=== PATIENT | male | born 1970 | race Caucasian/White ===

== ENCOUNTER 2016-07-31 16:04 | Emergency (ER) | payer OTHER ==
[2016-07-31] MEDS ORDERED: ACETAMINOPHEN TAB 500 MG TAB PO STA (17:03)
--- NOTE | 2016-07-31 17:06 | ED ---
URI HPI - General Chief Complaint: Upper Respiratory Infection Stated Complaint: Cough/Fever Time Seen by Provider: 07/31/16 17:03 Source: patient, RN notes reviewed Mode of arrival: ambulatory Limitations: no limitations - History of Present Illness Initial Comments: Patient is a 46-year-old male with chief complaint of upper respiratory symptoms including sinus congestion and sore throat for approximately 2 days. Patient reports that he is not taking any [id number] decongestants, or Motrin or Tylenol. Patient denies any cough or shortness of breath. Denies any other associated symptoms. Patient denies any recent fever, chills, shortness of breath, chest pain, back pain, abdominal pain, nausea vomiting, numbness or tingling, dysuria or hematuria, constipation or diarrhea, headaches or visual changes, or any other current symptoms. - Related Data Home Medications Medication Instructions Recorded Confirmed Butalb/Acetaminophen/Caffeine 1 - 2 cap PO Q4HR 04/25/15 09/20/15 [Fioricet 50-300-40 mg Capsule] Citalopram Hydrobromide [CeleXA] 10 mg PO DAILY 04/25/15 09/20/15 traMADol HCl [Ultram] 50 mg PO Q6H PRN 04/25/15 09/20/15 Previous Rx's Medication Instructions Recorded Albuterol Inhaler [Ventolin 1 - 2 puff INHALATION Q6HR PRN #1 05/20/15 Inhaler] inhaler Famotidine [Pepcid] 20 mg PO BID #20 tablet 09/10/15 Ondansetron Odt [Zofran ODT] 4 mg PO Q8HR PRN #15 tab 09/10/15 valACYclovir HCL [Valtrex] 1,000 mg PO Q8HR #30 tab 09/15/15 valACYclovir HCL [Valtrex] 1,000 mg PO TID #9 tablet 09/20/15 Acetaminophen Tab [Tylenol Tab] 650 mg PO Q6H #20 tablet 07/31/16 Azithromycin [Zithromax Z-pack] 250 mg PO DIRECTED #6 tab 07/31/16 guaiFENesin-DM 600/30MG [Mucinex 1 each PO BID #20 tab.er.12h 07/31/16 Dm] Allergies Allergy/AdvReac Type Severity Reaction Status Date / Time Penicillins Allergy Anaphylaxis Verified 09/20/15 17:26 Review of Systems ROS Statement: Those systems with pertinent positive or pertinent negative responses have been documented in the HPI. ROS Other: All systems not noted in ROS Statement are negative. Past Medical History Additional Past Medical History / Comment(s): back pain, migraines History of Any Multi-Drug Resistant Organisms: None Reported Past Surgical History: Orthopedic Surgery Past Psychological History: Depression Smoking Status: Current every day smoker Past Alcohol Use History: Rare Past Drug Use History: None Reported General Exam - General Exam Comments Initial Comments: Well appearing 46 year old male. No acute distress. Limitations: no limitations General appearance: alert, in no apparent distress Head exam: Present: atraumatic, normocephalic, normal inspection Eye exam: Present: normal appearance, PERRL, EOMI. Absent: scleral icterus, conjunctival injection, periorbital swelling ENT exam: Present: normal exam, mucous membranes moist, TM's normal bilaterally , normal external ear exam Neck exam: Present: normal inspection, full ROM. Absent: tenderness, meningismus, lymphadenopathy Respiratory exam: Present: normal lung sounds bilaterally. Absent: respiratory distress, wheezes, rales, rhonchi, stridor Cardiovascular Exam: Present: regular rate, normal rhythm, normal heart sounds. Absent: systolic murmur, diastolic murmur, rubs, gallop, clicks GI/Abdominal exam: Present: soft, normal bowel sounds. Absent: distended, tenderness, guarding, rebound, rigid Extremities exam: Present: normal inspection, full ROM, normal capillary refill. Absent: tenderness, pedal edema, joint swelling, calf tenderness Back exam: Present: normal inspection Neurological exam: Present: alert, oriented X3, CN II-XII intact Psychiatric exam: Present: normal affect, normal mood Skin exam: Present: warm, dry, intact, normal color. Absent: rash Course Vital Signs 07/31/16 07/31/16 16:42 17:18 Temperature 99.7 F H 97.6 F Pulse Rate 92 60 Respiratory 16 18 Rate Blood Pressure 132/84 139/90 O2 Sat by Pulse 98 100 Oximetry Medical Decision Making - Medical Decision Making Patient is a well-appearing 46-year-old male with chief complaint of sinus congestion for approximately 2 days. Patient hasn't had any Motrin Tylenol or other decongestant medications. Patient will be given a prescription for Mucinex, Motrin and instructed to start antibiotic, as I will write patient for azithromycin if symptoms continue persist after 3-4 days. Patient understands. I did advise patient to follow-up with primary care provider. Patient has no erythema or exudates of the oropharynx tonsils. Patient has no coughs is unnecessary to do any other imaging studies at this time. Return parameters were discussed. Disposition Clinical Impression: Upper respiratory infection Disposition: HOME SELF-CARE Condition: Good Instructions: Upper Respiratory Infection (ED) Additional Instructions: Patient advised to take Motrin and decongestant medications as prescribed. Patient advised to only start antibiotic if symptoms continue to persist after 2 -3 more days. Return to the [facility] if any alarming signs or symptoms occur. Follow -up with a primary care physician within the next week. Prescriptions: Acetaminophen Tab [Tylenol Tab] 650 mg PO Q6H #20 tablet Azithromycin [Zithromax Z-pack] 250 mg PO DIRECTED #6 tab guaiFENesin-DM 600/30MG [Mucinex Dm] 1 each PO BID #20 tab.er.12h Referrals: Tyrel Spencer MD [Primary Care Provider] - 1-2 days Time of Disposition: 17:05
[2016-07-31] MEDS ORDERED: guaiFENesin-DM 600/30MG 1 EACH TAB.ER.12H PO STA (17:13)
[2016-07-31 17:19] VITALS: BP 139/90; PULSE 60; RESP 18; TEMP 97.6
[2016-08-01] MEDS ORDERED: guaiFENesin-DM 600/30MG 1 EACH TAB.ER.12H PO SCH (09:00)
== END 2016-07-31 17:30 | disposition home or self-care (01) ==
LOC: EC 16:04
DX: J06.9 Acute upper respiratory infection, unspecified (principal); F32.9 Major depressive disorder, single episode, unspecified; F17.200 Nicotine dependence, unspecified, uncomplicated; Z79.899 Other long term (current) drug therapy; Z88.0 Allergy status to penicillin
CPT/HCPCS: 99283

== ENCOUNTER 2016-10-08 20:52 | Emergency (ER) | payer OTHER ==
[2016-10-08 21:13] VITALS: RESP 18
[2016-10-08] MEDS ORDERED: ONDANSETRON 4 MG/2 ML VIAL IVP STA (21:27)
[2016-10-08] MEDS ORDERED: SODIUM CHLORIDE 0.9% 1,000 ML IV ONE (21:27)
[2016-10-08] MEDS ORDERED: ACETAMINOPHEN TAB 500 MG TAB PO STA (21:33)
--- NOTE | 2016-10-08 21:33 | ED ---
Abdominal Pain HPI - General Chief Complaint: Abdominal Pain Stated Complaint: Abd pain,vomiting Time Seen by Provider: 10/08/16 21:16 Source: patient, RN notes reviewed Mode of arrival: ambulatory Limitations: no limitations - History of Present Illness Initial Comments: Patient is a 46-year-old male presents to the emergency room for evaluation nausea, vomiting and diarrhea. Patient states last night he began with nausea and vomiting. Patient states he's vomited 5+ times throughout the day along with multiple episodes of diarrhea. Patient states he is having lower abdominal cramping. Patient denies any history of abdominal surgeries. Patient denies recent travel outside the country. Patient denies trying new foods. Patient denies sick contacts. Patient denies taking recent antibiotics. Patient denies chest pain, shortness breath, headache, dizziness. Patient denies any pain or burning while urinating. Patient denies known fevers or chills. - Related Data Home Medications Medication Instructions Recorded Confirmed Butalb/Acetaminophen/Caffeine 1 - 2 cap PO Q4HR 04/25/15 10/08/16 [Fioricet 50-300-40 mg Capsule] Diphenoxylate HCl/Atropine 1 tab PO DAILY 10/08/16 10/08/16 [Lomotil] Omeprazole [PriLOSEC] 20 mg PO DAILY 10/08/16 10/08/16 Oxybutynin Chloride [Ditropan] 5 mg PO TID 10/08/16 10/08/16 traMADol HCL [Ultram] 50 mg PO Q6HR PRN 10/08/16 10/08/16 Previous Rx's Medication Instructions Recorded Ondansetron Odt [Zofran Odt] 4 mg PO Q8HR PRN #12 tab 10/08/16 Allergies Allergy/AdvReac Type Severity Reaction Status Date / Time Penicillins Allergy Anaphylaxis Verified 10/08/16 21:23 Review of Systems ROS Statement: Those systems with pertinent positive or pertinent negative responses have been documented in the HPI. ROS Other: All systems not noted in ROS Statement are negative. Past Medical History Additional Past Medical History / Comment(s): back pain, migraines History of Any Multi-Drug Resistant Organisms: None Reported Past Surgical History: Orthopedic Surgery Past Psychological History: Depression Smoking Status: Current every day smoker Past Alcohol Use History: Rare Past Drug Use History: None Reported General Exam - General Exam Comments Initial Comments: Sitting in exam room, no distress. Limitations: no limitations General appearance: alert, in no apparent distress Head exam: Present: atraumatic, normocephalic, normal inspection Eye exam: Present: normal appearance ENT exam: Present: normal exam Neck exam: Present: normal inspection Respiratory exam: Present: normal lung sounds bilaterally. Absent: respiratory distress Cardiovascular Exam: Present: regular rate, normal rhythm, normal heart sounds GI/Abdominal exam: Present: soft, normal bowel sounds. Absent: distended, tenderness, guarding, rebound, rigid Extremities exam: Present: normal inspection Back exam: Present: normal inspection Neurological exam: Present: alert, oriented X3, CN II-XII intact, normal gait Psychiatric exam: Present: normal affect, normal mood Skin exam: Present: warm, dry, intact, normal color. Absent: rash Course Vital Signs 10/08/16 21:09 Temperature 100.4 F H Pulse Rate 85 Respiratory 18 Rate Blood Pressure 130/79 O2 Sat by Pulse 98 Oximetry Medical Decision Making - Medical Decision Making Patient's 46-year-old male presents to the emergency room for evaluation of nausea, vomiting and diarrhea. Labs showed no acute findings. Patient states he feeling better after Zofran and fluids. Will discharge patient home with Zofran advised to return for worsening symptoms. Patient states he understands everything that was discussed with him. Case discussed with Dr. Pérez. - Lab Data Result diagrams: 10/08/16 21:57 10/08/16 21:57 Lab Results 10/08/16 10/08/16 10/08/16 Range/Units 21:42 21:57 21:57 WBC 9.4 (3.8-10.6) k/uL RBC 4.99 (4.30-5.90) m/uL Hgb 15.5 (13.0-17.5) gm/dL Hct 45.5 (39.0-53.0) % MCV 91.1 (80.0-100.0) fL MCH 31.1 (25.0-35.0) pg MCHC 34.1 (31.0-37.0) g/dL RDW 13.6 (11.5-15.5) % Plt Count 288 (150-450) k/uL Neutrophils % 76 % Lymphocytes % 12 % Monocytes % 8 % Eosinophils % 2 % Basophils % 1 % Neutrophils # 7.1 (1.3-7.7) k/uL Lymphocytes # 1.1 (1.0-4.8) k/uL Monocytes # 0.7 (0-1.0) k/uL Eosinophils # 0.1 (0-0.7) k/uL Basophils # 0.1 (0-0.2) k/uL Sodium 137 (137-145) mmol/L Potassium 4.0 (3.5-5.1) mmol/L Chloride 104 (98-107) mmol/L Carbon Dioxide 22 (22-30) mmol/L Anion Gap 11 mmol/L BUN 17 (9-20) mg/dL Creatinine 0.79 (0.66-1.25) mg/dL Est GFR (MDRD) Af Amer >60 (>60 ml/min/1.73 sqM) Est GFR (MDRD) Non-Af >60 (>60 ml/min/1.73 sqM) Glucose 108 H (74-99) mg/dL Plasma Lactic Acid Alexys (0.7-2.0) mmol/L Calcium 9.4 (8.4-10.2) mg/dL Total Bilirubin 1.1 (0.2-1.3) mg/dL AST 17 (17-59) U/L ALT 26 (21-72) U/L Alkaline Phosphatase 87 (38-126) U/L Total Protein 7.4 (6.3-8.2) g/dL Albumin 4.2 (3.5-5.0) g/dL Amylase 92 (30-110) U/L Lipase 44 (23-300) U/L Influenza Type A RNA Not Detected (Not Detectd) Influenza Type B (PCR) Not Detected (Not Detectd) 10/08/16 Range/Units 21:57 WBC (3.8-10.6) k/uL RBC (4.30-5.90) m/uL Hgb (13.0-17.5) gm/dL Hct (39.0-53.0) % MCV (80.0-100.0) fL MCH (25.0-35.0) pg MCHC (31.0-37.0) g/dL RDW (11.5-15.5) % Plt Count (150-450) k/uL Neutrophils % % Lymphocytes % % Monocytes % % Eosinophils % % Basophils % % Neutrophils # (1.3-7.7) k/uL Lymphocytes # (1.0-4.8) k/uL Monocytes # (0-1.0) k/uL Eosinophils # (0-0.7) k/uL Basophils # (0-0.2) k/uL Sodium (137-145) mmol/L Potassium (3.5-5.1) mmol/L Chloride (98-107) mmol/L Carbon Dioxide (22-30) mmol/L Anion Gap mmol/L BUN (9-20) mg/dL Creatinine (0.66-1.25) mg/dL Est GFR (MDRD) Af Amer (>60 ml/min/1.73 sqM) Est GFR (MDRD) Non-Af (>60 ml/min/1.73 sqM) Glucose (74-99) mg/dL Plasma Lactic Acid Alexys 1.4 (0.7-2.0) mmol/L Calcium (8.4-10.2) mg/dL Total Bilirubin (0.2-1.3) mg/dL AST (17-59) U/L ALT (21-72) U/L Alkaline Phosphatase (38-126) U/L Total Protein (6.3-8.2) g/dL Albumin (3.5-5.0) g/dL Amylase (30-110) U/L Lipase (23-300) U/L Influenza Type A RNA (Not Detectd) Influenza Type B (PCR) (Not Detectd) - Radiology Data Radiology results: report reviewed, image reviewed Disposition Clinical Impression: Nausea vomiting and diarrhea Disposition: HOME SELF-CARE Condition: Good Instructions: Gastroenteritis (ED) Additional Instructions: Take Zofran as needed for nausea. Drink plenty of water. Tylenol or Motrin as needed for fever/discomfort. Please follow up with primary care provider in 1-2 days. If any new symptom arises or symptoms worsen, return to ER as soon as possible. Prescriptions: Ondansetron Odt [Zofran Odt] 4 mg PO Q8HR PRN #12 tab PRN Reason: Nausea Referrals: Tyrel Spencer MD [Primary Care Provider] - 1-2 days Time of Disposition: 22:52
--- NOTE | 2016-10-08 22:11 | XR ---
EXAMINATION TYPE: XR KUB DATE OF EXAM: 10/08/2016 9:50 PM CLINICAL HISTORY: Lower abdominal pain with nausea vomiting and diarrhea for 2 days. TECHNIQUE: 2 upright KUB images of the abdomen are obtained. COMPARISON: CT abdomen September 10, 2015. FINDINGS: Air-fluid level is seen in slightly prominent stomach. Scattered gas is seen in non-disten ded small bowel loops. Some small bowel loops are slightly prominent. Gas is seen in non-distended co john. Some scattered air-fluid levels are present, nonspecific finding. There is no visceromegaly, pn eumoperitoneum, or abnormal calcification appreciated. The lung bases are clear and the osseous str uctures are intact. IMPRESSION: Overall nonspecific but favor nonobstructive bowel gas pattern.
[2016-10-08 22:24] LABS: Basophils # (A) 0.1 k/uL (0-0.2); Basophils % (A) 1 %; CHCM 35.3; Eosinophils # (A) 0.1 k/uL (0-0.7); Eosinophils % (A) 2 %; HCT 45.5 % (39.0-53.0); HDW 2.93; HGB 15.5 gm/dL (13.0-17.5); Luc # (Auto) 0.24; Luc % (Auto) 3; Lymphocytes # (A) 1.1 k/uL (1.0-4.8); Lymphocytes % (A) 12 %; MCH 31.1 pg (25.0-35.0); MCHC 34.1 g/dL (31.0-37.0); MCV 91.1 fL (80.0-100.0); Mean Platelet Volume 7.3; Monocytes # (A) 0.7 k/uL (0-1.0); Monocytes % (A) 8 %; Neutrophils # (A) 7.1 k/uL (1.3-7.7); Neutrophils % (A) 76 %; RBC 4.99 m/uL (4.30-5.90); RDW 13.6 % (11.5-15.5); WBC 9.4 k/uL (3.8-10.6); WBC (Perox) 9.15
[2016-10-08 22:25] LABS: ALT 26 U/L (21-72); AST 17 U/L (17-59); Alkaline Phosphatase 87 U/L (38-126); Amylase 92 U/L (30-110); Anion Gap 11 mmol/L; Blood Urea Nitrogen 17 mg/dL (9-20); Calcium 9.4 mg/dL (8.4-10.2); Carbon Dioxide 22 mmol/L (22-30); Chloride 104 mmol/L (98-107); Glucose 108 mg/dL (74-99); Non-African American GFR(MDRD) >60 (>60 ml/min/1.73 sqM); Sodium 137 mmol/L (137-145); Total Bilirubin 1.1 mg/dL (0.2-1.3); Total Protein 7.4 g/dL (6.3-8.2)
[2016-10-08 23:12] VITALS: BP 134/76; PULSE 78; TEMP 98.3
== END 2016-10-08 23:12 | disposition home or self-care (01) ==
LOC: EC 20:52
DX: R11.2 Nausea with vomiting, unspecified (principal); R19.7 Diarrhea, unspecified; R10.30 Lower abdominal pain, unspecified; F32.9 Major depressive disorder, single episode, unspecified; F17.200 Nicotine dependence, unspecified, uncomplicated; Z79.899 Other long term (current) drug therapy; Z88.0 Allergy status to penicillin
CPT/HCPCS: 36415; 80053; 82150; 83605; 83690; 85025; 87040; 87502; 74000; 99284; 96374; 96361; J2405

== ENCOUNTER 2017-08-16 11:33 | Emergency (ER) | payer OTHER ==
--- NOTE | 2017-08-16 12:47 | ED ---
General Adult HPI - General Chief complaint: Extremity Injury, Lower Stated complaint: hip pain Time Seen by Provider: 08/16/17 12:29 Source: patient, RN notes reviewed Mode of arrival: ambulatory Limitations: no limitations - History of Present Illness Initial comments: Patient's a 47-year-old male who presents emergency room today with a chief complaint of bilateral hip pain and a "strong odor" to his urine over the last several months. He states she's noticed this for the past few months but decided today to come to the emergency room to have it checked. States she's not on the family doctor. She knows of the hip pain is worse with movements. Gives example from a lying to sitting position has pain bilaterally in the posterior aspect of his hips. Denies any injury or trauma. Patient denies any dysuria but says she's noticed strong urine over the last several months. He denies any other complaints or symptoms. Patient denies any recent fever, chills , shortness of breath, chest pain, back pain, abdominal pain, nausea or vomiting , numbness or tingling, diarrhea, headaches or visual changes, or any other complaints. - Related Data Home Medications Medication Instructions Recorded Confirmed Butalb/Acetaminophen/Caffeine 1 - 2 cap PO Q4HR 04/25/15 10/08/16 [Fioricet 50-300-40 mg Capsule] Diphenoxylate HCl/Atropine 1 tab PO DAILY 10/08/16 10/08/16 [Lomotil] Omeprazole [PriLOSEC] 20 mg PO DAILY 10/08/16 10/08/16 Oxybutynin Chloride [Ditropan] 5 mg PO TID 10/08/16 10/08/16 traMADol HCL [Ultram] 50 mg PO Q6HR PRN 10/08/16 10/08/16 Previous Rx's Medication Instructions Recorded Ondansetron Odt [Zofran Odt] 4 mg PO Q8HR PRN #12 tab 10/08/16 Ibuprofen [Motrin] 600 mg PO Q6HR PRN #40 day 08/16/17 Allergies Allergy/AdvReac Type Severity Reaction Status Date / Time Penicillins Allergy Anaphylaxis Verified 08/16/17 11:40 Review of Systems ROS Statement: Those systems with pertinent positive or pertinent negative responses have been documented in the HPI. ROS Other: All systems not noted in ROS Statement are negative. Past Medical History Additional Past Medical History / Comment(s): back pain, migraines History of Any Multi-Drug Resistant Organisms: None Reported Past Surgical History: Orthopedic Surgery Past Psychological History: Depression Smoking Status: Former smoker Past Alcohol Use History: Rare Past Drug Use History: None Reported General Exam - General Exam Comments Initial Comments: General: The patient is awake and alert, in no distress, and does not appear acutely ill. Eye: Pupils are equal, round and reactive to light, extra-ocular movements are intact. No nystagmus. There is normal conjunctiva bilaterally. No signs of icterus. Ears, nose, mouth and throat: There are moist mucous membranes and no oral lesions. Neck: The neck is supple, there is no tenderness or JVD. Cardiovascular: There is a regular rate and rhythm. No murmur, rub or gallop is appreciated. Respiratory: Lungs are clear to auscultation, respirations are non-labored, breath sounds are equal. No wheezes, stridor, rales, or rhonchi. Gastrointestinal: Soft, non-distended, non-tender abdomen without masses or organomegaly noted. There is no rebound or guarding present. No CVA tenderness. Musculoskeletal: Normal ROM. Patient tender palpation over the bilateral SI joints. Strength 5/5. Sensation intact. Pulses equal bilaterally 2+. Neurological: A&O x 3. CN II-XII intact, There are no obvious motor or sensory deficits. Coordination appears grossly intact. Speech is normal. Skin: Skin is warm and dry and no rashes or lesions are noted. Psychiatric: Cooperative, appropriate mood & affect, normal judgment. Limitations: no limitations Course Vital Signs 08/16/17 11:37 Temperature 98.1 F Pulse Rate 68 Respiratory 18 Rate Blood Pressure 135/76 O2 Sat by Pulse 99 Oximetry Medical Decision Making - Medical Decision Making Patient reexamined at this time shows no signs of distress. He does admit that he's had these symptoms over the last several months. His urinalysis shows no sign of infection but culture is pending. He denies any dysuria but admits to a stronger order. Patient's x-rays have been reviewed and does show some degenerative changes of L4-L5, L5-S1. Patient's pain is reproduced with certain movements and on palpation. There is no injury or trauma to he denies any lumbar radiculopathy, saddle anesthesia, bowel or bladder incontinence retention. Patient is advised to use anti-inflammatories for symptoms will be given a orthopedic doctor to follow up with and also advised follow-up his family doctor. He is advised return if any symptoms increase or worsen or for any other concerns. Patient states understanding and is in agreement. - Lab Data Lab Results 08/16/17 Range/Units 13:00 Urine Color Yellow Urine Appearance Clear (Clear) Urine pH 5.5 (5.0-8.0) Ur Specific [place] 1.022 (1.001-1.035) Urine Protein Trace H (Negative) Urine Glucose (UA) Negative (Negative) Urine Ketones Negative (Negative) Urine Blood Negative (Negative) Urine Nitrite Negative (Negative) Urine Bilirubin Negative (Negative) Urine Urobilinogen <2.0 (<2.0) mg/dL Ur Leukocyte Esterase Trace H (Negative) Urine RBC 2 (0-5) /hpf Urine WBC 5 (0-5) /hpf Ur Squamous Epith Cells <1 (0-4) /hpf Calcium Oxalate Crystal Rare H (None) /hpf Urine Mucus Few H (None) /hpf Disposition Clinical Impression: Low back pain Disposition: HOME SELF-CARE Condition: Good Instructions: Back Pain (ED) Additional Instructions: Please use medication as prescribed. Please follow-up the family doctor and orthopedics over the next 2-5 days. Please return here to the emergency room if any symptoms increase or worsen or for any other concerns. Prescriptions: Ibuprofen [Motrin] 600 mg PO Q6HR PRN #40 day PRN Reason: Pain Referrals: Tyrel Spencer MD [Primary Care Provider] - 1-2 days Jn Restrepo MD [STAFF PHYSICIAN] - 1-2 days Time of Disposition: 13:26
--- NOTE | 2017-08-16 13:03 | XR ---
EXAM TYPE: LUMBAR SPINE X RAY SERIES COMPARISON: NONE HISTORY: Pain TECHNIQUE: 4 views are submitted. FINDINGS: Alignment is anatomic. The pedicles are intact. The transverse processes are intact. There is no s pondylolysis or spondylolisthesis. Hypertrophic changes are noted anteriorly. Degenerative disc dise ase L4-5 and L5-S1. IMPRESSION: 1. Hypertrophic and degenerative change L4-5 and L5-S1 correlate with MRI as clinically warranted.
--- NOTE | 2017-08-16 13:04 | XR ---
EXAMINATION TYPE: XR pelvis AP view DATE OF EXAM: 08/16/2017 COMPARISON: NONE HISTORY: Pain The osseous structures are intact and the joint spaces are preserved. No acute fracture is seen. Vi sualized bowel gas pattern is nonspecific. Calcifications in the pelvis could be related the prostat e. Left hemipelvic calcification likely is vascular. IMPRESSION: 1. No acute fracture.
[2017-08-16 13:15] LABS: Appearance,Urine Clear (Clear); Bilirubin,Urine Negative (Negative); Blood,Urine Negative (Negative); Calcium Oxalate Crystals,Urine Rare /hpf; Color,Urine Yellow; Glucose,Urine (UA) Negative (Negative); Ketones,Urine Negative (Negative); Leukocyte Esterase,Urine Trace (Negative); Mucus,Urine Few /hpf; PH, Urine 5.5 (5.0-8.0); Protein,Urine Trace (Negative); RBC,Urine 2 /hpf (0-5); Specific Gravity,Urine 1.022 (1.001-1.035); Squamous Epithelial Cell,Urine <1 /hpf (0-4); Urobilinogen,Urine <2.0 mg/dL (<2.0); WBC,Urine 5 /hpf (0-5)
[2017-08-16 13:40] VITALS: BP 142/80; PULSE 72; RESP 16; TEMP 97.8
== END 2017-08-16 13:35 | disposition home or self-care (01) ==
LOC: EC 11:33
DX: M54.5 Low back pain (principal); M47.817 Spondylosis without myelopathy or radiculopathy, lumbosacral region; M25.551 Pain in right hip; M25.552 Pain in left hip; R82.99 Other abnormal findings in urine; Z87.891 Personal history of nicotine dependence; Z88.0 Allergy status to penicillin; Z79.899 Other long term (current) drug therapy
CPT/HCPCS: 72110; 72170; 81001; 87086; 99283

== ENCOUNTER → 2017-09-05 | Outpatient (CLI) | payer OTHER ==
--- NOTE | 2017-09-05 13:17 | MR ---
EXAMINATION TYPE: MR lumbar spine wo con DATE OF EXAM: 09/05/2017 1:08 PM COMPARISON: NONE HISTORY: Intervertebral disc degeneration, lumbar Multiplanar, MultiSpin echo imaging of the lumbar spine was performed. L1-L2: Normal disc appearance without desiccation. No herniation, protrusion or disc bulging. No ca nal stenosis is present. Foramina are patent bilaterally. L2-L3: Normal disc appearance without desiccation. No herniation, protrusion or disc bulging. No ca nal stenosis is present. Foramina are patent bilaterally. L3-L4: There is mild disc desiccation. Mild posterior disc bulge with minimal effacement ventral thec al sac. No evidence for disc herniation protrusion. No central stenosis or foraminal encroachment. L4-L5: There is mild disc desiccation. Mild posterior disc bulge with minimal effacement ventral thec al sac. No evidence for disc herniation protrusion. No central stenosis or foraminal encroachment. L5-S1: Normal disc appearance without desiccation. No herniation, protrusion or disc bulging. No ca nal stenosis is present. Foramina are patent bilaterally. Lumbar segments are intact. No paraspinal masses are identified. Conus medullaris has a normal appe arance. IMPRESSION: 1. Degenerative disc disease and disc bulging as noted above.
== END ==
LOC: RADMRIMAIN 12:29
PROVIDERS: ATTEND Physician Assistant
DX: M51.36 Other intervertebral disc degeneration, lumbar region (principal)
CPT/HCPCS: 72148

== ENCOUNTER → 2017-12-26 | Outpatient (CLI) | payer OTHER ==
--- NOTE | 2017-12-27 03:43 | MR ---
EXAMINATION TYPE: MR brain wo con DATE OF EXAM: 12/26/2017 COMPARISON: 12/25/2011 HISTORY: Headaches Standard multiplanar, multisequence MRI departmental protocol Multiplanar, multisequence images of the brain were acquired. Diffusion weighted imaging was performe d. FINDINGS: Ventricles of normal size. There is no mass effect nor midline shift. There is no sign of i ntracranial hemorrhage. There is 4 mm focus of increased signal at the subcortical right posterior fr ontal lobe. Brainstem appears normal. Corpus callosum is normal. Sella turcica appears normal. Orbits are symmetric. IMPRESSION: Single small focus of increased signal in the right posterior frontal lobe white matter is new compar ed to old exam. This could be a focus of microvascular ischemia. Otherwise negative exam.
== END | disposition home or self-care (01) ==
LOC: RADMRIMAIN 15:20
PROVIDERS: ATTEND Psychiatry & Neurology Pain Medicine
DX: R93.8 Abnormal findings on diagnostic imaging of other specified body structures (principal)
CPT/HCPCS: 70551

== ENCOUNTER 2018-07-09 00:02 | Emergency (ER) | payer OTHER ==
[2018-07-09 00:14] VITALS: BP 150/103; PULSE 94; RESP 18; TEMP 99
--- NOTE | 2018-07-09 00:31 | ED ---
General Adult HPI - General Chief complaint: Skin/Abscess/Foreign Body Stated complaint: Abscess on finger Time Seen by Provider: 07/09/18 00:31 Source: patient Mode of arrival: ambulatory Limitations: no limitations - Related Data Home Medications Medication Instructions Recorded Confirmed Butalb/Acetaminophen/Caffeine 1 - 2 cap PO Q4HR 04/25/15 10/08/16 [Fioricet 50-300-40 mg Capsule] Diphenoxylate HCl/Atropine 1 tab PO DAILY 10/08/16 10/08/16 [Lomotil] Omeprazole [PriLOSEC] 20 mg PO DAILY 10/08/16 10/08/16 Oxybutynin Chloride [Ditropan] 5 mg PO TID 10/08/16 10/08/16 traMADol HCL [Ultram] 50 mg PO Q6HR PRN 10/08/16 10/08/16 Previous Rx's Medication Instructions Recorded Ondansetron Odt [Zofran Odt] 4 mg PO Q8HR PRN #12 tab 10/08/16 Ibuprofen [Motrin] 600 mg PO Q6HR PRN #40 day 08/16/17 Allergies Allergy/AdvReac Type Severity Reaction Status Date / Time Penicillins Allergy Anaphylaxis Verified 07/09/18 00:14 Review of Systems ROS Statement: Those systems with pertinent positive or pertinent negative responses have been documented in the HPI. ROS Other: All systems not noted in ROS Statement are negative. Past Medical History Additional Past Medical History / Comment(s): back pain, migraines, History of Any Multi-Drug Resistant Organisms: None Reported Past Surgical History: Orthopedic Surgery Past Psychological History: Depression Smoking Status: Former smoker Past Alcohol Use History: Rare Past Drug Use History: None Reported General Exam Limitations: no limitations Course Vital Signs 07/09/18 00:09 Temperature 99.0 F Pulse Rate 94 Respiratory 18 Rate Blood Pressure 150/103 O2 Sat by Pulse 97 Oximetry Medical Decision Making - Medical Decision Making Dictation was produced using [employer] dictation software. please excuse any grammatical, word or spelling errors. Chief Complaint: 48-year-old male presents with nontender bump on his right middle finger History of Present Illness: he is a 40-year-old male. He has had a bump on his right middle finger for several weeks now. He decided come today because the bump became dark. Reports that her. Patient has no other such lesions or his body. Patient has no other complaints at this time. The ROS documented in this emergency department record has been reviewed and confirmed by me. Those systems with pertinent positive or negative responses have been documented in the HPI. All other systems are other negative and/or noncontributory. PHYSICAL EXAM: General Impression: Alert and oriented x3, not in acute distress HEENT: Normocephalic atraumatic, extra-ocular movements intact, pupils equal and reactive to light bilaterally, mucous membranes moist. Cardiovascular: Heart regular rate and rhythm, S1&S2 audible, no murmurs, rubs or gallops Chest: Lungs clear to auscultation bilaterally, no rhonchi, no wheeze, no rales Abdomen: Bowel sounds present, abdomen soft, non-tender, non-distended, no organomegaly Musculoskeletal: Pulses present and equal in all extremities, no peripheral edema Motor: Power 5/5 bilaterally, no focal deficits noted Neurological: CN II-XII grossly intact, no focal motor or sensory deficits noted Skin: Intact with no visualized rashes, small 0.5 x 0.5 cm mass over the right medial middle finger. Mobile, no rub or texture Psych: Normal affect and mood ED course: 48-year-old male presents with right failure. Signs upon arrival are within acceptable limits. X-ray shows no acute processes. Patient given outpatient referral to hand surgery. Disposition Clinical Impression: Mass of finger Disposition: HOME SELF-CARE Condition: Good Is patient prescribed a controlled substance at d/c from ED?: No Referrals: None,Stated [Primary Care Provider] - 1-2 days Collins Jack DO [Doctor of Osteopathic Medicine] - 1-2 days Time of Disposition: 01:10
--- NOTE | 2018-07-09 01:00 | XR ---
EXAMINATION TYPE: XR finger RT DATE OF EXAM: 07/09/2018 COMPARISON: NONE HISTORY: Bump on the middle finger TECHNIQUE: 3 views FINDINGS: There is minor spurring at the DIP joint. There is slight narrowing of the DIP joint space. I see no sign of radiopaque foreign body. IMPRESSION: Minimal osteoarthritis. No evidence of a soft tissue mass.
== END 2018-07-09 01:14 | disposition home or self-care (01) ==
LOC: EC 00:02
DX: R22.31 Localized swelling, mass and lump, right upper limb (principal); F32.9 Major depressive disorder, single episode, unspecified; Z87.891 Personal history of nicotine dependence; Z79.899 Other long term (current) drug therapy; Z88.0 Allergy status to penicillin
CPT/HCPCS: 99283

== ENCOUNTER 2019-04-13 17:45 | Emergency (ER) | payer OTHER ==
--- NOTE | 2019-04-13 18:17 | ED ---
General Adult HPI - General Chief complaint: Urogenital Stated complaint: Urinating Time Seen by Provider: 04/13/19 18:01 Source: patient, RN notes reviewed Mode of arrival: ambulatory Limitations: no limitations - History of Present Illness Initial comments: 49-year-old male presents to the emergency department for a chief complaint of urinary frequency. Patient states that he has had urinary frequency since he was a child. States that he has been told that since he has a child he has overactive bladder. States that he has had right side pain for over a year. States this has not changed in the past year. Patient states that for the past several months he has had a foul-smelling odor in his urine. When asked today what made him come to the emergency department he states that his fiance was going to leave him if he did not show incentive for caring for himself so he decided to come in and be evaluated. Patient denies any pain with urination. Denies any fevers or chills.Patient has no other complaints at this time including shortness of breath, chest pain, abdominal pain, nausea or vomiting, headache, or visual changes. - Related Data Home Medications Medication Instructions Recorded Confirmed Fen U Syri[place] 1 tab PO BID 04/13/19 04/13/19 Ginseng 100 mg PO BID 04/13/19 04/13/19 Green Tea [place] Extract [Green Tea 150 mg PO BID 04/13/19 04/13/19 Extract] Horny Goat [place] 1 tab PO BID 04/13/19 04/13/19 Vitamin E 100 unit PO BID 04/13/19 04/13/19 Previous Rx's Medication Instructions Recorded Oxybutynin Chloride [Ditropan] 5 mg PO BID #14 tab 04/13/19 Allergies Allergy/AdvReac Type Severity Reaction Status Date / Time Penicillins Allergy Anaphylaxis Verified 04/13/19 18:19 Review of Systems ROS Statement: Those systems with pertinent positive or pertinent negative responses have been documented in the HPI. ROS Other: All systems not noted in ROS Statement are negative. Past Medical History Additional Past Medical History / Comment(s): back pain, migraines, History of Any Multi-Drug Resistant Organisms: None Reported Past Surgical History: No Surgical Hx Reported Past Psychological History: Depression Smoking Status: Current some day smoker Past Alcohol Use History: Rare Past Drug Use History: None Reported General Exam Limitations: no limitations General appearance: alert, in no apparent distress Head exam: Present: atraumatic, normocephalic, normal inspection Eye exam: Present: normal appearance, PERRL, EOMI. Absent: scleral icterus, conjunctival injection, periorbital swelling ENT exam: Present: normal exam, mucous membranes moist Neck exam: Present: normal inspection, full ROM. Absent: tenderness, meningismus, lymphadenopathy Respiratory exam: Present: normal lung sounds bilaterally. Absent: respiratory distress, wheezes, rales, rhonchi, stridor Cardiovascular Exam: Present: regular rate, normal rhythm, normal heart sounds. Absent: systolic murmur, diastolic murmur, rubs, gallop, clicks GI/Abdominal exam: Present: soft, normal bowel sounds. Absent: distended, tenderness (No tenderness noted of the abdomen whatsoever), guarding, rebound, rigid Back exam: Absent: CVA tenderness (R), CVA tenderness (L) Course Vital Signs 04/13/19 04/13/19 17:56 18:27 Temperature 98.4 F 98.2 F Pulse Rate 110 H 90 Respiratory 18 16 Rate Blood Pressure 163/103 129/97 O2 Sat by Pulse 99 95 Oximetry Medical Decision Making - Medical Decision Making She presents for chronic urinary frequency that has been ongoing since he was a child. History of overactive bladder. Patient is also at right side pain for over a year that has not changed. Patient presented to the emergency department because his fianc said he she would break up with him if he did not show he was going to care for himself so he did come. Patient has not followed up with urology for this. Denies any worsening of urinary frequency lately. Urinalysis was performed to rule out urinary tract infection which showed trace blood and 1+ protein. Occasional mucous. Gonorrhea and chlamydia were added. Patient is requesting medication for his overactive bladder. States he has been on medication before and it has helped. Patient will be given a week's worth and a urology follow-up. Recommended he return if he has any worsening symptoms or fevers. - Lab Data Lab Results 04/13/19 Range/Units 18:10 Urine Color Yellow Urine Appearance Clear (Clear) Urine pH 6.5 (5.0-8.0) Ur Specific [place] 1.017 (1.001-1.035) Urine Protein 1+ H (Negative) Urine Glucose (UA) Negative (Negative) Urine Ketones Negative (Negative) Urine Blood Trace H (Negative) Urine Nitrite Negative (Negative) Urine Bilirubin Negative (Negative) Urine Urobilinogen <2.0 (<2.0) mg/dL Ur Leukocyte Esterase Negative (Negative) Urine RBC 1 (0-5) /hpf Urine WBC 1 (0-5) /hpf Ur Squamous Epith Cells <1 (0-4) /hpf Urine Mucus Occasional H (None) /hpf Disposition Clinical Impression: Urinary frequency Disposition: HOME SELF-CARE Condition: Good Instructions (If sedation given, give patient instructions): Urinary Urgency and Frequency (DC) Additional Instructions: Please take medications as directed. Please follow up with primary care in 1-2 days as well as urology. Return to the ER if you have any worsening symptoms or fevers. Prescriptions: Oxybutynin Chloride [Ditropan] 5 mg PO BID #14 tab Is patient prescribed a controlled substance at d/c from ED?: No Referrals: Brent Wheatley MD [Primary Care Provider] - 1-2 days Allan Ruiz MD [STAFF PHYSICIAN] - 1-2 days Time of Disposition: 19:30
[2019-04-13 18:28] VITALS: BP 129/97; RESP 16
[2019-04-13 18:45] LABS: Appearance,Urine Clear (Clear); Bilirubin,Urine Negative (Negative); Blood,Urine Trace (Negative); Color,Urine Yellow; Glucose,Urine (UA) Negative (Negative); Ketones,Urine Negative (Negative); Leukocyte Esterase,Urine Negative (Negative); Mucus,Urine Occasional /hpf; Nitrite,Urine Negative (Negative); PH, Urine 6.5 (5.0-8.0); Protein,Urine 1+ (Negative); RBC,Urine 1 /hpf (0-5); Specific Gravity,Urine 1.017 (1.001-1.035); Squamous Epithelial Cell,Urine <1 /hpf (0-4); Urobilinogen,Urine <2.0 mg/dL (<2.0); WBC,Urine 1 /hpf (0-5)
[2019-04-13 19:51] VITALS: PULSE 105; TEMP 98.8
[2019-04-15 15:59] LABS: N. gonorrhoeae,PCR Negative (Neg,Equiv); Neisseria Source Urine
[2019-04-15 16:05] LABS: C. trachomatis,PCR Negative (Neg,Equiv); Chlamydia trachomatis Source Urine
== END 2019-04-13 19:50 | disposition home or self-care (01) ==
LOC: EC 17:45
DX: R35.0 Frequency of micturition (principal); N32.81 Overactive bladder; R82.998 Other abnormal findings in urine; F17.200 Nicotine dependence, unspecified, uncomplicated; Z88.0 Allergy status to penicillin
CPT/HCPCS: 81001; 87491; 87591; 99283

== ENCOUNTER 2019-04-20 18:31 | Emergency (ER) | payer OTHER ==
[2019-04-20 19:00] VITALS: BP 143/96; PULSE 97; RESP 18; TEMP 98.6
[2019-04-20] MEDS ORDERED: IBUPROFEN 600 MG STARTER PACK 4 TAB BTL PO STA (19:21)
[2019-04-20] MEDS ORDERED: traMADol 50 MG STARTER PACK 3 TAB BTL PO STA (19:21)
--- NOTE | 2019-04-20 19:23 | ED ---
Recheck HPI - General Chief Complaint: Recheck/Abnormal Lab/Rx Stated Complaint: wants script for bladder control Time Seen by Provider: 04/20/19 19:10 Source: patient Mode of arrival: ambulatory Limitations: no limitations - History of Present Illness Initial Comments: 49-year-old male patient presents to the emergency department today requesting refill on his oxybutynin prescription and also something for pain. Patient states he has chronic low back pain since he was a child. States that over the last few weeks it has been getting worse. He denies any numbness or tingling to his lower extremities. Denies any radiation of the pain down his legs. Denies saddle anesthesia or loss of bowel or bladder control. Denies any new injury to the back. Patient states he also has overactive bladder has been taking oxybutynin however doesn't have an appointment with his physician until the to get a refill. Denies fever or chills. Denies any hematuria or dysuria. Patient denies any recent rash, shortness breath, chest pain, abdominal pain, nausea, vomiting, diarrhea, constipation, dizziness, weakness, headache, visual changes, or any other complaints. - Related Data Home Medications Medication Instructions Recorded Confirmed Fen U [place] 1 tab PO BID 04/13/19 04/13/19 Ginseng 100 mg PO BID 04/13/19 04/13/19 Green Tea [place] Extract [Green Tea 150 mg PO BID 04/13/19 04/13/19 Extract] Horny Goat [place] 1 tab PO BID 04/13/19 04/13/19 Vitamin E 100 unit PO BID 04/13/19 04/13/19 Previous Rx's Medication Instructions Recorded Oxybutynin Chloride [Ditropan] 5 mg PO BID #14 tab 04/13/19 Ibuprofen [Motrin] 600 mg PO Q8HR PRN #30 tab 04/20/19 Oxybutynin Chloride [Oxybutynin 10 mg PO DAILY #7 tab.er.24 04/20/19 Chloride ER] Allergies Allergy/AdvReac Type Severity Reaction Status Date / Time Penicillins Allergy Anaphylaxis Verified 04/13/19 18:19 Review of Systems ROS Statement: Those systems with pertinent positive or pertinent negative responses have been documented in the HPI. ROS Other: All systems not noted in ROS Statement are negative. Past Medical History Additional Past Medical History / Comment(s): back pain, migraines, History of Any Multi-Drug Resistant Organisms: None Reported Past Surgical History: No Surgical Hx Reported Past Psychological History: Depression Smoking Status: Current some day smoker Past Alcohol Use History: Rare Past Drug Use History: None Reported General Exam Limitations: no limitations General appearance: alert, in no apparent distress, other (This is a well- developed, well-nourished adult male patient in no acute distress. Vital signs upon presentation are temperature 98.6F, pulse 97, respirations 18, blood pressure 143/96, pulse ox 94% on room air) Eye exam: Present: normal appearance, PERRL, EOMI. Absent: scleral icterus, conjunctival injection, periorbital swelling Respiratory exam: Present: normal lung sounds bilaterally. Absent: respiratory distress, wheezes, rales, rhonchi, stridor Cardiovascular Exam: Present: regular rate, normal rhythm, normal heart sounds. Absent: systolic murmur, diastolic murmur, rubs, gallop, clicks GI/Abdominal exam: Present: soft, normal bowel sounds. Absent: distended, tenderness, guarding, rebound, rigid Extremities exam: Present: normal inspection, full ROM, normal capillary refill. Absent: tenderness, pedal edema, joint swelling, calf tenderness Back exam: Present: normal inspection. Absent: vertebral tenderness Neurological exam: Present: alert, oriented X3, CN II-XII intact, other (Strength lower extremities is 5/5) Psychiatric exam: Present: normal affect, normal mood Skin exam: Present: warm, dry, intact, normal color. Absent: rash Course Vital Signs 04/20/19 18:57 Temperature 98.6 F Pulse Rate 97 Respiratory 18 Rate Blood Pressure 143/96 O2 Sat by Pulse 94 L Oximetry Medical Decision Making - Medical Decision Making 49-year-old male patient presents to the emergency department today requesting refills for his oxybutynin and tramadol. Patient has chronic low back pain since being a child. Physical examination is unremarkable. He has no concerning symptoms or cauda equina. No new injuries. We will refill his oxyb utynin, he'll be given a starter pack for tramadol. He is informed that he will not receive narcotic prescriptions for chronic pain in the emergency department. He is instructed to follow-up with his primary care physician as he has planned. Return parameters were discussed in detail. He verbalizes understanding and agrees with this plan Disposition Clinical Impression: Medication refill, Chronic low back pain Disposition: HOME SELF-CARE Condition: Good Instructions (If sedation given, give patient instructions): Chronic Back Pain (DC), Medicine Refill (ED) Additional Instructions: Take medications as directed. Use tramadol sparingly. Follow-up with your physician for recheck as soon as possible. Return to the emergency department immediately for any new, worsening, or concerning symptoms. Prescriptions: Ibuprofen [Motrin] 600 mg PO Q8HR PRN #30 tab PRN Reason: Pain Oxybutynin Chloride [Oxybutynin Chloride ER] 10 mg PO DAILY #7 tab.er.24 Is patient prescribed a controlled substance at d/c from ED?: No Referrals: Brent Wheatley MD [Primary Care Provider] - 1-2 days Time of Disposition: 19:23
== END 2019-04-20 19:38 | disposition home or self-care (01) ==
LOC: EC 18:31
DX: Z76.0 Encounter for issue of repeat prescription (principal); G89.29 Other chronic pain; M54.5 Low back pain; F17.200 Nicotine dependence, unspecified, uncomplicated; Z88.0 Allergy status to penicillin
CPT/HCPCS: 99281

== ENCOUNTER 2019-06-14 12:19 | Emergency (ER) | payer OTHER ==
[2019-06-14 12:24] VITALS: RESP 20; TEMP 98.2
[2019-06-14] MEDS ORDERED: ASPIRIN 81 MG PO STA (12:51)
--- NOTE | 2019-06-14 13:44 | ED ---
Chest Pain HPI - General Chief Complaint: Chest Pain Stated Complaint: chest pain Time Seen by Provider: 06/14/19 12:44 Source: patient Mode of arrival: ambulatory Limitations: no limitations - History of Present Illness Initial Comments: Patient is a 49-year-old male presenting to emergency Department with complaints of chest pain that happened last night as well as back pain. Patient states he was playing video games last night when he had a onset of chest pain. He describes the pain as sharp and only lasting a few seconds. Patient states he currently does not have chest pain today however is having back pain. Patient states he has a history of back pain and this feels similar. Patient denies any trauma or new injuries. Patient denies soreness of breath, abdominal pain, nausea, vomiting, fever, chills. Patient has history of hypertension however takes no medications. Patient has no history of heart disease. Patient has no other complaints at this time. Upon arrival to the ER, his vital signs are stable. - Related Data Home Medications Medication Instructions Recorded Confirmed Fen U [place] 1 tab PO BID 04/13/19 04/13/19 Ginseng 100 mg PO BID 04/13/19 04/13/19 Green Tea [place] Extract [Green Tea 150 mg PO BID 04/13/19 04/13/19 Extract] Horny Goat [place] 1 tab PO BID 04/13/19 04/13/19 Vitamin E 100 unit PO BID 04/13/19 04/13/19 Previous Rx's Medication Instructions Recorded Oxybutynin Chloride [Ditropan] 5 mg PO BID #14 tab 04/13/19 Ibuprofen [Motrin] 600 mg PO Q8HR PRN #30 tab 04/20/19 Oxybutynin Chloride [Oxybutynin 10 mg PO DAILY #7 tab.er.24 06/14/19 Chloride ER] Allergies Allergy/AdvReac Type Severity Reaction Status Date / Time Penicillins Allergy Anaphylaxis Verified 06/14/19 12:24 Review of Systems ROS Statement: Those systems with pertinent positive or pertinent negative responses have been documented in the HPI. ROS Other: All systems not noted in ROS Statement are negative. EKG Findings - EKG Comments: EKG Findings:: Ventricular rate 105, GA interval 184, QTC 449. Sinus tachycardia, no acute ST segment changes. Past Medical History Past Medical History: Hypertension Additional Past Medical History / Comment(s): back pain, migraines, History of Any Multi-Drug Resistant Organisms: None Reported Past Surgical History: No Surgical Hx Reported Past Psychological History: Depression Smoking Status: Current some day smoker Past Alcohol Use History: Rare Past Drug Use History: None Reported General Exam - General Exam Comments Initial Comments: GENERAL: Well-appearing, well-nourished and in no acute distress. HEAD: Atraumatic, normocephalic. EYES: Pupils equal round and reactive to light, extraocular movements intact, sclera anicteric, conjunctiva are normal. ENT: TMs normal, nares patent, oropharynx clear without exudates. Moist mucous membranes. NECK: Normal range of motion, supple without lymphadenopathy or JVD. LUNGS: Breath sounds clear to auscultation bilaterally and equal. No wheezes rales or rhonchi. HEART: Regular rate and rhythm without murmurs, rubs or gallops. ABDOMEN: Soft, nontender, normoactive bowel sounds. No guarding, no rebound. No masses appreciated. : Deferred EXTREMITIES: Normal range of motion, no pitting or edema. No clubbing or cyanosis. Mild pain with palpation of the thoracic paraspinals. NEUROLOGICAL: Normal speech, normal gait. PSYCH: Normal mood, normal affect. SKIN: Warm, Dry, normal turgor, no rashes or lesions noted. Limitations: no limitations Course Vital Signs 06/14/19 06/14/19 06/14/19 12:22 12:42 12:46 Temperature 98.2 F Pulse Rate 111 H 92 Respiratory 20 20 Rate Blood Pressure 141/80 138/92 O2 Sat by Pulse 94 L 94 L 96 Oximetry 06/14/19 06/14/19 06/14/19 13:00 13:24 13:30 Temperature Pulse Rate 103 H 92 Respiratory 20 Rate Blood Pressure 138/92 109/60 O2 Sat by Pulse 95 96 Oximetry 06/14/19 06/14/19 06/14/19 14:00 14:30 15:00 Temperature Pulse Rate 98 96 93 Respiratory 20 20 Rate Blood Pressure 125/76 O2 Sat by Pulse 94 L 96 98 Oximetry 06/14/19 06/14/19 15:30 16:18 Temperature Pulse Rate 95 68 Respiratory 20 Rate Blood Pressure 132/89 107/72 O2 Sat by Pulse 100 98 Oximetry - Reevaluation(s) Reevaluation #1: 12/29/19 14:33 Upon recheck, vital signs remained stable. Patient is asymptomatic. We are awaiting lab results. Lab was called on 2 separate occasions and they stated they will be processing blood work. Chest Pain MDM - MDM Patient is a 49-year-old male presenting with intermittent chest pain that happened yesterday as well as back pain. The patient states his back pain is chronic and feels same as he always had. Patient arrives without chest pain. His vital signs are stable. Exam is unremarkable. EKG, lab work, and chest XR show no acute abnormalities. Troponin is normal. UA is normal. Patient was given an aspirin. Patient continues to be asymptomatic in the ER. He continues to ask to be discharged home. I recommended him to be admitted for observation and serial troponin however patient refused. Patient is requesting a refill of his bladder medication. Patient will be discharged home. Refill of medication. Return parameters were discussed with the patient he verbalizes understanding. Patient will follow up with PCP. Case discussed with Dr. Lewis. Disposition Clinical Impression: Atypical chest pain Disposition: HOME SELF-CARE Condition: Stable Instructions (If sedation given, give patient instructions): Chest Pain (ED) Additional Instructions: Please return to the Emergency Department if symptoms worsen or any other concerns. Follow-up with PCP. Prescriptions: Oxybutynin Chloride [Oxybutynin Chloride ER] 10 mg PO DAILY #7 tab.er.24 Is patient prescribed a controlled substance at d/c from ED?: No Referrals: Brent Wheatley MD [Primary Care Provider] - 1-2 days
--- NOTE | 2019-06-14 13:51 | XR ---
EXAMINATION TYPE: XR chest 2V DATE OF EXAM: 06/14/2019 COMPARISON: 09/08/2018 TECHNIQUE: PA and lateral views submitted. HISTORY: Chest pain FINDINGS: Subsegmental changes are seen involving the lung bases. No pleural effusion or pneumothorax. Heart si ze normal. Limited inspiration. Degenerative change of the spine. IMPRESSION: 1. Stable basilar atelectasis or infiltrate unchanged from the prior exam.
[2019-06-14 14:02] LABS: INR 0.9 (<1.2); Partial Thromboplastin Time 25.2 sec (22.0-30.0); Prothrombin Time 9.8 sec (9.0-12.0)
[2019-06-14 15:51] LABS: Basophils # (A) 0.1 k/uL (0-0.2); Basophils % (A) 1 %; Eosinophils # (A) 0.2 k/uL (0-0.7); Eosinophils % (A) 3 %; HCT 45.1 % (39.0-53.0); HGB 14.8 gm/dL (13.0-17.5); Lymphocytes # (A) 1.1 k/uL (1.0-4.8); Lymphocytes % (A) 15 %; MCH 30.4 pg (25.0-35.0); MCHC 32.7 g/dL (31.0-37.0); MCV 92.8 fL (80.0-100.0); Mean Platelet Volume 8.1; Monocytes # (A) 0.5 k/uL (0-1.0); Monocytes % (A) 8 %; Neutrophils % (A) 71 %; Platelet Count 262 k/uL (150-450); RBC 4.86 m/uL (4.30-5.90); RDW 13.9 % (11.5-15.5); WBC 7.1 k/uL (3.8-10.6)
[2019-06-14 15:54] LABS: ALT 24 U/L (4-49); AST 23 U/L (17-59); African American GFR (CKD) >90 (>60 ml/min/1.73 sqM); Albumin 4.1 g/dL (3.5-5.0); Alkaline Phosphatase 83 U/L (38-126); Anion Gap 8 mmol/L; Blood Urea Nitrogen 18 mg/dL (9-20); Calcium 9.3 mg/dL (8.4-10.2); Carbon Dioxide 25 mmol/L (22-30); Chloride 106 mmol/L (98-107); Glucose 109 mg/dL (74-99); Non-African American GFR(CKD) >90 (>60 ml/min/1.73 sqM); Potassium 4.3 mmol/L (3.5-5.1); Sodium 139 mmol/L (137-145); Total Bilirubin 1.2 mg/dL (0.2-1.3); Total Protein 7.4 g/dL (6.3-8.2)
[2019-06-14 16:01] LABS: Appearance,Urine Clear (Clear); Bilirubin,Urine Negative (Negative); Blood,Urine Negative (Negative); Color,Urine Yellow; Glucose,Urine (UA) Negative (Negative); Ketones,Urine Negative (Negative); Leukocyte Esterase,Urine Small (Negative); Mucus,Urine Rare /hpf; Nitrite,Urine Negative (Negative); Protein,Urine Negative (Negative); RBC,Urine 1 /hpf (0-5); Specific Gravity,Urine 1.015 (1.001-1.035); Urobilinogen,Urine <2.0 mg/dL (<2.0); WBC,Urine 4 /hpf (0-5)
[2019-06-14 16:19] VITALS: BP 107/72; PULSE 68
== END 2019-06-14 16:20 | disposition home or self-care (01) ==
LOC: EC 12:19
DX: R07.89 Other chest pain (principal); Z76.0 Encounter for issue of repeat prescription; M54.6 Pain in thoracic spine; F17.200 Nicotine dependence, unspecified, uncomplicated; Z88.0 Allergy status to penicillin; Z86.79 Personal history of other diseases of the circulatory system; Z53.20 Procedure and treatment not carried out because of patient's decision for unspecified reasons
CPT/HCPCS: 36415; 71046; 80053; 81001; 83735; 84484; 85025; 85610; 85730; 93005; 99285

== ENCOUNTER 2022-02-05 08:39 | Emergency (ER) | payer OTHER ==
[2022-02-05 08:52] VITALS: BP 115/79; PULSE 76; RESP 20; TEMP 98.6
[2022-02-05] MEDS ORDERED: PROPARACAINE 0.5% OPHTH DROPS 15 ML BTL LEFT EYE STA (09:18)
[2022-02-05] MEDS ORDERED: FLUORESCEIN STRIPS 1 MG STRIP LEFT EYE ONE (09:20)
--- NOTE | 2022-02-05 09:23 | ED ---
Eye Problem HPI - General Source: patient Mode of arrival: ambulatory Limitations: no limitations - History of Present Illness chief complaint: eye redness -: days(s) (3) Onset Description: gradual Location: left eye Eye Symptoms: redness, discharge Severity scale (1-10): 2 Consistency: constant Associated Symptoms: none <Israel Hernandez - Last Filed: 02/05/22 14:47> <Yesi Sneed - Last Filed: 02/06/22 22:29> - General Chief complaint: Eye Problems Stated complaint: pink eye Time Seen by Provider: 02/05/22 09:02 - History of Present Illness Initial comments: 51-year-old male presents with complaints of left eye redness for the past 3 days. Denies any pain. States that he did wake up with mucoid discharge to the left eye. Denies any fevers. No concern for foreign body. States he believes it is pinkeye (Israel Hernandez) - Related Data Home Medications Medication Instructions Recorded Confirmed Fen U Thai 1 tab PO BID 04/13/19 04/13/19 Ginseng 100 mg PO BID 04/13/19 04/13/19 Green Tea [place] Extract [Green Tea 150 mg PO BID 04/13/19 04/13/19 Extract] Horny Goat [place] 1 tab PO BID 04/13/19 04/13/19 Vitamin E 100 unit PO BID 04/13/19 04/13/19 Previous Rx's Medication Instructions Recorded Oxybutynin Chloride [Ditropan] 5 mg PO BID #14 tab 04/13/19 Ibuprofen [Motrin] 600 mg PO Q8HR PRN #30 tab 04/20/19 Oxybutynin Chloride [Oxybutynin 10 mg PO DAILY #7 tab.er.24 06/14/19 Chloride ER] Polymyxin B-Trimeth Sulf Ophth 1 drops LEFT EYE Q4H 7 Days #10 ml 02/05/22 [Polytrim Opthalmic] Allergies Allergy/AdvReac Type Severity Reaction Status Date / Time Penicillins Allergy Anaphylaxis Verified 02/05/22 08:52 Review of Systems ROS Other: All systems not noted in ROS Statement are negative. <Israel Hernandez - Last Filed: 02/05/22 14:47> ROS Other: All systems not noted in ROS Statement are negative. <Yesi Sneed - Last Filed: 02/06/22 22:29> ROS Statement: Those systems with pertinent positive or pertinent negative responses have been documented in the HPI. Past Medical History Past Medical History: Hypertension Additional Past Medical History / Comment(s): back pain, migraines, History of Any Multi-Drug Resistant Organisms: None Reported Past Surgical History: No Surgical Hx Reported Past Psychological History: Depression Smoking Status: Never smoker Past Alcohol Use History: Rare Past Drug Use History: None Reported <Israel Hernandez - Last Filed: 02/05/22 14:47> General Exam Limitations: no limitations General appearance: alert, in no apparent distress Head exam: Present: atraumatic Eye exam: Present: PERRL, EOMI, conjunctival injection, periorbital swelling. Absent: scleral icterus, nystagmus, periorbital tenderness Pupils: Present: miosis Expanded Eyelids: Normal Inspection: Right, Erythema: Left, Swelling: Left Pupils: Regular, Round: Bilateral, Reactive: Bilateral Sclera/Conjunctival: Normal Inspection: Right, Injection: Left, Exudate: Left Anterior chamber: Normal Inspection: Bilateral Neck exam: Present: full ROM. Absent: tenderness, meningismus Respiratory exam: Absent: respiratory distress, accessory muscle use Cardiovascular Exam: Present: regular rate Neurological exam: Present: alert, oriented X3 Psychiatric exam: Present: normal affect, normal mood Skin exam: Present: warm, dry, normal color. Absent: cyanosis, diaphoretic <Israel Hernandez - Last Filed: 02/05/22 14:47> Course Vital Signs 02/05/22 08:48 Temperature 98.6 F Pulse Rate 76 Respiratory 20 Rate Blood Pressure 115/79 O2 Sat by Pulse 92 L Oximetry Medical Decision Making <Israel Hernandez - Last Filed: 02/05/22 14:47> - Medical Decision Making Patient presents to the emergency room with complaints of 2 days of left eye redness with mucoid drainage. Denies any pain. Tetanus is up-to-date. Under fluorescein with slit lamp exam there is no evidence of corneal abrasion, negative Phylicia sign. Patient does not have a headache and he does not have pain with eye movement. Pupils are equal and reactive to light and accommodating. Patient will be treated for conjunctivitis with ophthalmic drops directed to follow up with his primary care doctor and return to the emergency room with a new concerning symptoms. He is agreeable to this plan of care. Case discussed with Dr. Sneed. (Israel Hernandez) Disposition Is patient prescribed a controlled substance at d/c from ED?: No Time of Disposition: 09:53 <Israel Hernandez - Last Filed: 02/05/22 14:47> <Yesi Sneed - Last Filed: 02/06/22 22:29> Clinical Impression: Conjunctivitis Disposition: HOME SELF-CARE Condition: Good Instructions (If sedation given, give patient instructions): Conjunctivitis (ED) Additional Instructions: Use antibiotic eyedrops as directed. Do not touch the eye with the eyedropper to avoid contamination. Wash your hands after touching your eyes and using eye drops. Follow-up with your primary care doctor this week. Return to the emergency room with any new or concerning symptoms including pain or visual changes. Prescriptions: Polymyxin B-Trimeth Sulf Ophth [Polytrim Opthalmic] 1 drops LEFT EYE Q4H 7 Days #10 ml [facility] [Primary Care Provider] - 1-2 days
== END 2022-02-05 10:06 | disposition home or self-care (01) ==
LOC: EC 08:39
DX: H10.9 Unspecified conjunctivitis (principal); I10 Essential (primary) hypertension; F32.A Depression, unspecified; Z88.0 Allergy status to penicillin
CPT/HCPCS: 99282; 99283

== ENCOUNTER 2022-02-19 13:18 | Emergency (ER) | payer OTHER ==
[2022-02-19 18:18] LABS: Basophils # (A) 0.1 k/uL (0-0.2); Basophils % (A) 1 %; Eosinophils # (A) 0.3 k/uL (0-0.7); Eosinophils % (A) 3 %; HCT 47.7 % (39.0-53.0); HGB 15.4 gm/dL (13.0-17.5); Lymphocytes # (A) 1.6 k/uL (1.0-4.8); Lymphocytes % (A) 16 %; MCH 30.1 pg (25.0-35.0); MCHC 32.3 g/dL (31.0-37.0); MCV 93.2 fL (80.0-100.0); Mean Platelet Volume 7.9; Monocytes # (A) 0.6 k/uL (0-1.0); Monocytes % (A) 6 %; Neutrophils % (A) 72 %; Platelet Count 294 k/uL (150-450); RBC 5.12 m/uL (4.30-5.90); RDW 14.6 % (11.5-15.5); WBC 9.8 k/uL (3.8-10.6)
--- NOTE | 2022-02-19 18:24 | XR ---
EXAMINATION TYPE: XR chest 2V DATE OF EXAM: 02/19/2022 COMPARISON: 06/14/2019 HISTORY: Weakness TECHNIQUE: 2 views FINDINGS: Heart and mediastinum are normal. Lungs are clear. Diaphragm is normal. Bony thorax is inta ct. IMPRESSION: Normal chest. No change.
[2022-02-19 18:34] LABS: ALT 31 U/L (4-49); AST 23 U/L (17-59); African American GFR (CKD) >90 (>60 ml/min/1.73 sqM); Albumin 4.5 g/dL (3.5-5.0); Alkaline Phosphatase 109 U/L (38-126); Anion Gap 10 mmol/L; Blood Urea Nitrogen 23 mg/dL (9-20); Calcium 9.1 mg/dL (8.4-10.2); Carbon Dioxide 28 mmol/L (22-30); Chloride 103 mmol/L (98-107); Glucose 94 mg/dL (74-99); Magnesium 2.1 mg/dL (1.6-2.3); Non-African American GFR(CKD) >90 (>60 ml/min/1.73 sqM); Phosphorus 3.4 mg/dL (2.5-4.5); Potassium 4.2 mmol/L (3.5-5.1); Sodium 141 mmol/L (137-145); Total Bilirubin 0.7 mg/dL (0.2-1.3); Total Protein 7.8 g/dL (6.3-8.2)
[2022-02-19 18:45] LABS: INR 0.9 (<1.2); Prothrombin Time 10.1 sec (9.0-12.0)
[2022-02-19] MEDS ORDERED: TOBRAMYCIN 0.3% OPHTH DROPS 5 ML BTL LEFT EYE STA (19:14)
--- NOTE | 2022-02-19 19:17 | ED ---
General Adult HPI - General Chief complaint: Upper Respiratory Infection Stated complaint: lethargic Time Seen by Provider: 02/19/22 16:55 Source: patient Mode of arrival: ambulatory Limitations: no limitations - History of Present Illness Initial comments: This 51-year-old male presents with a complaint of weakness. He states that this is been present for approximately 2 weeks. He also complains of a slight cough as well as slight headache. He has had a left eye conjunctivitis. He denies any actual fevers or chills. He has not taken a home over test as of yet. He denies any shortness of breath or chest pain. He denies any leg pain or swelling. He denies any urinary symptomatology. There is no abdominal pain or rashes. He denies any previous similar incidents. He denies any chronic medical conditions. He does relate that he was seen in the emergency department this past week for conjunctivitis. He is prescribed an IV antibiotic and took it for 4 days but then ran out. His eyes seemed to be getting better while he was taking the medicine but then developed increased redness and slight drainage afterwards. No other complaints or modifying factors. - Related Data Home Medications Medication Instructions Recorded Confirmed Albuterol Inhaler [Ventolin Hfa 1 puff INHALATION RT-Q4H PRN 02/19/22 02/19/22 Inhaler] Doxepin [SINEquan] 10 mg PO HS 02/19/22 02/19/22 FLUoxetine HCL [PROzac] 20 mg PO DAILY 02/19/22 02/19/22 Fluticasone Propionate 44 Mcg 2 puff INHALATION RT-BID 02/19/22 02/19/22 [Flovent 44 Mcg Inhaler] Oxybutynin Chloride [Oxybutynin 15 mg PO DAILY 02/19/22 02/19/22 Chloride ER] lisinopriL 40 mg PO DAILY 02/19/22 02/19/22 traMADol HCL 50 mg PO BID PRN 02/19/22 02/19/22 Allergies Allergy/AdvReac Type Severity Reaction Status Date / Time Penicillins Allergy Anaphylaxis Verified 02/19/22 19:18 Review of Systems ROS Statement: Those systems with pertinent positive or pertinent negative responses have been documented in the HPI. ROS Other: All systems not noted in ROS Statement are negative. Past Medical History Past Medical History: Hypertension Additional Past Medical History / Comment(s): back pain, migraines, History of Any Multi-Drug Resistant Organisms: None Reported Past Surgical History: No Surgical Hx Reported Past Psychological History: Depression Smoking Status: Never smoker Past Alcohol Use History: Rare Past Drug Use History: None Reported General Exam - General Exam Comments Initial Comments: GENERAL: The patient is well nourished and well hydrated. VITAL SIGNS: Heart rate, blood pressure, respiratory rate reviewed as recorded in nurse's notes. EYES: Pupils are round and reactive. Extraocular movements are intact. There is mild left eye conjunctival erythema. ENT: No external evidence of injury, swelling, or ecchymosis. Airway is patent. Throat is clear. NECK: Nontender. No swelling or evidence of injury. No subcutaneous emphysema. Trachea is midline. No thyroid mass. HEART: Regular rate and rhythm. Good peripheral pulses. LUNGS/CHEST: Breath sounds clear and equal bilaterally. No rales, rhonchi, or wheezes. No ecchymosis, subcutaneous emphysema, or tenderness. ABDOMEN: Abdomen soft without tenderness. No palpable masses or organomegaly. No peritoneal signs. No abdominal wall swelling or ecchymosis. EXTREMITIES: No extremity tenderness. Normal muscle tone and function. No thoracolumbar tenderness. NEUROLOGIC: Sensation is grossly intact. Cranial nerve exam reveals face is symmetrical, tongue is midline, speech is clear. SKIN: No abrasions or ecchymosis is noted. No induration or masses noted. PSYCHIATRIC: Alert and oriented. Appropriate behavior and judgment. Limitations: no limitations Course Vital Signs 02/19/22 02/19/22 02/19/22 13:56 17:52 19:29 Temperature 98.8 F 97.8 F Pulse Rate 99 92 Respiratory 20 18 22 Rate Blood Pressure 136/93 149/99 O2 Sat by Pulse 95 98 Oximetry Medical Decision Making - Medical Decision Making The patient was seen and examined. All diagnostics were reviewed. An EKG was done which shows a normal sinus rhythm at a rate of 93. There is no acute ST-T wave changes identified. The [place] intervals 198, QRS duration is 90, and the QTc interval is 388. The patient also had a chest x-ray which did not show any acu te processes. His COVID-19 test is negative. The laboratories unremarkable. The exact cause of his symptomatology is not definitively determined. It is felt as though he may have had cold. Which started 2 weeks ago. The test may be negative at this time as he is towards the end of his illness. Other possibilities are plausible as well. 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 Return parameters are discussed. Close follow-up recommended. He is dispensed some Tobrex ophthalmic drops. - Lab Data Result diagrams: 02/19/22 18:07 02/19/22 18:07 Lab Results 02/19/22 02/19/22 02/19/22 Range/Units 14:01 18:07 18:07 WBC 9.8 (3.8-10.6) k/uL RBC 5.12 (4.30-5.90) m/uL Hgb 15.4 (13.0-17.5) gm/dL Hct 47.7 (39.0-53.0) % MCV 93.2 (80.0-100.0) fL MCH 30.1 (25.0-35.0) pg MCHC 32.3 (31.0-37.0) g/dL RDW 14.6 (11.5-15.5) % Plt Count 294 (150-450) k/uL MPV 7.9 Neutrophils % 72 % Lymphocytes % 16 % Monocytes % 6 % Eosinophils % 3 % Basophils % 1 % Neutrophils # 7.0 (1.3-7.7) k/uL Lymphocytes # 1.6 (1.0-4.8) k/uL Monocytes # 0.6 (0-1.0) k/uL Eosinophils # 0.3 (0-0.7) k/uL Basophils # 0.1 (0-0.2) k/uL PT 10.1 (9.0-12.0) sec INR 0.9 (<1.2) APTT 22.0 (22.0-30.0) sec Sodium (137-145) mmol/L Potassium (3.5-5.1) mmol/L Chloride (98-107) mmol/L Carbon Dioxide (22-30) mmol/L Anion Gap mmol/L BUN (9-20) mg/dL Creatinine (0.66-1.25) mg/dL Est GFR (CKD-EPI)AfAm (>60 ml/min/1.73 sqM) Est GFR (CKD-EPI)NonAf (>60 ml/min/1.73 sqM) Glucose (74-99) mg/dL Calcium (8.4-10.2) mg/dL Phosphorus (2.5-4.5) mg/dL Magnesium (1.6-2.3) mg/dL Total Bilirubin (0.2-1.3) mg/dL AST (17-59) U/L ALT (4-49) U/L Alkaline Phosphatase (38-126) U/L Troponin I (0.000-0.034) ng/mL NT-Pro-B Natriuret Pep pg/mL Total Protein (6.3-8.2) g/dL Albumin (3.5-5.0) g/dL TSH (0.465-4.680) mIU/L Coronavirus (PCR) Not Detected (Not Detectd) Influenza Type A RNA (Not Detectd) Influenza Type B (PCR) (Not Detectd) 02/19/22 02/19/22 02/19/22 Range/Units 18:07 18:07 18:07 WBC (3.8-10.6) k/uL RBC (4.30-5.90) m/uL Hgb (13.0-17.5) gm/dL Hct (39.0-53.0) % MCV (80.0-100.0) fL MCH (25.0-35.0) pg MCHC (31.0-37.0) g/dL RDW (11.5-15.5) % Plt Count (150-450) k/uL MPV Neutrophils % % Lymphocytes % % Monocytes % % Eosinophils % % Basophils % % Neutrophils # (1.3-7.7) k/uL Lymphocytes # (1.0-4.8) k/uL Monocytes # (0-1.0) k/uL Eosinophils # (0-0.7) k/uL Basophils # (0-0.2) k/uL PT (9.0-12.0) sec INR (<1.2) APTT (22.0-30.0) sec Sodium 141 (137-145) mmol/L Potassium 4.2 (3.5-5.1) mmol/L Chloride 103 (98-107) mmol/L Carbon Dioxide 28 (22-30) mmol/L Anion Gap 10 mmol/L BUN 23 H (9-20) mg/dL Creatinine 0.96 (0.66-1.25) mg/dL Est GFR (CKD-EPI)AfAm >90 (>60 ml/min/1.73 sqM) Est GFR (CKD-EPI)NonAf >90 (>60 ml/min/1.73 sqM) Glucose 94 (74-99) mg/dL Calcium 9.1 (8.4-10.2) mg/dL Phosphorus 3.4 (2.5-4.5) mg/dL Magnesium 2.1 (1.6-2.3) mg/dL Total Bilirubin 0.7 (0.2-1.3) mg/dL AST 23 (17-59) U/L ALT 31 (4-49) U/L Alkaline Phosphatase 109 (38-126) U/L Troponin I <0.012 (0.000-0.034) ng/mL NT-Pro-B Natriuret Pep 40 pg/mL Total Protein 7.8 (6.3-8.2) g/dL Albumin 4.5 (3.5-5.0) g/dL TSH 2.710 (0.465-4.680) mIU/L Coronavirus (PCR) (Not Detectd) Influenza Type A RNA (Not Detectd) Influenza Type B (PCR) (Not Detectd) 02/19/22 Range/Units 18:07 WBC (3.8-10.6) k/uL RBC (4.30-5.90) m/uL Hgb (13.0-17.5) gm/dL Hct (39.0-53.0) % MCV (80.0-100.0) fL MCH (25.0-35.0) pg MCHC (31.0-37.0) g/dL RDW (11.5-15.5) % Plt Count (150-450) k/uL MPV Neutrophils % % Lymphocytes % % Monocytes % % Eosinophils % % Basophils % % Neutrophils # (1.3-7.7) k/uL Lymphocytes # (1.0-4.8) k/uL Monocytes # (0-1.0) k/uL Eosinophils # (0-0.7) k/uL Basophils # (0-0.2) k/uL PT (9.0-12.0) sec INR (<1.2) APTT (22.0-30.0) sec Sodium (137-145) mmol/L Potassium (3.5-5.1) mmol/L Chloride (98-107) mmol/L Carbon Dioxide (22-30) mmol/L Anion Gap mmol/L BUN (9-20) mg/dL Creatinine (0.66-1.25) mg/dL Est GFR (CKD-EPI)AfAm (>60 ml/min/1.73 sqM) Est GFR (CKD-EPI)NonAf (>60 ml/min/1.73 sqM) Glucose (74-99) mg/dL Calcium (8.4-10.2) mg/dL Phosphorus (2.5-4.5) mg/dL Magnesium (1.6-2.3) mg/dL Total Bilirubin (0.2-1.3) mg/dL AST (17-59) U/L ALT (4-49) U/L Alkaline Phosphatase (38-126) U/L Troponin I (0.000-0.034) ng/mL NT-Pro-B Natriuret Pep pg/mL Total Protein (6.3-8.2) g/dL Albumin (3.5-5.0) g/dL TSH (0.465-4.680) mIU/L Coronavirus (PCR) (Not Detectd) Influenza Type A RNA Not Detected (Not Detectd) Influenza Type B (PCR) Not Detected (Not Detectd) Disposition Clinical Impression: Weakness, Cough, Headache, Conjunctivitis Disposition: HOME SELF-CARE Instructions (If sedation given, give patient instructions): Weakness (ED), Conjunctivitis (ED) Additional Instructions: Please take the tobrex eye drops. Take one drop to the affected eye every four hours. Is patient prescribed a controlled substance at d/c from ED?: No Referrals: [facility] [Primary Care Provider] - 1-2 days Time of Disposition: 19:16
[2022-02-19 19:30] VITALS: BP 149/99; PULSE 92; RESP 22; TEMP 97.8
== END 2022-02-19 19:33 | disposition home or self-care (01) ==
LOC: EC 13:18
DX: H10.9 Unspecified conjunctivitis (principal); R53.1 Weakness; R51.9 Headache, unspecified; R05.9 Cough, unspecified; R53.83 Other fatigue; I10 Essential (primary) hypertension; Z88.0 Allergy status to penicillin; Z20.822 Contact with and (suspected) exposure to COVID-19; Z79.899 Other long term (current) drug therapy
CPT/HCPCS: 36415; 71046; 80053; 83735; 83880; 84100; 84443; 84484; 85025; 85610; 85730; 87502; 87635; 93005; 99285

== ENCOUNTER 2022-03-05 13:06 | Emergency (ER) | payer OTHER ==
[2022-03-05 13:10] VITALS: BP 123/86; PULSE 100; RESP 20; TEMP 98.1
[2022-03-05] MEDS ORDERED: KETOTIFEN 0.025% OPHTH DROPS 5 ML BTL LEFT EYE STA (13:35)
[2022-03-05] MEDS ORDERED: TOBRAMYCIN 0.3% OPHTH DROPS 5 ML BTL LEFT EYE STA (13:35)
--- NOTE | 2022-03-05 13:39 | ED ---
Eye Problem HPI - General Chief complaint: Eye Problems Stated complaint: eye infection Time Seen by Provider: 03/05/22 13:13 Source: patient, RN notes reviewed Mode of arrival: ambulatory Limitations: no limitations - History of Present Illness Initial comments: 51-year-old male presents emergency Department with chief complaint of left eye drainage. Patient states his has been present it has been present for several weeks, he was on eyedrops with little or no improvement. Patient denies any trauma. Patient states it's mildly she has had mild redness denies wearing contacts does wear glasses patient offers no other complaints. - Related Data Home Medications Medication Instructions Recorded Confirmed Albuterol Inhaler [Ventolin Hfa 1 puff INHALATION RT-Q4H PRN 02/19/22 02/19/22 Inhaler] Doxepin [SINEquan] 10 mg PO HS 02/19/22 02/19/22 FLUoxetine HCL [PROzac] 20 mg PO DAILY 02/19/22 02/19/22 Fluticasone Propionate 44 Mcg 2 puff INHALATION RT-BID 02/19/22 02/19/22 [Flovent 44 Mcg Inhaler] Oxybutynin Chloride [Oxybutynin 15 mg PO DAILY 02/19/22 02/19/22 Chloride ER] lisinopriL 40 mg PO DAILY 02/19/22 02/19/22 traMADol HCL 50 mg PO BID PRN 02/19/22 02/19/22 Allergies Allergy/AdvReac Type Severity Reaction Status Date / Time Penicillins Allergy Anaphylaxis Verified 03/05/22 13:10 Review of Systems ROS Statement: Those systems with pertinent positive or pertinent negative responses have been documented in the HPI. ROS Other: All systems not noted in ROS Statement are negative. Past Medical History Past Medical History: Hypertension Additional Past Medical History / Comment(s): back pain, migraines, History of Any Multi-Drug Resistant Organisms: None Reported Past Surgical History: No Surgical Hx Reported Past Psychological History: Depression Smoking Status: Never smoker Past Alcohol Use History: Rare Past Drug Use History: None Reported General Exam Limitations: no limitations General appearance: alert, in no apparent distress Head exam: Present: atraumatic, normocephalic, normal inspection Eye exam: Present: PERRL, EOMI, conjunctival injection (Mild left). Absent: normal appearance (Left purulent drainage), scleral icterus, periorbital swelling ENT exam: Present: normal exam, mucous membranes moist Neck exam: Present: normal inspection, full ROM. Absent: tenderness, meningismus, lymphadenopathy Respiratory exam: Present: normal lung sounds bilaterally. Absent: respiratory distress, wheezes, rales, rhonchi, stridor Cardiovascular Exam: Present: regular rate, normal rhythm, normal heart sounds. Absent: systolic murmur, diastolic murmur, rubs, gallop, clicks Course Vital Signs 03/05/22 13:07 Temperature 98.1 F Pulse Rate 100 Respiratory 20 Rate Blood Pressure 123/86 O2 Sat by Pulse 94 L Oximetry Medical Decision Making - Medical Decision Making Patient provided follow-up with ophthalmology, patient was placed on eyedrops will follow-up with ophthalmology Disposition Clinical Impression: Conjunctivitis, left eye Disposition: HOME SELF-CARE Condition: Stable Instructions (If sedation given, give patient instructions): Conjunctivitis (ED) Additional Instructions: Use Tobrex eyedrops 1 drop every 4 hours for 7 days, use Zaditor drops twice daily for 7 days Please return to the Emergency Department if symptoms worsen or any other concerns. Is patient prescribed a controlled substance at d/c from ED?: No Referrals: [facility] [Primary Care Provider] - 1-2 days Jessa Saab MD [STAFF PHYSICIAN] - 1-2 days Time of Disposition: 13:38
== END 2022-03-05 14:08 | disposition home or self-care (01) ==
LOC: EC 13:06
DX: H10.9 Unspecified conjunctivitis (principal); I10 Essential (primary) hypertension; F32.A Depression, unspecified; Z79.01 Long term (current) use of anticoagulants; Z88.0 Allergy status to penicillin
CPT/HCPCS: 99283

== ENCOUNTER 2023-02-08 20:01 | Emergency (ER) | payer OTHER ==
[2023-02-08 20:09] VITALS: TEMP 98.7
[2023-02-08 20:56] LABS: Basophils # (A) 0.1 k/uL (0-0.2); Basophils % (A) 1 %; Eosinophils # (A) 0.4 k/uL (0-0.7); Eosinophils % (A) 5 %; HCT 39.9 % (39.0-53.0); HGB 13.3 gm/dL (13.0-17.5); Lymphocytes # (A) 1.6 k/uL (1.0-4.8); Lymphocytes % (A) 19 %; MCH 31.3 pg (25.0-35.0); MCHC 33.3 g/dL (31.0-37.0); Monocytes # (A) 0.6 k/uL (0-1.0); Monocytes % (A) 7 %; Neutrophils # (A) 5.7 k/uL (1.3-7.7); Neutrophils % (A) 67 %; Platelet Count 270 k/uL (150-450); RBC 4.24 m/uL (4.30-5.90); RDW 14.1 % (11.5-15.5); WBC 8.6 k/uL (3.8-10.6)
[2023-02-08 21:08] LABS: ALT 28 U/L (4-49); AST 24 U/L (17-59); African American GFR (CKD) >90 (>60 ml/min/1.73 sqM); Albumin 3.8 g/dL (3.5-5.0); Alkaline Phosphatase 100 U/L (38-126); Anion Gap 6 mmol/L; Blood Urea Nitrogen 19 mg/dL (9-20); Calcium 9.1 mg/dL (8.4-10.2); Carbon Dioxide 30 mmol/L (22-30); Chloride 103 mmol/L (98-107); Glucose 91 mg/dL (74-99); Magnesium 2.1 mg/dL (1.6-2.3); Non-African American GFR(CKD) >90 (>60 ml/min/1.73 sqM); Potassium 3.9 mmol/L (3.5-5.1); Sodium 139 mmol/L (137-145); Total Bilirubin 0.7 mg/dL (0.2-1.3); Total Protein 7.1 g/dL (6.3-8.2)
[2023-02-08 21:14] LABS: INR 0.9 (<1.2); Partial Thromboplastin Time 24.9 sec (22.0-30.0); Prothrombin Time 9.8 sec (9.0-12.0)
--- NOTE | 2023-02-08 21:15 | XR ---
EXAMINATION TYPE: XR chest 2V DATE OF EXAM: 02/08/2023 8:53 PM COMPARISON: Chest radiographs from 02/19/2022 TECHNIQUE: XR chest 2V Frontal and lateral views of the chest. CLINICAL INDICATION:Male, 52 years old with history of difficulty breathing; FINDINGS: Lungs/Pleura: Low lung volumes are present. There is no evidence of pleural effusion, focal consolida tion, or pneumothorax. Pulmonary vascularity: Unremarkable. Heart/mediastinum: Cardiomediastinal silhouette is enlarged and stable. Musculoskeletal: No acute osseous pathology. IMPRESSION: Low lung volumes with a generalized hazy appearance which could represent atelectasis versus pulmonar y edema correlate with serum BNP.
[2023-02-08 21:16] LABS: NT-Pro-B-Type Natriuretic Pept 27 pg/mL
[2023-02-08] MEDS ORDERED: methylPREDNISolone SOD SUCCI 125 MG/2 ML VIAL IV STA (21:56)
[2023-02-08] MEDS ORDERED: IPRATROPIUM-ALBUTEROL 3 ML NEB INHALATION STA (21:57)
--- NOTE | 2023-02-08 22:15 | US ---
EXAMINATION TYPE: US venous doppler duplex LE BI DATE OF EXAM: 02/08/2023 10:04 PM COMPARISON: NONE CLINICAL INDICATION: Male, 52 years old with history of swelling; bilateral leg edema, worse on the r ight SIDE PERFORMED: bilateral TECHNIQUE: The lower extremity deep venous system is examined utilizing real time linear array sonog carlita with graded compression, doppler sonography and color-flow sonography. VESSELS IMAGED: Common Femoral Vein Deep Femoral Vein Greater Saphenous Vein * Femoral Vein Popliteal Vein Small Saphenous Vein * Proximal Calf Veins (* superficial vessels) Right Leg: no evidence of DVT. Technical limitations due to patient's body habitus, morbidly obese. Unable to visualize lower femoral vein for compression Left Leg: no evidence of DVT. Technical limitations due to patient's body habitus, morbidly obese. U nable to visualize lower femoral vein for compression IMPRESSION: 1. Limited exam demonstrates no diagnostic evidence of DVT.
[2023-02-08] MEDS ORDERED: FUROSEMIDE 10 MG/ML 4 ML VIAL IV STA (23:01)
--- NOTE | 2023-02-08 23:09 | ED ---
SOB HPI - General Chief Complaint: Shortness of Breath Stated Complaint: Leg & Feet Swelling Time Seen by Provider: 02/08/23 20:15 Source: patient Mode of arrival: ambulatory Limitations: no limitations - History of Present Illness Initial Comments: 52-year-old male with past history of morbid obesity, asthma who presents emergency room reporting shortness of breath. States that he has had progressive worsening shortness of breath and swelling to his lower extremities. Denies history of DVT or PE. No history of congestive heart failure. He does not use an inhaler. No recent antibiotics or steroid use. He denies fevers chills or cough. No other alleviating, precipitating or modifying factors - Related Data Home Medications Medication Instructions Recorded Confirmed Albuterol Inhaler [Ventolin Hfa 1 puff INHALATION RT-Q4H PRN 02/19/22 02/19/22 Inhaler] Doxepin [SINEquan] 10 mg PO HS 02/19/22 02/19/22 FLUoxetine HCL [PROzac] 20 mg PO DAILY 02/19/22 02/19/22 Fluticasone Propionate 44 Mcg 2 puff INHALATION RT-BID 02/19/22 02/19/22 [Flovent 44 Mcg Inhaler] Oxybutynin Chloride [Oxybutynin 15 mg PO DAILY 02/19/22 02/19/22 Chloride ER] lisinopriL 40 mg PO DAILY 02/19/22 02/19/22 traMADol HCL 50 mg PO BID PRN 02/19/22 02/19/22 Previous Rx's Medication Instructions Recorded predniSONE [Deltasone] 20 mg PO BID #10 tab 02/08/23 Allergies Allergy/AdvReac Type Severity Reaction Status Date / Time Penicillins Allergy Anaphylaxis Verified 02/08/23 20:09 Review of Systems ROS Statement: Those systems with pertinent positive or pertinent negative responses have been documented in the HPI. ROS Other: All systems not noted in ROS Statement are negative. Past Medical History Past Medical History: Asthma, Hypertension Additional Past Medical History / Comment(s): back pain, migraines, History of Any Multi-Drug Resistant Organisms: None Reported Past Surgical History: No Surgical Hx Reported Past Psychological History: Depression Smoking Status: Never smoker Past Alcohol Use History: Rare Past Drug Use History: None Reported General Exam Limitations: no limitations General appearance: alert, in no apparent distress Head exam: Present: atraumatic, normocephalic, normal inspection Eye exam: Present: normal appearance, PERRL, EOMI. Absent: scleral icterus, conjunctival injection, periorbital swelling ENT exam: Present: normal exam, mucous membranes moist Neck exam: Present: normal inspection. Absent: tenderness, meningismus, lymphadenopathy Respiratory exam: Present: normal lung sounds bilaterally. Absent: respiratory distress, wheezes, rales, rhonchi, stridor Cardiovascular Exam: Present: regular rate, normal rhythm, normal heart sounds. Absent: systolic murmur, diastolic murmur, rubs, gallop, clicks GI/Abdominal exam: Present: soft, normal bowel sounds. Absent: distended, tenderness, guarding, rebound, rigid Extremities exam: Present: full ROM, normal capillary refill, pedal edema (Bilateral, 2+). Absent: tenderness, joint swelling, calf tenderness Back exam: Present: normal inspection Neurological exam: Present: alert, oriented X3, CN II-XII intact Psychiatric exam: Present: normal affect, normal mood Skin exam: Present: warm, dry, intact, normal color. Absent: rash Course Vital Signs 02/08/23 02/08/23 02/08/23 20:04 21:00 22:20 Temperature 98.7 F Pulse Rate 99 85 Respiratory 22 24 Rate Blood Pressure 175/91 O2 Sat by Pulse 95 Oximetry 02/08/23 02/08/23 22:40 23:40 Temperature 98.7 F Pulse Rate 84 99 Respiratory 24 Rate Blood Pressure 148/85 O2 Sat by Pulse 98 Oximetry Medical Decision Making - Medical Decision Making Was pt. sent in by a medical professional or institution (, PA, RUG RECEIVING CLERK, urgent care, hospital, or usp...) When possible be specific @ -No Did you speak to anyone other than the patient for history (EMS, parent, family, police, friend...)? What history was obtained from this source @ -I spoke with the patient's girlfriend about his symptoms Did you review nursing and triage notes (agree or disagree)? Why? @ -I reviewed and agree with nursing and triage notes Were old charts reviewed (outside hosp., previous admission, EMS record, old EKG, old radiological studies, urgent care reports/EKG's, usp records)? Report findings @ -No old charts were reviewed Differential Diagnosis (chest pain, altered mental status, abdominal pain women, abdominal pain men, vaginal bleeding, weakness, fever, dyspnea, syncope, headache, dizziness, GI bleed, back pain, seizure, CVA, palpatations, mental health, musculoskeletal)? @ -Differential Dyspnea: Coronary syndrome, arrhythmia, tamponade, asthma, COPD, pulmonary embolism, pneumonia, pneumothorax, pulmonary effusion, anaphylaxis, diabetic ketoacidosis, flailed chest, pulmonary contusion, diaphragmatic rupture, anemia, neuromuscular, this is not meant to be an all-inclusive list. EKG interpreted by me (3pts min.). @ -yes, and demonstrates sinus rhythm with rate of 82. [place] interval 197. QRS 89. QTC 381. No acute ST segment elevations or depressions X-rays interpreted by me (1pt min.). @ -Yes and demonstrates no acute intrathoracic process. Possible vascular congestion however BNP is low CT interpreted by me (1pt min.). @ -None done U/S interpreted by me (1pt. min.). @ -None done What testing was considered but not performed or refused? (CT, X-rays, U/S, labs)? Why? @ -None What meds were considered but not given or refused? Why? @ -None Did you discuss the management of the patient with other professionals (professionals i.e. , PA, RUG RECEIVING CLERK, lab, RT, psych nurse, social problems specialist, trauma coordinator, teacher, investment officer, bottle caser)? Give summary @ -No Was smoking cessation discussed for >3mins.? @ -No Was critical care preformed (if so, how long)? @ -No Were there social determinants of health that impacted care today? How? (Homelessness, low income, unemployed, alcoholism, drug addiction, transportation, low edu. Level, literacy, decrease access to med. care, retirement, rehab)? @ -No Was there de-escalation of care discussed even if they declined (Discuss DNR or withdrawal of care, Hospice)? DNR status @ -No What co-morbidities impacted this encounter? (DM, HTN, Smoking, COPD, CAD, Cancer, CVA, ARF, Chemo, Hep., AIDS, mental health diagnosis, sleep apnea, morbid obesity)? @ -Asthma, morbid obesity Was patient admitted / discharged? Hospital course, mention meds given and route, prescriptions, significant lab abnormalities, going to OR and other pertinent info. @ -Upon arrival patient was placed into room 26. A thorough history and physical exam was performed. Laboratory studies are conducted. Chest x-ray is performed. Patient was given a breathing treatments and steroids. I did recommend admission due to his tachypnea however patient refused. He'll be discharged home on steroids. He is instructed to use his inhaler every 4 hours. Needs to see his doctor. Return for any new or worsening symptoms. Patient was agreeable and discharged in stable condition Undiagnosed new problem with uncertain prognosis? @ -Yes Drug Therapy requiring intensive monitoring for toxicity (Heparin, Nitro, Insulin, Cardizem)? @ -No Were any procedures done? @ -No Diagnosis/symptom? @ -Acute respiratory insufficiency, acute asthma exacerbation, peripheral edema Acute, or Chronic, or Acute on Chronic? @ -Acute Uncomplicated (without systemic symptoms) or Complicated (systemic symptoms)? @ -Complicated Side effects of treatment? @ -No Exacerbation, Progression, or Severe Exacerbation? @ -Yes Poses a threat to life or bodily function? How? (Chest pain, [place], [place], pneumonia, PE, COPD, DKA, ARF, appy, cholecystitis, CVA, Diverticulitis, Homicidal, Suicidal, threat to staff... and all critical care pts) @ -No - Lab Data Result diagrams: 02/08/23 20:38 02/08/23 20:38 Lab Results 02/08/23 02/08/23 02/08/23 Range/Units 20:38 20:38 20:38 WBC 8.6 (3.8-10.6) k/uL RBC 4.24 L (4.30-5.90) m/uL Hgb 13.3 (13.0-17.5) gm/dL Hct 39.9 (39.0-53.0) % MCV 94.0 (80.0-100.0) fL MCH 31.3 (25.0-35.0) pg MCHC 33.3 (31.0-37.0) g/dL RDW 14.1 (11.5-15.5) % Plt Count 270 (150-450) k/uL MPV 8.0 Neutrophils % 67 % Lymphocytes % 19 % Monocytes % 7 % Eosinophils % 5 % Basophils % 1 % Neutrophils # 5.7 (1.3-7.7) k/uL Lymphocytes # 1.6 (1.0-4.8) k/uL Monocytes # 0.6 (0-1.0) k/uL Eosinophils # 0.4 (0-0.7) k/uL Basophils # 0.1 (0-0.2) k/uL PT 9.8 (9.0-12.0) sec INR 0.9 (<1.2) APTT 24.9 (22.0-30.0) sec D-Dimer 0.48 (<0.60) mg/L FEU Sodium 139 (137-145) mmol/L Potassium 3.9 (3.5-5.1) mmol/L Chloride 103 (98-107) mmol/L Carbon Dioxide 30 (22-30) mmol/L Anion Gap 6 mmol/L BUN 19 (9-20) mg/dL Creatinine 0.75 (0.66-1.25) mg/dL Est GFR (CKD-EPI)AfAm >90 (>60 ml/min/1.73 sqM) Est GFR (CKD-EPI)NonAf >90 (>60 ml/min/1.73 sqM) Glucose 91 (74-99) mg/dL Plasma Lactic Acid Alexys (0.7-2.0) mmol/L Calcium 9.1 (8.4-10.2) mg/dL Magnesium 2.1 (1.6-2.3) mg/dL Total Bilirubin 0.7 (0.2-1.3) mg/dL AST 24 (17-59) U/L ALT 28 (4-49) U/L Alkaline Phosphatase 100 (38-126) U/L Troponin I (0.000-0.034) ng/mL NT-Pro-B Natriuret Pep 27 pg/mL Total Protein 7.1 (6.3-8.2) g/dL Albumin 3.8 (3.5-5.0) g/dL 02/08/23 02/08/23 Range/Units 20:38 20:38 WBC (3.8-10.6) k/uL RBC (4.30-5.90) m/uL Hgb (13.0-17.5) gm/dL Hct (39.0-53.0) % MCV (80.0-100.0) fL MCH (25.0-35.0) pg MCHC (31.0-37.0) g/dL RDW (11.5-15.5) % Plt Count (150-450) k/uL MPV Neutrophils % % Lymphocytes % % Monocytes % % Eosinophils % % Basophils % % Neutrophils # (1.3-7.7) k/uL Lymphocytes # (1.0-4.8) k/uL Monocytes # (0-1.0) k/uL Eosinophils # (0-0.7) k/uL Basophils # (0-0.2) k/uL PT (9.0-12.0) sec INR (<1.2) APTT (22.0-30.0) sec D-Dimer (<0.60) mg/L FEU Sodium (137-145) mmol/L Potassium (3.5-5.1) mmol/L Chloride (98-107) mmol/L Carbon Dioxide (22-30) mmol/L Anion Gap mmol/L BUN (9-20) mg/dL Creatinine (0.66-1.25) mg/dL Est GFR (CKD-EPI)AfAm (>60 ml/min/1.73 sqM) Est GFR (CKD-EPI)NonAf (>60 ml/min/1.73 sqM) Glucose (74-99) mg/dL Plasma Lactic Acid Alexys 1.4 (0.7-2.0) mmol/L Calcium (8.4-10.2) mg/dL Magnesium (1.6-2.3) mg/dL Total Bilirubin (0.2-1.3) mg/dL AST (17-59) U/L ALT (4-49) U/L Alkaline Phosphatase (38-126) U/L Troponin I <0.012 (0.000-0.034) ng/mL NT-Pro-B Natriuret Pep pg/mL Total Protein (6.3-8.2) g/dL Albumin (3.5-5.0) g/dL Disposition Clinical Impression: Acute respiratory insufficiency, Asthma exacerbation, Peripheral edema Disposition: HOME SELF-CARE Condition: Stable Instructions (If sedation given, give patient instructions): Asthma (ED) Additional Instructions: Use the inhaler every 4 hours. Take the steroids as directed. Keep your feet elevated. Follow up with your doctor and return should your breathing not improve. Prescriptions: predniSONE [Deltasone] 20 mg PO BID #10 tab Is patient prescribed a controlled substance at d/c from ED?: No [facility] [Primary Care Provider] - 1-2 days Time of Disposition: 23:09
[2023-02-08 23:29] VITALS: RESP 24
[2023-02-08 23:42] VITALS: BP 148/85; PULSE 99
== END 2023-02-08 23:40 | disposition home or self-care (01) ==
LOC: EC 20:01
DX: J45.901 Unspecified asthma with (acute) exacerbation (principal); R60.9 Edema, unspecified; I10 Essential (primary) hypertension; F32.A Depression, unspecified; E66.01 Morbid (severe) obesity due to excess calories; Z79.51 Long term (current) use of inhaled steroids; Z79.899 Other long term (current) drug therapy; Z88.0 Allergy status to penicillin; Z68.43 Body mass index [BMI] 50.0-59.9, adult
CPT/HCPCS: 36415; 94640; 93005; 85379; 83880; 80053; 83605; 83735; 84484; 85025; 85610; 85730; 71046; 93970; 99285; 96374; 96375; J1940; J2930

== ENCOUNTER 2024-07-07 10:43 | Emergency (ER) | payer OTHER ==
[2024-07-07 11:00] VITALS: TEMP 98.3
--- NOTE | 2024-07-07 11:18 | ED ---
Weakness HPI - General Chief complaint: Weakness Stated complaint: Irreg. blood pressure Time Seen by Provider: 07/07/24 10:59 Source: patient, family, EMS, RN notes reviewed Mode of arrival: EMS Limitations: no limitations - History of Present Illness Initial comments: This is a 54-year-old male with history of hypertension and asthma sent by [facility] via EMS for elevated blood pressure. Patient also mentions he has been weak/lethargic for the past several months, especially with exertion, falling often. Also mentions shortness of breath and nonradiating left chest pain for the past 2 months as well. States chest pain is focal, intermittent and squ eezing (2/10) that worsens while sleeping. Endorses paternal history of heart disease and has quit smoking years ago. Endorses dizziness when taking hot showers. Denies fever, chills, cough, hemoptysis, abdominal pain, N/V/D. MD Complaint: generalized weakness Onset/Timin -: month(s) Location: generalized Quality: crushing Consistency: intermittent Improves with: morning Worsens with: evening Associated Symptoms: chest pain, shortness of breath - Related Data Home Medications Medication Instructions Recorded Confirmed Doxepin [SINEquan] 10 mg PO HS 02/19/22 07/07/24 FLUoxetine HCL [PROzac] 20 mg PO DAILY 02/19/22 07/07/24 Oxybutynin Chloride [Oxybutynin 15 mg PO DAILY 02/19/22 07/07/24 Chloride ER] Albuterol Sulfate [Albuterol 1 puff PO RT-Q4H PRN 07/07/24 07/07/24 Sulfate Hfa] Atorvastatin [Lipitor] 20 mg PO HS 07/07/24 07/07/24 Ibuprofen [Motrin] 400 mg PO Q8HR PRN 07/07/24 07/07/24 Loratadine [Claritin] 10 mg PO DAILY 07/07/24 07/07/24 lisinopriL [Zestril] 20 mg PO DAILY 07/07/24 07/07/24 Allergies Allergy/AdvReac Type Severity Reaction Status Date / Time Penicillins Allergy Anaphylaxis Verified 07/07/24 14:49 Review of Systems ROS Statement: Those systems with pertinent positive or pertinent negative responses have been documented in the HPI. ROS Other: All systems not noted in ROS Statement are negative. Past Medical History Past Medical History: Asthma, Hypertension Additional Past Medical History / Comment(s): back pain, migraines, History of Any Multi-Drug Resistant Organisms: None Reported Past Surgical History: No Surgical Hx Reported Past Psychological History: Depression Smoking Status: Never smoker Past Alcohol Use History: Rare Past Drug Use History: None Reported General Exam General appearance: alert, in no apparent distress, obese Head exam: Present: atraumatic, normocephalic, normal inspection Eye exam: Present: normal appearance, PERRL, EOMI. Absent: scleral icterus, conjunctival injection, periorbital swelling ENT exam: Present: normal exam, mucous membranes moist Neck exam: Present: normal inspection. Absent: tenderness, meningismus, lymphadenopathy Respiratory exam: Present: rales, decreased breath sounds. Absent: respiratory distress, wheezes, rhonchi, stridor, accessory muscle use Cardiovascular Exam: Present: regular rate, normal rhythm, normal heart sounds. Absent: systolic murmur, diastolic murmur, rubs, gallop, clicks GI/Abdominal exam: Present: soft, distended, normal bowel sounds. Absent: tenderness, guarding, rebound, rigid Extremities exam: Present: normal inspection, full ROM, normal capillary refill, other (Negative BLE edema, erythema/stasis dermatitis. Bilateral posterior tibialis pulse +2). Absent: tenderness, pedal edema, joint swelling, calf tenderness Back exam: Present: normal inspection Neurological exam: Present: alert, oriented X3, CN II-XII intact Psychiatric exam: Present: normal affect, normal mood Skin exam: Present: warm, dry, intact, normal color. Absent: rash Course Vital Signs 07/07/24 07/07/24 07/07/24 10:57 13:15 13:59 Temperature 98.3 F Pulse Rate 81 70 73 Respiratory 22 16 18 Rate Blood Pressure 147/95 149/96 151/80 O2 Sat by Pulse 95 94 L 92 L Oximetry 07/07/24 07/07/24 07/07/24 14:08 14:13 15:34 Temperature Pulse Rate 76 76 67 Respiratory 18 18 20 Rate Blood Pressure 162/95 O2 Sat by Pulse 99 Oximetry 07/07/24 07/07/24 17:00 17:01 Temperature Pulse Rate 78 Respiratory 18 Rate Blood Pressure 162/104 O2 Sat by Pulse 90 L 95 Oximetry Medical Decision Making - Medical Decision Making Was pt. sent in by a medical professional or institution ([facility], [facility], urgent care, hospital, or fci...) When possible be specific @ -[No] Did you speak to anyone other than the patient for history (EMS, parent, family, police, friend...)? What history was obtained from this source @ -[No] Did you review nursing and triage notes (agree or disagree)? Why? @ -[I reviewed and agree with nursing and triage notes] Were old charts reviewed (outside hosp., previous admission, EMS record, old EKG, old radiological studies, urgent care reports/EKG's, fci records)? Report findings @ -[No old charts were reviewed] Differential Diagnosis (chest pain, altered mental status, abdominal pain women, abdominal pain men, vaginal bleeding, weakness, fever, dyspnea, syncope, headache, dizziness, GI bleed, back pain, seizure, CVA, palpatations, mental health, musculoskeletal)? @ -Differential Chest Pain: Stable Angina, Unstable Angina, STEMI, NSTEMI Aortic Dissection, Pneumothorax, Musculoskeletal, Esophageal Spasm GERD, Cholecystitis, Pancreatitis, Zoster, this is not meant to be an all-inclusive list. Differential Dyspnea: Coronary syndrome, arrhythmia, tamponade, asthma, COPD, pulmonary embolism, pneumonia, pneumothorax, pulmonary effusion, anaphylaxis, diabetic ketoacidosis, flailed chest, pulmonary contusion, diaphragmatic rupture, anemia, neuromuscular, this is not meant to be an all-inclusive list. EKG interpreted by me (3pts min.). @ -Sinus arrhythmia with first-degree AV block. No ST deviation or T wave inversion. Ventricular rate 68 bpm, NORMAN 233 ms, QRS duration 93 ms, QTc 399 ms. X-rays interpreted by me (1pt min.). @ -[None done] CT interpreted by me (1pt min.). @ -[None done] U/S interpreted by me (1pt. min.). @ -[None done] What testing was considered but not performed or refused? (CT, X-rays, U/S, la bs)? Why? @ -[None] What meds were considered but not given or refused? Why? @ -[None] Did you discuss the management of the patient with other professionals (professionals i.e. , [facility], [facility], lab, RT, psych nurse, child protective services social worker, belt tender, teacher, administrative officer, window caser)? Give summary @ -[No] Was smoking cessation discussed for >3mins.? @ -[No] Was critical care preformed (if so, how long)? @ -[No] Were there social determinants of health that impacted care today? How? (Homelessness, low income, unemployed, alcoholism, drug addiction, transportation, low edu. Level, literacy, decrease access to med. care, shelter, rehab)? @ -[No] Was there de-escalation of care discussed even if they declined (Discuss DNR or withdrawal of care, Hospice)? DNR status @ -[No] What co-morbidities impacted this encounter? (DM, HTN, Smoking, COPD, CAD, Cancer, CVA, ARF, Chemo, Hep., AIDS, mental health diagnosis, sleep apnea, morbid obesity)? @ -Hypertension, asthma Was patient admitted / discharged? Hospital course, mention meds given and route, prescriptions, significant lab abnormalities, going to OR and other pertinent info. @ -[hospital course] Undiagnosed new problem with uncertain prognosis? @ -[No] Drug Therapy requiring intensive monitoring for toxicity (Heparin, Nitro, Insulin, Cardizem)? @ -[No] Were any procedures done? @ -[No] Diagnosis/symptom? @ -[default] Acute, or Chronic, or Acute on Chronic? @ -Acute Uncomplicated (without systemic symptoms) or Complicated (systemic symptoms)? @ -Complicated Side effects of treatment? @ -[No] Exacerbation, Progression, or Severe Exacerbation? @ -[No] Poses a threat to life or bodily function? How? (Chest pain, USA, ME, pneumonia, PE, COPD, DKA, ARF, appy, cholecystitis, CVA, Diverticulitis, Homicidal, Suicidal, threat to staff... and all critical care pts) @ -[No] - Lab Data Result diagrams: 07/07/24 11:35 07/07/24 11:35 Lab Results 07/07/24 07/07/24 07/07/24 Range/Units 11:35 11:35 11:35 WBC 8.8 (3.8-10.6) k/uL RBC 4.52 (4.30-5.90) m/uL Hgb 14.1 (13.0-17.5) gm/dL Hct 42.3 (39.0-53.0) % MCV 93.6 (80.0-100.0) fL MCH 31.2 (25.0-35.0) pg MCHC 33.3 (31.0-37.0) g/dL RDW 15.2 (11.5-15.5) % Plt Count 298 (150-450) k/uL MPV 8.2 Neutrophils % 69 % Lymphocytes % 19 % Monocytes % 5 % Eosinophils % 4 % Basophils % 1 % Neutrophils # 6.1 (1.3-7.7) k/uL Lymphocytes # 1.7 (1.0-4.8) k/uL Monocytes # 0.4 (0-1.0) k/uL Eosinophils # 0.4 (0-0.7) k/uL Basophils # 0.1 (0-0.2) k/uL Hypochromasia Slight PT 10.4 (10.0-12.5) sec INR 0.9 (<1.2) APTT 25.7 (22.0-30.0) sec D-Dimer 0.41 (<0.60) mg/L FEU Sodium 138 (137-145) mmol/L Potassium 4.5 (3.5-5.1) mmol/L Chloride 101 (98-107) mmol/L Carbon Dioxide 32 H (22-30) mmol/L Anion Gap 5 mmol/L BUN 16 (9-20) mg/dL Creatinine 0.87 (0.66-1.25) mg/dL Est GFR (CKD-EPI)AfAm >90 (>60 ml/min/1.73 sqM) Est GFR (CKD-EPI)NonAf >90 (>60 ml/min/1.73 sqM) Glucose 109 H (74-99) mg/dL Plasma Lactic Acid Alexys (0.7-2.0) mmol/L Calcium 9.1 (8.4-10.2) mg/dL Phosphorus 2.8 (2.5-4.5) mg/dL Magnesium 2.2 (1.6-2.3) mg/dL Total Bilirubin 1.0 (0.2-1.3) mg/dL AST 35 (17-59) U/L ALT 45 (4-49) U/L Alkaline Phosphatase 109 (38-126) U/L Troponin I (0.000-0.034) ng/mL NT-Pro-B Natriuret Pep 27 pg/mL Total Protein 7.4 (6.3-8.2) g/dL Albumin 4.1 (3.5-5.0) g/dL Urine Color Urine Appearance (Clear) Urine pH (5.0-8.0) Ur Specific [place] (1.001-1.035) Urine Protein (Negative) Urine Glucose (UA) (Negative) Urine Ketones (Negative) Urine Blood (Negative) Urine Nitrite (Negative) Urine Bilirubin (Negative) Urine Urobilinogen (<2.0) mg/dL Ur Leukocyte Esterase (Negative) 07/07/24 07/07/24 07/07/24 Range/Units 11:35 11:35 14:36 WBC (3.8-10.6) k/uL RBC (4.30-5.90) m/uL Hgb (13.0-17.5) gm/dL Hct (39.0-53.0) % MCV (80.0-100.0) fL MCH (25.0-35.0) pg MCHC (31.0-37.0) g/dL RDW (11.5-15.5) % Plt Count (150-450) k/uL MPV Neutrophils % % Lymphocytes % % Monocytes % % Eosinophils % % Basophils % % Neutrophils # (1.3-7.7) k/uL Lymphocytes # (1.0-4.8) k/uL Monocytes # (0-1.0) k/uL Eosinophils # (0-0.7) k/uL Basophils # (0-0.2) k/uL Hypochromasia PT (10.0-12.5) sec INR (<1.2) APTT (22.0-30.0) sec D-Dimer (<0.60) mg/L FEU Sodium (137-145) mmol/L Potassium (3.5-5.1) mmol/L Chloride (98-107) mmol/L Carbon Dioxide (22-30) mmol/L Anion Gap mmol/L BUN (9-20) mg/dL Creatinine (0.66-1.25) mg/dL Est GFR (CKD-EPI)AfAm (>60 ml/min/1.73 sqM) Est GFR (CKD-EPI)NonAf (>60 ml/min/1.73 sqM) Glucose (74-99) mg/dL Plasma Lactic Acid Alexys 1.7 (0.7-2.0) mmol/L Calcium (8.4-10.2) mg/dL Phosphorus (2.5-4.5) mg/dL Magnesium (1.6-2.3) mg/dL Total Bilirubin (0.2-1.3) mg/dL AST (17-59) U/L ALT (4-49) U/L Alkaline Phosphatase (38-126) U/L Troponin I 0.024 <0.012 (0.000-0.034) ng/mL NT-Pro-B Natriuret Pep pg/mL Total Protein (6.3-8.2) g/dL Albumin (3.5-5.0) g/dL Urine Color Urine Appearance (Clear) Urine pH (5.0-8.0) Ur Specific [place] (1.001-1.035) Urine Protein (Negative) Urine Glucose (UA) (Negative) Urine Ketones (Negative) Urine Blood (Negative) Urine Nitrite (Negative) Urine Bilirubin (Negative) Urine Urobilinogen (<2.0) mg/dL Ur Leukocyte Esterase (Negative) 07/07/24 Range/Units 17:02 WBC (3.8-10.6) k/uL RBC (4.30-5.90) m/uL Hgb (13.0-17.5) gm/dL Hct (39.0-53.0) % MCV (80.0-100.0) fL MCH (25.0-35.0) pg MCHC (31.0-37.0) g/dL RDW (11.5-15.5) % Plt Count (150-450) k/uL MPV Neutrophils % % Lymphocytes % % Monocytes % % Eosinophils % % Basophils % % Neutrophils # (1.3-7.7) k/uL Lymphocytes # (1.0-4.8) k/uL Monocytes # (0-1.0) k/uL Eosinophils # (0-0.7) k/uL Basophils # (0-0.2) k/uL Hypochromasia PT (10.0-12.5) sec INR (<1.2) APTT (22.0-30.0) sec D-Dimer (<0.60) mg/L FEU Sodium (137-145) mmol/L Potassium (3.5-5.1) mmol/L Chloride (98-107) mmol/L Carbon Dioxide (22-30) mmol/L Anion Gap mmol/L BUN (9-20) mg/dL Creatinine (0.66-1.25) mg/dL Est GFR (CKD-EPI)AfAm (>60 ml/min/1.73 sqM) Est GFR (CKD-EPI)NonAf (>60 ml/min/1.73 sqM) Glucose (74-99) mg/dL Plasma Lactic Acid Alexys (0.7-2.0) mmol/L Calcium (8.4-10.2) mg/dL Phosphorus (2.5-4.5) mg/dL Magnesium (1.6-2.3) mg/dL Total Bilirubin (0.2-1.3) mg/dL AST (17-59) U/L ALT (4-49) U/L Alkaline Phosphatase (38-126) U/L Troponin I (0.000-0.034) ng/mL NT-Pro-B Natriuret Pep pg/mL Total Protein (6.3-8.2) g/dL Albumin (3.5-5.0) g/dL Urine Color Yellow Urine Appearance Clear (Clear) Urine pH 5.5 (5.0-8.0) Ur Specific [place] 1.021 (1.001-1.035) Urine Protein Trace H (Negative) Urine Glucose (UA) Negative (Negative) Urine Ketones Negative (Negative) Urine Blood Negative (Negative) Urine Nitrite Negative (Negative) Urine Bilirubin Negative (Negative) Urine Urobilinogen <2.0 (<2.0) mg/dL Ur Leukocyte Esterase Negative (Negative) Disposition Clinical Impression: Weakness Disposition: ADMITTED IP TO THIS [facility] Condition: Good Instructions (If sedation given, give patient instructions): Fall Prevention for Older Adults (ED) Additional Instructions: Follow-up with PCP in next 24 hours for ongoing weakness. Is patient prescribed a controlled substance at d/c from ED?: No Referrals: [facility] [Primary Care Provider] - 1-2 days Time of Disposition: 15:15 Decision Date: 07/07/24 Decision Time: 15:15
[2024-07-07] MEDS: ASPIRIN 81 MG PO STA (11:33)
[2024-07-07 11:53] LABS: Basophils # (A) 0.1 k/uL (0-0.2); Basophils % (A) 1 %; Eosinophils # (A) 0.4 k/uL (0-0.7); Eosinophils % (A) 4 %; HCT 42.3 % (39.0-53.0); HGB 14.1 gm/dL (13.0-17.5); Hypochromasia Slight; Lymphocytes # (A) 1.7 k/uL (1.0-4.8); Lymphocytes % (A) 19 %; MCH 31.2 pg (25.0-35.0); MCHC 33.3 g/dL (31.0-37.0); MCV 93.6 fL (80.0-100.0); Mean Platelet Volume 8.2; Monocytes # (A) 0.4 k/uL (0-1.0); Monocytes % (A) 5 %; Neutrophils # (A) 6.1 k/uL (1.3-7.7); Neutrophils % (A) 69 %; Platelet Count 298 k/uL (150-450); RBC 4.52 m/uL (4.30-5.90); RDW 15.2 % (11.5-15.5); WBC 8.8 k/uL (3.8-10.6)
[2024-07-07 12:11] LABS: INR 0.9 (<1.2); Partial Thromboplastin Time 25.7 sec (22.0-30.0); Prothrombin Time 10.4 sec (10.0-12.5)
--- NOTE | 2024-07-07 12:25 | XR ---
EXAMINATION TYPE: XR chest 2V DATE OF EXAM: 07/07/2024 COMPARISON: 02/08/2023. CLINICAL INDICATION: Male, 54 years old with history of Weakness; , TECHNIQUE: XR chest 2V views of the chest. FINDINGS: Limited inspiration with diffuse interstitial pattern and elevated right hemidiaphragm. Respiratory m otion limits the exam. There is degenerative changes of the spine. No obvious pneumothorax or definit khanh consolidation. IMPRESSION: 1. Markedly limited exam. Interstitial pattern could be related to reduced inspiration rather than ve nous congestion or interstitial pneumonitis correlate clinically. [facility], , 07/07/2024 12:23 PM
[2024-07-07 12:37] LABS: ALT 45 U/L (4-49); African American GFR (CKD) >90 (>60 ml/min/1.73 sqM); Albumin 4.1 g/dL (3.5-5.0); Anion Gap 5 mmol/L; Blood Urea Nitrogen 16 mg/dL (9-20); Calcium 9.1 mg/dL (8.4-10.2); Carbon Dioxide 32 mmol/L (22-30); Chloride 101 mmol/L (98-107); Glucose 109 mg/dL (74-99); Non-African American GFR(CKD) >90 (>60 ml/min/1.73 sqM); Sodium 138 mmol/L (137-145); Total Protein 7.4 g/dL (6.3-8.2)
[2024-07-07 12:44] LABS: NT-Pro-B-Type Natriuretic Pept 27 pg/mL
[2024-07-07 12:53] LABS: Magnesium 2.2 mg/dL (1.6-2.3); Phosphorus 2.8 mg/dL (2.5-4.5); Potassium 4.5 mmol/L (3.5-5.1)
[2024-07-07 12:54] LABS: AST 35 U/L (17-59); Alkaline Phosphatase 109 U/L (38-126)
--- NOTE | 2024-07-07 13:37 | XR ---
EXAMINATION TYPE: XR chest 2V DATE OF EXAM: 07/07/2024 COMPARISON: 07/07/2024 CLINICAL INDICATION: Male, 54 years old with history of Repeat CXR; , TECHNIQUE: XR chest 2V views of the chest. FINDINGS: Prominence of the upper mediastinum cardiac silhouette. Interstitium is improved. Subsegmental change s left lung base. No obvious consolidation. Degenerative change of the spine. IMPRESSION: 1. Improved inspiration with a reduction in the prominence of the interstitium. No acute consolidatio n. [facility], , 07/07/2024 1:35 PM
[2024-07-07] MEDS: methylPREDNISolone SOD SUCCI 125 MG/2 ML VIAL IV STA (13:55)
[2024-07-07] MEDS: IPRATROPIUM-ALBUTEROL 3 ML NEB INHALATION STA (14:07)
--- NOTE | 2024-07-07 16:50 | CT ---
EXAMINATION TYPE: CT brain cspine wo con DATE OF EXAM: 07/07/2024 4:39 PM COMPARISON: 12/18/2012 CLINICAL INDICATION: Male, 54 years old with history of Fall, weakness, ams, fall, pain TECHNIQUE: CT of the brain is performed utilizing 3 mm thick sections through the posterior fossa and 3 mm thick sections through the remaining calvarium. Study is performed within 24 hours of arrival to the hospital. Contrast used: mL of , (none if empty) CT DLP: 2029.7 mGycm, Automated exposure control for dose reduction was used. FINDINGS: No abnormal hyperdensity is present to suggest an acute intracranial hemorrhage. No mass lesion is evident. No acute infarcts are evident. Ventricles and sulci are appropriate for the patient age. Paranasal sinuses and mastoid air cells within the [id number] are clear. IMPRESSIONS: 1. No acute intracranial process. Follow-up MRI can be performed as clinically indicated. CT cervical spine. COMPARISON: None TECHNIQUE: CT of the cervical spine is performed in the axial plane at 2 mm thick sections. Reconstr ucted images in the coronal, and sagittal plane are reviewed on the computer. FINDINGS: No acute fractures are evident. Vertebral body alignment is normal. Mild diffuse disc space narrowing is present. Vertebral body heights are preserved. No spinal canal stenosis is evident. No neural foraminal stenosis is evident. IMPRESSION: 1. No acute osseous abnormality cervical spine. [facility], Workstation: [facility], 07/07/2024 4:48 PM
[2024-07-07 17:02] VITALS: RESP 18
[2024-07-07 17:18] LABS: Appearance,Urine Clear (Clear); Bilirubin,Urine Negative (Negative); Blood,Urine Negative (Negative); Color,Urine Yellow; Glucose,Urine (UA) Negative (Negative); Ketones,Urine Negative (Negative); Leukocyte Esterase,Urine Negative (Negative); Nitrite,Urine Negative (Negative); PH, Urine 5.5 (5.0-8.0); Protein,Urine Trace (Negative); Specific Gravity,Urine 1.021 (1.001-1.035); Urobilinogen,Urine <2.0 mg/dL (<2.0)
[2024-07-07 18:46] VITALS: BP 158/98; PULSE 103
== END 2024-07-07 18:45 | disposition other institution (70) ==
LOC: EC 10:43
DX: R53.1 Weakness (principal); I10 Essential (primary) hypertension; J45.909 Unspecified asthma, uncomplicated; Z88.0 Allergy status to penicillin; W19.XXXA Unspecified fall, initial encounter
CPT/HCPCS: 36415; 94640; 93005; 85379; 83880; 80053; 83605; 83735; 84100; 84484; 85025; 85610; 85730; 81003; 71046; 72125; 70450; 99285; 96374; J2919

== ENCOUNTER 2024-10-12 01:48 | Observation (INO) | payer OTHER ==
[2024-10-12 02:14] LABS: Eosinophils # (A) 0.37 10*3/uL (0.04-0.35); Eosinophils % (A) 3.7 %; HCT 39.9 % (39.6-50.0); HGB 13.1 g/dL (13.0-17.0); Lymphocytes # (A) 0.49 10*3/uL (0.90-5.00); MCHC 32.8 g/dL (32.0-37.0); MCV 94.5 fL (80.0-97.0); Mean Platelet Volume 9.8 fL (9.5-12.2); Monocytes # (A) 0.79 10*3/uL (0.20-1.00); Neutrophils # (A) 7.99 10*3/uL (1.80-7.70); Platelet Count 308 10*3/uL (140-440); RBC 4.22 10*6/uL (4.40-5.60); RDW 15.5 % (11.5-14.5); WBC 9.87 10*3/uL (4.50-10.00)
[2024-10-12] MEDS: MORPHINE SULFATE 4 MG/ML SYRINGE IV STA (02:21)
[2024-10-12 02:32] LABS: ALT 48 U/L (4-49); African American GFR (CKD) >90 (>60 ml/min/1.73 sqM); Anion Gap 9 mmol/L; Blood Urea Nitrogen 15 mg/dL (9-20); Calcium 8.7 mg/dL (8.4-10.2); Carbon Dioxide 28 mmol/L (22-30); Chloride 100 mmol/L (98-107); Glucose 122 mg/dL (74-99); Non-African American GFR(CKD) >90 (>60 ml/min/1.73 sqM); Sodium 137 mmol/L (137-145); Total Bilirubin 1.4 mg/dL (0.2-1.3)
--- NOTE | 2024-10-12 02:38 | ED ---
Chest Pain HPI - General Chief Complaint: Chest Pain Stated Complaint: Chest Pain Time Seen by Provider: 10/12/24 01:55 Source: patient Mode of arrival: EMS - History of Present Illness Initial Comments: This patient is a 54-year-old man who arrives to have evaluation of chest pain. The patient indicates the anterior left chest, above the sternal border. The patient states he has been having the symptoms intermittently going back approximately 1 week. He describes as an aching, he has not discovered worsening or relieving factors. He has had some shortness of breath associated. Denies diaphoresis, nausea, vomiting, lightheadedness or syncope. Patient states that he had pacemaker placed at [facility], approximately 2 weeks ago for an irregular heartbeat. MD Complaint: chest pain Onset/Timin -: week(s) Onset: during rest Pain Location: left chest Pain Radiation: none Severity: moderate Quality: aching Consistency: intermittent Improves With: nothing Worsens With: nothing Anginal Symptoms: dyspnea Treatments Prior to Arrival: none - Related Data Home Medications Medication Instructions Recorded Confirmed Doxepin [SINEquan] 10 mg PO HS 02/19/22 07/07/24 FLUoxetine HCL [PROzac] 20 mg PO DAILY 02/19/22 07/07/24 Oxybutynin Chloride [Oxybutynin 15 mg PO DAILY 02/19/22 07/07/24 Chloride ER] Albuterol Sulfate [Albuterol 1 puff PO RT-Q4H PRN 07/07/24 07/07/24 Sulfate Hfa] Atorvastatin [Lipitor] 20 mg PO HS 07/07/24 07/07/24 Ibuprofen [Motrin] 400 mg PO Q8HR PRN 07/07/24 07/07/24 Loratadine [Claritin] 10 mg PO DAILY 07/07/24 07/07/24 lisinopriL [Zestril] 20 mg PO DAILY 07/07/24 07/07/24 Allergies Allergy/AdvReac Type Severity Reaction Status Date / Time Penicillins Allergy Anaphylaxis Verified 10/12/24 01:57 Review of Systems ROS Statement: Those systems with pertinent positive or pertinent negative responses have been documented in the HPI. ROS Other: All systems not noted in ROS Statement are negative. Constitutional: Denies: fever, chills Respiratory: Reports: dyspnea. Denies: cough, wheezes Cardiovascular: Reports: chest pain. Denies: palpitations, edema, syncope Gastrointestinal: Denies: abdominal pain, nausea, vomiting, melena, hematochezia Genitourinary: Denies: dysuria, hematuria Musculoskeletal: Denies: back pain Skin: Denies: rash Neurological: Denies: headache, weakness EKG Findings - EKG Results: EKG: interpreted by ERMD, sinus rhythm (Rate 80 bpm), normal axis - Blocks, Luna, Hypertrophy, ST Abn: QRS axis and voltage: low voltage (<0.5 MV total QRS and <1.0 MV in each precordial lead) Repolarization changes or abnormalities: nonspecific abnormality, ST segment, and/or T wave Past Medical History Past Medical History: Asthma, Hypertension Additional Past Medical History / Comment(s): back pain, migraines, History of Any Multi-Drug Resistant Organisms: None Reported Past Surgical History: Pacemaker Past Psychological History: Depression Smoking Status: Never smoker Past Alcohol Use History: Rare Past Drug Use History: None Reported General Exam General appearance: alert, in no apparent distress Head exam: Present: atraumatic, normocephalic Eye exam: Present: normal appearance. Absent: scleral icterus, conjunctival injection Neck exam: Present: normal inspection Respiratory exam: Present: normal lung sounds bilaterally. Absent: respiratory distress, wheezes, rales, rhonchi, stridor, accessory muscle use Cardiovascular Exam: Present: regular rate, normal rhythm, normal heart sounds. Absent: systolic murmur, diastolic murmur, rubs, gallop GI/Abdominal exam: Present: soft. Absent: distended, tenderness, guarding, rebound, mass Extremities exam: Present: normal inspection, normal capillary refill. Absent: pedal edema, calf tenderness Back exam: Present: normal inspection. Absent: CVA tenderness (R), CVA tenderness (L) Neurological exam: Present: alert Skin exam: Present: warm, dry, intact, normal color. Absent: rash Course Vital Signs 10/12/24 10/12/24 10/12/24 01:53 02:10 05:26 Temperature 99.2 F 99.3 F Pulse Rate 81 83 96 Respiratory 24 24 24 Rate Blood Pressure 134/74 123/76 151/94 O2 Sat by Pulse 92 L 97 99 Oximetry Chest Pain [facility] - MDM The patient had x-ray of the chest that I interpreted as negative for acute infiltrate, pneumothorax, congestive heart failure The patient had CT angiogram of the chest to rule out pulmonary embolism that I interpreted as negative for PE, pneumothorax, acute infiltrate. Disposition
[2024-10-12 02:40] LABS: AST 43 U/L (17-59); Albumin 4.2 g/dL (3.5-5.0); Alkaline Phosphatase 93 U/L (38-126); Magnesium 2.1 mg/dL (1.6-2.3); Potassium 4.5 mmol/L (3.5-5.1); Total Protein 7.3 g/dL (6.3-8.2)
[2024-10-12 02:41] LABS: NT-Pro-B-Type Natriuretic Pept 96 pg/mL
[2024-10-12 02:46] LABS: INR 0.9 (<1.2); Prothrombin Time 10.5 sec (10.0-12.5)
--- NOTE | 2024-10-12 03:26 | XR ---
EXAM: XR Chest, 1 View CLINICAL HISTORY: XR Reason: chest pain TECHNIQUE: Frontal view of the chest. COMPARISON: July 07, 2024 FINDINGS: Lungs: Low lung volumes and 4 cm elevation of the right diaphragm. Mild central bronchovascular crowding without overt edema or focal consolidation. Pleural space: Unremarkable. No pneumothorax. Heart: Unremarkable. No cardiomegaly. Mediastinum: Unremarkable. Normal mediastinal contour. Bones/joints: Mild osteophytosis in the mid thoracic spine. No acute fracture. Tubes, lines and devices: There is a new left-sided pacing device in place with leads running to the right side of the heart. Upper abdomen: Unremarkable as visualized. No pneumoperitoneum under the diaphragm. IMPRESSION: 1. There is a new left-sided pacing device in place with leads running to the right side of the heart. 2. Low lung volumes and 4 cm elevation of the right diaphragm. Mild central bronchovascular crowding without overt edema or focal consolidation.
--- NOTE | 2024-10-12 03:58 | CT ---
EXAM: CT Angiography Chest With Intravenous Contrast CLINICAL HISTORY: CT Reason: Possible PE TECHNIQUE: Axial computed tomographic angiography images of the chest with intravenous contrast. CTDI is 63.6 mGy and DLP is 1261.6 mGy-cm. This CT exam was performed using one or more of the following dose reduction techniques: automated exposure control, adjustment of the mA and/or kV according to patient size, and/or use of iterative reconstruction technique. MIP reconstructed images were created and reviewed. COMPARISON: Chest x-ray from October 04, 2024 FINDINGS: Pulmonary arteries: The pulmonary arterial tree is well opacified with contrast. No pulmonary emboli are identified. Aorta: The thoracic aorta is nondilated. There is no aneurysm or dissection. Lungs: Lungs are well-inflated and clear. No infiltrate or consolidation is seen. Pleural space: Unremarkable. No significant effusion. No pneumothorax. Heart: Unremarkable. No cardiomegaly. No significant pericardial effusion. No evidence of RV dysfunction. Bones/joints: Mild degenerative changes in the spine. No acute fracture or subluxation is seen. Soft tissues: Unremarkable. Lymph nodes: Unremarkable. No enlarged lymph nodes. Liver: Fatty infiltration of the liver. Tubes, lines and devices: There is a pacing device in place running to the right side of the heart. The heart is borderline enlarged. No pericardial effusion. IMPRESSION: 1. The pulmonary arterial tree is well opacified with contrast. No pulmonary emboli are identified. 2. Lungs are well-inflated and clear. No infiltrate or consolidation is seen.
[2024-10-12] MEDS ORDERED: NITROGLYCERIN SL TABS 0.4 MG TAB SUBLINGUAL PRN (04:23)
[2024-10-12] MEDS ORDERED: ALBUTEROL NEBULIZED 2.5 MG/3 ML INHALATION PRN (04:28)
[2024-10-12] MEDS: IBUPROFEN 400 MG TAB PO PRN (05:48)
--- NOTE | 2024-10-12 06:12 | P.HPIM ---
History of Present Illness H&P Date: 10/12/24 54-year-old male with hypertension, asthma Patient coming in for evaluation of sudden onset left-sided chest pain, patient seems to be restless and irritable and easily agitated provides short answers reports that chest pain started today all of a sudden while he was getting ready to sleep laying in bed watching TV for which she decided to come into the hospital for evaluation he did not comment when asked about associated symptoms but denies any nausea or vomiting. Denies any history of heart attacks however 2 weeks ago he had a pacemaker inserted for some irregular heartbeats. Patient is not on any blood thinners Patient denies any history of blood clots denies any recent travel or hospital stay denies any coughing or shortness of breath denies any fevers or chills denies any known sick contact denies any trauma to the chest. Patient reports the chest pain did not improve until he got medications in the ED per RN he was given aspirin nitro and morphine. However patient is so ir ritable he keeps having the call light every minute. review of systems Pertinent positives as noted in HPI. All other systems were reviewed and are negative on exam Constitutional: Irritable restless and sleepy, morbidly obese Eyes: Anicteric sclerae, moist conjunctiva, Pupils equal round reactive to light ENMT: NC/AT Oropharynx clear, no erythema, or exudates Neck: Supple, no masses, or JVD No carotid bruits No thyromegaly Lungs: Good breath sounds bilaterally with some scattered rhonchi Clear to percussion Normal respiratory effort, no accessory muscle use Cardiovascular: Heart regular in rate and rhythm, No murmurs, gallops, or rubs No peripheral edema Abdominal: Soft Nontender, no guarding, rebound or rigidity Abdomen moving with respiration Normoactive bowel sounds Extremities: No digital cyanosis No clubbing Pedal pulses intact and symmetrical Radial pulses intact and symmetrical No calf tenderness Psychiatric: Alert and oriented to person, place and time Appropriate affect fair judgement Neuro Muscles Strength 5/5 in all 4 extremities Sensation to light touch grossly present throughout Cranial nerves II-XII grossly intact Past Medical History Past Medical History: Asthma, Hypertension Additional Past Medical History / Comment(s): back pain, migraines, History of Any Multi-Drug Resistant Organisms: None Reported Past Surgical History: Pacemaker Past Psychological History: Depression Smoking Status: Never smoker Past Alcohol Use History: Rare Past Drug Use History: None Reported Medications and Allergies Home Medications Medication Instructions Recorded Confirmed Type Doxepin [SINEquan] 10 mg PO HS 02/19/22 07/07/24 History FLUoxetine HCL [PROzac] 20 mg PO DAILY 02/19/22 07/07/24 History Oxybutynin Chloride [Oxybutynin 15 mg PO DAILY 02/19/22 07/07/24 History Chloride ER] Albuterol Sulfate [Albuterol 1 puff PO RT-Q4H PRN 07/07/24 07/07/24 History Sulfate Hfa] Atorvastatin [Lipitor] 20 mg PO HS 07/07/24 07/07/24 History Ibuprofen [Motrin] 400 mg PO Q8HR PRN 07/07/24 07/07/24 History Loratadine [Claritin] 10 mg PO DAILY 07/07/24 07/07/24 History lisinopriL [Zestril] 20 mg PO DAILY 07/07/24 07/07/24 History Allergies Allergy/AdvReac Type Severity Reaction Status Date / Time Penicillins Allergy Anaphylaxis Verified 10/12/24 01:57 Physical Exam Vitals: Vital Signs Temp Pulse Resp BP Pulse Ox 10/12/24 05:26 99.3 F 96 24 151/94 99 10/12/24 02:10 83 24 123/76 97 10/12/24 01:53 99.2 F 81 24 134/74 92 L Intake and Output 10/11/24 10/11/24 10/12/24 14:59 22:59 06:59 Other: Weight 145.15 kg Results CBC & Chem 7: 10/12/24 02:00 10/12/24 02:00 Labs: Abnormal Lab Results - Last 24 Hours (Table) 10/12/24 10/12/24 10/12/24 Range/Units 02:00 02:00 02:00 RBC 4.22 L (4.40-5.60) 10*6/uL Immature Gran # 0.13 H (0.00-0.04) 10*3/uL Neutrophils # 7.99 H (1.80-7.70) 10*3/uL Lymphocytes # 0.49 L (0.90-5.00) 10*3/uL Eosinophils # 0.37 H (0.04-0.35) 10*3/uL D-Dimer 0.76 H (<0.60) mg/L FEU Glucose 122 H (74-99) mg/dL Total Bilirubin 1.4 H (0.2-1.3) mg/dL Assessment and Plan Assessment: 54-year-old male with hypertension, asthma coming in for sudden onset left-sided chest pain discussed case with ED doctor and accepted the admission for atypi grant chest pain rule out ACS Atypical chest pain rule out acute coronary syndrome Initial troponin negative, continue to trend proBNP 96 unremarkable Continue with aspirin 81 mg daily Continue with nitro as needed sublingual as needed for chest pain Monitor vital signs Cardiology consult EKG no acute ST changes D-dimer was elevated CT angio of the chest no acute PE Hypertension, controlled Continue with home meds lisinopril 20 mg daily Morbid obesity Patient counseled for weight loss and lifestyle modification Abnormal immature granulocytes and peripheral smear Blood work otherwise unremarkable white count 9.8 hemoglobin 13.1 within normal limits No evidence of acute infection Possibly inflammatory changes secondary to recent surgery Consult hematology for their input Unremarkable renal function sodium 137 potassium 4.5 BUN 15 creatinine 0.8 bicarb 28 Full code DVT prophylaxis Lovenox 40 mg subcu daily
[2024-10-12] MEDS: FLUoxetine HCL 20 MG CAP PO SCH (09:30)
[2024-10-12] MEDS: PANTOPRAZOLE 40 MG TABLET PO SCH (09:30)
[2024-10-12] MEDS: lisinopriL 20 MG TAB PO SCH (09:30)
[2024-10-12] MEDS: OXYBUTYNIN 15 MG TAB.ER.24 PO SCH (09:31)
[2024-10-12] MEDS: ASPIRIN 81 MG PO SCH (09:31)
[2024-10-12] MEDS: ENOXAPARIN 40 MG/0.4 ML SYRINGE SQ SCH (09:31)
--- NOTE | 2024-10-12 10:58 | P.CRDCN ---
History of Present Illness Consult date: 10/12/24 Consult reason: chest pain History of present illness: This is a 54-year-old male patient with past medical history of hypertension, asthma, recent pacemaker implantation for sick sinus syndrome with pauses up to 8 seconds. Patient is very groggy during exam and is a very poor historian. He apparently took a sleeping pill before he came into the hospital. He is complaining of previous pain under the left breast. He also states that he had congestion in his chest and he could not get a deep breath. He complains of feeling weak. He complains of cough and sputum production and he also complains of his legs feeling achy. Blood pressure 155/89, heart rate 70-96, pulse ox 97% on 2 L nasal cannula. Patient is seen today in the emergency center waiting for a bed on the observation unit. Patient had a recent hospitalization at [facility]. -EKG: Sinus rhythm with first-degree AV block. -Chest x-ray: -CTA chest no PE -Laboratory studies: WBC 9.8, hemoglobin 13.1, D-dimer 0.76. Electrolytes and renal function normal. Troponin negative x 2. proBNP 96. -Home cardiac medications: Amlodipine 5 mg daily lisinoprilhydrochlorothiazide 20-12.5 mg 1 tablet daily, metoprolol succinate 12.5 mg daily. Review Of Systems: At the time of my exam: CONSTITUTIONAL: Denies fever or chills. HEENT: Denies blurred vision, vision changes, or eye pain. Denies hemoptysis CARDIOVASCULAR: Denies chest pain. Denies orthopnea. Denies PND. Denies palpitations RESPIRATORY: Denies shortness of breath. GASTROINTESTINAL: Denies abdominal pain. Denies nausea or vomiting. HEMATOLOGIC: Denies bleeding disorders. GENITOURINARY: Denies any blood in urine. SKIN: Denies puritis. Denies rash. Physical examination: Gen: This is a 54-year-old male in no acute distress VS: reviewed HEENT: Head is atraumatic, normocephalic. Pupils equal, round. Sclerae is anicteric. NECK: Supple. No JVD. LUNGS: Clear to auscultation. No wheezes or rhonchi. No intercostal retractions. HEART: Regular rate and rhythm. No murmur. No chest wall tenderness. ABDOMEN: Soft No tenderness. EXTREMITIES: No pedal edema. No calf tenderness. NEUROLOGICAL: Patient is groggy. Assessment: Generalized weakness, legs achy Atypical chest pain, acute coronary syndrome ruled out Sick sinus syndrome status post pacemaker implantation Hypertension Obesity with BMI of 51 Plan: Resume patient's home cardiac medications Obtain records from [facility] Interrogate pacemaker No further cardiac workup at this time At the time of discharge, patient will follow-up with Dr. Campbell in 1 to 2 weeks. Thank you kindly for this consultation. Nurse practitioner note has been reviewed, I agree with documented findings and plan of care. Patient was seen and examined. Past Medical History Past Medical History: Asthma, Hypertension Additional Past Medical History / Comment(s): back pain, migraines, History of Any Multi-Drug Resistant Organisms: None Reported Past Surgical History: Pacemaker Past Psychological History: Depression Smoking Status: Never smoker Past Alcohol Use History: Rare Past Drug Use History: None Reported Medications and Allergies Home Medications Medication Instructions Recorded Confirmed Type Oxybutynin Chloride [oxyBUTYnin 15 mg PO DAILY 02/19/22 10/12/24 History chloride ER] Albuterol Sulfate [Albuterol 1 puff PO RT-Q4H PRN 07/07/24 10/12/24 History Sulfate Hfa] Ibuprofen [Motrin] 400 mg PO TID PRN 07/07/24 10/12/24 History Acetaminophen Tab [Tylenol] 650 mg PO Q6H PRN 10/12/24 10/12/24 History Aspirin 81 mg PO DAILY 30 Days #30 tab 10/12/24 Rx Atorvastatin [Lipitor] 20 mg PO HS 30 Days #30 tab 10/12/24 Rx Doxepin [SINEquan] 10 mg PO HS 10/12/24 10/12/24 History FLUoxetine HCL [PROzac] 20 mg PO DAILY 10/12/24 10/12/24 History Famotidine [Pepcid] 20 mg PO BID 10/12/24 10/12/24 History Lisinopril-Hctz 20-12.5 mg 1 tab PO DAILY 10/12/24 10/12/24 History [Zestoretic 20-12.5] Metoprolol Succinate (ER) [Toprol 12.5 mg PO DAILY 10/12/24 10/12/24 History XL] amLODIPine [Norvasc] 5 mg PO DAILY 10/12/24 10/12/24 History Allergies Allergy/AdvReac Type Severity Reaction Status Date / Time Penicillins Allergy Anaphylaxis Verified 10/12/24 09:41 Physical Exam Vitals: Vital Signs Temp Pulse Resp BP Pulse Ox 10/12/24 06:00 70 22 155/89 97 10/12/24 05:26 99.3 F 96 24 151/94 99 10/12/24 02:10 83 24 123/76 97 10/12/24 01:53 99.2 F 81 24 134/74 92 L Intake and Output 10/11/24 10/12/24 10/12/24 22:59 06:59 14:59 Other: Weight 145.15 kg Results 10/12/24 02:00 10/12/24 02:00 Cardiac Enzymes 10/12/24 10/12/24 10/12/24 Range/Units 02:00 02:00 06:21 AST 43 (17-59) U/L Troponin I <0.012 <0.012 (0.000-0.034) ng/mL Coagulation 10/12/24 Range/Units 02:00 PT 10.5 (10.0-12.5) sec APTT 26.0 (22.0-30.0) sec CBC 10/12/24 Range/Units 02:00 WBC 9.87 (4.50-10.00) 10*3/uL RBC 4.22 L (4.40-5.60) 10*6/uL Hgb 13.1 (13.0-17.0) g/dL Hct 39.9 (39.6-50.0) % Plt Count 308 (140-440) 10*3/uL Comprehensive Metabolic Panel 10/12/24 Range/Units 02:00 Sodium 137 (137-145) mmol/L Potassium 4.5 (3.5-5.1) mmol/L Chloride 100 (98-107) mmol/L Carbon Dioxide 28 (22-30) mmol/L BUN 15 (9-20) mg/dL Creatinine 0.80 (0.66-1.25) mg/dL Glucose 122 H (74-99) mg/dL Calcium 8.7 (8.4-10.2) mg/dL AST 43 (17-59) U/L ALT 48 (4-49) U/L Alkaline Phosphatase 93 (38-126) U/L Total Protein 7.3 (6.3-8.2) g/dL Albumin 4.2 (3.5-5.0) g/dL Current Medications Generic Name Dose Route Start Last Admin Trade Name Freq PRN Reason Stop Dose Admin Albuterol Sulfate 2.5 mg 10/12/24 04:28 Albuterol Nebulized 2.5 Mg/3 Ml INHALATION RT-Q4H PRN Shortness Of Breath Aspirin 81 mg 10/12/24 09:00 Aspirin 81 Mg PO DAILY [facility] Atorvastatin Calcium 20 mg 10/12/24 21:00 Atorvastatin 20 Mg Tab PO HS [facility] Doxepin HCl 10 mg 10/12/24 21:00 Doxepin 10 Mg Cap PO HS [facility] Enoxaparin Sodium 40 mg 10/12/24 09:00 Enoxaparin 40 Mg/0.4 Ml Syringe SQ DAILY [facility] Fluoxetine HCl 20 mg 10/12/24 09:00 Fluoxetine Hcl 20 Mg Cap PO DAILY [facility] Ibuprofen 400 mg 10/12/24 04:28 10/12/24 05:48 Ibuprofen 400 Mg Tab PO 400 mg Q8HR PRN Administration Pain Lisinopril 20 mg 10/12/24 09:00 Lisinopril 20 Mg Tab PO DAILY [facility] Nitroglycerin 0.4 mg 10/12/24 04:23 Nitroglycerin Sl Tabs 0.4 Mg Tab SUBLINGUAL Q5M PRN Chest Pain Oxybutynin Chloride 15 mg 10/12/24 09:00 Oxybutynin 15 Mg Tab.Er.24 PO DAILY [facility] Pantoprazole Sodium 40 mg 10/12/24 07:30 Pantoprazole 40 Mg Tablet PO AC-BRKFST [facility] Intake and Output 10/11/24 10/12/24 10/12/24 22:59 06:59 14:59 Other: Weight 145.15 kg 10/12/24 02:00 10/12/24 02:00
[2024-10-12 15:05] VITALS: BP 147/78; PULSE 82; RESP 18; TEMP 97.7
--- NOTE | 2024-10-12 15:05 | P.PN ---
Subjective Progress Note Date: 10/12/24 Hospital course: Patient is a pleasant 54-year-old male with a past medical history of permanent pacemaker placement, hypertension, chronic back pain, asthma, and depression. He presented to the hospital with a chief complaint of chest pain. Upon arrival to our facility, patient underwent evaluation in the emergency department. Vital signs upon arrival show blood pressure 134/74, heart rate 81, respiratory rate 24, temp 99.2 F, and SpO2 of 92% on room air. EKG completed showing normal sinus rhythm at 80 bpm with a first-degree AV block with NH interval of 210 ms and T wave inversion in lateral leads I, aVL, V5 and V6. Labs completed and reviewed. CBC showing elevated immature granulocytes of 0.13, neutrophils of 7.99, lymphocytes of 0.49, and eosinophils of 0.37. Coagulation profile showing elevated D-dimer of 0.76. BMP was unremarkable. Blood glucose was 122. Magnesium 2.1. Liver profile showing hyperbilirubinemia with total bili of 1.4 otherwise normal findings. Troponin was negative at less than 0.012. CTA chest negative for pulmonary emboli showing lungs reported to be well inflated and clear with no infiltrate or consolidation reported. Patient admitted under services with consultation to cardiology. Physical exam: Vital signs reviewed and stable. General: Nontoxic, no distress and appears stated age. Derm: Skin warm and dry, normal coloration for ethnicity. Head: Atraumatic, normocephalic and symmetric. Eyes: EOM's intact, no lid lag, and anicteric sclera Mouth: no lip lesions, mucus membranes moist Cardiovascular: regular rate and rhythm with normal S1S2, no murmur, positive posterior tibial pulses bilaterally, and cap refill < 2 seconds. Lungs: Respirations even, regular, and unlabored on room air. Lungs CTA bilaterally, no rhonchi, no rales, no wheezing, and no accessory muscle usage. Abdominal: soft, nontender to palpation, no guarding, no appreciable organomegaly Ext: ROM intact. No gross muscle atrophy, no edema, no contractures Neuro: Speech clear, face symmetrical and CN II-XII grossly intact with no noted focal neuro deficits Psych: Alert and oriented to person, place, time, and situation. Appropriate and pleasant affect. Assessment and Plan of Care: Chest pain, rule out acute coronary event Hypertension -Cardiology consulted, appreciate recommendations -Telemetry monitoring -Trend troponins -Cardiac diet, NPO at midnight -Aspirin 81 mg daily, atorvastatin 20 mg daily, and lisinopril 20 mg daily - Order placed for interrogation of [employer] pacemaker Abnormal immature granulocytes and peripheral smear -Blood work otherwise unremarkable white count 9.8 hemoglobin 13.1 within normal limits -No evidence of acute infection -Possibly inflammatory changes secondary to recent surgery -Consult hematology for their recommendations GERD -Continue Protonix 40 mg daily. Depression -Continue Prozac 20 mg daily. Asthma, not in acute exacerbation -Continue Ventolin nebulizers every 4 hours as needed for wheezing/shortness of breath. CODE STATUS full code DVT prophylaxis: Lovenox Discussed with: Patient, RN, and cardiology INDEPENDENT CONSULTANT Anticipated discharge date: Pending clinical course, likely 24 to [address]: Home Patient was seen independently by Nurse Pracitioner. This document was prepared using [employer] dictation software. Please allow for errors in geriatric psychiatrist, while rare they do occur. Raul Salinas NP rendered care for this patient independently, reviewed the fi ndings and plan as documented in the note above and agree with plan. I did not physically speak with or examine the patient on this date. Objective - Vital Signs Vital signs: Vital Signs Temp 99.3 F 10/12/24 05:26 Pulse 70 10/12/24 06:00 Resp 22 10/12/24 06:00 BP 155/89 10/12/24 06:00 Pulse Ox 97 10/12/24 06:00 FiO2 Intake & Output 10/11/24 10/12/24 10/12/24 18:59 06:59 18:59 Weight 145.15 kg - Labs CBC & Chem 7: 10/12/24 02:00 10/12/24 02:00 Labs: Abnormal Lab Results - Last 24 Hours (Table) 10/12/24 10/12/24 10/12/24 Range/Units 02:00 02:00 02:00 RBC 4.22 L (4.40-5.60) 10*6/uL Immature Gran # 0.13 H (0.00-0.04) 10*3/uL Neutrophils # 7.99 H (1.80-7.70) 10*3/uL Lymphocytes # 0.49 L (0.90-5.00) 10*3/uL Eosinophils # 0.37 H (0.04-0.35) 10*3/uL D-Dimer 0.76 H (<0.60) mg/L FEU Glucose 122 H (74-99) mg/dL Total Bilirubin 1.4 H (0.2-1.3) mg/dL
--- NOTE | 2024-10-12 15:05 | P.DS ---
Providers Date of admission: 10/12/24 04:23 Expected date of discharge: 10/12/24 Attending physician: Marialuisa Otoole MD Consults: 10/12/24 04:23 Consult Physician Routine Consulting Provider: Lawrence Campbell Consult Reason/Comments: chest pain Do you want consulting provider notified?: Yes 10/12/24 05:48 Consult Physician Routine Consulting Provider: Rajat Potts Consult Reason/Comments: immature granulocytes on peripheral smear , no infection at this time Do you want consulting provider notified?: Yes Primary care physician: [facility] Hospital Course: Discharge Diagnosis: Chest pain, acute coronary event ruled out. Troponins were trended all negative at less than 0.012 x 3 draws. Pacemaker interrogation report was obtained and reviewed. Discussed in detail with cardiology stating patient cleared from cardiac perspective for discharge recommend outpatient follow-up in office in 1 to 2 weeks. Hypertension. Monitor vital signs and continue daily medication regimen with lisinopril/hydrochlorothiazide 20-12.5 mg daily, metoprolol succinate 12.5 mg daily, and amlodipine 5 mg daily. Abnormal immature granulocytes and peripheral smear. Patient was evaluated by hematology and discussed in detail with hematology ROSIN BARREL FILLER stating abnormal findings likely secondary to inflammatory changes and recommending outpatient follow-up in their office in 1 to 2 weeks for repeat CBC testing. GERD. Continue Protonix 40 mg daily. Depression. Continue Prozac 20 mg daily. Asthma, not in acute exacerbation. Continue Ventolin inhaler every 4 hours as needed for wheezing/shortness of breath. Hospital Course: Patient is a pleasant 54-year-old male with a past medical history of permanent pacemaker placement, hypertension, chronic back pain, asthma, and depression. He presented to the hospital with a chief complaint of chest pain. Upon arrival to our facility, patient underwent evaluation in the emergency department. Vital signs upon arrival show blood pressure 134/74, heart rate 81, respiratory rate 24, temp 99.2 F, and SpO2 of 92% on room air. EKG completed showing normal sinus rhythm at 80 bpm with a first-degree AV block with MA interval of 210 ms and T wave inversion in lateral leads I, aVL, V5 and V6. Labs completed and reviewed. CBC showing elevated immature granulocytes of 0.13, neutrophils of 7.99, lymphocytes of 0.49, and eosinophils of 0.37. Coagulation profile showing elevated D-dimer of 0.76. BMP was unremarkable. Blood glucose was 122. Magnesium 2.1. Liver profile showing hyperbilirubinemia with total bili of 1.4 otherwise normal findings. Troponin was negative at less than 0.012. CTA chest negative for pulmonary emboli showing lungs reported to be well inflated and clear with no infiltrate or consolidation reported. Patient admitted under services with consultation to cardiology. Physical exam: Vital signs reviewed and stable. General: Nontoxic, no distress and appears stated age. Derm: Skin warm and dry, normal coloration for ethnicity. Head: Atraumatic, normocephalic and symmetric. Eyes: EOM's intact, no lid lag, and anicteric sclera Mouth: no lip lesions, mucus membranes moist Cardiovascular: regular rate and rhythm with normal S1S2, no murmur, positive posterior tibial pulses bilaterally, and cap refill < 2 seconds. Lungs: Respirations even, regular, and unlabored on room air. Lungs CTA bilaterally, no rhonchi, no rales, no wheezing, and no accessory muscle usage. Abdominal: soft, nontender to palpation, no guarding, no appreciable org anomegaly Ext: ROM intact. No gross muscle atrophy, no edema, no contractures Neuro: Speech clear, face symmetrical and CN II-XII grossly intact with no noted focal neuro deficits Psych: Alert and oriented to person, place, time, and situation. Appropriate and pleasant affect. A total of 33 minutes of time were spent preparing this complex discharge summary. Pt was discharged on 10/12/24 at 2:59 PM. Patient was seen independently by Nurse Practitioner. This document was prepared using [employer] dictation software. Please allow for errors in e commerce marketing analyst while rare they do occur. Raul Salinas NP rendered care for this patient independently, reviewed the findings and plan as documented in the note above. I did not physically speak with or examine the patient on this date. Patient Condition at Discharge: Stable Plan - Discharge Summary New Discharge Prescriptions: New Aspirin 81 mg PO DAILY 30 Days #30 tab Atorvastatin [Lipitor] 20 mg PO HS 30 Days #30 tab Continue Oxybutynin Chloride [oxyBUTYnin chloride ER] 15 mg PO DAILY Albuterol Sulfate [Albuterol Sulfate Hfa] 1 puff PO RT-Q4H PRN PRN Reason: Shortness Of Breath Ibuprofen [Motrin] 400 mg PO TID PRN PRN Reason: Pain Acetaminophen Tab [Tylenol] 650 mg PO Q6H PRN PRN Reason: Pain Or Fever > 100.5 amLODIPine [Norvasc] 5 mg PO DAILY Metoprolol Succinate (ER) [Toprol XL] 12.5 mg PO DAILY Doxepin [SINEquan] 10 mg PO HS Lisinopril-Hctz 20-12.5 mg [Zestoretic 20-12.5] 1 tab PO DAILY Famotidine [Pepcid] 20 mg PO BID FLUoxetine HCL [PROzac] 20 mg PO DAILY Discharge Medication List Oxybutynin Chloride [oxyBUTYnin chloride ER] 15 mg PO DAILY 02/19/22 [History] Albuterol Sulfate [Albuterol Sulfate Hfa] 1 puff PO RT-Q4H PRN 07/07/24 [History] Ibuprofen [Motrin] 400 mg PO TID PRN 07/07/24 [History] Acetaminophen Tab [Tylenol] 650 mg PO Q6H PRN 10/12/24 [History] Aspirin 81 mg PO DAILY 30 Days #30 tab 10/12/24 [Rx] Atorvastatin [Lipitor] 20 mg PO HS 30 Days #30 tab 10/12/24 [Rx] Doxepin [SINEquan] 10 mg PO HS 10/12/24 [History] FLUoxetine HCL [PROzac] 20 mg PO DAILY 10/12/24 [History] Famotidine [Pepcid] 20 mg PO BID 10/12/24 [History] Lisinopril-Hctz 20-12.5 mg [Zestoretic 20-12.5] 1 tab PO DAILY 10/12/24 [History] Metoprolol Succinate (ER) [Toprol XL] 12.5 mg PO DAILY 10/12/24 [History] amLODIPine [Norvasc] 5 mg PO DAILY 10/12/24 [History] Follow up Appointment(s)/Referral(s): Rajat Ptots [STAFF PHYSICIAN] - 2 Weeks Jordan Shukla DO [STAFF PHYSICIAN] - 1 Week [facility] [Primary Care Provider] - 1-2 days Patient Instructions/Handouts: Chest Pain (DC) Activity/Diet/Wound Care/Special Instructions: Activity: As tolerated. Take breaks as needed. Diet: Heart healthy and carb consistent diet. Avoid salts, or foods with hidden salts such as canned or boxed foods and frozen dinners. Extra salt makes your heart work harder and traps the fluid in your body for longer. Special Instructions: Take all of your medications as directed and remember to keep all of your doctor's appointments and follow-up as needed. You will need to follow up outpatient with Dr. Potts for repeat CBC in 2 weeks and follow up on your blood work. Thank you for allowing us to participate in your care, it was truly a pleasure having you for our patient!!! . Discharge Disposition: HOME SELF-CARE
--- NOTE | 2024-10-12 18:04 | P.CONS ---
History of Present Illness - Reason for Consult Consult date: 10/12/24 immature granulocytes Requesting physician: Marialuisa Otoole - Chief Complaint Chest pain - History of Present Illness Patient is a 54-year-old male with a history of hypertension and asthma. Patient presented to the ER for sudden onset left-sided chest pain. At todays visit he reports chest pain has resolved. Upon admit D-dimer 0.76. CTA was subsequently obtained which was negative for pulmonary embolism. Lungs are well infiltrated and clear with no infiltrate or consolidation noted. Labs reviewed serial troponins negative. BNP 96. WBC 9.8, hemoglobin 13.1, platelets 308,000. Differential showing mild elevation in immature granulocytes at 0.13. ANC 7.9, absolute lymphocyte count 0.49, eosinophils 0.37. Creatinine 0.80, GFR greater than 90. Bilirubin 1.4, LFTs WNL. Of note patient was admitted to [facility] approximate 2 weeks ago and had a pacemaker placed due to arrhythmia. Review of Systems 10 point ROS is negative except as stated in the HPI Past Medical History Past Medical History: Asthma, Hypertension Additional Past Medical History / Comment(s): back pain, migraines, History of Any Multi-Drug Resistant Organisms: None Reported Past Surgical History: Pacemaker Past Psychological History: Depression Smoking Status: Never smoker Past Alcohol Use History: Rare Past Drug Use History: None Reported Medications and Allergies Home Medications Medication Instructions Recorded Confirmed Type Oxybutynin Chloride [oxyBUTYnin 15 mg PO DAILY 02/19/22 10/12/24 History chloride ER] Albuterol Sulfate [Albuterol 1 puff PO RT-Q4H PRN 07/07/24 10/12/24 History Sulfate Hfa] Ibuprofen [Motrin] 400 mg PO TID PRN 07/07/24 10/12/24 History Acetaminophen Tab [Tylenol] 650 mg PO Q6H PRN 10/12/24 10/12/24 History Aspirin 81 mg PO DAILY 30 Days #30 tab 10/12/24 Rx Atorvastatin [Lipitor] 20 mg PO HS 30 Days #30 tab 10/12/24 Rx Doxepin [SINEquan] 10 mg PO HS 10/12/24 10/12/24 History FLUoxetine HCL [PROzac] 20 mg PO DAILY 10/12/24 10/12/24 History Famotidine [Pepcid] 20 mg PO BID 10/12/24 10/12/24 History Lisinopril-Hctz 20-12.5 mg 1 tab PO DAILY 10/12/24 10/12/24 History [Zestoretic 20-12.5] Metoprolol Succinate (ER) [Toprol 12.5 mg PO DAILY 10/12/24 10/12/24 History XL] amLODIPine [Norvasc] 5 mg PO DAILY 10/12/24 10/12/24 History Allergies Allergy/AdvReac Type Severity Reaction Status Date / Time Penicillins Allergy Anaphylaxis Verified 10/12/24 09:41 Physical Exam Vitals: Vital Signs Temp Pulse Pulse Resp BP BP Pulse Ox 10/12/24 15:00 97.7 F 82 18 147/78 10/12/24 09:24 97 10/12/24 09:21 98.3 F 68 22 143/88 88 L 10/12/24 06:00 70 22 155/89 97 10/12/24 05:26 99.3 F 96 24 151/94 99 10/12/24 02:10 83 24 123/76 97 10/12/24 01:53 99.2 F 81 24 134/74 92 L Intake and Output 10/12/24 10/12/24 10/12/24 06:59 14:59 22:59 Other: Weight 145.15 kg - Constitutional General appearance: no acute distress, obese - EENT Eyes: anicteric sclerae, EOMI ENT: hearing grossly normal - Respiratory Respiratory: bilateral: CTA - Cardiovascular Rhythm: regular - Gastrointestinal General gastrointestinal: soft, no tenderness - Integumentary Integumentary: no cyanotic, no jaundiced - Neurologic Neurologic: CNII-XII intact - Psychiatric Psychiatric: A&O x's 3 Results CBC & Chem 7: 10/12/24 02:00 10/12/24 02:00 Labs: Abnormal Lab Results - Last 24 Hours (Table) 10/12/24 10/12/24 10/12/24 Range/Units 02:00 02:00 02:00 RBC 4.22 L (4.40-5.60) 10*6/uL Immature Gran # 0.13 H (0.00-0.04) 10*3/uL Neutrophils # 7.99 H (1.80-7.70) 10*3/uL Lymphocytes # 0.49 L (0.90-5.00) 10*3/uL Eosinophils # 0.37 H (0.04-0.35) 10*3/uL D-Dimer 0.76 H (<0.60) mg/L FEU Glucose 122 H (74-99) mg/dL Total Bilirubin 1.4 H (0.2-1.3) mg/dL Chest x-ray: report reviewed CT scan - chest: report reviewed Assessment and Plan (1) Chest pain Current Visit: Yes Status: Acute Priority: Medium Code(s): R07.9 - CHEST PAIN, UNSPECIFIED SNOMED Code(s): 41593237 (2) Abnormal CBC Current Visit: Yes Status: Acute Priority: Medium Code(s): R79.89 - OTHER SPECIFIED ABNORMAL FINDINGS OF BLOOD CHEMISTRY SNOMED Code(s): 237201890 Plan: Chest pain: Patient presented to the ER for sudden onset left-sided chest pain. At todays visit he reports chest pain has since resolved. Of note patient was admitted to [facility] approximate 2 weeks ago and had a pacemaker placed due to arrhythmia. -Upon admit D-dimer 0.76. CTA was subsequently obtained which was negative for pulmonary embolism. Lungs are well infiltrated and clear with no infiltrate or consolidation noted. -Serial troponins negative. BNP 96. -Defer management to cardiology and admitting team Abnormal CBC: -CBC showing WBC 9.8, hemoglobin 13.1, platelets 308,000. Differential showing mild elevation in immature granulocytes at 0.13. ANC 7.9, absolute lymphocyte count 0.49, eosinophils 0.37. -Mild abnormalities noted in differential appear to be reactive to inflammation with noted recent placement of pacemaker and acute complaints -Recommend repeat CBC outpt in 3 weeks. If persisting, patient can be referred to hematology outpt for further evaluation Plan of care was discussed with patient, he verbalized understanding. All questions and concerns were addressed Case discussed with admitting team. Pt is cleared from hem/onc standpoint once cleared by other consulted specialities and admitting team
[2024-10-12] MEDS ORDERED: ATORVASTATIN 20 MG TAB PO SCH (21:00)
[2024-10-12] MEDS ORDERED: DOXEPIN 10 MG CAP PO SCH (21:00)
[2024-10-13] MEDS ORDERED: ASPIRIN 325 MG TAB PO SCH (09:00)
== END 2024-10-12 14:59 | disposition home or self-care (01) ==
LOC: EC 01:48 → 6NMEDSUR 04:23 → 1SOBS 09:21
PROVIDERS: ADMIT Internal Medicine; ATTEND Internal Medicine
DX: R07.89 Other chest pain (principal); I10 Essential (primary) hypertension; J45.909 Unspecified asthma, uncomplicated; I49.5 Sick sinus syndrome; I44.0 Atrioventricular block, first degree; R79.89 Other specified abnormal findings of blood chemistry; E80.6 Other disorders of bilirubin metabolism; D72.89 Other specified disorders of white blood cells; K21.9 Gastro-esophageal reflux disease without esophagitis; E66.01 Morbid (severe) obesity due to excess calories; Z68.43 Body mass index [BMI] 50.0-59.9, adult; G89.29 Other chronic pain; M54.9 Dorsalgia, unspecified; F32.A Depression, unspecified; Z79.899 Other long term (current) drug therapy; Z88.0 Allergy status to penicillin; Z95.0 Presence of cardiac pacemaker; Z71.3 Dietary counseling and surveillance
CPT/HCPCS: 96372; 96374; 99285; 36415; 94760; 93005; 85379; 83880; 80053; 83735; 84484; 85025; 85610; 85730; 71045; 71275; G0378 ×2; J2270; J1650; Q9967

== ENCOUNTER 2024-11-15 23:52 | Observation (INO) | payer OTHER ==
--- NOTE | 2024-11-16 00:01 | ED ---
Chest Pain HPI - General Chief Complaint: Chest Pain Stated Complaint: shortness of breath Source: patient, EMS, RN notes reviewed, old records reviewed Mode of arrival: EMS Limitations: altered mental status - History of Present Illness Initial Comments: This is a 54-year-old male from home. This male presents to the ER today for evaluation of elevated blood pressure takes his blood pressure at home also complaining of chest pain and shortness of breath patient does have history of prior ER visits for similar complaints as well as admission. Patient states last in the hospital about a month ago. States he was at home today with the chest pain and became concerned for possibility of having a heart attack took his blood pressure noticed blood pressure to be elevated. Patient does not take any blood pressure medication called EMS and presents to the ER. Still with chest pain and shortness of breath MD Complaint: chest pain, other (Dyspnea) -: hour(s) Onset: during rest, during exertion Pain Location: left chest Pain Radiation: back Severity: moderate Severity scale (1-10): 6 Consistency: constant Improves With: nothing Worsens With: nothing Anginal Symptoms: sense of impending doom Other Symptoms: palpitations Treatments Prior to Arrival: none - Related Data Home Medications Medication Instructions Recorded Confirmed Oxybutynin Chloride [oxyBUTYnin 15 mg PO DAILY 02/19/22 11/16/24 chloride ER] Albuterol Sulfate [Albuterol 1 puff PO RT-Q4H PRN 07/07/24 11/16/24 Sulfate Hfa] Ibuprofen [Motrin] 400 mg PO TID PRN 07/07/24 11/16/24 Acetaminophen Tab [Tylenol] 650 mg PO Q6H PRN 10/12/24 11/16/24 Doxepin [SINEquan] 10 mg PO HS 10/12/24 11/16/24 Famotidine [Pepcid] 20 mg PO BID 10/12/24 11/16/24 Ergocalciferol [Vitamin D2 (1250 1,250 mcg PO WEEKLY 11/16/24 11/16/24 Mcg = 43087 Iu)] Previous Rx's Medication Instructions Recorded Aspirin 81 mg PO DAILY 30 Days #30 tab 11/17/24 Atorvastatin [Lipitor] 20 mg PO HS 30 Days #30 tab 11/17/24 Isosorbide Mononitrate ER [Imdur] 30 mg PO DAILY 30 Days #30 tab 11/17/24 Triamterene-Hctz 37.5-25Mg 1 each PO DAILY 30 Days #30 cap 11/17/24 [Dyazide 37.5-25 Capsule] amLODIPine [Norvasc] 10 mg PO DAILY 30 Days #30 tab 11/17/24 carvediloL [Coreg] 3.125 mg PO BID-W/MEALS 30 Days 11/17/24 #60 tab lisinopriL [Zestril] 40 mg PO DAILY 30 Days #60 tab 11/17/24 Allergies Allergy/AdvReac Type Severity Reaction Status Date / Time Penicillins Allergy Anaphylaxis Verified 11/15/24 23:57 Review of Systems ROS Statement: Those systems with pertinent positive or pertinent negative responses have been documented in the HPI. ROS Other: All systems not noted in ROS Statement are negative. EKG Findings - EKG Comments: EKG Findings:: EKG is sinus 75 OK 212 QRS 102 QTc 400 - EKG Results: EKG: interpreted by BRAYDEN Past Medical History Past Medical History: Asthma, Hypertension Additional Past Medical History / Comment(s): back pain, migraines, History of Any Multi-Drug Resistant Organisms: None Reported Past Surgical History: Pacemaker Past Psychological History: Depression Smoking Status: Never smoker Past Alcohol Use History: Rare Past Drug Use History: None Reported - Past Family History Father Family Medical History: AICD/Pacemaker, Congestive Heart Failure (CHF) Mother History Unknown: Yes General Exam General appearance: alert, lethargic Head exam: Present: atraumatic, normocephalic, normal inspection Eye exam: Present: normal appearance, PERRL, EOMI. Absent: scleral icterus, conjunctival injection, periorbital swelling ENT exam: Present: normal exam, mucous membranes moist Neck exam: Present: normal inspection. Absent: tenderness, meningismus, lymphadenopathy Respiratory exam: Present: normal lung sounds bilaterally, wheezes, decreased breath sounds, prolonged expiratory. Absent: respiratory distress, rales, rhonchi, stridor Cardiovascular Exam: Present: regular rate, normal rhythm, normal heart sounds. Absent: systolic murmur, diastolic murmur, rubs, gallop, clicks GI/Abdominal exam: Present: soft, normal bowel sounds. Absent: distended, tenderness, guarding, rebound, rigid Extremities exam: Present: normal inspection, full ROM, normal capillary refill. Absent: tenderness, pedal edema, joint swelling, calf tenderness Back exam: Present: normal inspection Neurological exam: Present: alert, oriented X3, CN II-XII intact Psychiatric exam: Present: normal affect, normal mood Skin exam: Present: warm, dry, intact, normal color. Absent: rash Course Vital Signs 11/15/24 11/16/24 11/16/24 23:53 00:16 01:11 Temperature 98.6 F Pulse Rate 82 80 79 Respiratory 16 18 Rate Blood Pressure 189/100 137/89 O2 Sat by Pulse 96 97 Oximetry 11/16/24 02:12 Temperature Pulse Rate 68 Respiratory 18 Rate Blood Pressure 135/75 O2 Sat by Pulse 97 Oximetry - Reevaluation(s) Reevaluation #1: 11/16/24 00:08 Medical records reviewed Reevaluation #2: Patient still with chest pain here in the ER Reevaluation #3: Patient informed of results questions answered Reevaluation #4: Was pt. sent in by a medical professional or institution (, PA, DIRECTOR OF INSTITUTIONAL GIVING, urgent care, hospital, or assisted...) When possible be specific @ -no Did you speak to anyone other than the patient for history (EMS, parent, family, police, friend...)? What history was obtained from this source @ -no Did you review nursing and triage notes (agree or disagree)? Why? @ -agree Are old charts reviewed (outside hosp., previous admission, EMS record, old EKG, old radiological studies, urgent care reports/EKG's, assisted records)? Report findings @ -yes Differential Diagnosis (chest pain, altered mental status, abdominal pain women, abdominal pain men, vaginal bleeding, weakness, fever, dyspnea, syncope, he adache, dizziness, GI bleed, back pain, seizure, CVA, palpatations, mental health, musculoskeletal)? @ -prior EKG interpreted by me (3pts min.). @ -yes X-rays interpreted by me (1pt min.). @ -yes negative for acute disease CT interpreted by me (1pt min.). @ -no U/S interpreted by me (1pt. min.). @ -no What testing was considered but not performed or refused? (CT, X-rays, U/S, labs)? Why? @ -none What meds were considered but not given or refused? Why? @ -none Did you discuss the management of the patient with other professionals (professionals i.e. , PA, DIRECTOR OF INSTITUTIONAL GIVING, lab, RT, psych nurse, outreach and education social worker, electrical linesworker, teacher, light armored vehicle officer, embedded case manager)? Give summary @ -no Was smoking cessation discussed for >3mins.? @ -no Was critical care preformed (if so, how long)? @ -no Were there social determinants of health that impacted care today? How? (Homelessness, low income, unemployed, alcoholism, drug addiction, transportation, low edu. Level, literacy, decrease access to med. care, prison, rehab)? @ -none Was there de-escalation of care discussed even if they declined (Discuss DNR or withdrawal of care, Hospice)? DNR status @ -no What co-morbidities impacted this encounter? (DM, HTN, Smoking, COPD, CAD, Cancer, CVA, ARF, Chemo, Hep., AIDS, mental health diagnosis, sleep apnea, morbid obesity)? @ -none Was patient admitted / discharged? Hospital course, mention meds given and route, prescriptions, significant lab abnormalities, going to OR and other pertinent info. @ - 54 male presents to the ER for evaluation of chest pain today. Patient has persistent chest pain here in the ER with dyspnea patient does appear to be fatigued and poorly answer questions throughout ER stay but will admit for cardiac observation Admitted Undiagnosed new problem with uncertain prognosis? @ -no Drug Therapy requiring intensive monitoring for toxicity (Heparin, Nitro, Insulin, Cardizem)? @ -no Were any procedures done? @ -no Diagnosis/symptom? @ -Chest pain Acute, or Chronic, or Acute on Chronic? @ -Acute Uncomplicated (without systemic symptoms) or Complicated (systemic symptoms)? @ -Complicated Side effects of treatment? @ -no Exacerbation, Progression, or Severe Exacerbation? @ -exacerbation Poses a threat to life or bodily function? How? (Chest pain, [place], [place], pneumonia, PE, COPD, DKA, ARF, appy, cholecystitis, CVA, Diverticulitis, Homicidal, Suicidal, threat to staff... and all critical care pts) @ -yes with chest pain Reevaluation #5: Differential Chest Pain: Stable Angina, Unstable Angina, STEMI, NSTEMI Aortic Dissection, Pneumothorax, Musculoskeletal, Esophageal Spasm GERD, Cholecystitis, Pancreatitis, Zoster, this is not meant to be an all-inclusive list. Differential Dyspnea: Coronary syndrome, arrhythmia, tamponade, asthma, COPD, pulmonary embolism, pneumonia, pneumothorax, pulmonary effusion, anaphylaxis, diabetic ketoacidosis, flailed chest, pulmonary contusion, diaphragmatic rupture, anemia, neuromuscular, this is not meant to be an all-inclusive list. - Consultations Consultation #1: Spoke with sound who agrees to admit this patient Chest Pain MDM - MDM 54 male presents to the ER for evaluation of chest pain today. Patient has persistent chest pain here in the ER with dyspnea patient does appear to be fatigued and poorly answer questions throughout ER stay but will admit for cardiac observation Disposition Clinical Impression: Chest pain, Dyspnea, Acute exacerbation of COPD with asthma Disposition: ADMITTED IP TO THIS HOSP Condition: Stable Is patient prescribed a controlled substance at d/c from ED?: No Time of Disposition: 01:00
[2024-11-16] MEDS ORDERED: IPRATROPIUM-ALBUTEROL 3 ML NEB INHALATION PRN (00:10)
[2024-11-16] MEDS ORDERED: NALOXONE 0.4 MG/ML 1 ML VIAL IV PRN (00:10)
[2024-11-16] MEDS ORDERED: ONDANSETRON 4 MG/2 ML VIAL IVP PRN (00:10)
[2024-11-16] MEDS: IPRATROPIUM-ALBUTEROL 3 ML NEB INHALATION STA (00:16)
[2024-11-16 00:21] LABS: Basophils # (A) 0.12 10*3/uL (0.00-0.10); Eosinophils # (A) 0.49 10*3/uL (0.04-0.35); Eosinophils % (A) 3.9 %; HCT 41.7 % (39.6-50.0); HGB 13.2 g/dL (13.0-17.0); Lymphocytes # (A) 1.55 10*3/uL (0.90-5.00); Lymphocytes % (A) 12.5 %; MCH 29.7 pg (27.0-32.0); MCHC 31.7 g/dL (32.0-37.0); MCV 93.9 fL (80.0-97.0); Monocytes # (A) 1.09 10*3/uL (0.20-1.00); Monocytes % (A) 8.8 %; Neutrophils # (A) 9.11 10*3/uL (1.80-7.70); Neutrophils % (A) 73.2 %; Platelet Count 301 10*3/uL (140-440); RBC 4.44 10*6/uL (4.40-5.60); RDW 15.4 % (11.5-14.5); WBC 12.44 10*3/uL (4.50-10.00)
[2024-11-16] MEDS: hydrALAZINE HCL 20 MG/ML 1 ML VIAL IVP STA (00:26)
[2024-11-16] MEDS: SODIUM CHLORIDE 0.9% 1,000 ML IV SCH ×2 (00:30→01:36)
[2024-11-16 00:33] LABS: INR 0.9 (<1.2); Prothrombin Time 10.4 sec (10.0-12.5)
[2024-11-16 00:34] LABS: ALT 37 U/L (4-49); AST 22 U/L (17-59); African American GFR (CKD) >90 (>60 ml/min/1.73 sqM); Albumin 3.8 g/dL (3.5-5.0); Alcohol <10 mg/dL; Alkaline Phosphatase 117 U/L (38-126); Anion Gap 5 mmol/L; Blood Urea Nitrogen 31 mg/dL (9-20); Carbon Dioxide 31 mmol/L (22-30); Chloride 102 mmol/L (98-107); Glucose 115 mg/dL (74-99); Magnesium 2.1 mg/dL (1.6-2.3); Non-African American GFR(CKD) 86 (>60 ml/min/1.73 sqM); Potassium 3.5 mmol/L (3.5-5.1); Sodium 138 mmol/L (137-145); Total Bilirubin 0.7 mg/dL (0.2-1.3); Total Protein 6.8 g/dL (6.3-8.2)
[2024-11-16 00:41] LABS: NT-Pro-B-Type Natriuretic Pept 107 pg/mL
[2024-11-16 01:09] LABS: VBG PH 7.38 (7.31-7.41)
[2024-11-16] MEDS: MORPHINE SULFATE 4 MG/ML SYRINGE IVP STA (01:35)
[2024-11-16] MEDS: ASPIRIN 81 MG PO STA (01:36)
--- NOTE | 2024-11-16 01:58 | XR ---
EXAM: XR Chest, 1 View CLINICAL HISTORY: ITS.REASON XR Reason: cp TECHNIQUE: Frontal view of the chest. COMPARISON: No relevant prior studies available. IMPRESSION: Cardiomegaly. Left basilar opacity
[2024-11-16] MEDS: cloNIDine HCL 0.2 MG TAB PO STA (03:53)
[2024-11-16] MEDS: amLODIPine 5 MG TAB PO SCH (09:00)
[2024-11-16] MEDS ORDERED: ASPIRIN 325 MG TAB PO SCH (09:00)
[2024-11-16] MEDS: hydroCHLOROthiazide 25 MG TAB PO SCH (09:00)
[2024-11-16] MEDS: ASPIRIN 81 MG PO SCH (09:00)
[2024-11-16] MEDS: lisinopriL 20 MG TAB PO SCH (09:01)
--- NOTE | 2024-11-16 10:14 | P.CRDCN ---
History of Present Illness History of present illness: HISTORY OF PRESENT ILLNESS: This is a 54-year-old male with a past medical history significant for COPD, asthma, hypertension, pacemaker implantation, depression, and former nicotine dependence. Patient does not follow with a can carrier. We have been asked to see the patient in consultation for chest pain. Patient examined at the bedside. Patient states he came to the hospital with a chief complaint of chest discomfort and shortness of breath. Patient was found to have elevated blood pressure upon admission with a reading of 189/100. Patient states he is supposed to get a sleep apnea machine but has been having issues getting to his appointments and has not made his appointments. He has not followed up with a can carrier either. He reports having a recent pacemaker implantation at [facility]. DIAGNOSTICS: - EKG reveals sinus mechanism with no signs of acute ischemia. - Chest xray cardiomegaly. Left basilar opacity. - Laboratory data: WBC 12.44. Hemoglobin 13.2. Platelet count 301. Sodium 138. Potassium 3.5. BUN 31. Creatinine 0.99. Troponin negative x 3. proBNP 107. Serum alcohol less than 10. - Current home cardiac medication list not updated at the time of examination - No previous echocardiogram, stress test, or cardiac catheterization available in EMR for review REVIEW OF SYSTEMS: At the time of my exam: CONSTITUTIONAL: Denies fever or chills. HEENT: Denies blurred vision, vision changes, or eye pain. Denies hemoptysis CARDIOVASCULAR: Denies chest pain. Denies orthopnea. Denies PND. Denies palpitations RESPIRATORY: Denies shortness of breath. GASTROINTESTINAL: Denies abdominal pain. Denies nausea or vomiting. HEMATOLOGIC: Denies bleeding disorders. GENITOURINARY: Denies any blood in urine. SKIN: Denies pruitis. Denies rash. PHYSICAL EXAM: VITAL SIGNS: Reviewed. GENERAL: Well-developed in no acute distress. HEENT: Head is normocephalic. Pupils are equal, round. Sclerae anicteric. Mucous membranes of the mouth are moist. Neck supple. No JVD or thyromegaly LUNGS: Respirations even and unlabored. Lungs essentially clear to auscultation bilaterally. HEART: Regular rate and rhythm. S1 and S2 heard. ABDOMEN: Soft. Nondistended. Nontender. EXTREMITIES: Normal range of motion. No clubbing or cyanosis. Peripheral pulses intact. No lower extremity edema NEUROLOGIC: Awake and alert. Oriented x 3. ASSESSMENT: Hypertensive emergency Chest pain, likely secondary to uncontrolled hypertension, ACS ruled out History of hypertension History of COPD History of asthma History of pacemaker implantation secondary to sick sinus syndrome History of depression Former nicotine dependence Morbid obesity: BMI 51.6 Obstructive sleep apnea, patient has not yet received his CPAP machine PLAN: An acute coronary event has been ruled out No need to obtain echocardiogram at this time Increase lisinopril to 40 mg daily Continue hydrochlorothiazide 25 mg daily, amlodipine 5 mg daily, aspirin 81 mg daily, and atorvastatin 20 mg at night Patient encouraged to take his blood pressure medications as ordered and keep a log of his blood pressures at home Patient also encouraged to follow-up with his appointments to obtain his sleep apnea machine on an outpatient basis No plans for inpatient stress testing or cardiac catheterization at this time Further recommendations pending patient course Nurse practitioner note has been reviewed by physician. Signing provider agrees with the documented findings, assessment, and plan of care documented by WO[employer] as a scribe. Past Medical History Past Medical History: Asthma, COPD, Hypertension Additional Past Medical History / Comment(s): back pain, migraines History of Any Multi-Drug Resistant Organisms: None Reported Past Surgical History: Pacemaker Type of Cardiac Device: Unknown Device Placement Date:: unknown Past Psychological History: Depression Smoking Status: Former smoker Past Alcohol Use History: Rare Past Drug Use History: None Reported - Past Family History Father Family Medical History: AICD/Pacemaker, Congestive Heart Failure (CHF) Mother History Unknown: Yes Medications and Allergies Home Medications Medication Instructions Recorded Confirmed Type Oxybutynin Chloride [oxyBUTYnin 15 mg PO DAILY 02/19/22 10/12/24 History chloride ER] Albuterol Sulfate [Albuterol 1 puff PO RT-Q4H PRN 07/07/24 10/12/24 History Sulfate Hfa] Ibuprofen [Motrin] 400 mg PO TID PRN 07/07/24 10/12/24 History Acetaminophen Tab [Tylenol] 650 mg PO Q6H PRN 10/12/24 10/12/24 History Aspirin 81 mg PO DAILY 30 Days #30 tab 10/12/24 Rx Atorvastatin [Lipitor] 20 mg PO HS 30 Days #30 tab 10/12/24 Rx Doxepin [SINEquan] 10 mg PO HS 10/12/24 10/12/24 History FLUoxetine HCL [PROzac] 20 mg PO DAILY 10/12/24 10/12/24 History Famotidine [Pepcid] 20 mg PO BID 10/12/24 10/12/24 History Lisinopril-Hctz 20-12.5 mg 1 tab PO DAILY 10/12/24 10/12/24 History [Zestoretic 20-12.5] Metoprolol Succinate (ER) [Toprol 12.5 mg PO DAILY 10/12/24 10/12/24 History XL] amLODIPine [Norvasc] 5 mg PO DAILY 10/12/24 10/12/24 History Allergies Allergy/AdvReac Type Severity Reaction Status Date / Time Penicillins Allergy Anaphylaxis Verified 11/15/24 23:57 Physical Exam Vitals: Vital Signs Temp Pulse Pulse Resp BP BP Pulse Ox 11/16/24 07:00 97.6 F 69 16 147/82 96 11/16/24 05:15 155/75 11/16/24 02:44 97.8 F 66 20 184/93 93 L 11/16/24 02:12 68 18 135/75 97 11/16/24 01:11 79 18 137/89 97 11/16/24 00:16 80 11/15/24 23:53 98.6 F 82 16 189/100 96 Intake and Output 11/15/24 11/16/24 11/16/24 22:59 06:59 14:59 Output Total 100 Balance -100 Output: Urine 100 Other: # Voids 1 Weight 145.15 kg Results 11/16/24 00:02 11/16/24 00:02 Cardiac Enzymes 11/16/24 11/16/24 11/16/24 Range/Units 00:02 00:02 02:54 AST 22 (17-59) U/L Troponin I 0.027 0.024 (0.000-0.034) ng/mL 11/16/24 Range/Units 05:15 AST (17-59) U/L Troponin I 0.029 (0.000-0.034) ng/mL Coagulation 11/16/24 Range/Units 00:02 PT 10.4 (10.0-12.5) sec APTT 24.0 (22.0-30.0) sec CBC 11/16/24 Range/Units 00:02 WBC 12.44 H (4.50-10.00) 10*3/uL RBC 4.44 (4.40-5.60) 10*6/uL Hgb 13.2 (13.0-17.0) g/dL Hct 41.7 (39.6-50.0) % Plt Count 301 (140-440) 10*3/uL Comprehensive Metabolic Panel 11/16/24 Range/Units 00:02 Sodium 138 (137-145) mmol/L Potassium 3.5 (3.5-5.1) mmol/L Chloride 102 (98-107) mmol/L Carbon Dioxide 31 H (22-30) mmol/L BUN 31 H (9-20) mg/dL Creatinine 0.99 (0.66-1.25) mg/dL Glucose 115 H (74-99) mg/dL Calcium 9.0 (8.4-10.2) mg/dL AST 22 (17-59) U/L ALT 37 (4-49) U/L Alkaline Phosphatase 117 (38-126) U/L Total Protein 6.8 (6.3-8.2) g/dL Albumin 3.8 (3.5-5.0) g/dL Current Medications Generic Name Dose Route Start Last Admin Trade Name Freq PRN Reason Stop Dose Admin Albuterol/Ipratropium 3 ml 11/16/24 00:10 Ipratropium-Albuterol 3 Ml Neb INHALATION RT-TID PRN Shortness Of Breath Or Wheezing Aspirin 325 mg 11/16/24 09:00 Aspirin 325 Mg Tab PO DAILY GISSELL Sodium Chloride 1,000 mls @ 75 mls/hr 11/16/24 00:15 11/16/24 01:36 Saline 0.9% IV 75 mls/hr .[id number] GISSELL Administration Morphine Sulfate 4 mg 11/16/24 00:10 Morphine Sulfate 4 Mg/Ml Syringe IV Q4HR PRN Severe Pain (Scale 7 to 10) Naloxone HCl 0.2 mg 11/16/24 00:10 Naloxone 0.4 Mg/Ml 1 Ml Vial IV Q2M PRN Opioid Reversal Ondansetron HCl 4 mg 11/16/24 00:10 Ondansetron 4 Mg/2 Ml Vial IVP Q8HR PRN Nausea And Vomiting Intake and Output 11/15/24 11/16/24 11/16/24 22:59 06:59 14:59 Output Total 100 Balance -100 Output: Urine 100 Other: # Voids 1 Weight 145.15 kg 11/16/24 00:02 11/16/24 00:02
[2024-11-16] MEDS: hydrALAZINE HCL 20 MG/ML 1 ML VIAL IVP PRN (16:34)
--- NOTE | 2024-11-16 18:02 | P.PN ---
Subjective Progress Note Date: 11/16/24 Principal diagnosis: Chest pain Hospital Course: The patient is a 54-year-old male with a past medical history of hypertension asthma depression, sick sinus syndrome status post permanent pacemaker placement. He presented to the ED for evaluation of chest pain. In the ED, vit als included temperature of 98.6, pulse of 82, respiratory rate of 16, blood pressure of 189/100, oxygen saturation 96% on room air. EKG showed sinus rhythm with no signs of acute ischemia. Chest xray showed cardiomegaly and left basilar opacity. Laboratory data: WBC 12.44. Hemoglobin 13.2. Platelet count 301. Sodium 138. Potassium 3.5. BUN 31. Creatinine 0.99. Troponin negative x 3. proBNP 107. Serum alcohol less than 10. He was he was admitted here last month for similar complaints. Cardiology was consulted for evaluation. 11/16/2024: Patient evaluated at bedside. He remains hypertensive with systolic above 170. He falls asleep easily, does have diagnosed sleep apnea but has not been able to obtain CPAP machine. Denies chest pain shortness of breath. Pertinent positives and negatives as discussed above, a complete review of systems was performed and all other systems are negative. Vitals Signs Reviewed. General: [nontoxic], [no distress], [appears at stated age] Falls asleep easily during visit, obese Derm: [warm], [dry] Head: [atraumatic], [normocephalic], [symmetric] Eyes: [EOMI], [no lid lag], [anicteric sclera] Mouth: [no lip lesion], [mucus membranes moist] Cardiovascular: [S1S2 reg], [no murmur] Lungs: Diminished breath sounds due to body habitus, [no rhonchi, no rales] , [no accessory muscle use] Abdominal: [soft], [ nontender to palpation], [no guarding], [no appreciable organomegaly] Ext: [no gross muscle atrophy], [no edema], [no contractures] Neuro: [ CN II-XI grossly intact], [no focal neuro deficits] Psych: [Alert], [oriented], [appropriate affect] Data Reviewed Today: Pertinent Labs: CBC, CMP Imaging: CXR Assessment and Plan: Chest pain Cardiology following Continue aspirin 81 mg daily atorvastatin 20 mg daily No inpatient stress testing or cardiac catheterization catheterization advised Telemetry monitoring Hypertensive emergency Cardiology following, continue amlodipine 5 mg daily, lisinopril increased to 40 mg daily, hydrochlorothiazide 50 mg daily, hydralazine 10 mg IV as needed Obstructive sleep apnea Advised to follow-up outpatient to obtain CPAP machine Sick sinus syndrome status post pacemaker placement Underwent interrogation during last admission DVT ppx: Lovenox Code status: FULL CODE Anticipated discharge place: Home Anticipated discharge time: Pending stabililzation of BP Objective - Vital Signs Vital signs: Vital Signs Temp 98.1 F 11/16/24 15:00 Pulse 49 L 11/16/24 15:00 Resp 16 11/16/24 15:00 BP 175/93 11/16/24 15:00 Pulse Ox 100 11/16/24 15:00 FiO2 Intake & Output 11/15/24 11/16/24 11/16/24 18:59 06:59 18:59 Intake Total 118 Output Total 100 Balance -100 118 Weight 145.15 kg Intake: Oral 118 Output: Urine 100 Other: # Voids 1 2 - Labs CBC & Chem 7: 11/16/24 00:02 11/16/24 00:02 Labs: Abnormal Lab Results - Last 24 Hours (Table) 11/16/24 11/16/24 11/16/24 Range/Units 00:02 00:02 00:40 WBC 12.44 H (4.50-10.00) 10*3/uL MCHC 31.7 L (32.0-37.0) g/dL Immature Gran # 0.08 H (0.00-0.04) 10*3/uL Neutrophils # 9.11 H (1.80-7.70) 10*3/uL Monocytes # 1.09 H (0.20-1.00) 10*3/uL Eosinophils # 0.49 H (0.04-0.35) 10*3/uL Basophils # 0.12 H (0.00-0.10) 10*3/uL VBG pCO2 56 H (37-51) mmHg VBG HCO3 33 H (24-28) mmol/L Carbon Dioxide 31 H (22-30) mmol/L BUN 31 H (9-20) mg/dL Glucose 115 H (74-99) mg/dL
[2024-11-16] MEDS: ATORVASTATIN 20 MG TAB PO SCH (20:12)
[2024-11-16] MEDS: ACETAMINOPHEN TAB 325 MG TAB PO PRN (20:12)
[2024-11-17] MEDS: MORPHINE SULFATE 4 MG/ML SYRINGE IV PRN (00:44)
[2024-11-17 01:37] LABS: Glucose,Whole Blood 136 mg/dL (70-110)
[2024-11-17 03:44] VITALS: TEMP 98.1
[2024-11-17 08:02] LABS: Basophils % (A) 0.9 %; Eosinophils # (A) 0.31 X 10*3/uL (0.04-0.35); Eosinophils % (A) 2.8 %; HCT 40.6 % (39.6-50.0); HGB 12.6 g/dL (13.0-17.0); Lymphocytes # (A) 1.24 X 10*3/uL (0.90-5.00); Lymphocytes % (A) 11.4 %; MCH 29.2 pg (27.0-32.0); Mean Platelet Volume 10.6 FL (9.5-12.2); Monocytes % (A) 10.1 %; NRBC Per 100 WBC 0 X 10*3/uL (0.00-0.01); Neutrophils # (A) 8.06 X 10*3/uL (1.80-7.70); Neutrophils % (A) 74.2 %; Platelet Count 285 X 10*3/uL (140-440); RBC 4.32 X 10*6/uL (4.40-5.60); RDW 15.5 % (11.5-14.5); WBC 10.88 X 10*3/uL (4.50-10.00)
[2024-11-17 08:17] LABS: ALT 31 U/L (10-49); AST 17 U/L (14-35); Albumin 3.8 g/dL (3.8-4.9); Albumin/Globulin Ratio 1.52 Ratio (1.60-3.17); Alkaline Phosphatase 88 U/L (41-126); Blood Urea Nitrogen 18.4 mg/dL (9.0-27.0); Calcium 9.1 mg/dL (8.7-10.3); Carbon Dioxide 30.4 mmol/L (21.6-31.8); Chloride 98 mmol/L (96-109); Globulin 2.5 g/dL (1.6-3.3); Glucose 108 mg/dL (70-110); Magnesium 2.1 mg/dL (1.5-2.4); Phosphorus 2.8 mg/dL (2.4-5.1); Potassium 3.6 mmol/L (3.5-5.5); Sodium 139 mmol/L (135-145); Total Bilirubin 0.8 mg/dL (0.3-1.2); Total Protein 6.3 g/dL (6.2-8.2)
[2024-11-17] MEDS: ENOXAPARIN 40 MG/0.4 ML SYRINGE SQ SCH (08:52)
[2024-11-17] MEDS: amLODIPine 10 MG TAB PO SCH (08:52)
[2024-11-17 08:58] VITALS: RESP 18
[2024-11-17] MEDS: carvediloL 3.125 MG TAB PO SCH (09:39)
[2024-11-17] MEDS: ISOSORBIDE MONONITRATE ER 30 MG TAB.ER.24H PO SCH (09:39)
[2024-11-17] MEDS: TRIAMTERENE-HCTZ 37.5-25MG 1 EACH CAP PO SCH (09:54)
[2024-11-17 10:39] VITALS: BP 144/75; PULSE 81
--- NOTE | 2024-11-17 11:07 | P.DS ---
Providers Date of admission: 11/16/24 00:11 Expected date of discharge: 11/17/24 Attending physician: Marialuisa Otoole MD Consults: 11/16/24 00:10 Consult Physician Routine Consulting Provider: Jace George Consult Reason/Comments: cp Do you want consulting provider notified?: Yes Primary care physician: Stated None Hospital Course: Discharge Diagnosis: Hypertensive urgency Chest pain, likely secondary to above. Acute coronary event ruled out. History of sick sinus syndrome status post permanent pacemaker placement Hypertension Hyperlipidemia COPD not home oxygen dependent Anxiety with depression Morbid obesity with BMI of 51.6 kg/m Suspected sleep apnea, patient encouraged to follow-up outpatient with sleep clinic to obtain CPAP/BiPAP. Hospital Course: Patient is a pleasant 54-year-old male with a past medical history of sick sinus syndrome status post permanent pacemaker placement, hypertension, h yperlipidemia, COPD with former nicotine dependence, anxiety with depression, and morbid obesity. He presented to our facility on 11/16/2024 with a chief complaint of chest pain. Upon arrival to our facility, patient underwent evaluation in the emergency department. Vital signs on arrival show blood pressure 189/100, heart rate 82, respiratory rate 16, temp 98.6 F, and SpO2 of 96% on room air. EKG was completed showing normal sinus rhythm at 75 bpm with a first-degree AV block with CA interval of 212 ms and T wave inversion in lateral lead aVL. Chest x-ray completed showing left basilar opacity/atelectasis. Labs completed and reviewed. CBC showing mild leukocytosis with WBC count of 12.44. Coagulation profile normal findings. VBG showing pH 7.38, pCO2 of 56 and HCO3 of 33. BMP showing hypercarbia with bicarb of 31 and prerenal azotemia with BUN of 31. Blood glucose was 115. Lactic acid was 0.9. Magnesium 2.1. Calcium 9.0. Liver profile unremarkable. Troponin was 0.027. proBNP was 107. Serum alcohol level was less than 10. Patient was admitted under services with consultation to cardiology. Troponins were trended resulting at 0.027, 0.024, and 0.029. Repeat morning EKG completed showing ventricular paced rhythm at 75 bpm. Patient was seen by cardiology, multiple medication changes were made during this admission. Cardiology recommending no further inpatient cardiac workup at this time and no need to repeat echocardiogram, clearing patient from cardiac perspective for outpatient follow-up in their office. Patient currently free from any chest pain or other complaints at this time. He is medically optimized for discharge. Vital signs upon discharge show blood pressure 144/75, heart rate 81, respiratory rate 18, temp 98.1 F, and SpO2 of 93% on room air. Patient to follow-up outpatient with PCP in 1 to 2 days and with marketing strategy manager in 1 week. Metoprolol was discontinued, amlodipine increased to 10 mg daily and patient started on lisinopril 40 mg daily, isosorbide mononitrate 30 mg daily, aspirin 81 mg daily, atorvastatin 20 mg nightly, carvedilol 3.125 mg twice daily, and Dyazide 37.5-25 mg daily. Physical exam: Patient seen and examined at bedside. Vital signs reviewed and stable. General: Nontoxic, no distress and appears stated age. Derm: Skin warm and dry, normal coloration for ethnicity. Head: Atraumatic, normocephalic and symmetric. Eyes: EOM's intact, no lid lag, and anicteric sclera Mouth: no lip lesions, mucus membranes moist Cardiovascular: regular rate and rhythm with normal S1S2, no murmur, positive posterior tibial pulses bilaterally, and cap refill < 2 seconds. Lungs: Respirations even, regular, and unlabored on room air. Lungs diminished, no rhonchi, no rales, no wheezing, and no accessory muscle usage. Abdominal: Obese abdomen, soft, nontender to palpation, no guarding, no appreciable organomegaly Ext: ROM intact. No gross muscle atrophy, no edema, no contractures Neuro: Speech clear, face symmetrical and CN II-XII grossly intact with no noted focal neuro deficits Psych: Alert and oriented to person, place, time, and situation. Appropriate and pleasant affect. A total of 34 minutes of time were spent preparing this complex discharge summary. Pt was discharged on 11/17/2024 at 10:55 AM Patient was seen independently by Nurse Practitioner. This document was prepared using [employer] dictation software. Please allow for errors in catch basin cleaner while rare they do occur. Raul Salinas NP rendered care for this patient independently, reviewed the findings and plan as documented in the note above. I did not physically speak with or examine the patient on this date. Patient Condition at Discharge: Stable Plan - Discharge Summary Discharge Rx Participant: Yes New Discharge Prescriptions: New carvediloL [Coreg] 3.125 mg PO BID-W/MEALS 30 Days #60 tab Triamterene-Hctz 37.5-25Mg [Dyazide 37.5-25 Capsule] 1 each PO DAILY 30 Days #30 cap Atorvastatin [Lipitor] 20 mg PO HS 30 Days #30 tab Aspirin 81 mg PO DAILY 30 Days #30 tab Isosorbide Mononitrate ER [Imdur] 30 mg PO DAILY 30 Days #30 tab amLODIPine [Norvasc] 10 mg PO DAILY 30 Days #30 tab lisinopriL [Zestril] 40 mg PO DAILY 30 Days #60 tab Continue Oxybutynin Chloride [oxyBUTYnin chloride ER] 15 mg PO DAILY Albuterol Sulfate [Albuterol Sulfate Hfa] 1 puff PO RT-Q4H PRN PRN Reason: Shortness Of Breath Ibuprofen [Motrin] 400 mg PO TID PRN PRN Reason: Pain Acetaminophen Tab [Tylenol] 650 mg PO Q6H PRN PRN Reason: Pain Or Fever > 100.5 Doxepin [SINEquan] 10 mg PO HS Ergocalciferol [Vitamin D2 (1250 Mcg = 82297 Iu)] 1,250 mcg PO WEEKLY Famotidine [Pepcid] 20 mg PO BID Discontinued amLODIPine [Norvasc] 5 mg PO DAILY Metoprolol Succinate (ER) [Toprol XL] 12.5 mg PO DAILY Discharge Medication List Oxybutynin Chloride [oxyBUTYnin chloride ER] 15 mg PO DAILY 02/19/22 [History] Albuterol Sulfate [Albuterol Sulfate Hfa] 1 puff PO RT-Q4H PRN 07/07/24 [History] Ibuprofen [Motrin] 400 mg PO TID PRN 07/07/24 [History] Acetaminophen Tab [Tylenol] 650 mg PO Q6H PRN 10/12/24 [History] Doxepin [SINEquan] 10 mg PO HS 10/12/24 [History] Famotidine [Pepcid] 20 mg PO BID 10/12/24 [History] Ergocalciferol [Vitamin D2 (1250 Mcg = 19560 Iu)] 1,250 mcg PO WEEKLY 11/16/24 [History] Aspirin 81 mg PO DAILY 30 Days #30 tab 11/17/24 [Rx] Atorvastatin [Lipitor] 20 mg PO HS 30 Days #30 tab 11/17/24 [Rx] Isosorbide Mononitrate ER [Imdur] 30 mg PO DAILY 30 Days #30 tab 11/17/24 [Rx] Triamterene-Hctz 37.5-25Mg [Dyazide 37.5-25 Capsule] 1 each PO DAILY 30 Days #30 cap 11/17/24 [Rx] amLODIPine [Norvasc] 10 mg PO DAILY 30 Days #30 tab 11/17/24 [Rx] carvediloL [Coreg] 3.125 mg PO BID-W/MEALS 30 Days #60 tab 11/17/24 [Rx] lisinopriL [Zestril] 40 mg PO DAILY 30 Days #60 tab 11/17/24 [Rx] Follow up Appointment(s)/Referral(s): [facility] [NON-STAFF] - 1 Week Pedrito Coronado MD [Medical Doctor] - 1 Week Patient Instructions/Handouts: Chest Pain (DC), Hypertensive Crisis (DC) Activity/Diet/Wound Care/Special Instructions: Activity: As tolerated. Take breaks as needed. Recommend changing positions slowly from lying to sitting, sitting before standing, and standing before walking. Multiple medication changes were made during this admission, it may take your body time to adjust to the changes in your blood pressures. Diet: Heart healthy and carb consistent diet. Avoid salts, or foods with hidden salts such as canned or boxed foods and frozen dinners. Extra salt makes your heart work harder and traps the fluid in your body for longer. Special Instructions: Take all of your medications as directed and remember to keep all of your doctor's appointments and follow-up as needed. Monitor your blood pressure closely at home, twice daily and document these findings and a daily log to bring with you to your next doctor's appointment with both your PCP and marketing strategy manager. Thank you for allowing us to participate in your care, it was truly a pleasure having you for our patient!!! Discharge Disposition: HOME SELF-CARE
--- NOTE | 2024-11-17 11:11 | P.HPIM ---
History of Present Illness H&P Date: 11/17/24 Please see progress note written on 11/16/24 for H&P. Past Medical History Past Medical History: Asthma, COPD, Hypertension Additional Past Medical History / Comment(s): back pain, migraines History of Any Multi-Drug Resistant Organisms: None Reported Past Surgical History: Pacemaker Type of Cardiac Device: Unknown Device Placement Date:: unknown Past Psychological History: Depression Smoking Status: Former smoker Past Alcohol Use History: Rare Past Drug Use History: None Reported - Past Family History Father Family Medical History: AICD/Pacemaker, Congestive Heart Failure (CHF) Mother History Unknown: Yes Medications and Allergies Home Medications Medication Instructions Recorded Confirmed Type Oxybutynin Chloride [oxyBUTYnin 15 mg PO DAILY 02/19/22 11/16/24 History chloride ER] Albuterol Sulfate [Albuterol 1 puff PO RT-Q4H PRN 07/07/24 11/16/24 History Sulfate Hfa] Ibuprofen [Motrin] 400 mg PO TID PRN 07/07/24 11/16/24 History Acetaminophen Tab [Tylenol] 650 mg PO Q6H PRN 10/12/24 11/16/24 History Doxepin [SINEquan] 10 mg PO HS 10/12/24 11/16/24 History Famotidine [Pepcid] 20 mg PO BID 10/12/24 11/16/24 History Ergocalciferol [Vitamin D2 (1250 1,250 mcg PO WEEKLY 11/16/24 11/16/24 History Mcg = 72866 Iu)] Aspirin 81 mg PO DAILY 30 Days #30 tab 11/17/24 Rx Atorvastatin [Lipitor] 20 mg PO HS 30 Days #30 tab 11/17/24 Rx Isosorbide Mononitrate ER [Imdur] 30 mg PO DAILY 30 Days #30 tab 11/17/24 Rx Triamterene-Hctz 37.5-25Mg 1 each PO DAILY 30 Days #30 cap 11/17/24 Rx [Dyazide 37.5-25 Capsule] amLODIPine [Norvasc] 10 mg PO DAILY 30 Days #30 tab 11/17/24 Rx carvediloL [Coreg] 3.125 mg PO BID-W/MEALS 30 Days 11/17/24 Rx #60 tab lisinopriL [Zestril] 40 mg PO DAILY 30 Days #60 tab 11/17/24 Rx Allergies Allergy/AdvReac Type Severity Reaction Status Date / Time Penicillins Allergy Anaphylaxis Verified 11/15/24 23:57 Physical Exam Vitals: Vital Signs Temp Pulse Resp BP BP Pulse Ox 11/17/24 10:36 81 18 144/75 93 L 11/17/24 07:00 98.1 F 84 18 158/83 95 11/17/24 00:34 98.1 F 79 20 173/96 94 L 11/16/24 20:00 16 11/16/24 19:20 97.8 F 87 18 169/76 95 11/16/24 15:00 98.1 F 49 L 16 175/93 100 Intake and Output 11/16/24 11/17/24 11/17/24 22:59 06:59 14:59 Intake Total 221 Balance 221 Intake: Oral 221 Other: # Voids 1 4 Results CBC & Chem 7: 11/17/24 04:48 11/17/24 04:48 Labs: Abnormal Lab Results - Last 24 Hours (Table) 11/17/24 11/17/24 11/17/24 Range/Units 01:36 04:48 04:48 WBC 10.88 H (4.50-10.00) X 10*3/uL RBC 4.32 L (4.40-5.60) X 10*6/uL Hgb 12.6 L (13.0-17.0) g/dL MCHC 31.0 L (32.0-37.0) g/dL RDW 15.5 H (11.5-14.5) % Immature Gran # 0.07 H (0.00-0.04) X 10*3/uL Neutrophils # 8.06 H (1.80-7.70) X 10*3/uL Monocytes # 1.10 H (0.20-1.00) X 10*3/uL BUN/Creatinine Ratio 23.00 H (12.00-20.00) Ratio POC Glucose (mg/dL) 136 H (70-110) mg/dL Albumin/Globulin Ratio 1.52 L (1.60-3.17) Ratio Thrombosis Risk Factor Assmnt - Choose All That Apply Each Factor Represents 1 point: Abnormal pulmonary function (COPD), Age 41-60 years, Obesity (BMI >25) Thrombosis Risk Factor Assessment Total Risk Factor Score: 3 Thrombosis Risk Factor Assessment Level: Moderate Risk
--- NOTE | 2024-11-17 13:26 | P.PN ---
Subjective HISTORY OF PRESENT ILLNESS: This is a 54-year-old male with a past medical history significant for COPD, asthma, hypertension, pacemaker implantation, depression, and former nicotine dependence. Patient does not follow with a paper machine back tender. We have been asked to see the patient in consultation for chest pain. Patient examined at the bedside. Patient states he came to the hospital with a chief complaint of chest discomfort and shortness of breath. Patient was found to have elevated blood pressure upon admission with a reading of 189/100. Patient states he is supposed to get a sleep apnea machine but has been having issues getting to his appointments and has not made his appointments. He has not followed up with a paper machine back tender either. He reports having a recent pacemaker implantation at [facility]. DIAGNOSTICS: - EKG reveals sinus mechanism with no signs of acute ischemia. - Chest xray cardiomegaly. Left basilar opacity. - Laboratory data: WBC 12.44. Hemoglobin 13.2. Platelet count 301. Sodium 138. Potassium 3.5. BUN 31. Creatinine 0.99. Troponin negative x 3. proBNP 107. Serum alcohol less than 10. - Current home cardiac medication list not updated at the time of examination - No previous echocardiogram, stress test, or cardiac catheterization available in EMR for review 11/17/2024 Patient examined this morning at the bedside. Patient without complaints of chest pain or pressure. He denies shortness of breath. Blood pressure 144/75. PHYSICAL EXAM: VITAL SIGNS: Reviewed. GENERAL: Well-developed in no acute distress. HEENT: Head is normocephalic. Pupils are equal, round. Sclerae anicteric. Mucous membranes of the mouth are moist. Neck supple. No JVD or thyromegaly LUNGS: Respirations even and unlabored. Lungs essentially clear to auscultation bilaterally. HEART: Regular rate and rhythm. S1 and S2 heard. ABDOMEN: Soft. Nondistended. Nontender. EXTREMITIES: Normal range of motion. No clubbing or cyanosis. Peripheral pulses intact. No lower extremity edema NEUROLOGIC: Awake and alert. Oriented x 3. ASSESSMENT: Hypertensive emergency Chest pain, likely secondary to uncontrolled hypertension, ACS ruled out History of hypertension History of COPD History of asthma History of pacemaker implantation secondary to sick sinus syndrome History of depression Former nicotine dependence Morbid obesity: BMI 51.6 Obstructive sleep apnea, patient has not yet received his CPAP machine PLAN: Continue current cardiac medications including aspirin, atorvastatin, lisinopril Add carvedilol 3.125 mg twice a day Add Dyazide 37.5-25 mg daily Add Imdur 30 mg daily Patient encouraged to take his blood pressure medications as ordered and keep a log of his blood pressures at home Patient also encouraged to follow-up with his appointments to obtain his sleep apnea machine on an outpatient basis Recommend outpatient structured weight loss. Consider use of Ozempic or Mounjaro on an outpatient basis. Defer to primary medicine. No plans for inpatient stress testing or cardiac catheterization at this time Stable for discharge from a cardiac standpoint Further recommendations pending patient course Nurse practitioner note has been reviewed by physician. Signing provider agrees with the documented findings, assessment, and plan of care documented by [employer] STUD[employer] PROFESSOR as a scribe. Objective - Vital Signs Vital signs: Vital Signs Temp 98.1 F 11/17/24 07:00 Pulse 81 11/17/24 10:36 Resp 18 11/17/24 10:36 BP 144/75 11/17/24 10:36 Pulse Ox 93 L 11/17/24 10:36 FiO2 Intake & Output 11/16/24 11/17/24 11/17/24 18:59 06:59 18:59 Intake Total 339 Balance 339 Intake: Oral 339 Other: # Voids 2 4 - Labs CBC & Chem 7: 11/17/24 04:48 11/17/24 04:48 Labs: Abnormal Lab Results - Last 24 Hours (Table) 11/17/24 11/17/24 11/17/24 Range/Units 01:36 04:48 04:48 WBC 10.88 H (4.50-10.00) X 10*3/uL RBC 4.32 L (4.40-5.60) X 10*6/uL Hgb 12.6 L (13.0-17.0) g/dL MCHC 31.0 L (32.0-37.0) g/dL RDW 15.5 H (11.5-14.5) % Immature Gran # 0.07 H (0.00-0.04) X 10*3/uL Neutrophils # 8.06 H (1.80-7.70) X 10*3/uL Monocytes # 1.10 H (0.20-1.00) X 10*3/uL BUN/Creatinine Ratio 23.00 H (12.00-20.00) Ratio POC Glucose (mg/dL) 136 H (70-110) mg/dL Albumin/Globulin Ratio 1.52 L (1.60-3.17) Ratio
== END 2024-11-17 13:07 | disposition home or self-care (01) ==
LOC: EC 23:52 → 6NMEDSUR 11-16 00:11 → EEVIPCON 11-16 00:11 → 6NMEDSUR 11-16 02:01
PROVIDERS: ADMIT Internal Medicine; ATTEND Internal Medicine
DX: R07.89 Other chest pain (principal); I16.1 Hypertensive emergency; J44.1 Chronic obstructive pulmonary disease with (acute) exacerbation; I11.9 Hypertensive heart disease without heart failure; I49.5 Sick sinus syndrome; G47.33 Obstructive sleep apnea (adult) (pediatric); E78.5 Hyperlipidemia, unspecified; I44.0 Atrioventricular block, first degree; R79.89 Other specified abnormal findings of blood chemistry; D72.829 Elevated white blood cell count, unspecified; E66.01 Morbid (severe) obesity due to excess calories; Z68.43 Body mass index [BMI] 50.0-59.9, adult; F32.A Depression, unspecified; F41.9 Anxiety disorder, unspecified; Z79.82 Long term (current) use of aspirin; Z79.899 Other long term (current) drug therapy; Z88.0 Allergy status to penicillin; Z87.891 Personal history of nicotine dependence; Z95.0 Presence of cardiac pacemaker
CPT/HCPCS: 96376 ×2; 96361 ×3; 96372; 96374; 96375; 99285; 36415; 94640; 93005 ×2; 97162; 97165; 83880; 80053 ×2; 82803; 83605; 83735 ×2; 84100; 84484; 85025 ×2; 85610; 85730; 71045; G0378 ×2; G0480; J2270 ×2; J0360 ×2; J1650; 80320

== ENCOUNTER 2024-12-02 22:18 | Inpatient (IN) | payer OTHER ==
[2024-12-02 22:53] LABS: Basophils % (A) 1.2 %; Eosinophils # (A) 0.38 10*3/uL (0.04-0.35); Eosinophils % (A) 4.4 %; HCT 36.7 % (39.6-50.0); Lymphocytes # (A) 1.51 10*3/uL (0.90-5.00); Lymphocytes % (A) 17.4 %; MCH 30.8 pg (27.0-32.0); MCHC 32.7 g/dL (32.0-37.0); MCV 94.3 fL (80.0-97.0); Mean Platelet Volume 10.1 fL (9.5-12.2); Monocytes # (A) 0.78 10*3/uL (0.20-1.00); Neutrophils # (A) 5.83 10*3/uL (1.80-7.70); Neutrophils % (A) 67.3 %; Platelet Count 307 10*3/uL (140-440); RBC 3.89 10*6/uL (4.40-5.60); RDW 15.1 % (11.5-14.5); WBC 8.66 10*3/uL (4.50-10.00)
[2024-12-02] MEDS: ASPIRIN 81 MG PO STA (22:54)
[2024-12-02] MEDS: ONDANSETRON 4 MG/2 ML VIAL IVP STA (22:55)
[2024-12-02] MEDS: MORPHINE SULFATE 2 MG/ML SYRINGE IVP STA (22:55)
[2024-12-02 23:02] LABS: INR 0.9 (<1.2); Partial Thromboplastin Time 23.3 sec (22.0-30.0); Prothrombin Time 10.2 sec (10.0-12.5)
--- NOTE | 2024-12-02 23:04 | ED ---
General Adult HPI - General Chief complaint: Chest Pain Stated complaint: Chest pain Time Seen by Provider: 12/02/24 22:19 Source: patient, EMS Mode of arrival: EMS - History of Present Illness Initial comments: Patient is a 54-year-old male with past medical history of hypertension, sick sinus syndrome with pacemaker in place presenting today for chest pain. Patient states that he has left-sided chest pain that is squeezing and sharp in nature. It has been ongoing for 1 month. He states that he came in today because the pain has been coming and going but seem to last longer than it has in the past. Pain has since essentially resolved, he currently rates it as a 1 out of 10. He has an associated headache. Denies focal numbness or weakness though endorses generalized weakness. Denies dizziness, abdominal pain, nausea, vomiting, melena, hematochezia or diarrhea. States that he is not sure what his temperature was but felt like he had a fever last night when he felt very sweaty. He took his home medications prior to arrival today but no additional doses of aspirin. Took his home pain medications which seem to improve his chest pain. He denies cough, or hemoptysis though does endorse shortness of breath. No new lower extremity swelling. He is taking his medications as prescribed. - Related Data Home Medications Medication Instructions Recorded Confirmed Oxybutynin Chloride [oxyBUTYnin 15 mg PO DAILY 02/19/22 12/03/24 chloride ER] Albuterol Sulfate [Albuterol 1 puff INHALATION RT-Q4H PRN 07/07/24 12/03/24 Sulfate Hfa] Ibuprofen [Motrin] 400 mg PO TID PRN 07/07/24 12/03/24 Acetaminophen Tab [Tylenol] 650 mg PO Q6H PRN 10/12/24 12/03/24 Doxepin [SINEquan] 10 mg PO HS 10/12/24 12/03/24 Famotidine [Pepcid] 20 mg PO BID 10/12/24 12/03/24 Ergocalciferol [Vitamin D2 (1250 1,250 mcg PO MO 11/16/24 12/03/24 Mcg = 55863 Iu)] Triamterene-Hctz 37.5-25Mg 1 cap PO DAILY 12/03/24 12/03/24 [Dyazide 37.5-25 Capsule] Previous Rx's Medication Instructions Recorded Aspirin 81 mg PO DAILY 30 Days #30 tab 11/17/24 Atorvastatin [Lipitor] 20 mg PO HS 30 Days #30 tab 11/17/24 Isosorbide Mononitrate ER [Imdur] 30 mg PO DAILY 30 Days #30 tab 11/17/24 amLODIPine [Norvasc] 10 mg PO DAILY 30 Days #30 tab 11/17/24 carvediloL [Coreg] 3.125 mg PO BID-W/MEALS 30 Days 11/17/24 #60 tab lisinopriL [Zestril] 40 mg PO DAILY 30 Days #60 tab 11/17/24 Allergies Allergy/AdvReac Type Severity Reaction Status Date / Time Penicillins Allergy Anaphylaxis Verified 12/02/24 22:25 Review of Systems ROS Statement: Those systems with pertinent positive or pertinent negative responses have been documented in the HPI. ROS Other: All systems not noted in ROS Statement are negative. Past Medical History Past Medical History: Asthma, Hypertension Additional Past Medical History / Comment(s): back pain, migraines, History of Any Multi-Drug Resistant Organisms: None Reported Past Surgical History: Pacemaker Type of Cardiac Device: Unknown Device Placement Date:: unknown Past Psychological History: Depression Smoking Status: Never smoker Past Alcohol Use History: Rare Past Drug Use History: None Reported - Past Family History Father Family Medical History: AICD/Pacemaker, Congestive Heart Failure (CHF) Mother History Unknown: Yes General Exam - General Exam Comments Initial Comments: PE: CONSTITUTIONAL: No apparent distress, well appearing SKIN: Warm, dry, no jaundice, hives or petechiae EYES: Pupils are equally round, extraocular movements intact without nystagmus, clear conjunctiva, non-icteric sclera HENT: Normocephalic, atraumatic, moist mucus membranes, oropharynx clear without exudates NECK: , Full range of motion, normal appearance PULMONARY: Clear to auscultation without wheezes, rhonchi, or rales, normal excursion, no accessory muscle use and no stridor CARDIOVASCULAR: Regular rate, rhythm, normal S1 and S2. No appreciated murmurs, rubs or gallops. Strong radial pulses with intact distal perfusion. No lower ex tremity edema GASTROINTESTINAL: Soft, active bowel sounds throughout, non-tender, non- distended, no palpable masses, no rebound or guarding. No hepatosplenomegaly GENITOURINARY: MUSCULOSKELETAL: Extremities have no gross deformity, no edema, redness, or swelling. No calf swelling NEUROLOGIC:_a/o x 3, GCS 15, normal mentation and speech. Moves all extremities x 4 without motor or sensory deficit PSYCHIATRIC:_normal mood and affect, thought process is clear and linear Course Vital Signs 12/02/24 12/03/24 12/03/24 22:20 00:01 00:07 Temperature 98.7 F Pulse Rate 83 80 76 Respiratory 22 20 20 Rate Blood Pressure 110/68 O2 Sat by Pulse 93 L Oximetry Fraction of Inspired Oxygen (FIO2) 12/03/24 12/03/24 12/03/24 03:28 06:42 08:27 Temperature Pulse Rate 76 94 85 Respiratory 18 18 20 Rate Blood Pressure 121/73 104/50 121/75 O2 Sat by Pulse 93 L 95 100 Oximetry Fraction of Inspired Oxygen (FIO2) 12/03/24 12/03/24 12/03/24 09:11 09:46 11:39 Temperature Pulse Rate Respiratory Rate Blood Pressure O2 Sat by Pulse Oximetry Fraction of 40 40 40 Inspired Oxygen (FIO2) 12/03/24 12/03/24 11:48 17:34 Temperature Pulse Rate 81 Respiratory 20 Rate Blood Pressure 137/99 O2 Sat by Pulse 97 95 Oximetry Fraction of Inspired Oxygen (FIO2) EKG Findings - EKG Comments: EKG Findings:: Sinus rhythm, prolonged SC interval 234 ms, rate 75 bpm, QT/QTc within normal limits, normal axis, there is artifact present limiting interpretation though no significant ST elevations or depressions, no arrhythmia Medical Decision Making - Medical Decision Making Was pt. sent in by a medical professional or institution (, PA, WRITING CENTER DIRECTOR, urgent care, hospital, or fpc...) When possible be specific @ -No Did you speak to anyone other than the patient for history (EMS, parent, family, police, friend...)? What history was obtained from this source @ -No Did you review nursing and triage notes (agree or disagree)? Why? @ -I reviewed nursing and triage notes-Of note when asked about his "stinging him" he states that he was talking about his intermittent squeezing chest pain, not a seperate pain from his pacemaker Were old charts reviewed (outside hosp., previous admission, EMS record, old EKG, old radiological studies, urgent care reports/EKG's, fpc records)? Report findings @ -Medical records reviewed-on chart review, there is a scanned document ja ling the patient has a [employer] pacemaker. Additionally reviewed discharge summary from last hospital visit on 11/16/2024 and patient presented for chest pain at the time. He was cleared from cardiology standpoint for outpatient follow-up. Of note on his arrival during that ED visit he was significantly hypertensive with a blood pressure 189/110, is not hypertensive today Differential Diagnosis (chest pain, altered mental status, abdominal pain women, abdominal pain men, vaginal bleeding, weakness, fever, dyspnea, syncope, headache, dizziness, GI bleed, back pain, seizure, CVA, palpatations, mental health, musculoskeletal)? Differential Chest Pain: Stable Angina, Unstable Angina, STEMI, NSTEMI Aortic Dissection, pericarditis, pleurisy, chostochondirits, Pneumothorax, Musculoskeletal, Esophageal Spasm GERD, Cholecystitis, Pancreatitis, Zoster, this is not meant to be an all- inclusive list. EKG interpreted by me (3pts min.). @ -As above X-rays interpreted by me (1pt min.). Personally reviewed CXR- I see now pleural effusions or obvious consolidations CT interpreted by me (1pt min.). @ -None done U/S interpreted by me (1pt. min.). @ -None done What testing was considered but not performed or refused? (CT, X-rays, U/S, labs)? Why? @ -Consider D-dimer/CTA however patient had a CTA performed on 10/12/2024 when he had presented for similar pain which was negative for PE What meds were considered but not given or refused? Why? @ -None Did you discuss the management of the patient with other professionals (professionals i.e. , PA, WRITING CENTER DIRECTOR, lab, RT, psych nurse, licensed clinical social worker, shochet, teacher, human resources officer, medical case worker)? Give summary @ -No Was smoking cessation discussed for >3mins.? @ -No Was critical care preformed (if so, how long)? @ -No Were there social determinants of health that impacted care today? How? (Homelessness, low income, unemployed, alcoholism, drug addiction, transportation, low edu. Level, literacy, decrease access to med. care, long term, rehab)? @ -No Was there de-escalation of care discussed even if they declined (Discuss DNR or withdrawal of care, Hospice)? @ -No What co-morbidities impacted this encounter? (DM, HTN, Smoking, COPD, CAD, Cancer, CVA, ARF, Chemo, Hep., AIDS, mental health diagnosis, sleep apnea, morbid obesity)? Hypertension, hyperlipidemia, sick sinus syndrome, obesity Was patient admitted / discharged? Hospital course, mention meds given and route, prescriptions, significant lab abnormalities, going to OR and other pertinent info. Admission- Patient is a 54-year-old gentleman history as above presenting today for intermittent left-sided chest pain x 1 month. On my assessment patient is well-appearing in no acute distress. Vital signs are stable on arrival. EKG does not show a paced rhythm though does show sinus rhythm. Will obtain cardiac workup in addition to pacemaker interrogation. Patient states his chest pain essentially resolved so we will give 324 aspirin and a small dose of morphine. Labs are significant for creatinine 1.34, previously 0.8 patient was given 11/17/2024, otherwise troponin undetectable, BNP is not elevated, patient is mildly anemic with a hemoglobin of 12, previously on 11/17/2024 was 12.6. On my reassessment pt is sleeping comfortably. Plan for admission to hospitalist for observation given significant cardiac history. Case presented to Dr. Robledo, who kindly accepted pt for admission. Undiagnosed new problem with uncertain prognosis? @ -No Drug Therapy requiring intensive monitoring for toxicity (Heparin, Nitro, Insulin, Cardizem)? @ -No Were any procedures done? @ -No Diagnosis/symptom? Chest pain, DESTINY Acute, or Chronic, or Acute on Chronic? @acute Uncomplicated (without systemic symptoms) or Complicated (systemic symptoms)? complicated Side effects of treatment? @ -No Exacerbation, Progression, or Severe Exacerbation? @ -No Poses a threat to life or bodily function? How? (Chest pain, USA, CA, pneumonia, PE, COPD, DKA, ARF, appy, cholecystitis, CVA, Diverticulitis, Homicidal, Suicidal, threat to staff... and all critical care pts) @ potentially - Lab Data Result diagrams: 12/02/24 22:36 12/03/24 12:23 Lab Results 06/18/25 06/18/25 06/18/25 Range/Units 22:36 22:36 22:36 WBC 8.66 (4.50-10.00) 10*3/uL RBC 3.89 L (4.40-5.60) 10*6/uL Hgb 12.0 L (13.0-17.0) g/dL Hct 36.7 L (39.6-50.0) % MCV 94.3 (80.0-97.0) fL MCH 30.8 (27.0-32.0) pg MCHC 32.7 (32.0-37.0) g/dL Plt Count 307 (140-440) 10*3/uL MPV 10.1 (9.5-12.2) fL Immature Gran % (Auto) 0.7 % Neutrophils % 67.3 % Lymphocytes % 17.4 % Monocytes % 9.0 % Eosinophils % 4.4 % Basophils % 1.2 % Immature Gran # 0.06 H (0.00-0.04) 10*3/uL Neutrophils # 5.83 (1.80-7.70) 10*3/uL Lymphocytes # 1.51 (0.90-5.00) 10*3/uL Monocytes # 0.78 (0.20-1.00) 10*3/uL Eosinophils # 0.38 H (0.04-0.35) 10*3/uL Basophils # 0.10 (0.00-0.10) 10*3/uL PT 10.2 (10.0-12.5) sec INR 0.9 (<1.2) APTT 23.3 (22.0-30.0) sec Sodium 137 (137-145) mmol/L Potassium 4.1 (3.5-5.1) mmol/L Chloride 98 (98-107) mmol/L Carbon Dioxide 30 (22-30) mmol/L Anion Gap 9 mmol/L BUN 38 H (9-20) mg/dL Creatinine 1.34 H (0.66-1.25) mg/dL Est GFR (CKD-EPI)AfAm 69 (>60 ml/min/1.73 sqM) Est GFR (CKD-EPI)NonAf 60 (>60 ml/min/1.73 sqM) Glucose 117 H (74-99) mg/dL Calcium 9.4 (8.4-10.2) mg/dL Magnesium 2.0 (1.6-2.3) mg/dL Total Bilirubin 0.7 (0.2-1.3) mg/dL AST 30 (17-59) U/L ALT 41 (4-49) U/L Alkaline Phosphatase 99 (38-126) U/L Troponin I (0.000-0.034) ng/mL NT-Pro-B Natriuret Pep <20 pg/mL Total Protein 6.3 (6.3-8.2) g/dL Albumin 3.6 (3.5-5.0) g/dL Lipase 106 (23-300) U/L 12/02/24 Range/Units 22:36 WBC (4.50-10.00) 10*3/uL RBC (4.40-5.60) 10*6/uL Hgb (13.0-17.0) g/dL Hct (39.6-50.0) % MCV (80.0-97.0) fL MCH (27.0-32.0) pg MCHC (32.0-37.0) g/dL Plt Count (140-440) 10*3/uL MPV (9.5-12.2) fL Immature Gran % (Auto) % Neutrophils % % Lymphocytes % % Monocytes % % Eosinophils % % Basophils % % Immature Gran # (0.00-0.04) 10*3/uL Neutrophils # (1.80-7.70) 10*3/uL Lymphocytes # (0.90-5.00) 10*3/uL Monocytes # (0.20-1.00) 10*3/uL Eosinophils # (0.04-0.35) 10*3/uL Basophils # (0.00-0.10) 10*3/uL PT (10.0-12.5) sec INR (<1.2) APTT (22.0-30.0) sec Sodium (137-145) mmol/L Potassium (3.5-5.1) mmol/L Chloride (98-107) mmol/L Carbon Dioxide (22-30) mmol/L Anion Gap mmol/L BUN (9-20) mg/dL Creatinine (0.66-1.25) mg/dL Est GFR (CKD-EPI)AfAm (>60 ml/min/1.73 sqM) Est GFR (CKD-EPI)NonAf (>60 ml/min/1.73 sqM) Glucose (74-99) mg/dL Calcium (8.4-10.2) mg/dL Magnesium (1.6-2.3) mg/dL Total Bilirubin (0.2-1.3) mg/dL AST (17-59) U/L ALT (4-49) U/L Alkaline Phosphatase (38-126) U/L Troponin I <0.012 (0.000-0.034) ng/mL NT-Pro-B Natriuret Pep pg/mL Total Protein (6.3-8.2) g/dL Albumin (3.5-5.0) g/dL Lipase (23-300) U/L Disposition Clinical Impression: Chest pain, DESTINY (acute kidney injury) Disposition: ADMITTED IP TO THIS HOSP Condition: Stable
[2024-12-02 23:21] LABS: ALT 41 U/L (4-49); African American GFR (CKD) 69 (>60 ml/min/1.73 sqM); Albumin 3.6 g/dL (3.5-5.0); Anion Gap 9 mmol/L; Blood Urea Nitrogen 38 mg/dL (9-20); Calcium 9.4 mg/dL (8.4-10.2); Carbon Dioxide 30 mmol/L (22-30); Chloride 98 mmol/L (98-107); Glucose 117 mg/dL (74-99); Lipase 106 U/L (23-300); Non-African American GFR(CKD) 60 (>60 ml/min/1.73 sqM); Sodium 137 mmol/L (137-145); Total Bilirubin 0.7 mg/dL (0.2-1.3); Total Protein 6.3 g/dL (6.3-8.2)
[2024-12-02 23:30] LABS: NT-Pro-B-Type Natriuretic Pept <20 pg/mL
[2024-12-02 23:57] LABS: AST 30 U/L (17-59); Alkaline Phosphatase 99 U/L (38-126); Potassium 4.1 mmol/L (3.5-5.1)
[2024-12-03] MEDS: IPRATROPIUM-ALBUTEROL 3 ML NEB INHALATION STA (00:01)
[2024-12-03] MEDS ORDERED: NALOXONE 0.4 MG/ML 1 ML VIAL IV PRN (00:29)
[2024-12-03] MEDS ORDERED: CAFFEINE CITRATE 60 MG/3 ML VIAL IV PRN (00:43)
[2024-12-03] MEDS ORDERED: AMINOPHYLLINE 500 MG/20 ML VIAL IV PRN (00:43)
--- NOTE | 2024-12-03 00:48 | XR ---
EXAM: XR Chest, 2 Views CLINICAL HISTORY: ITS.REASON XR Reason: Chest Pain TECHNIQUE: Frontal and lateral views of the chest. COMPARISON: No relevant prior studies available. FINDINGS: Lungs: Unremarkable. No consolidation. Pleural space: Unremarkable. No pneumothorax. Heart: Cardiomegaly. Mediastinum: Unremarkable. Bones/joints: Unremarkable. Tubes, lines and devices: Pacemaker leads. IMPRESSION: No acute findings in the chest.
[2024-12-03] MEDS ORDERED: DOBUTamine DRIP for NUC MED 500 MG in DEXTROSE/WATER 1 250ML.BAG IV PRN (00:52)
[2024-12-03] MEDS: LACTATED RINGERS 1,000 ML IV SCH (01:31)
[2024-12-03] MEDS: ATORVASTATIN 20 MG TAB PO STA (01:31)
--- NOTE | 2024-12-03 01:34 | P.HPIM ---
History of Present Illness H&P Date: 12/03/24 Chief Complaint: Chest pain 54-year-old male with a past medical history of sick sinus syndrome status post permanent pacemaker placement, hypertension, hyperlipidemia, COPD with former nicotine dependence, anxiety with depression, and morbid obesity. He presented to our facility on 11/16/2024 with a chief complaint of chest pain and hypertensive urgency. Cardiology back been evaluated patient and ACS was ruled out. He had some medication changes . Metoprolol was discontinued, amlodipine increased to 10 mg daily and patient started on lisinopril 40 mg daily, isosorb sarah mononitrate 30 mg daily, aspirin 81 mg daily, atorvastatin 20 mg nightly, carvedilol 3.125 mg twice daily, and Dyazide 37.5-25 mg daily. Patient presents today complaining of chest pain. He describes his pain " squeezing" left-sided,, has been going on for a month and came in today because of this pain has been lasting longer than usual. Upon arrival to the ED, his pain resolved. No radiation of pain. No reports of fever or chills. He did take some of his home medications prior to arrival today. No shortness of breath, cough or hemoptysis. He is taking his medications as prescribed. Upon arrival to the ED, patient was hemodynamically stable. Labs done including troponin was not elevated but his kidney function was abnormal with elevated BUN and creatinine. His last kidney function was within normal limit. It appears that he has new DESTINY due to medication changes . EKG showing sinus rhythm with no ischemic changes (surprisingly is not paced rhythm as patient has pacemaker) . Patient will be admitted as an observation for chest pain evaluation and DESTINY management Past medical history :sick sinus syndrome status post permanent pacemaker placement, hypertension, hyperlipidemia, COPD with former nicotine dependence, anxiety with depression, and morbid obesity. Past surgical history : Pacemaker placement Social history : No tobacco use, no alcohol use and no recreational drug use Review of system : Negative except what mentioned in HPI PE : General: nontoxic, no distress, appears at stated age Derm: warm, dry, intact Head: atraumatic, normocephalic, symmetric Eyes: EOMI, anicteric sclera Mouth: no lip lesion, mucus membranes moist Cardiovascular: S1 S2 reg, no murmur, rubs, or gallops Lungs: CTA bilateral, no rales, no accessory muscle use Abdominal: soft, non-tender to palpataion, no appreciable organomegaly Extremities: no gross muscle atrophy, no edema, no contractures Neuro: Alert, Oriented, CNII-XII grossly intact, gait normal Psych: well appearing, appropriate affect Assessment and plan : -Chest pain, r/o ACS : Patient received full dose of aspirin EKG no ischemic changes and is showing sinus rhythm (not paced rhythm) Initial set of troponin was not elevated and repeat troponin Consult cardiology Will order Dobutamine stress test and TTE -Nonoliguric acute kidney injury with prerenal azotemia : Likely due to Dyazide Continue to hold lisinopril and Dyazide Kidney ultrasound Continue with aggressive IV fluid resuscitation LR at the rate of 125 cc/h Avoid nephrotoxic medication -Essential hypertension : Patient's blood pressure is borderline and will hold antihypertensive medication for now -COPD, not in exacerbation : Albuterol inhaler as needed -Sick sinus syndrome with permanent pacemaker: Pacemaker interrogation is pending -Nicotine dependence CODE STATUS is full code DVT prophylaxis on heparin subcu Disposition will be home when patient is stable Admitted under observation Time spent : 55 min Past Medical History Past Medical History: Asthma, Hypertension Additional Past Medical History / Comment(s): back pain, migraines, History of Any Multi-Drug Resistant Organisms: None Reported Past Surgical History: Pacemaker Type of Cardiac Device: Unknown Device Placement Date:: unknown Past Psychological History: Depression Smoking Status: Never smoker Past Alcohol Use History: Rare Past Drug Use History: None Reported - Past Family History Father Family Medical History: AICD/Pacemaker, Congestive Heart Failure (CHF) Mother History Unknown: Yes Medications and Allergies Home Medications Medication Instructions Recorded Confirmed Type Oxybutynin Chloride [oxyBUTYnin 15 mg PO DAILY 02/19/22 11/16/24 History chloride ER] Albuterol Sulfate [Albuterol 1 puff PO RT-Q4H PRN 07/07/24 11/16/24 History Sulfate Hfa] Ibuprofen [Motrin] 400 mg PO TID PRN 07/07/24 11/16/24 History Acetaminophen Tab [Tylenol] 650 mg PO Q6H PRN 10/12/24 11/16/24 History Doxepin [SINEquan] 10 mg PO HS 10/12/24 11/16/24 History Famotidine [Pepcid] 20 mg PO BID 10/12/24 11/16/24 History Ergocalciferol [Vitamin D2 (1250 1,250 mcg PO WEEKLY 11/16/24 11/16/24 History Mcg = 57254 Iu)] Aspirin 81 mg PO DAILY 30 Days #30 tab 11/17/24 Rx Atorvastatin [Lipitor] 20 mg PO HS 30 Days #30 tab 11/17/24 Rx Isosorbide Mononitrate ER [Imdur] 30 mg PO DAILY 30 Days #30 tab 11/17/24 Rx Triamterene-Hctz 37.5-25Mg 1 each PO DAILY 30 Days #30 cap 11/17/24 Rx [Dyazide 37.5-25 Capsule] amLODIPine [Norvasc] 10 mg PO DAILY 30 Days #30 tab 11/17/24 Rx carvediloL [Coreg] 3.125 mg PO BID-W/MEALS 30 Days 11/17/24 Rx #60 tab lisinopriL [Zestril] 40 mg PO DAILY 30 Days #60 tab 11/17/24 Rx Allergies Allergy/AdvReac Type Severity Reaction Status Date / Time Penicillins Allergy Anaphylaxis Verified 12/02/24 22:25 Physical Exam Vitals: Vital Signs Temp Pulse Resp BP Pulse Ox 12/03/24 00:07 76 20 12/03/24 00:01 80 20 12/02/24 22:20 98.7 F 83 22 110/68 93 L Intake and Output 12/02/24 12/02/24 12/03/24 14:59 22:59 06:59 Other: Weight 104.326 kg Results CBC & Chem 7: 12/02/24 22:36 12/02/24 22:36 Labs: Abnormal Lab Results - Last 24 Hours (Table) 12/02/24 12/02/24 Range/Units 22:36 22:36 RBC 3.89 L (4.40-5.60) 10*6/uL Hgb 12.0 L (13.0-17.0) g/dL Hct 36.7 L (39.6-50.0) % Immature Gran # 0.06 H (0.00-0.04) 10*3/uL Eosinophils # 0.38 H (0.04-0.35) 10*3/uL BUN 38 H (9-20) mg/dL Creatinine 1.34 H (0.66-1.25) mg/dL Glucose 117 H (74-99) mg/dL
[2024-12-03 01:41] LABS: Appearance,Urine Clear (Clear); Bilirubin,Urine Negative (Negative); Blood,Urine Negative (Negative); Color,Urine Colorless; Glucose,Urine (UA) Negative (Negative); Ketones,Urine Negative (Negative); Leukocyte Esterase,Urine Negative (Negative); Nitrite,Urine Negative (Negative); Protein,Urine Negative (Negative); Specific Gravity,Urine 1.014 (1.001-1.035); Urobilinogen,Urine <2.0 mg/dL (<2.0)
[2024-12-03] MEDS: methylPREDNISolone SOD SUCCI 40 MG/ML 1 ML VIAL IV STA (01:54)
--- NOTE | 2024-12-03 03:14 | US ---
EXAM: US Retroperitoneal Limited, Renal CLINICAL HISTORY: US Reason: DESTINY TECHNIQUE: Real-time limited ultrasound of the retroperitoneum with image documentation. COMPARISON: CT scan from 09/10/2015 FINDINGS: Right kidney: There are several echogenic foci in the kidneys bilaterally without clear evidence of posterior shadowing. This could represent normal sinus fat, less likely calculi. No hydronephrosis. The right kidney measures 10 x 6.1 x 5 cm, 157 mL. Left kidney: The left kidney measures 10.3 x 6.2 x 6 cm, 202 mL. No hydronephrosis is identified. Bladder: The urinary bladder is partially distended. Possible sludge or debris in the dependent portion of the urinary bladder. IMPRESSION: No acute findings in the retroperitoneum.
[2024-12-03 07:22] LABS: African American GFR (CKD) 79 (>60 ml/min/1.73 sqM); Anion Gap 8 mmol/L; Blood Urea Nitrogen 35 mg/dL (9-20); Calcium 9.4 mg/dL (8.4-10.2); Carbon Dioxide 32 mmol/L (22-30); Chloride 97 mmol/L (98-107); Glucose 149 mg/dL (74-99); Non-African American GFR(CKD) 68 (>60 ml/min/1.73 sqM); Sodium 137 mmol/L (137-145)
[2024-12-03 07:23] LABS: Magnesium 2.1 mg/dL (1.6-2.3); Phosphorus 4.9 mg/dL (2.5-4.5); Potassium 5.7 mmol/L (3.5-5.1)
--- NOTE | 2024-12-03 10:26 | P.CRDCN ---
History of Present Illness History of present illness: HISTORY OF PRESENT ILLNESS: This is a 54-year-old with a past medical history significant for COPD, asthma, hypertension, pacemaker implantation, depression, and former nicotine dependen ce. 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 We have been asked to see the patient in consultation for chest pain. Patient examined at the bedside in the emergency room. Patient is lethargic and continually falling back asleep during examination. Patient states he came to the emergency room due to chest pain and shortness of breath. He states he felt like somebody was crushing his chest. H e denied any radiation of the pain. At the time of examination this morning, he denies any chest pain or pressure. The patient does have a known history of obstructive sleep apnea. However he has stated in previous admissions that he has been unable to get to his appointments and has not been able to receive his CPAP machine. DIAGNOSTICS: - EKG reveals sinus mechanism with no signs of acute ischemia. - Chest xray negative for acute findings. - Laboratory data: WBC 8.66. Hemoglobin 12.0. Platelet count 307. Sodium 137. Potassium 5.7 however specimen hemolyzed. BUN 35. Creatinine 1.20. Troponin negative x 2. proBNP less than 20. - Current home cardiac medications include Dyazide 37.5-25 milligrams daily, lisinopril 40 mg daily, carvedilol 3.125 mg twice a day, amlodipine 10 mg daily, Imdur 30 mg daily, Lipitor 20 mg at night, aspirin 81 mg daily. - No previous echocardiogram, stress test, or cardiac catheterization available in EMR for review REVIEW OF SYSTEMS: At the time of my exam: CONSTITUTIONAL: Denies fever or chills. HEENT: Denies blurred vision, vision changes, or eye pain. Denies hemoptysis CARDIOVASCULAR: Denies chest pain. Denies orthopnea. Denies PND. Denies palpitations RESPIRATORY: Denies shortness of breath. GASTROINTESTINAL: Denies abdominal pain. Denies nausea or vomiting. HEMATOLOGIC: Denies bleeding disorders. GENITOURINARY: Denies any blood in urine. SKIN: Denies pruitis. Denies rash. PHYSICAL EXAM: VITAL SIGNS: Reviewed. GENERAL: Well-developed in no acute distress. HEENT: Head is normocephalic. Pupils are equal, round. Sclerae anicteric. Mucous membranes of the mouth are moist. Neck supple. No JVD or thyromegaly LUNGS: Respirations even and unlabored. Lungs essentially clear to auscultation bilaterally. HEART: Regular rate and rhythm. S1 and S2 heard. ABDOMEN: Soft. Nondistended. Nontender. EXTREMITIES: Normal range of motion. No clubbing or cyanosis. Peripheral pulses intact. No lower extremity edema NEUROLOGIC: Lethargic ASSESSMENT: Shortness of breath Obstructive sleep apnea without CPAP use, patient unable to get to appointments Chest pain, troponin negative x 2, ACS ruled out History of dual-chamber pacemaker implantation, [employer], secondary to symptomatic bradycardia and sinus pauses of 8 seconds, September [address] Shukla at [facility] Hypertension History of COPD History of asthma History of depression Former nicotine dependence Obesity: BMI 37.1 PLAN: An acute coronary event has been ruled out Obtain 2D echo to assess cardiac structure and function Due to patient's respiratory status, he is not a candidate for stress testing at this time Consult pulmonary for evaluation. Patient also needs assistance obtaining CPAP machine. Consult social work as patient has stated in the past he has a hard time getting to appointments and following up. Further recommendations pending patient course Nurse practitioner note has been reviewed by physician. Signing provider agrees with the documented findings, assessment, and plan of care documented by TAXICAB DISPATCHER as a scribe. Past Medical History Past Medical History: Asthma, Hypertension Additional Past Medical History / Comment(s): back pain, migraines, History of Any Multi-Drug Resistant Organisms: None Reported Past Surgical History: Pacemaker Type of Cardiac Device: Unknown Device Placement Date:: unknown Past Psychological History: Depression Smoking Status: Never smoker Past Alcohol Use History: Rare Past Drug Use History: None Reported - Past Family History Father Family Medical History: AICD/Pacemaker, Congestive Heart Failure (CHF) Mother History Unknown: Yes Medications and Allergies Home Medications Medication Instructions Recorded Confirmed Type Oxybutynin Chloride [oxyBUTYnin 15 mg PO DAILY 02/19/22 12/03/24 History chloride ER] Albuterol Sulfate [Albuterol 1 puff INHALATION RT-Q4H PRN 07/07/24 12/03/24 History Sulfate Hfa] Ibuprofen [Motrin] 400 mg PO TID PRN 07/07/24 12/03/24 History Acetaminophen Tab [Tylenol] 650 mg PO Q6H PRN 10/12/24 12/03/24 History Doxepin [SINEquan] 10 mg PO HS 10/12/24 12/03/24 History Famotidine [Pepcid] 20 mg PO BID 10/12/24 12/03/24 History Ergocalciferol [Vitamin D2 (1250 1,250 mcg PO MO 11/16/24 12/03/24 History Mcg = 40972 Iu)] Aspirin 81 mg PO DAILY 30 Days #30 tab 11/17/24 12/03/24 Rx Atorvastatin [Lipitor] 20 mg PO HS 30 Days #30 tab 11/17/24 12/03/24 Rx Isosorbide Mononitrate ER [Imdur] 30 mg PO DAILY 30 Days #30 tab 11/17/24 12/03/24 Rx amLODIPine [Norvasc] 10 mg PO DAILY 30 Days #30 tab 11/17/24 12/03/24 Rx carvediloL [Coreg] 3.125 mg PO BID-W/MEALS 30 Days 11/17/24 12/03/24 Rx #60 tab lisinopriL [Zestril] 40 mg PO DAILY 30 Days #60 tab 11/17/24 12/03/24 Rx Triamterene-Hctz 37.5-25Mg 1 cap PO DAILY 12/03/24 12/03/24 History [Dyazide 37.5-25 Capsule] Allergies Allergy/AdvReac Type Severity Reaction Status Date / Time Penicillins Allergy Anaphylaxis Verified 12/02/24 22:25 Physical Exam Vitals: Vital Signs Temp Pulse Resp BP Pulse Ox 12/03/24 08:27 85 20 121/75 100 12/03/24 06:42 94 18 104/50 95 12/03/24 03:28 76 18 121/73 93 L 12/03/24 00:07 76 20 12/03/24 00:01 80 20 12/02/24 22:20 98.7 F 83 22 110/68 93 L Intake and Output 12/02/24 12/03/24 12/03/24 22:59 06:59 14:59 Output Total 600 Balance -600 Output: Urine 600 Other: Weight 104.326 kg Results 12/02/24 22:36 12/03/24 06:25 Cardiac Enzymes 12/02/24 12/02/24 Range/Units 22:36 22:36 AST 30 (17-59) U/L Troponin I <0.012 (0.000-0.034) ng/mL Coagulation 12/02/24 Range/Units 22:36 PT 10.2 (10.0-12.5) sec APTT 23.3 (22.0-30.0) sec CBC 12/02/24 Range/Units 22:36 WBC 8.66 (4.50-10.00) 10*3/uL RBC 3.89 L (4.40-5.60) 10*6/uL Hgb 12.0 L (13.0-17.0) g/dL Hct 36.7 L (39.6-50.0) % Plt Count 307 (140-440) 10*3/uL Comprehensive Metabolic Panel 12/02/24 12/03/24 Range/Units 22:36 06:25 Sodium 137 137 (137-145) mmol/L Potassium 4.1 5.7 H (3.5-5.1) mmol/L Chloride 98 97 L (98-107) mmol/L Carbon Dioxide 30 32 H (22-30) mmol/L BUN 38 H 35 H (9-20) mg/dL Creatinine 1.34 H 1.20 (0.66-1.25) mg/dL Glucose 117 H 149 H (74-99) mg/dL Calcium 9.4 9.4 (8.4-10.2) mg/dL AST 30 (17-59) U/L ALT 41 (4-49) U/L Alkaline Phosphatase 99 (38-126) U/L Total Protein 6.3 (6.3-8.2) g/dL Albumin 3.6 (3.5-5.0) g/dL Current Medications Generic Name Dose Route Start Last Admin Trade Name Freq PRN Reason Stop Dose Admin Albuterol Sulfate 2.5 mg 12/03/24 01:00 Albuterol Nebulized 2.5 Mg/3 Ml INHALATION ONCE PRN Wheezing Heparin Sodium (Porcine) 5,000 unit 12/03/24 09:00 Heparin Sodium,Porcine 5,000 Unit/Ml 1 Ml Vial SQ Q12HR GISSELL Lactated Ringer's 1,000 mls @ 125 mls/hr 12/03/24 00:30 12/03/24 01:31 Lactated Ringers IV 125 mls/hr .Q8H GISSELL Administration Naloxone HCl 0.2 mg 12/03/24 00:29 Naloxone 0.4 Mg/Ml 1 Ml Vial IV Q2M PRN Opioid Reversal Intake and Output 12/02/24 12/03/24 12/03/24 22:59 06:59 14:59 Output Total 600 Balance -600 Output: Urine 600 Other: Weight 104.326 kg 12/02/24 22:36 12/03/24 06:25
--- NOTE | 2024-12-03 10:48 | P.PN ---
Subjective Progress Note Date: 12/03/24 Hospital Course: 54-year-old male with medical history of sick sinus syndrome status post perma nent pacemaker placement, HTN, HLD, COPD with former nicotine dependence, anxiety, depression, morbid obesity, TAO not using CPAP, who presented to the ER on 12/02complaining of chest pain. He describes his pain " squeezing" left- sided,, has been going on for a month and came in today because of this pain has been lasting longer than usual. Upon arrival to the ED, his pain resolved. No radiation of pain. No reports of fever or chills. He did take some of his home medications prior to arrival today. No shortness of breath, cough or hemoptysis. He is taking his medications as prescribed. He presented to our facility on 11/16/2024 with a chief complaint of chest pain and hypertensive urgency. Cardiology back been evaluated patient and ACS was ruled out. He had some medication changes . Metoprolol was discontinued, amlodipine increased to 10 mg daily and patient started on lisinopril 40 mg daily, isosorbide mononitrate 30 mg daily, aspirin 81 mg daily, atorvastatin 20 mg nightly, carvedilol 3.125 mg twice daily, and Dyazide 37.5-25 mg daily. Upon arrival to the ED, patient was hemodynamically stable. Labs done including troponin was not elevated but his kidney function was abnormal with elevated BUN and creatinine. His last kidney function was within normal limit. It appears that he has new DESTINY due to medication changes . EKG showing sinus rhythm with no ischemic changes (surprisingly is not paced rhythm as patient has pacemaker) . Patient will be admitted as an observation for chest pain evaluation and DESTINY management, cardiology consulted. 12/03/2024 patient was seen and examined in the ER, patient is somnolent, hard to stay awake, complains of headache and chest pain, feeling hungry. He is afebrile, blood pressure is normotensive, he was seen on 4 L of nasal cannula, satting well. His morning BMP was hemolyzed, repeat ordered. Due to somnolence and suspected CO2 retention, ABG ordered. Cardiology following, recommended TTE, given his respiratory status, he is not a candidate for stress test. Pulmonology was consulted by cardiology.patient was placed on BiPAP. Due to mentation change and need for continuous BiPAP and serial ABG assessment, patie nt will be switched to inpatient. Fasting blood glucose level elevated 140s, will check A1c. Pertinent positives and negatives as discussed above, a complete review of systems was performed and all other systems are negative. Vitals Signs Reviewed. General: [Somnolent, morbidly obese Derm: [warm], [dry] Head: [atraumatic], [normocephalic], [symmetric] Eyes: [EOMI], [no lid lag], [anicteric sclera] Mouth: [no lip lesion], [mucus membranes moist] Cardiovascular: [S1S2 reg], [no murmur] Lungs: [CTA bilateral], decreased breath sounds bilaterally] , [no accessory muscle use] Abdominal: [soft], [ nontender to palpation], [no guarding], [no appreciable organomegaly] Ext: [no gross muscle atrophy], [no edema], [no contractures] Neuro: [ CN II-XI grossly intact], [no focal neuro deficits] Psych: [Alert], [oriented], [appropriate affect] Assessment and Plan: Chest pain, ACS ruled out Hypertension Hyperlipidemia -Cardiology following, appreciate recommendations -TTE ordered and pending, not a candidate for stress test due to respiratory status - Continue home aspirin 81 mg daily, atorvastatin 20 mg daily, Coreg 3.125 twice daily, Imdur 30 daily, lisinopril 40 daily, triamterene hydrochlorothiazide 37.5/25 mg p.o. daily -Continue telemetry Morbid obesity BMI 51 TAO not currently on CPAP COPD not in acute exacerbation Former smoker Acute toxic metabolic encephalopathy, somnolence likely secondary to CO2 retention -Pulmonology consulted, appreciate recommendations -ABG ordered and pending, discussed with RN -Continue BiPAP -Social work consulted to facilitate obtaining CPAP machine -Recommend structured weight loss program Elevated morning blood glucose level: Will order A1c Hyperkalemia, likely false result due to hemolyzed blood sample -Repeat BMP, discussed with RN History of sick sinus syndrome status post pacemaker placement: Pacemaker interrogation ordered Anxiety, depression DVT ppx: Heparin Code status: Full code Anticipated discharge place: TBD Anticipated discharge time: TBD Objective - Vital Signs Vital signs: Vital Signs Temp 98.7 F 12/02/24 22:20 Pulse 85 12/03/24 08:27 Resp 20 12/03/24 08:27 BP 121/75 12/03/24 08:27 Pulse Ox 100 12/03/24 08:27 FiO2 40 12/03/24 09:46 Intake & Output 12/02/24 12/03/24 12/03/24 18:59 06:59 18:59 Output Total 600 Balance -600 Weight 104.326 kg Output: Urine 600 - Labs CBC & Chem 7: 12/02/24 22:36 12/03/24 06:25 Labs: Abnormal Lab Results - Last 24 Hours (Table) 12/02/24 12/02/24 12/03/24 Range/Units 22:36 22:36 06:25 RBC 3.89 L (4.40-5.60) 10*6/uL Hgb 12.0 L (13.0-17.0) g/dL Hct 36.7 L (39.6-50.0) % Immature Gran # 0.06 H (0.00-0.04) 10*3/uL Eosinophils # 0.38 H (0.04-0.35) 10*3/uL Potassium 5.7 H (3.5-5.1) mmol/L Chloride 97 L (98-107) mmol/L Carbon Dioxide 32 H (22-30) mmol/L BUN 38 H 35 H (9-20) mg/dL Creatinine 1.34 H (0.66-1.25) mg/dL Glucose 117 H 149 H (74-99) mg/dL Phosphorus 4.9 H (2.5-4.5) mg/dL
[2024-12-03] MEDS: TRIAMTERENE-HCTZ 37.5-25MG 1 EACH CAP PO SCH (11:51)
[2024-12-03] MEDS: HEPARIN SODIUM,PORCINE 5,000 UNIT/ML 1 ML VIAL SQ SCH (11:51)
[2024-12-03] MEDS: lisinopriL 20 MG TAB PO SCH (11:51)
[2024-12-03] MEDS: ISOSORBIDE MONONITRATE ER 30 MG TAB.ER.24H PO SCH (11:51)
[2024-12-03] MEDS: ASPIRIN 81 MG PO SCH (11:51)
--- NOTE | 2024-12-03 12:24 | P.CNPUL ---
History of Present Illness Consult date: 12/03/24 Requesting physician: Michel Degroot Reason for consult: hypoxemia, obstructive sleep apnea, other Chief complaint: Hypersomnia, sleep apnea syndrome, pickwickian syndrome. History of present illness: Pulmonary consult dated December 03, 2024. This is a 54-year-old morbidly obese man, who was seen in the emergency department, for chest pain. We were actually consulted by cardiology, and the patient, who likely has pickwickian syndrome, and possible sleep apnea syndrome. 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 He complains of left-sided chest pain, that was squeezing in nature. He apparently has been having the pain for 1 month. The patient does have a history of hypertension, and sick sinus syndrome, as well as obstructive sleep apnea syndrome. 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 The patient himself cannot give any history. He can barely keep his eyes open. He dozes off every few seconds. His past medical history is positive for asthma, hypertension, and pacemaker implantation. He also has a history of hyperlipidemia, and likely also suffers from Pickwickian syndrome. He apparently does have a prior history of obstructive sleep apnea syndrome. Current labs include a white count 8.66, hemoglobin 12, hematocrit 36.7, and platelet count which is 307,000. Coagulation studies were normal. Sodium 137, potassium 5.7, chloride 97, CO2 32, BUN 35, creatinine 1.20. Troponins were negative x 2. Chest x-ray is unremarkable. Review of Systems REVIEW OF SYSTEMS: CONSTITUTIONAL: Hypersomnia. NEUROLOGIC: [ Negative.] HEENT: [ Negative.] CARDIAC: Chest pain. PULMONARY: [Negative.] GI: [Negative.] : [Negative.] RHEUMATOLOGIC: [ Negative.] IMMUNOLOGIC: [ Negative.] ENDOCRINE: [Negative. ] DERMATOLOGIC: [Negative.] Past Medical History Past Medical History: Asthma, Hypertension Additional Past Medical History / Comment(s): back pain, migraines, History of Any Multi-Drug Resistant Organisms: None Reported Past Surgical History: Pacemaker Type of Cardiac Device: Unknown Device Placement Date:: unknown Past Psychological History: Depression Smoking Status: Never smoker Past Alcohol Use History: Rare Past Drug Use History: None Reported - Past Family History Father Family Medical History: AICD/Pacemaker, Congestive Heart Failure (CHF) Mother History Unknown: Yes Medications and Allergies Home Medications Medication Instructions Recorded Confirmed Type Oxybutynin Chloride [oxyBUTYnin 15 mg PO DAILY 02/19/22 12/03/24 History chloride ER] Albuterol Sulfate [Albuterol 1 puff INHALATION RT-Q4H PRN 07/07/24 12/03/24 History Sulfate Hfa] Ibuprofen [Motrin] 400 mg PO TID PRN 07/07/24 12/03/24 History Acetaminophen Tab [Tylenol] 650 mg PO Q6H PRN 10/12/24 12/03/24 History Doxepin [SINEquan] 10 mg PO HS 10/12/24 12/03/24 History Famotidine [Pepcid] 20 mg PO BID 10/12/24 12/03/24 History Ergocalciferol [Vitamin D2 (1250 1,250 mcg PO MO 11/16/24 12/03/24 History Mcg = 74677 Iu)] Aspirin 81 mg PO DAILY 30 Days #30 tab 11/17/24 12/03/24 Rx Atorvastatin [Lipitor] 20 mg PO HS 30 Days #30 tab 11/17/24 12/03/24 Rx Isosorbide Mononitrate ER [Imdur] 30 mg PO DAILY 30 Days #30 tab 11/17/24 12/03/24 Rx amLODIPine [Norvasc] 10 mg PO DAILY 30 Days #30 tab 11/17/24 12/03/24 Rx carvediloL [Coreg] 3.125 mg PO BID-W/MEALS 30 Days 11/17/24 12/03/24 Rx #60 tab lisinopriL [Zestril] 40 mg PO DAILY 30 Days #60 tab 11/17/24 12/03/24 Rx Triamterene-Hctz 37.5-25Mg 1 cap PO DAILY 12/03/24 12/03/24 History [Dyazide 37.5-25 Capsule] Allergies Allergy/AdvReac Type Severity Reaction Status Date / Time Penicillins Allergy Anaphylaxis Verified 12/02/24 22:25 Physical Exam Osteopathic Statement: *. No significant issues noted on an osteopathic structural exam other than those noted in the History and Physical/Consult. Vitals: Vital Signs Temp Pulse Resp BP Pulse Ox FiO2 12/03/24 11:48 81 20 137/99 97 12/03/24 11:39 40 12/03/24 09:46 40 12/03/24 09:11 40 12/03/24 08:27 85 20 121/75 100 12/03/24 06:42 94 18 104/50 95 12/03/24 03:28 76 18 121/73 93 L 12/03/24 00:07 76 20 12/03/24 00:01 80 20 12/02/24 22:20 98.7 F 83 22 110/68 93 L Intake and Output 12/02/24 12/03/24 12/03/24 22:59 06:59 14:59 Output Total 600 Balance -600 Output: Urine 600 Other: Weight 104.326 kg No acute distress, very lethargic and sleepy, and can give no additional history. Currently on BiPAP, with saturations of 97%. HEENT examination is grossly unremarkable. Mucous membranes are moist. No oral lesions. Neck supple. Full range of motion. No adenopathy thyromegaly or neck vein distention. Cardiovascular examination reveals regular rhythm rate. S1-S2 normal. No S3 or S4. No discernible murmur noted. Heart sounds are very distant. Heart rate 81 bpm. Lungs reveal mostly clear breath sounds. No wheezes. No rhonchi. No crackles. Breath sounds are equal bilaterally. Saturations are in the low 90s. Abdomen obese, with bowel sounds. No masses or tenderness. Extremities are intact. No cyanosis clubbing or edema. Skin is without rash or lesion. Neurologic examination is difficult to evaluate. The patient is not awake cristine ugh to be evaluated. Results - Laboratory Findings CBC and BMP: 12/02/24 22:36 12/03/24 06:25 PT/INR, D-dimer PT 10.2 sec (10.0-12.5) 12/02/24 22:36 INR 0.9 (<1.2) 12/02/24 22:36 Abnormal lab findings: Abnormal Labs 12/02/24 12/02/24 12/03/24 22:36 22:36 06:25 RBC 3.89 L Hgb 12.0 L Hct 36.7 L Immature Gran # 0.06 H Eosinophils # 0.38 H Potassium 5.7 H Chloride 97 L Carbon Dioxide 32 H BUN 38 H 35 H Creatinine 1.34 H Glucose 117 H 149 H Phosphorus 4.9 H - Diagnostic Findings Chest x-ray: image reviewed Assessment and Plan Assessment: Severe hypersomnia, likely as a result of both obstructive sleep apnea syndrome, and Pickwickian syndrome. Chest pain, currently being evaluated by cardiology. History of benign essential hypertension. History of chronic bronchial asthma. Lifelong non-smoker. History of pacemaker implantation. History of hyperlipidemia. History of depression. Morbid obesity, with a BMI of 37.1 kg/m. Plan: Plan dated December 03, 2024. The patient was seen in the emergency department, and, we recommend BiPAP, with settings of 15/5, and 40%. Labs, x-rays, medications are reviewed. The patient apparently was previously diagnosed with having obstructive sleep apnea syndrome, but was not able to obtain the CPAP device. He apparently cites transportation issues. In addition to sleep apnea, which is likely severe, the patient is morbidly obese, and may have Pickwickian syndrome as well. All labs, x-rays, and medications are reviewed. We will continue to follow the patient, make recommendations along the way. Prognosis is guarded. Dictation was produced using bluebird bioation software. Please excuse any grammatical, word or spelling errors. Time with Patient: Greater than 30
[2024-12-03] MEDS: DEXTROSE 50% SYRINGE 50 ML IVP ONE (15:04)
[2024-12-03] MEDS: INSULIN REGULAR 100 UNIT/ML VIAL (IV) IV ONE (15:04)
[2024-12-03] MEDS: carvediloL 3.125 MG TAB PO SCH (18:27)
[2024-12-03] MEDS: ATORVASTATIN 20 MG TAB PO SCH (21:01)
[2024-12-04 08:15] LABS: Basophils # (A) 0.06 10*3/uL (0.00-0.10); Basophils % (A) 0.5 %; Eosinophils # (A) 0.06 10*3/uL (0.04-0.35); Eosinophils % (A) 0.5 %; HCT 38.7 % (39.6-50.0); Lymphocytes # (A) 1.36 10*3/uL (0.90-5.00); Lymphocytes % (A) 11.3 %; MCH 29.8 pg (27.0-32.0); Mean Platelet Volume 9.8 fL (9.5-12.2); Monocytes # (A) 1.11 10*3/uL (0.20-1.00); Monocytes % (A) 9.3 %; Neutrophils # (A) 9.32 10*3/uL (1.80-7.70); Neutrophils % (A) 77.7 %; Platelet Count 279 10*3/uL (140-440); RBC 4.03 10*6/uL (4.40-5.60); RDW 15.3 % (11.5-14.5); WBC 11.99 10*3/uL (4.50-10.00)
[2024-12-04 08:50] LABS: African American GFR (CKD) 84 (>60 ml/min/1.73 sqM); Anion Gap 8 mmol/L; Blood Urea Nitrogen 35 mg/dL (9-20); Calcium 8.7 mg/dL (8.4-10.2); Carbon Dioxide 29 mmol/L (22-30); Chloride 100 mmol/L (98-107); Glucose 119 mg/dL (74-99); Non-African American GFR(CKD) 73 (>60 ml/min/1.73 sqM); Potassium 4.1 mmol/L (3.5-5.1); Sodium 137 mmol/L (137-145)
--- NOTE | 2024-12-04 11:10 | P.PN ---
Subjective Progress Note Date: 12/04/24 Hospital Course: 54-year-old male with medical history of sick sinus syndrome status post perma nent pacemaker placement, HTN, HLD, COPD with former nicotine dependence, anxiety, depression, morbid obesity, TAO not using CPAP, who presented to the ER on 12/02complaining of chest pain. He describes his pain " squeezing" left- sided,, has been going on for a month and came in today because of this pain has been lasting longer than usual. Upon arrival to the ED, his pain resolved. No radiation of pain. No reports of fever or chills. He did take some of his home medications prior to arrival today. No shortness of breath, cough or hemoptysis. He is taking his medications as prescribed. He presented to our facility on 11/16/2024 with a chief complaint of chest pain and hypertensive urgency. Cardiology back been evaluated patient and ACS was ruled out. He had some medication changes . Metoprolol was discontinued, amlodipine increased to 10 mg daily and patient started on lisinopril 40 mg daily, isosorbide mononitrate 30 mg daily, aspirin 81 mg daily, atorvastatin 20 mg nightly, carvedilol 3.125 mg twice daily, and Dyazide 37.5-25 mg daily. Upon arrival to the ED, patient was hemodynamically stable. Labs done including troponin was not elevated but his kidney function was abnormal with elevated BUN and creatinine. His last kidney function was within normal limit. It appears that he has new DESTINY due to medication changes . EKG showing sinus rhythm with no ischemic changes (surprisingly is not paced rhythm as patient has pacemaker) . Patient will be admitted as an observation for chest pain evaluation and DESTINY management, cardiology consulted. 12/03/2024 patient was seen and examined in the ER, patient is somnolent, hard to stay awake, complains of headache and chest pain, feeling hungry. . Cardiology following, recommended TTE, given his respiratory status, he is not a candidate for stress test. Pulmonology was consulted by cardiology.patient was placed on BiPAP. Due to mentation change and need for continuous BiPAP and serial ABG assessment, patient will be switched to inpatient. Fasting blood glucose level elevated 140s, will check A1c-5.6 12/04/2024: Seen examined at bedside, no acute events overnight, patient is awake, alert, he is having breakfast, participates in conversation. She is on room air, blood pressure 109/63. CBC with leukocytosis 11.9, hemoglobin 12.0, potassium normalized this morning 4.1, creatinine normal 1.14, bicarb 29, imp roved. TTE pending, will continue current management pending further recommendations from cardiology and pulmonology. Will consult PT OT Pertinent positives and negatives as discussed above, a complete review of systems was performed and all other systems are negative. Vitals Signs Reviewed. General: [Morbidly obese, not in acute distress Derm: [warm], [dry] Head: [atraumatic], [normocephalic], [symmetric] Eyes: [EOMI], [no lid lag], [anicteric sclera] Mouth: [no lip lesion], [mucus membranes moist] Cardiovascular: [S1S2 reg], [no murmur] Lungs: [CTA bilateral], decreased breath sounds bilaterally] , [no accessory muscle use] Abdominal: [soft], [ nontender to palpation], [no guarding], [no appreciable organomegaly] Ext: [no gross muscle atrophy], [no edema], [no contractures] Neuro: [ CN II-XI grossly intact], [no focal neuro deficits] Psych: [Alert], [oriented], [appropriate affect] Assessment and Plan: Chest pain, ACS ruled out Hypertension Hyperlipidemia -Cardiology following, appreciate recommendations -TTE ordered and pending, not a candidate for stress test due to respiratory status - Continue home aspirin 81 mg daily, atorvastatin 20 mg daily, Coreg 3.125 twice daily, Imdur 30 daily, lisinopril 2 daily, triamterene hydrochlorothiazide 37.5/25 mg p.o. daily -Continue telemetry Morbid obesity BMI 51 TAO not currently on CPAP COPD not in acute exacerbation Former smoker Acute toxic metabolic encephalopathy, somnolence likely secondary to CO2 retention, resolved -Pulmonology consulted, appreciate recommendations -Continue BiPAP as ordered -Social work consulted to facilitate obtaining CPAP machine -Recommend structured weight loss program -PT OT consulted Hyperkalemia, likely false result due to hemolyzed blood sample, resolved -Repeat BMP, History of sick sinus syndrome status post pacemaker placement: Pacemaker interrogation ordered Anxiety, depression DVT ppx: Heparin Code status: Full code Anticipated discharge place: TBD Anticipated discharge time: TBD Objective - Vital Signs Vital signs: Vital Signs Temp 97.7 F 12/04/24 04:30 Pulse 88 12/04/24 04:30 Resp 19 12/04/24 04:30 BP 109/63 12/04/24 04:30 Pulse Ox 96 12/04/24 04:30 FiO2 40 12/04/24 00:17 Intake & Output 12/03/24 12/04/24 12/04/24 18:59 06:59 18:59 Intake Total 2265 118 Output Total 600 500 380 Balance -600 1765 -262 Weight 104.326 kg Intake: Oral 2265 118 Output: Urine 600 500 380 Other: Voiding Method Urinal - Labs CBC & Chem 7: 12/04/24 07:53 12/04/24 07:53 Labs: Abnormal Lab Results - Last 24 Hours (Table) 12/03/24 12/04/24 12/04/24 Range/Units 12:23 07:53 07:53 WBC 11.99 H (4.50-10.00) 10*3/uL RBC 4.03 L (4.40-5.60) 10*6/uL Hgb 12.0 L (13.0-17.0) g/dL Hct 38.7 L (39.6-50.0) % MCHC 31.0 L (32.0-37.0) g/dL Immature Gran # 0.08 H (0.00-0.04) 10*3/uL Neutrophils # 9.32 H (1.80-7.70) 10*3/uL Monocytes # 1.11 H (0.20-1.00) 10*3/uL Potassium 5.5 H (3.5-5.1) mmol/L BUN 35 H (9-20) mg/dL Glucose 119 H (74-99) mg/dL
--- NOTE | 2024-12-04 14:08 | P.PN ---
Subjective Progress Note Date: 12/04/24 HISTORY OF PRESENT ILLNESS: This is a 54-year-old with a past medical history significant for COPD, asthma, hypertension, pacemaker implantation, depression, and former nicotine dependence. Patient does not follow with a java performance engineer. We have been asked to see the patient in consultation for chest pain. Patient examined at the bedside in the emergency room. Patient is lethargic and continually falling back asleep during examination. Patient states he came to the emergency room due to chest pain and shortness of breath. He states he felt like somebody was crushing his chest. He denied any radiation of the pain. At the time of examination this morning, he denies any chest pain or pressure. The patient does have a known history of obstructive sleep apnea. However he has stated in previous admissions that he has been unable to get to his appointments and has not been able to receive his CPAP machine. DIAGNOSTICS: - EKG reveals sinus mechanism with no signs of acute ischemia. - Chest xray negative for acute findings. - Laboratory data: WBC 8.66. Hemoglobin 12.0. Platelet count 307. Sodium 137. Potassium 5.7 however specimen hemolyzed. BUN 35. Creatinine 1.20. Troponin negative x 2. proBNP less than 20. - Current home cardiac medications include Dyazide 37.5-25 milligrams daily, lisinopril 40 mg daily, carvedilol 3.125 mg twice a day, amlodipine 10 mg daily, Imdur 30 mg daily, Lipitor 20 mg at night, aspirin 81 mg daily. - No previous echocardiogram, stress test, or cardiac catheterization available in EMR for review 12/04/2024 Patient seen and examined. Echocardiogram is pending. Blood pressure is on the soft side for which lisinopril will be decreased. Yesterday, consult with pulmonary medicine was requested and was started on BiPAP at the time. Apparently patient is to have a CPAP device but there was difficulty with transportation. Blood pressure 99/62, heart rate 76, pulse ox 95% on 2 L nasal cannula. Repeat blood work reveals WBC 11.9, hemoglobin 12, potassium 4.1, BUN 35 creatinine 1.12.. PHYSICAL EXAM: VITAL SIGNS: Reviewed. GENERAL: Well-developed in no acute distress. HEENT: Head is normocephalic. Pupils are equal, round. Sclerae anicteric. Mucous membranes of the mouth are moist. Neck supple. No JVD or thyromegaly LUNGS: Respirations even and unlabored. Lungs essentially clear to auscultation bilaterally. HEART: Regular rate and rhythm. S1 and S2 heard. ABDOMEN: Soft. Nondistended. Nontender. EXTREMITIES: Normal range of motion. No clubbing or cyanosis. Peripheral pulses intact. No lower extremity edema NEUROLOGIC: Lethargic ASSESSMENT: Shortness of breath Obstructive sleep apnea without CPAP use, patient unable to get to appointments Chest pain, troponin negative x 2, ACS ruled out History of dual-chamber pacemaker implantation, [employer], secondary to symptomatic bradycardia and sinus pauses of 8 seconds, September [address] Shukla at [facility] Hypertension History of COPD History of asthma History of depression Former nicotine dependence Obesity: BMI 37.1 PLAN: An acute coronary event has been ruled out Obtain 2D echo report Patient was determined initially to not be a stress testing candidate due to respiratory difficulties Pulmonary consult appreciated Due to hypotension, discontinue Dyazide and decrease lisinopril to 20 mg daily Continue patient on aspirin 81 mg daily, atorvastatin 20 mg at bedtime, Coreg 3.125 mg twice daily Consult social work as patient has stated in the past he has a hard time getting to appointments and following up. Further recommendations pending patient course Nurse practitioner note has been reviewed by physician. Signing provider agrees with the documented findings, assessment, and plan of care documented by WOOL HAT SANDING MACHINE OPERATOR as a scribe. Objective - Vital Signs Vital signs: Vital Signs Temp 97.7 F 12/04/24 04:30 Pulse 88 12/04/24 04:30 Resp 19 12/04/24 04:30 BP 109/63 12/04/24 04:30 Pulse Ox 96 12/04/24 04:30 FiO2 40 12/04/24 00:17 Intake & Output 12/03/24 12/04/24 12/04/24 18:59 06:59 18:59 Intake Total 2265 Output Total 600 500 280 Balance -600 1765 -280 Weight 104.326 kg Intake: Oral 2265 Output: Urine 600 500 280 Other: Voiding Method Urinal - Labs CBC & Chem 7: 12/04/24 07:53 12/04/24 07:53 Labs: Abnormal Lab Results - Last 24 Hours (Table) 12/03/24 12/04/24 12/04/24 Range/Units 12:23 07:53 07:53 WBC 11.99 H (4.50-10.00) 10*3/uL RBC 4.03 L (4.40-5.60) 10*6/uL Hgb 12.0 L (13.0-17.0) g/dL Hct 38.7 L (39.6-50.0) % MCHC 31.0 L (32.0-37.0) g/dL Immature Gran # 0.08 H (0.00-0.04) 10*3/uL Neutrophils # 9.32 H (1.80-7.70) 10*3/uL Monocytes # 1.11 H (0.20-1.00) 10*3/uL Potassium 5.5 H (3.5-5.1) mmol/L BUN 35 H (9-20) mg/dL Glucose 119 H (74-99) mg/dL
--- NOTE | 2024-12-04 14:13 | P.PN ---
Subjective Progress Note Date: 12/04/24 Principal diagnosis: Hypersomnia. Pulmonary consult dated December 03, 2024. This is a 54-year-old morbidly obese man, who was seen in the emergency department, for chest pain. We were actually consulted by cardiology, and the patient, who likely has pickwickian syndrome, and possible sleep apnea syndrome. In fact, he apparently was previously diagnosed with obstructive sleep apnea syndrome, and sees a editing clerk, over at the other hospital. He complains of left-sided chest pain, that was squeezing in nature. He apparently has been having the pain for 1 month. The patient does have a history of hypertension, and sick sinus syndrome, as well as obstructive sleep apnea syndrome. He does not use CPAP at home, because apparently he had no transportation to cook pickled meat his CPAP device. The patient himself cannot give any history. He can barely keep his eyes open. He dozes off every few seconds. His past medical history is positive for asthma, hypertension, and pacemaker implantation. He also has a history of hyperlipidemia, and likely also suffers from Pickwickian syndrome. He apparently does have a prior history of obstructive sleep apnea syndrome. Current labs include a white count 8.66, hemoglobin 12, hematocrit 36.7, and platelet count which is 307,000. Coagulation studies were normal. Sodium 137, potassium 5.7, chloride 97, CO2 32, BUN 35, creatinine 1.20. Troponins were negative x 2. Chest x-ray is unremarkable. Progress note dated December 12, 2024. 54-year-old male seen in the emergency department yesterday. The patient was referred to us, by cardiology. He apparently came into the ED, with chest pain. The patient was extremely sleepy yesterday, could not keep his eyes open, or answer any questions. The patient likely suffer from severe sleep apnea syndrome, and possibly pickwickian syndrome. He apparently does have a CPAP device, that was given to him, which is a loaner. The patient sees a outside editing clerk. We placed him on BiPAP, and today he is doing much better. He is awake and alert. His BiPAP settings were 15/5 and 40%. He is not receiving any fluids. Current labs include a white count of 11.9, hemoglobin 12, hematocrit 38.7, normal platelet count. Sodium 137, potassium 4.1, chlorides 100, CO2 29, down from 32, BUN 35, creatinine 1.14. Glucose is 119. Calcium is 8.7. Objective - Vital Signs Vital signs: Vital Signs Temp 98.2 F 12/04/24 07:00 Pulse 76 12/04/24 07:00 Resp 21 12/04/24 07:00 BP 99/62 12/04/24 07:00 Pulse Ox 95 12/04/24 07:00 FiO2 40 12/04/24 00:17 Intake & Output 12/03/24 12/04/24 12/04/24 18:59 06:59 18:59 Intake Total 2265 236 Output Total 600 500 380 Balance -600 1765 -144 Weight 104.326 kg Intake: Oral 2265 236 Output: Urine 600 500 380 Other: Voiding Method Urinal Urinal - Exam No acute distress, more awake today. Able to answer questions. Able to keep his eyes open. HEENT examination is grossly unremarkable. Mucous membranes are moist. No oral lesions. Neck supple. Full range of motion. No adenopathy thyromegaly or neck vein distention. Cardiovascular examination reveals regular rhythm rate. S1-S2 normal. No S3 or S4. No discernible murmur noted. Heart sounds are very distant. Heart rate 81 bpm. Lungs reveal mostly clear breath sounds. No wheezes. No rhonchi. No crackles. Breath sounds are equal bilaterally. Saturations are in the low 90s. Abdomen obese, with bowel sounds. No masses or tenderness. Extremities are intact. No cyanosis clubbing or edema. Skin is without rash or lesion. Neurologic examination is brief but nonfocal. - Labs CBC & Chem 7: 12/04/24 07:53 12/04/24 07:53 Labs: Abnormal Lab Results - Last 24 Hours (Table) 12/04/24 12/04/24 Range/Units 07:53 07:53 WBC 11.99 H (4.50-10.00) 10*3/uL RBC 4.03 L (4.40-5.60) 10*6/uL Hgb 12.0 L (13.0-17.0) g/dL Hct 38.7 L (39.6-50.0) % MCHC 31.0 L (32.0-37.0) g/dL Immature Gran # 0.08 H (0.00-0.04) 10*3/uL Neutrophils # 9.32 H (1.80-7.70) 10*3/uL Monocytes # 1.11 H (0.20-1.00) 10*3/uL BUN 35 H (9-20) mg/dL Glucose 119 H (74-99) mg/dL Assessment and Plan Assessment: Severe hypersomnia, likely as a result of both obstructive sleep apnea syndrome, and Pickwickian syndrome. Chest pain, currently being evaluated by cardiology. History of benign essential hypertension. History of chronic bronchial asthma. Lifelong non-smoker. History of pacemaker implantation. History of hyperlipidemia. History of depression. Morbid obesity, with a BMI of 37.1 kg/m. Plan: Plan dated December 03, 2024. The patient was seen in the emergency department, and, we recommend BiPAP, with settings of 15/5, and 40%. Labs, x-rays, medications are reviewed. The patient apparently was previously diagnosed with having obstructive sleep apnea syndrome, but was not able to obtain the CPAP device. He apparently cites transportation issues. In addition to sleep apnea, which is likely severe, the patient is morbidly obese, and may have Pickwickian syndrome as well. All labs, x-rays, and medications are reviewed. We will continue to follow the patient, make recommendations along the way. Prognosis is guarded. Dictation was produced using [employer] software. Please excuse any grammatical, word or spelling errors. Plan dated December 04, 2024. The patient was seen today in room 378. The patient is currently on BiPAP, with settings of 15/5, 40%. When we saw him today, he was on room air. Not receiving any IV fluids. He is much more awake and alert today than he was yesterday. Yesterday he could barely keep his eyes open, and really could not answer any questions. He likely has severe obstructive sleep apnea syndrome, possibly Pickwickian syndrome. He apparently sees an outside editing clerk. We will continue to follow. He initially came in with chest pain. Currently being evaluated by cardiology. Dictation was produced using [employer] software. Please excuse any grammatical, word or spelling errors. Time with Patient: Less than 30
--- NOTE | 2024-12-04 18:39 | CA ---
Transthoracic Echo Report Name: Thomas Torres Age: 54 Gender: M : 1970 Exam Date: 12/04/2024 09:03 Exam Location: [facility] Ht (in): 66 Wt (lb): 330 Ordering Physician: Cosme Robledo MD Attending/Referring Phys: [employer] Reports Developer Veena Clemons RDCS Procedure CPT: Indications: Chest Pain Cardiac Hx: Pacemaker Technical Quality: Poor Contrast 1: Definity Total Dose (mL): 2 Contrast 2: Total Dose (mL): MEASUREMENTS (Male / Female) Normal Values 2D ECHO LV Diastolic Diameter PLAX 4.5 cm 4.2 - 5.9 / 3.9 - 5.3 cm LV Systolic Diameter PLAX 3.3 cm IVS Diastolic Thickness 1.3 cm 0.6 - 1.0 / 0.6 - 0.9 cm LVPW Diastolic Thickness 1.7 cm 0.6 - 1.0 / 0.6 - 0.9 cm LV Relative Wall Thickness 0.7 RV Internal Dim ED PLAX 2.9 cm LVOT Diameter 1.9 cm LA Systolic Diameter LX 4.0 cm 3.0 - 4.0 / 2.7 - 3.8 cm LA Volume 75.9 cm??? 18 - 58 / 22 - 52 cm??? LA Volume Index 27.8 cm???/m??? 16 - 28 cm???/m??? M-MODE Aortic Root Diameter MM 3.5 cm LA Systolic Diameter MM 3.8 cm LA Ao Ratio MM 1.1 AV Cusp Separation MM 1.8 cm DOPPLER AV Peak Velocity 143.5 cm/s AV Peak Gradient 8.2 mmHg MV Area PHT 2.9 cm??? Mitral E Point Velocity 97.7 cm/s Mitral A Point Velocity 80.6 cm/s Mitral E to A Ratio 1.2 MV Deceleration Time 261.6 ms TR Peak Velocity 172.3 cm/s TR Peak Gradient 11.9 mmHg FINDINGS Left Ventricle Left ventricular ejection fraction is estimated at 50 %. Mildly increased septal wall thickness. Mildly reduced global left ventricular systolic function. Left ventricular cavity size normal. Right Ventricle Mild right ventricular dilatation. Right ventricular systolic pressure within normal limits. Right Atrium Mild right atrial dilatation. Left Atrium Moderately increased left atrial volume. Mitral Valve Structurally normal mitral valve. Trace mitral regurgitation. No mitral stenosis. Aortic Valve Trileaflet aortic valve. No aortic valve stenosis or regurgitation. Tricuspid Valve Structurally normal tricuspid valve. Trace tricuspid regurgitation. No tricuspid stenosis. Pulmonic Valve Structurally normal pulmonic valve. Trace pulmonic regurgitation. No pulmonic stenosis. Pericardium No pericardial or pleural effusion. Aorta Aorta at upper limits of normal. CONCLUSIONS Low normal LV systolic function with EF at 50% Technically difficult study Previewed by: Dr. Lawrence Campbell MD (Electronically Signed) Final Date: 04 December 2024 18:38
[2024-12-04] MEDS: MELATONIN 5 MG TABLET PO PRN (20:31)
[2024-12-05 07:06] LABS: Basophils % (A) 1.1 %; Eosinophils # (A) 0.27 10*3/uL (0.04-0.35); Eosinophils % (A) 2.9 %; HCT 37.4 % (39.6-50.0); HGB 11.8 g/dL (13.0-17.0); Lymphocytes # (A) 1.64 10*3/uL (0.90-5.00); Lymphocytes % (A) 17.7 %; MCH 30.2 pg (27.0-32.0); MCHC 31.6 g/dL (32.0-37.0); MCV 95.7 fL (80.0-97.0); Mean Platelet Volume 10.2 fL (9.5-12.2); Monocytes # (A) 0.93 10*3/uL (0.20-1.00); Neutrophils # (A) 6.27 10*3/uL (1.80-7.70); Neutrophils % (A) 67.5 %; Platelet Count 268 10*3/uL (140-440); RBC 3.91 10*6/uL (4.40-5.60); RDW 15.5 % (11.5-14.5); WBC 9.28 10*3/uL (4.50-10.00)
[2024-12-05 07:33] LABS: African American GFR (CKD) 89 (>60 ml/min/1.73 sqM); Anion Gap 5 mmol/L; Blood Urea Nitrogen 37 mg/dL (9-20); Calcium 8.7 mg/dL (8.4-10.2); Carbon Dioxide 33 mmol/L (22-30); Chloride 97 mmol/L (98-107); Glucose 102 mg/dL (74-99); Non-African American GFR(CKD) 77 (>60 ml/min/1.73 sqM); Potassium 3.9 mmol/L (3.5-5.1); Sodium 135 mmol/L (137-145)
[2024-12-05] MEDS: lisinopriL 20 MG TAB PO SCH (09:11)
--- NOTE | 2024-12-05 12:02 | P.PN ---
Subjective Progress Note Date: 12/05/24 Principal diagnosis: Hypersomnia. Pulmonary consult dated December 03, 2024. This is a 54-year-old morbidly obese man, who was seen in the emergency department, for chest pain. We were actually consulted by cardiology, and the patient, who likely has pickwickian syndrome, and possible sleep apnea syndrome. In fact, he apparently was previously diagnosed with obstructive sleep apnea syndrome, and sees a senior sustainability consultant, over at the other hospital. He complains of left-sided chest pain, that was squeezing in nature. He apparently has been having the pain for 1 month. The patient does have a history of hypertension, and sick sinus syndrome, as well as obstructive sleep apnea syndrome. 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 The patient himself cannot give any history. He can barely keep his eyes open. He dozes off every few seconds. His past medical history is positive for asthma, hypertension, and pacemaker implantation. He also has a history of hyperlipidemia, and likely also suffers from Pickwickian syndrome. He apparently does have a prior history of obstructive sleep apnea syndrome. Current labs include a white count 8.66, hemoglobin 12, hematocrit 36.7, and platelet count which is 307,000. Coagulation studies were normal. Sodium 137, potassium 5.7, chloride 97, CO2 32, BUN 35, creatinine 1.20. Troponins were negative x 2. Chest x-ray is unremarkable. Progress note dated December 04, 2024. 54-year-old male seen in the emergency department yesterday. The patient was referred to us, by cardiology. He apparently came into the ED, with chest pain. The patient was extremely sleepy yesterday, could not keep his eyes open, or answer any questions. The patient likely suffer from severe sleep apnea syndrome, and possibly pickwickian syndrome. He apparently does have a CPAP device, that was given to him, which is a loaner. The patient sees a outside senior sustainability consultant. We placed him on BiPAP, and today he is doing much better. He is awake and alert. His BiPAP settings were 15/5 and 40%. He is not receiving any fluids. Current labs include a white count of 11.9, hemoglobin 12, hematocrit 38.7, normal platelet count. Sodium 137, potassium 4.1, chlorides 100, CO2 29, down from 32, BUN 35, creatinine 1.14. Glucose is 119. Calcium is 8.7. Progress note dated December 05, 2024. 54-year-old morbidly obese male, who was seen in the emergency department, 2 days ago. He is seen today, room 378. The patient is either on 2 L of oxygen by nasal cannula, or BiPAP, with settings of 15/5, and 40%. Clinically, he is doing better. He is much more awake and alert during the daytime. White count of 9.3, hemoglobin 11.8, hematocrit 37.4, platelet count finger 68,000. Sodium 135, potassium 3.9, chloride 97, CO2 33, BUN 37, creatinine 1.08. Glucose is 102. Calcium 8.7. Objective - Vital Signs Vital signs: Vital Signs Temp 98.0 F 12/05/24 08:15 Pulse 89 12/05/24 08:15 Resp 19 12/05/24 08:15 BP 99/62 12/05/24 08:15 Pulse Ox 95 12/05/24 08:15 FiO2 40 12/04/24 00:17 Intake & Output 12/04/24 12/05/24 12/05/24 18:59 06:59 18:59 Intake Total 576 240 Output Total 480 150 Balance 96 90 Weight 150.2 kg Intake: Oral 576 240 Output: Urine 480 150 Other: Voiding Method Urinal Urinal Urinal # Voids 2 - Exam No acute distress, more awake today. Able to answer questions. Able to keep his eyes open. HEENT examination is grossly unremarkable. Mucous membranes are moist. No oral lesions. Neck supple. Full range of motion. No adenopathy thyromegaly or neck vein distention. Cardiovascular examination reveals regular rhythm rate. S1-S2 normal. No S3 or S4. No discernible murmur noted. Heart sounds are very distant. Heart rate 81 bpm. Lungs reveal mostly clear breath sounds. No wheezes. No rhonchi. No crackles. Breath sounds are equal bilaterally. Saturations are in the low 90s. Abdomen obese, with bowel sounds. No masses or tenderness. Extremities are intact. No cyanosis clubbing or edema. Skin is without rash or lesion. Neurologic examination is brief but nonfocal. - Labs CBC & Chem 7: 12/05/24 06:04 12/05/24 06:04 Labs: Abnormal Lab Results - Last 24 Hours (Table) 12/05/24 12/05/24 Range/Units 06:04 06:04 RBC 3.91 L (4.40-5.60) 10*6/uL Hgb 11.8 L (13.0-17.0) g/dL Hct 37.4 L (39.6-50.0) % MCHC 31.6 L (32.0-37.0) g/dL Immature Gran # 0.07 H (0.00-0.04) 10*3/uL Sodium 135 L (137-145) mmol/L Chloride 97 L (98-107) mmol/L Carbon Dioxide 33 H (22-30) mmol/L BUN 37 H (9-20) mg/dL Glucose 102 H (74-99) mg/dL Assessment and Plan Assessment: Severe hypersomnia, likely as a result of both obstructive sleep apnea syndrome, and Pickwickian syndrome. Chest pain, currently being evaluated by cardiology. History of benign essential hypertension. History of chronic bronchial asthma. Lifelong non-smoker. History of pacemaker implantation. History of hyperlipidemia. History of depression. Morbid obesity, with a BMI of 53.4 kg/m. Plan: Plan dated December 03, 2024. The patient was seen in the emergency department, and, we recommend BiPAP, with settings of 15/5, and 40%. Labs, x-rays, medications are reviewed. The patient apparently was previously diagnosed with having obstructive sleep apnea syndrome, but was not able to obtain the CPAP device. He apparently cites transportation issues. In addition to sleep apnea, which is likely severe, the patient is morbidly obese, and may have Pickwickian syndrome as well. All labs, x-rays, and medications are reviewed. We will continue to follow the patient, make recommendations along the way. Prognosis is guarded. Dictation was produced using [employer] software. Please excuse any grammatical, word or spelling errors. Plan dated December 04, 2024. The patient was seen today in room 378. The patient is currently on BiPAP, with settings of 15/5, 40%. When we saw him today, he was on room air. Not receiving any IV fluids. He is much more awake and alert today than he was yesterday. Yesterday he could barely keep his eyes open, and really could not answer any questions. He likely has severe obstructive sleep apnea syndrome, possibly Pickwickian syndrome. He apparently sees an outside senior sustainability consultant. We will continue to follow. He initially came in with chest pain. Currently being evaluated by cardiology. Dictation was produced using [employer] software. Please excuse any grammatical, word or spelling errors. Plan dated December 05, 2024. This is a 54-year-old male who is seen today in room 378. The patient has obstructive sleep apnea syndrome, and likely suffers from obesity/hypoventilation syndrome as well. The patient is on 2 L of oxygen currently. Throughout the day, and nighttime, he is on BiPAP, 15/5, and 40%. Labs, x-rays, and medications reviewed. The patient follows with an outside senior sustainability consultant, Dr. Degroot. Additional recommendations and suggestions are forthcoming. We will continue to follow. Prognosis is poor. Dictation was produced using [employer] software. Please excuse any grammatical, word or spelling errors. Time with Patient: Less than 30
--- NOTE | 2024-12-05 14:20 | P.PN ---
Subjective Progress Note Date: 12/05/24 Hospital Course: 54-year-old male with medical history of sick sinus syndrome status post perma nent pacemaker placement, HTN, HLD, COPD with former nicotine dependence, anxiety, depression, morbid obesity, TAO not using CPAP, who presented to the ER on 12/02complaining of chest pain. He describes his pain " squeezing" left- sided,, has been going on for a month and came in today because of this pain has been lasting longer than usual. Upon arrival to the ED, his pain resolved. No radiation of pain. No reports of fever or chills. He did take some of his home medications prior to arrival today. No shortness of breath, cough or hemoptysis. He is taking his medications as prescribed. He presented to our facility on 11/16/2024 with a chief complaint of chest pain and hypertensive urgency. Cardiology back been evaluated patient and ACS was ruled out. He had some medication changes . Metoprolol was discontinued, amlodipine increased to 10 mg daily and patient started on lisinopril 40 mg daily, isosorbide mononitrate 30 mg daily, aspirin 81 mg daily, atorvastatin 20 mg nightly, carvedilol 3.125 mg twice daily, and Dyazide 37.5-25 mg daily. Upon arrival to the ED, patient was hemodynamically stable. Labs done including troponin was not elevated but his kidney function was abnormal with elevated BUN and creatinine. His last kidney function was within normal limit. It appears that he has new DESTINY due to medication changes . EKG showing sinus rhythm with no ischemic changes (surprisingly is not paced rhythm as patient has pacemaker) . Patient will be admitted as an observation for chest pain evaluation and DESTINY management, cardiology consulted. 12/03/2024 patient was seen and examined in the ER, patient is somnolent, hard to stay awake, complains of headache and chest pain, feeling hungry. . Cardiology following, recommended TTE, given his respiratory status, he is not a candidate for stress test. Pulmonology was consulted by cardiology.patient was placed on BiPAP. Due to mentation change and need for continuous BiPAP and serial ABG assessment, patient will be switched to inpatient. Fasting blood glucose level elevated 140s, will check A1c-5.6 12/05/2024: Seen examined at bedside, no acute events overnight, patient is awake, alert, is on room air, blood pressure 99/62. CBC resolved leukocytosis, stable hemoglobin of 11.8, sodium 125, bicarb 23, creatinine normal 1.08,. TTE showed EF of 50%, technically difficult study. Patient states that he is breathing has improved, no chest pain, he was seen slowly ambulating to the bathroom without assistance. Due to soft blood pressures, his Dyazide was discontinued and lisinopril was decreased to 20 mg daily. PT OT recommends home at discharge Pertinent positives and negatives as discussed above, a complete review of systems was performed and all other systems are negative. Vitals Signs Reviewed. General: [Morbidly obese, not in acute distress Derm: [warm], [dry] Head: [atraumatic], [normocephalic], [symmetric] Eyes: [EOMI], [no lid lag], [anicteric sclera] Mouth: [no lip lesion], [mucus membranes moist] Cardiovascular: [S1S2 reg], [no murmur] Lungs: [CTA bilateral], decreased breath sounds bilaterally] , [no accessory muscle use] Abdominal: [soft], [ nontender to palpation], [no guarding], [no appreciable organomegaly] Ext: [no gross muscle atrophy], [no edema], [no contractures] Neuro: [ CN II-XI grossly intact], [no focal neuro deficits] Psych: [Alert], [oriented], [appropriate affect] Assessment and Plan: Chest pain, ACS ruled out Hypertension Hyperlipidemia -Cardiology following, appreciate recommendations -TTE as above - Continue home aspirin 81 mg daily, atorvastatin 20 mg daily, Coreg 3.125 twice daily, Imdur 30 daily, lisinopril 20 daily, discontinue triamterene h ydrochlorothiazide 37.5/25 mg p.o. daily -Continue telemetry Morbid obesity BMI 53 TAO not currently on CPAP COPD not in acute exacerbation Former smoker Acute toxic metabolic encephalopathy, somnolence likely secondary to CO2 retention, resolved -Pulmonology consulted, appreciate recommendations -Continue BiPAP as ordered -Social work consulted to facilitate obtaining CPAP machine -Recommend structured weight loss program -PT OT consulted Hyperkalemia, likely false result due to hemolyzed blood sample, resolved -Repeat BMP, History of sick sinus syndrome status post pacemaker placement: Pacemaker interrogation ordered Anxiety, depression DVT ppx: Heparin Code status: Full code Anticipated discharge place: TBD Anticipated discharge time: TBD Objective - Vital Signs Vital signs: Vital Signs Temp 98.3 F 12/05/24 12:34 Pulse 73 12/05/24 12:34 Resp 19 12/05/24 12:34 BP 128/61 12/05/24 12:34 Pulse Ox 97 12/05/24 12:34 FiO2 40 12/04/24 00:17 Intake & Output 12/04/24 12/05/24 12/05/24 18:59 06:59 18:59 Intake Total 576 480 Output Total 480 150 Balance 96 330 Weight 150.2 kg Intake: Oral 576 480 Output: Urine 480 150 Other: Voiding Method Urinal Urinal Urinal # Voids 2 - Labs CBC & Chem 7: 12/05/24 06:04 12/05/24 06:04 Labs: Abnormal Lab Results - Last 24 Hours (Table) 12/05/24 12/05/24 Range/Units 06:04 06:04 RBC 3.91 L (4.40-5.60) 10*6/uL Hgb 11.8 L (13.0-17.0) g/dL Hct 37.4 L (39.6-50.0) % MCHC 31.6 L (32.0-37.0) g/dL Immature Gran # 0.07 H (0.00-0.04) 10*3/uL Sodium 135 L (137-145) mmol/L Chloride 97 L (98-107) mmol/L Carbon Dioxide 33 H (22-30) mmol/L BUN 37 H (9-20) mg/dL Glucose 102 H (74-99) mg/dL
--- NOTE | 2024-12-05 17:49 | P.PN ---
Subjective Progress Note Date: 12/05/24 HISTORY OF PRESENT ILLNESS: This is a 54-year-old with a past medical history significant for COPD, asthma, hypertension, pacemaker implantation, depression, and former nicotine dependence. Patient does not follow with a scientific director. We have been asked to see the patient in consultation for chest pain. Patient examined at the bedside in the emergency room. Patient is lethargic and continually falling back asleep during examination. Patient states he came to the emergency room due to chest pain and shortness of breath. He states he felt like somebody was crushing his chest. He denied any radiation of the pain. At the time of examination this morning, he denies any chest pain or pressure. The patient does have a known history of obstructive sleep apnea. However he has stated in previous admissions that he has been unable to get to his appointments and has not been able to receive his CPAP machine. DIAGNOSTICS: - EKG reveals sinus mechanism with no signs of acute ischemia. - Chest xray negative for acute findings. - Laboratory data: WBC 8.66. Hemoglobin 12.0. Platelet count 307. Sodium 137. Potassium 5.7 however specimen hemolyzed. BUN 35. Creatinine 1.20. Troponin negative x 2. proBNP less than 20. - Current home cardiac medications include Dyazide 37.5-25 milligrams daily, lisinopril 40 mg daily, carvedilol 3.125 mg twice a day, amlodipine 10 mg daily, Imdur 30 mg daily, Lipitor 20 mg at night, aspirin 81 mg daily. - No previous echocardiogram, stress test, or cardiac catheterization available in EMR for review 12/04/2024 Patient seen and examined. Echocardiogram is pending. Blood pressure is on the soft side for which lisinopril will be decreased. Yesterday, consult with pulmonary medicine was requested and was started on BiPAP at the time. Apparently patient is to have a CPAP device but there was difficulty with transportation. Blood pressure 99/62, heart rate 76, pulse ox 95% on 2 L nasal cannula. Repeat blood work reveals WBC 11.9, hemoglobin 12, potassium 4.1, BUN 35 creatinine 1.12.. 12/05/2024 Hb 11, BUN 37, creatinine 1.08 122/61, heart rate 73 Telemetry shows sinus rhythm heart rate around 80s Echo shows EF 50%, mildly septal wall thickness, technically difficult study, no significant valvular dysfunction appreciated PHYSICAL EXAM: VITAL SIGNS: Reviewed. GENERAL: Well-developed in no acute distress. HEENT: Head is normocephalic. Pupils are equal, round. Sclerae anicteric. Mucous membranes of the mouth are moist. Neck supple. No JVD or thyromegaly LUNGS: Respirations even and unlabored. Lungs essentially clear to auscultation bilaterally. HEART: Regular rate and rhythm. S1 and S2 heard. ABDOMEN: Soft. Nondistended. Nontender. EXTREMITIES: Normal range of motion. No clubbing or cyanosis. Peripheral pulses intact. No lower extremity edema NEUROLOGIC: Lethargic ASSESSMENT: Shortness of breath Obstructive sleep apnea without CPAP use, patient unable to get to appointments Chest pain, troponin negative x 2, ACS ruled out History of dual-chamber pacemaker implantation, [employer], secondary to symptomatic bradycardia and sinus pauses of 8 seconds, September [address] Shukla at [facility] Hypertension History of COPD History of asthma History of depression Former nicotine dependence Obesity: BMI 37.1 PLAN: Patient was determined initially to not be a stress testing candidate due to respiratory difficulties Pulmonary consult appreciated Due to hypotension, di lisinopril was reduced to 20 and Dyazide was discontinued. With this regimen his blood pressure is better controlled. Continue patient on aspirin 81 mg daily, atorvastatin 20 mg at bedtime, Coreg 3.125 mg twice daily Consult social work as patient has stated in the past he has a hard time getting to appointments and following up. Cardiology team will sign off. Objective - Vital Signs Vital signs: Vital Signs Temp 98.5 F 12/05/24 15:56 Pulse 78 12/05/24 15:56 Resp 19 12/05/24 15:56 BP 105/61 12/05/24 15:56 Pulse Ox 95 12/05/24 15:56 FiO2 40 12/04/24 00:17 Intake & Output 12/04/24 12/05/24 12/05/24 18:59 06:59 18:59 Intake Total 576 1200 Output Total 480 150 Balance 96 1050 Weight 150.2 kg Intake: Oral 576 1200 Output: Urine 480 150 Other: Voiding Method Urinal Urinal Urinal # Voids 2 - Labs CBC & Chem 7: 12/05/24 06:04 12/05/24 06:04 Labs: Abnormal Lab Results - Last 24 Hours (Table) 12/05/24 12/05/24 Range/Units 06:04 06:04 RBC 3.91 L (4.40-5.60) 10*6/uL Hgb 11.8 L (13.0-17.0) g/dL Hct 37.4 L (39.6-50.0) % MCHC 31.6 L (32.0-37.0) g/dL Immature Gran # 0.07 H (0.00-0.04) 10*3/uL Sodium 135 L (137-145) mmol/L Chloride 97 L (98-107) mmol/L Carbon Dioxide 33 H (22-30) mmol/L BUN 37 H (9-20) mg/dL Glucose 102 H (74-99) mg/dL
[2024-12-05] MEDS: CALCIUM CARBONATE 500 MG CHEWABLE PO PRN (22:01)
[2024-12-06] MEDS: ACETAMINOPHEN TAB 325 MG TAB PO PRN (03:54)
[2024-12-06 07:06] LABS: Basophils # (A) 0.08 10*3/uL (0.00-0.10); Eosinophils # (A) 0.26 10*3/uL (0.04-0.35); Eosinophils % (A) 3.1 %; HCT 38.2 % (39.6-50.0); HGB 12.2 g/dL (13.0-17.0); Lymphocytes # (A) 1.27 10*3/uL (0.90-5.00); Lymphocytes % (A) 15.1 %; MCH 30.6 pg (27.0-32.0); MCHC 31.9 g/dL (32.0-37.0); MCV 95.7 fL (80.0-97.0); Mean Platelet Volume 10.5 fL (9.5-12.2); Monocytes # (A) 0.79 10*3/uL (0.20-1.00); Monocytes % (A) 9.4 %; Neutrophils # (A) 5.95 10*3/uL (1.80-7.70); Neutrophils % (A) 70.8 %; Platelet Count 246 10*3/uL (140-440); RBC 3.99 10*6/uL (4.40-5.60)
[2024-12-06 07:13] LABS: African American GFR (CKD) >90 (>60 ml/min/1.73 sqM); Anion Gap 7 mmol/L; Blood Urea Nitrogen 27 mg/dL (9-20); Calcium 9.1 mg/dL (8.4-10.2); Carbon Dioxide 34 mmol/L (22-30); Chloride 96 mmol/L (98-107); Glucose 109 mg/dL (74-99); Non-African American GFR(CKD) >90 (>60 ml/min/1.73 sqM); Sodium 137 mmol/L (137-145)
[2024-12-06] MEDS: ALBUTEROL NEBULIZED 2.5 MG/3 ML INHALATION PRN (09:42)
[2024-12-06] MEDS ORDERED: ALBUTEROL NEBULIZED 2.5 MG/3 ML INHALATION PRN (09:43)
--- NOTE | 2024-12-06 10:43 | P.PN ---
Subjective Progress Note Date: 12/06/24 Hospital Course: 54-year-old male with medical history of sick sinus syndrome status post perma nent pacemaker placement, HTN, HLD, COPD with former nicotine dependence, anxiety, depression, morbid obesity, TAO not using CPAP, who presented to the ER on 12/02complaining of chest pain. He describes his pain " squeezing" left- sided,, has been going on for a month and came in today because of this pain has been lasting longer than usual. Upon arrival to the ED, his pain resolved. No radiation of pain. No reports of fever or chills. He did take some of his home medications prior to arrival today. No shortness of breath, cough or hemoptysis. He is taking his medications as prescribed. He presented to our facility on 11/16/2024 with a chief complaint of chest pain and hypertensive urgency. Cardiology back been evaluated patient and ACS was ruled out. He had some medication changes . Metoprolol was discontinued, amlodipine increased to 10 mg daily and patient started on lisinopril 40 mg daily, isosorbide mononitrate 30 mg daily, aspirin 81 mg daily, atorvastatin 20 mg nightly, carvedilol 3.125 mg twice daily, and Dyazide 37.5-25 mg daily. Upon arrival to the ED, patient was hemodynamically stable. Labs done including troponin was not elevated but his kidney function was abnormal with elevated BUN and creatinine. His last kidney function was within normal limit. It appears that he has new DESTINY due to medication changes . EKG showing sinus rhythm with no ischemic changes (surprisingly is not paced rhythm as patient has pacemaker) . Patient will be admitted as an observation for chest pain evaluation and DESTINY management, cardiology consulted. 12/03/2024 patient was seen and examined in the ER, patient is somnolent, hard to stay awake, complains of headache and chest pain, feeling hungry. . Cardiology following, recommended TTE, given his respiratory status, he is not a candidate for stress test. Pulmonology was consulted by cardiology.patient was placed on BiPAP. Due to mentation change and need for continuous BiPAP and serial ABG assessment, patient will be switched to inpatient. Fasting blood glucose level elevated 140s, will check A1c-5.6.TTE showed EF of 50%, technically difficult study. 12/06/2024: Seen examined at bedside, no acute events overnight, patient is awake, alert, is on room air, blood pressure 124/65, improved after medication adjustment. his Dyazide was discontinued and lisinopril was decreased to 20 mg daily. Patient states that he gets short of breath on exertion, will check walking pulse ox. He also complains of cold sore on the lower lip, no available valacyclovir ointment, will start on oral 1 gm twice daily for 7 days ;CBC resolved leukocytosis, stable hemoglobin of 12.2, normal sodium 137, normal potassium 4.0, bicarb up to 34, creatinine normal, PT OT recommends home at discharge.Social work consulted to facilitate obtaining CPAP machine for safe discharge plan Pertinent positives and negatives as discussed above, a complete review of systems was performed and all other systems are negative. Vitals Signs Reviewed. General: [Morbidly obese, not in acute distress Derm: [warm], [dry] Head: [atraumatic], [normocephalic], [symmetric] Eyes: [EOMI], [no lid lag], [anicteric sclera] Mouth: [no lip lesion], [mucus membranes moist] Cardiovascular: [S1S2 reg], [no murmur] Lungs: [CTA bilateral], decreased breath sounds bilaterally] , [no accessory muscle use] Abdominal: [soft], [ nontender to palpation], [no guarding], [no appreciable organomegaly] Ext: [no gross muscle atrophy], [no edema], [no contractures] Neuro: [ CN II-XI grossly intact], [no focal neuro deficits] Psych: [Alert], [oriented], [appropriate affect] Assessment and Plan: Chest pain, ACS ruled out Hypertension Hyperlipidemia -Cardiology following, appreciate recommendations -TTE as above - Continue home aspirin 81 mg daily, atorvastatin 20 mg daily, Coreg 3.125 twice daily, Imdur 30 daily, lisinopril 20 daily, discontinue triamterene hydrochlorothiazide 37.5/25 mg p.o. daily -Continue telemetry -Walking pulse ox Herpes labialis: Start valacyclovir 1 g twice daily for 7 days, discussed with RN Morbid obesity BMI 53 TAO not currently on CPAP COPD not in acute exacerbation Former smoker Acute toxic metabolic encephalopathy, somnolence likely secondary to CO2 retention, resolved -Pulmonology consulted, appreciate recommendations -Continue BiPAP as ordered -Social work consulted to facilitate obtaining CPAP machine -Recommend structured weight loss program -PT OT consulted Hyperkalemia, likely false result due to hemolyzed blood sample, resolved -Repeat BMP, History of sick sinus syndrome status post pacemaker placement: Pacemaker interrogation ordered Anxiety, depression DVT ppx: Heparin Code status: Full code Anticipated discharge place: [facility] Anticipated discharge time: TBD Objective - Vital Signs Vital signs: Vital Signs Temp 98.2 F 12/06/24 03:04 Pulse 80 12/06/24 10:02 Resp 19 12/06/24 03:04 BP 124/65 12/06/24 03:04 Pulse Ox 95 12/06/24 09:38 FiO2 40 12/04/24 00:17 Intake & Output 12/05/24 12/06/24 12/06/24 18:59 06:59 18:59 Intake Total 1200 1020 Output Total 150 Balance 1050 1020 Weight 150.2 kg Intake: Oral 1200 1020 Output: Urine 150 Other: Voiding Method Urinal Urinal # Voids 2 - Labs CBC & Chem 7: 12/06/24 06:05 12/06/24 06:05 Labs: Abnormal Lab Results - Last 24 Hours (Table) 12/06/24 12/06/24 Range/Units 06:05 06:05 RBC 3.99 L (4.40-5.60) 10*6/uL Hgb 12.2 L (13.0-17.0) g/dL Hct 38.2 L (39.6-50.0) % MCHC 31.9 L (32.0-37.0) g/dL Immature Gran # 0.05 H (0.00-0.04) 10*3/uL Chloride 96 L (98-107) mmol/L Carbon Dioxide 34 H (22-30) mmol/L BUN 27 H (9-20) mg/dL Glucose 109 H (74-99) mg/dL
[2024-12-06] MEDS: valACYclovir HCL 1,000 MG TABLET PO SCH (11:49)
--- NOTE | 2024-12-06 12:22 | P.PN ---
Subjective Progress Note Date: 12/06/24 Principal diagnosis: Hypersomnia. Pulmonary consult dated December 03, 2024. This is a 54-year-old morbidly obese man, who was seen in the emergency department, for chest pain. We were actually consulted by cardiology, and the patient, who likely has pickwickian syndrome, and possible sleep apnea syndrome. In fact, he apparently was previously diagnosed with obstructive sleep apnea syndrome, and sees a tree marker, over at the other hospital. He complains of left-sided chest pain, that was squeezing in nature. He apparently has been having the pain for 1 month. The patient does have a history of hypertension, and sick sinus syndrome, as well as obstructive sleep apnea syndrome. 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 The patient himself cannot give any history. He can barely keep his eyes open. He dozes off every few seconds. His past medical history is positive for asthma, hypertension, and pacemaker implantation. He also has a history of hyperlipidemia, and likely also suffers from Pickwickian syndrome. He apparently does have a prior history of obstructive sleep apnea syndrome. Current labs include a white count 8.66, hemoglobin 12, hematocrit 36.7, and platelet count which is 307,000. Coagulation studies were normal. Sodium 137, potassium 5.7, chloride 97, CO2 32, BUN 35, creatinine 1.20. Troponins were negative x 2. Chest x-ray is unremarkable. Progress note dated December 04, 2024. 54-year-old male seen in the emergency department yesterday. The patient was referred to us, by cardiology. He apparently came into the ED, with chest pain. The patient was extremely sleepy yesterday, could not keep his eyes open, or answer any questions. The patient likely suffer from severe sleep apnea syndrome, and possibly pickwickian syndrome. He apparently does have a CPAP device, that was given to him, which is a loaner. The patient sees a outside tree marker. We placed him on BiPAP, and today he is doing much better. He is awake and alert. His BiPAP settings were 15/5 and 40%. He is not receiving any fluids. Current labs include a white count of 11.9, hemoglobin 12, hematocrit 38.7, normal platelet count. Sodium 137, potassium 4.1, chlorides 100, CO2 29, down from 32, BUN 35, creatinine 1.14. Glucose is 119. Calcium is 8.7. Progress note dated December 05, 2024. 54-year-old morbidly obese male, who was seen in the emergency department, 2 days ago. He is seen today, room 378. The patient is either on 2 L of oxygen by nasal cannula, or BiPAP, with settings of 15/5, and 40%. Clinically, he is doing better. He is much more awake and alert during the daytime. White count of 9.3, hemoglobin 11.8, hematocrit 37.4, platelet count finger 68,000. Sodium 135, potassium 3.9, chloride 97, CO2 33, BUN 37, creatinine 1.08. Glucose is 102. Calcium 8.7. Progress note dated December 06, 2024. 54-year-old male who is morbidly obese. The patient is seen today in room 378. He is got BiPAP, at the bedside, with settings of 15/5, 40%. He is much more awake, during the daytime, when he uses the BiPAP at nighttime. Currently, he is at room air. Laboratory data includes a white count of 8.4, hemoglobin 12.2, hematocrit 38.2, platelet count was normal. Sodium 137, potassium 4, chloride 96, CO2 34, BUN 27, creatinine 0.91. Glucose is 109. Calcium is 9.1. Objective - Vital Signs Vital signs: Vital Signs Temp 98 F 12/06/24 07:00 Pulse 80 12/06/24 10:02 Resp 20 12/06/24 07:00 BP 121/79 12/06/24 07:00 Pulse Ox 95 12/06/24 09:38 FiO2 40 12/04/24 00:17 Intake & Output 12/05/24 12/06/24 12/06/24 18:59 06:59 18:59 Intake Total 1200 1020 236 Output Total 150 Balance 1050 1020 236 Weight 150.2 kg Intake: Oral 1200 1020 236 Output: Urine 150 Other: Voiding Method Urinal Urinal Urinal # Voids 2 - Exam No acute distress, more awake today. Able to answer questions. Able to keep his eyes open. The patient is currently on room air. HEENT examination is grossly unremarkable. Mucous membranes are moist. No oral lesions. Neck supple. Full range of motion. No adenopathy thyromegaly or neck vein distention. Cardiovascular examination reveals regular rhythm rate. S1-S2 normal. No S3 or S4. No discernible murmur noted. Heart sounds are very distant. Heart rate 81 bpm. Lungs reveal mostly clear breath sounds. No wheezes. No rhonchi. No crackles. Breath sounds are equal bilaterally. Saturations are in the low 90s. Abdomen obese, with bowel sounds. No masses or tenderness. Extremities are intact. No cyanosis clubbing or edema. Skin is without rash or lesion. Neurologic examination is brief but nonfocal. - Labs CBC & Chem 7: 12/06/24 06:05 12/06/24 06:05 Labs: Abnormal Lab Results - Last 24 Hours (Table) 12/06/24 12/06/24 Range/Units 06:05 06:05 RBC 3.99 L (4.40-5.60) 10*6/uL Hgb 12.2 L (13.0-17.0) g/dL Hct 38.2 L (39.6-50.0) % MCHC 31.9 L (32.0-37.0) g/dL Immature Gran # 0.05 H (0.00-0.04) 10*3/uL Chloride 96 L (98-107) mmol/L Carbon Dioxide 34 H (22-30) mmol/L BUN 27 H (9-20) mg/dL Glucose 109 H (74-99) mg/dL Assessment and Plan Assessment: Severe hypersomnia, likely as a result of both obstructive sleep apnea syndrome, and Pickwickian syndrome. Chest pain, currently being evaluated by cardiology. History of benign essential hypertension. History of chronic bronchial asthma. Lifelong non-smoker. History of pacemaker implantation. History of hyperlipidemia. History of depression. Morbid obesity, with a BMI of 53.4 kg/m. Plan: Plan dated December 03, 2024. The patient was seen in the emergency department, and, we recommend BiPAP, with settings of 15/5, and 40%. Labs, x-rays, medications are reviewed. The patient apparently was previously diagnosed with having obstructive sleep apnea syndrome, but was not able to obtain the CPAP device. He apparently cites transportation issues. In addition to sleep apnea, which is likely severe, the patient is morbidly obese, and may have Pickwickian syndrome as well. All labs, x-rays, and medications are reviewed. We will continue to follow the patient, make recommendations along the way. Prognosis is guarded. Dictation was produced using [employer] software. Please excuse any grammatical, word or spelling errors. Plan dated December 04, 2024. The patient was seen today in room 378. The patient is currently on BiPAP, with settings of 15/5, 40%. When we saw him today, he was on room air. Not receiving any IV fluids. He is much more awake and alert today than he was yesterday. Yesterday he could barely keep his eyes open, and really could not answer any questions. He likely has severe obstructive sleep apnea syndrome, possibly Pickwickian syndrome. He apparently sees an outside tree marker. We will continue to follow. He initially came in with chest pain. Currently being evaluated by cardiology. Dictation was produced using [employer] software. Please excuse any grammatical, word or spelling errors. Plan dated December 05, 2024. This is a 54-year-old male who is seen today in room 378. The patient has obstructive sleep apnea syndrome, and likely suffers from obesity/hypoventilation syndrome as well. The patient is on 2 L of oxygen currently. Throughout the day, and nighttime, he is on BiPAP, 15/5, and 40%. Labs, x-rays, and medications reviewed. The patient follows with an outside tree marker, Dr. Degroot. Additional recommendations and suggestions are forthcoming. We will continue to follow. Prognosis is poor. Dictation was produced using [employer] software. Please excuse any grammatical, word or spelling errors. Plan dated December 06, 2024. 54-year-old male who is seen here at the bedside, room 378. His fiance is also in the room. His fiance tells us that he does not follow any instructions whatsoever. He apparently had a rental CPAP device, but he does not have it anymore. He is certainly doing much better using the BiPAP at nighttime. Labs, x-rays, and medications are reviewed. The patient was apparently seeing Dr. YEN Degroot in the past. We will continue to follow make recommendations. All labs, x-rays, and medications are reviewed. Dictation was produced using [employer] software. Please excuse any grammatical, word or spelling errors. Time with Patient: Less than 30
[2024-12-07 06:39] LABS: Basophils % (A) 1.1 %; Eosinophils # (A) 0.32 10*3/uL (0.04-0.35); Eosinophils % (A) 3.4 %; HCT 40.7 % (39.6-50.0); HGB 12.7 g/dL (13.0-17.0); Lymphocytes % (A) 14.8 %; MCH 30.3 pg (27.0-32.0); MCHC 31.2 g/dL (32.0-37.0); MCV 97.1 fL (80.0-97.0); Mean Platelet Volume 10.4 fL (9.5-12.2); Monocytes # (A) 0.64 10*3/uL (0.20-1.00); Monocytes % (A) 6.8 %; Neutrophils # (A) 6.93 10*3/uL (1.80-7.70); Neutrophils % (A) 73.3 %; Platelet Count 292 10*3/uL (140-440); RBC 4.19 10*6/uL (4.40-5.60); RDW 15.2 % (11.5-14.5); WBC 9.45 10*3/uL (4.50-10.00)
[2024-12-07 07:24] LABS: African American GFR (CKD) >90 (>60 ml/min/1.73 sqM); Anion Gap 6 mmol/L; Blood Urea Nitrogen 25 mg/dL (9-20); Calcium 9.2 mg/dL (8.4-10.2); Carbon Dioxide 35 mmol/L (22-30); Chloride 100 mmol/L (98-107); Glucose 115 mg/dL (74-99); Non-African American GFR(CKD) 90 (>60 ml/min/1.73 sqM); Potassium 4.6 mmol/L (3.5-5.1); Sodium 141 mmol/L (137-145)
[2024-12-07 09:33] VITALS: TEMP 98
[2024-12-07 12:23] VITALS: BP 156/90; PULSE 78; RESP 16
--- NOTE | 2024-12-07 15:16 | P.DS ---
Providers Date of admission: 12/03/24 00:31 Expected date of discharge: 12/07/24 Attending physician: Cosme Robledo MD Consults: 12/03/24 08:40 Consult Physician Routine Consulting Provider: Víctor Maurer Consult Reason/Comments: TAO, needs CPAP Do you want consulting provider notified?: Yes Primary care physician: Michel Degroot Hospital Course: 54-year-old male with medical history of sick sinus syndrome status post permanent pacemaker placement, HTN, HLD, COPD with former nicotine dependence, anxiety, depression, morbid obesity, TAO not using CPAP, who presented to the ER on 12/02 complaining of chest pain. In the ED he underwent extensive evaluation. BP 110/68, HR 83, RR 22, T 98.7F, 93% on RA. Labs significant for RBC 3.89, Hg 12, Hct 36.7, BUN 38, Cr 1.34, glu 117. Trop < 0.012 x 2. BNP < 20. Mag 2. Lipase 106. UA neg. EKG sinus rhythm with sinus arrhythmia and first degree AV block. CXR no acute findings. Cardiology consulted, Echo showed EF 50% with mild LV thickness. Cardiology changed some of his anti-hypertensive medication and signed off as patient was not a candidate for stress testing. Renal bladder US showed no acute findings. During his hospitalization he was noted to be somnelent. He was placed on BiPAP with improvement in mentation. Pulmonary consulted, recommending CPAP on discharge. 12/07 Patient was seen and examined. Requesting to be discharged. Breathing and mentation back at baseline. Discussed with case management, needs to complete sleep study outpatient prior to getting approval for CPAP. Discussed with RN, passed home O2 eval. CBC and BMP significant for RBC 4.19, Hg 12.7, MCV 97.1, bicarb 35, BUN 25, glu 115. Discharge Plan: Follow up with Pulmonary Dr. Degroot within 1-2 days and Cardiology within 1 week of discharge. He will need a sleep study to obtain a CPAP ARIEL. Prescription for Valtrex x 13 tabs sent to pharmacy for herpes labalis. Stop Doxepin, Amlodipine and Dyazide on discharge. Dose reduced Lisinopril sent to pharmacy as well. General: non toxic, no distress, appears at stated age, morbidly obese Derm: warm, dry Head: atraumatic, normocephalic, symmetric Eyes: EOMI, no lid lag, anicteric sclera Mouth: no lip lesion, mucus membranes moist Cardiovascular: S1S2 reg, no murmur Lungs: Decreased BS bilateral, no rhonchi, no rales , no accessory muscle use Ext: no gross muscle atrophy, no edema, no contractures Neuro: no focal neuro deficits Psych: Alert, oriented, appropriate affect Discharge Diagnosis: Chest pain, ACS ruled out Acute toxic metabolic encephalopathy, somnolence likely secondary to CO2 retention Herpes labialis Hypertension Hyperlipidemia Morbid obesity BMI 53 TAO not currently on CPAP COPD not in acute exacerbation Former smoker History of sick sinus syndrome status post pacemaker placement Anxiety and depression This complex discharge took 35 minutes to complete. Patient Condition at Discharge: Stable Plan - Discharge Summary Discharge Rx Participant: No New Discharge Prescriptions: New valACYclovir HCL [Valtrex] 1,000 mg PO BID #13 tab lisinopriL [Zestril] 20 mg PO DAILY #30 tab Continue Oxybutynin Chloride [oxyBUTYnin chloride ER] 15 mg PO DAILY Albuterol Sulfate [Albuterol Sulfate Hfa] 1 puff INHALATION RT-Q4H PRN PRN Reason: Shortness Of Breath Ibuprofen [Motrin] 400 mg PO TID PRN PRN Reason: Pain Acetaminophen Tab [Tylenol] 650 mg PO Q6H PRN PRN Reason: Pain Or Fever > 100.5 Ergocalciferol [Vitamin D2 (1250 Mcg = 25602 Iu)] 1,250 mcg PO MO carvediloL [Coreg] 3.125 mg PO BID-W/MEALS 30 Days #60 tab Atorvastatin [Lipitor] 20 mg PO HS 30 Days #30 tab Famotidine [Pepcid] 20 mg PO BID Aspirin 81 mg PO DAILY 30 Days #30 tab Isosorbide Mononitrate ER [Imdur] 30 mg PO DAILY 30 Days #30 tab Discontinued Doxepin [SINEquan] 10 mg PO HS amLODIPine [Norvasc] 10 mg PO DAILY 30 Days #30 tab lisinopriL [Zestril] 40 mg PO DAILY 30 Days #60 tab Triamterene-Hctz 37.5-25Mg [Dyazide 37.5-25 Capsule] 1 cap PO DAILY Discharge Medication List Oxybutynin Chloride [oxyBUTYnin chloride ER] 15 mg PO DAILY 09/05/22 [History] Albuterol Sulfate [Albuterol Sulfate Hfa] 1 puff INHALATION RT-Q4H PRN 07/07/24 [History] Ibuprofen [Motrin] 400 mg PO TID PRN 07/07/24 [History] Acetaminophen Tab [Tylenol] 650 mg PO Q6H PRN 10/12/24 [History] Famotidine [Pepcid] 20 mg PO BID 10/12/24 [History] Ergocalciferol [Vitamin D2 (1250 Mcg = 50929 Iu)] 1,250 mcg PO MO 11/16/24 [History] Aspirin 81 mg PO DAILY 30 Days #30 tab 11/17/24 [Rx] Atorvastatin [Lipitor] 20 mg PO HS 30 Days #30 tab 11/17/24 [Rx] Isosorbide Mononitrate ER [Imdur] 30 mg PO DAILY 30 Days #30 tab 11/17/24 [Rx] carvediloL [Coreg] 3.125 mg PO BID-W/MEALS 30 Days #60 tab 11/17/24 [Rx] lisinopriL [Zestril] 20 mg PO DAILY #30 tab 12/07/24 [Rx] valACYclovir HCL [Valtrex] 1,000 mg PO BID #13 tab 12/07/24 [Rx] Follow up Appointment(s)/Referral(s): Jordan Shukla DO [STAFF PHYSICIAN] - 1 Week (office will call you with an appointment) Michel Degroot MD [Primary Care Provider] - 12/10/24 10:15 am Activity/Diet/Wound Care/Special Instructions: Please follow up with Dr. Degroot within 1-2 days. You will need a sleep study to qualify for CPAP. You can obtain a referral with Dr. Degroot. Follow up with Cardiology within 1 week of discharge. Discharge Disposition: HOME SELF-CARE
--- NOTE | 2024-12-07 19:09 | P.PN ---
Subjective Progress Note Date: 12/07/24 On today's evaluation of 12/07/2024, the patient on room air oxygen. No significant chest pain. He has chronic exertional dyspnea. Pulse ox is in the order of 98% on room air oxygen. Noted the patient has been utilizing the BiPAP at a pressure of 15/5 overnight and the patient has been responding well he was able to wear his BiPAP for at least 4 to 5 hours. BUN is 35 the creatinine of 0.9. Sodium level is 141 and his serum bicarb is at 35. WBC was 9.4 with a hemoglobin of 12.7. The patient otherwise has no specific complaints. He sees Dr. YEN Degroot and I made recommendations to follow-up with him on outpatient basis as the patient would benefit from a sleep study and he will need a device/CPAP/BiPAP on outpatient basis the patient has significant symptomatic obstructive sleep apnea. Objective - Vital Signs Vital signs: Vital Signs Temp 98 F 12/07/24 12:00 Pulse 78 12/07/24 13:32 Resp 16 12/07/24 12:00 BP 156/90 12/07/24 12:00 Pulse Ox 94 L 12/07/24 13:32 FiO2 40 12/07/24 04:51 Intake & Output 12/06/24 12/07/24 12/07/24 18:59 06:59 18:59 Intake Total 680 500 490 Balance 680 500 490 Weight 95.5 kg Intake: IV 10 Invasive Line 1 10 Oral 680 500 480 Other: Voiding Method Urinal Urinal # Voids 2 3 - Exam The patient appeared well nourished and normally developed. Vital signs as documented. The patient is morbidly obese and the patient has a Mallampati class IV Head exam is unremarkable. No scleral icterus or corneal arcus noted. Neck is without jugular venous distension, thyromegaly, or carotid bruits. Carotid upstrokes are brisk bilaterally. Lungs are clear to auscultation and percussion. Diminished breath sounds lung bases bilaterally Cardiac exam reveals the PMI to be normally sized and situated. Rhythm is regular. First and second heart sounds normal. No murmurs, rubs or gallops. Abdominal exam reveals normal bowel sounds, no masses, no organomegaly and no aortic enlargement. Extremities are nonedematous and both femoral and pedal pulses are normal. Examination of the skin revealed no evidence of significant rashes, suspicious appearing nevi or other concerning lesions. Neurologically, the patient is awake and alert and the patient does not have any focal neurological deficit. Cranial nerves are essentially intact. - Labs CBC & Chem 7: 12/07/24 05:48 12/07/24 05:48 Labs: Abnormal Lab Results - Last 24 Hours (Table) 12/07/24 12/07/24 Range/Units 05:48 05:48 RBC 4.19 L (4.40-5.60) 10*6/uL Hgb 12.7 L (13.0-17.0) g/dL MCV 97.1 H (80.0-97.0) fL MCHC 31.2 L (32.0-37.0) g/dL Immature Gran # 0.06 H (0.00-0.04) 10*3/uL Carbon Dioxide 35 H (22-30) mmol/L BUN 25 H (9-20) mg/dL Glucose 115 H (74-99) mg/dL Assessment and Plan Plan: Loud snoring, sleep fragmentation and chronic hypersomnia, likely as a result of both obstructive sleep apnea syndrome, and Pickwickian syndrome. Morbid obesity Chest pain, currently being evaluated by cardiology. History of benign essential hypertension. History of chronic bronchial asthma. Lifelong non-smoker. History of pacemaker implantation. History of hyperlipidemia. History of depression. Morbid obesity, with a BMI of 37.1 kg/m. Plan Encourage weight loss Immediate polysomnography or home sleep study to evaluate the patient for sleep apnea. This can be arranged to his thermodynamic physicist, Dr. YEN Degroot. If not, we will be glad to follow-up this patient my office in that regard. He will need an outpatient CPAP/BiPAP Management of his chest pain per cardiology. The patient has a permanent pacemaker in place. The patient will likely get discharged home today to be followed up by his own thermodynamic physicist.
== END 2024-12-07 16:43 | disposition home or self-care (01) | DRG 203 ==
LOC: EC 22:18 → 1SOBS 12-03 00:30 → OBSVTOIN 12-03 00:31 → 1SOBS 12-03 01:51 → 6NMEDSUR 12-03 04:55 → 3SCARD 12-03 09:15
PROVIDERS: ADMIT Student in an Organized Health Care Education/Training Program; ATTEND Student in an Organized Health Care Education/Training Program
DX: R07.89 Other chest pain (principal); B00.1 Herpesviral vesicular dermatitis; E87.29 Other acidosis; E87.5 Hyperkalemia; G47.10 Hypersomnia, unspecified; I10 Essential (primary) hypertension; Z68.43 Body mass index [BMI] 50.0-59.9, adult; G92.8 Other toxic encephalopathy; E78.5 Hyperlipidemia, unspecified; E66.2 Morbid (severe) obesity with alveolar hypoventilation; R09.02 Hypoxemia; G43.909 Migraine, unspecified, not intractable, without status migrainosus; Z88.0 Allergy status to penicillin; J44.89 Other specified chronic obstructive pulmonary disease; D72.829 Elevated white blood cell count, unspecified; F32.A Depression, unspecified; F41.9 Anxiety disorder, unspecified; I44.0 Atrioventricular block, first degree; I49.5 Sick sinus syndrome; N17.9 Acute kidney failure, unspecified; Z82.49 Family history of ischemic heart disease and other diseases of the circulatory system; Z95.0 Presence of cardiac pacemaker; Z79.899 Other long term (current) drug therapy; Z79.82 Long term (current) use of aspirin
CPT/HCPCS: 36415; 71046; 76770; 80048; 80053; 81003; 83036; 83690; 83735; 83880; 84100; 84132; 84484; 85025; 85610; 85730; 93005; 93306; 94640; 94660; 94760; 96361; 96374; 96375; 99285

== ENCOUNTER 2024-12-11 00:09 | Observation (INO) | payer OTHER ==
--- NOTE | 2024-12-11 01:10 | ED ---
Chest Pain HPI - General Chief Complaint: Chest Pain Stated Complaint: Chest pain Time Seen by Provider: 12/11/24 00:27 Source: patient, EMS, RN notes reviewed Mode of arrival: EMS Limitations: no limitations - History of Present Illness Initial Comments: This is a 54-year-old male with history including hypertension and COPD presenting via EMS for chest pain starting at 2230 this evening. Patient describes pain as squeezing with associated dizziness. Patient is otherwise a poor historian and is unable to verbalize all of his current complaints. MD Complaint: chest pain Onset/Timin -: hour(s) Time: 22:30 Onset: during rest Pain Location: substernal Consistency: constant Improves With: nothing Treatments Prior to Arrival: aspirin - Related Data Home Medications Medication Instructions Recorded Confirmed Oxybutynin Chloride [oxyBUTYnin 15 mg PO DAILY 02/19/22 12/03/24 chloride ER] Albuterol Sulfate [Albuterol 1 puff INHALATION RT-Q4H PRN 07/07/24 12/03/24 Sulfate Hfa] Ibuprofen [Motrin] 400 mg PO TID PRN 07/07/24 12/03/24 Acetaminophen Tab [Tylenol] 650 mg PO Q6H PRN 10/12/24 12/03/24 Famotidine [Pepcid] 20 mg PO BID 10/12/24 12/03/24 Ergocalciferol [Vitamin D2 (1250 1,250 mcg PO MO 11/16/24 12/03/24 Mcg = 67339 Iu)] Previous Rx's Medication Instructions Recorded Aspirin 81 mg PO DAILY 30 Days #30 tab 11/17/24 Atorvastatin [Lipitor] 20 mg PO HS 30 Days #30 tab 11/17/24 Isosorbide Mononitrate ER [Imdur] 30 mg PO DAILY 30 Days #30 tab 11/17/24 carvediloL [Coreg] 3.125 mg PO BID-W/MEALS 30 Days 11/17/24 #60 tab lisinopriL [Zestril] 20 mg PO DAILY #30 tab 12/07/24 valACYclovir HCL [Valtrex] 1,000 mg PO BID #13 tab 12/07/24 Allergies Allergy/AdvReac Type Severity Reaction Status Date / Time Penicillins Allergy Anaphylaxis Verified 12/11/24 00:35 Review of Systems ROS Statement: Those systems with pertinent positive or pertinent negative responses have been documented in the HPI. ROS Other: All systems not noted in ROS Statement are negative. Past Medical History Past Medical History: Asthma, Hypertension Additional Past Medical History / Comment(s): back pain, migraines, History of Any Multi-Drug Resistant Organisms: None Reported Past Surgical History: Pacemaker Type of Cardiac Device: Unknown Device Placement Date:: unknown Past Psychological History: Depression Smoking Status: Former smoker - Past Family History Father Family Medical History: AICD/Pacemaker, Congestive Heart Failure (CHF) Mother History Unknown: Yes General Exam Limitations: no limitations General appearance: alert, anxious, in distress, obese Head exam: Present: atraumatic, normocephalic, normal inspection Eye exam: Present: normal appearance, PERRL, EOMI. Absent: scleral icterus, conjunctival injection, periorbital swelling ENT exam: Present: normal exam, mucous membranes moist Neck exam: Present: normal inspection. Absent: tenderness, meningismus, lymphadenopathy Respiratory exam: Present: decreased breath sounds. Absent: respiratory distress, wheezes, rales, rhonchi, stridor, accessory muscle use, prolonged expiratory Cardiovascular Exam: Present: regular rate, normal rhythm, normal heart sounds. Absent: systolic murmur, diastolic murmur, rubs, gallop, clicks GI/Abdominal exam: Present: soft, distended, tenderness (Positive mid abdominal tenderness without guarding.), normal bowel sounds, other (Some ecchymosis noted in right lower quadrant without associated tenderness). Absent: guarding, rebound, rigid Extremities exam: Present: full ROM, normal capillary refill. Absent: tenderness, joint swelling, calf tenderness Back exam: Present: normal inspection Neurological exam: Present: alert, oriented X3, CN II-XII intact Psychiatric exam: Present: normal affect, normal mood Skin exam: Present: warm, dry, intact, normal color. Absent: rash Course Vital Signs 12/11/24 12/11/24 12/11/24 00:30 01:04 02:22 Temperature 98.3 F Pulse Rate 74 65 84 Respiratory 18 22 22 Rate Blood Pressure 124/75 111/66 92/65 O2 Sat by Pulse 93 L 92 L 93 L Oximetry Chest Pain MDM - MDM Was pt. sent in by a medical professional or institution (, PA, CLINIC PHYSICIAN DIRECTOR, urgent care, hospital, or correction...) When possible be specific @ -No Did you speak to anyone other than the patient for history (EMS, parent, family, police, friend...)? What history was obtained from this source @ -No Did you review nursing and triage notes (agree or disagree)? Why? @ -I reviewed and agree with nursing and triage notes Were old charts reviewed (outside hosp., previous admission, EMS record, old EKG, old radiological studies, urgent care reports/EKG's, correction records)? Report findings @ -Charts reviewed showing patient hospitalized from around 12/03/2024 to 12/07/2024 last week. Differential Diagnosis (chest pain, altered mental status, abdominal pain women, abdominal pain men, vaginal bleeding, weakness, fever, dyspnea, syncope, headache, dizziness, GI bleed, back pain, seizure, CVA, palpatations, mental health, musculoskeletal)? @ -Differential Chest Pain: Stable Angina, Unstable Angina, STEMI, NSTEMI Aortic Dissection, Pneumothorax, Musculoskeletal, Esophageal Spasm GERD, Cholecystitis, Pancreatitis, Zoster, this is not meant to be an all-inclusive list. EKG interpreted by me (3pts min.). @ -Ventricular pacemaker without ST deviation or T wave inversion. Ventricular rate 63 bpm, NORMAN 219 ms, QRS 96 ms, QTc 383 ms. X-rays interpreted by me (1pt min.). @ -CXR shows cardiomegaly with bibasilar opacities CT interpreted by me (1pt min.). @ -None done U/S interpreted by me (1pt. min.). @ -None done What testing was considered but not performed or refused? (CT, X-rays, U/S, labs)? Why? @ -None What meds were considered but not given or refused? Why? @ -None Did you discuss the management of the patient with other professionals (professionals i.e. , PA, CLINIC PHYSICIAN DIRECTOR, lab, RT, psych nurse, social worker palliative care, claim clerk, teacher, staff mine warfare officer, heel caser)? Give summary @ -Spoke to Dr. Otoole regarding patient admission. Was smoking cessation discussed for >3mins.? @ -No Was critical care preformed (if so, how long)? @ -No Were there social determinants of health that impacted care today? How? (Homelessness, low income, unemployed, alcoholism, drug addiction, transportation, low edu. Level, literacy, decrease access to med. care, intermediate, r ehab)? @ -No Was there de-escalation of care discussed even if they declined (Discuss DNR or withdrawal of care, Hospice)? DNR status @ -No What co-morbidities impacted this encounter? (DM, HTN, Smoking, COPD, CAD, Cancer, CVA, ARF, Chemo, Hep., AIDS, mental health diagnosis, sleep apnea, morbid obesity)? @ -None Was patient admitted / discharged? Hospital course, mention meds given and route, prescriptions, significant lab abnormalities, going to OR and other pertinent info. @ -Patient provided IV normal saline. WBC 8.94, BUN 27, glucose 132. Troponin WNL. CXR shows cardiomegaly with bibasilar opacities. Patient provided IV aztreonam and azithromycin prior to admission due to recent hospitalization about 1 week prior. Spoke to Dr. Otoole regarding patient admission. Discu ssed patient with Dr. Sanabria. Undiagnosed new problem with uncertain prognosis? @ -No Drug Therapy requiring intensive monitoring for toxicity (Heparin, Nitro, Insulin, Cardizem)? @ -No Were any procedures done? @ -No Diagnosis/symptom? @ -Bilateral pneumonia possible nosocomial infection Acute, or Chronic, or Acute on Chronic? @ -Acute Uncomplicated (without systemic symptoms) or Complicated (systemic symptoms)? @ -Complicated Side effects of treatment? @ -No Exacerbation, Progression, or Severe Exacerbation? @ -No Poses a threat to life or bodily function? How? (Chest pain, [place], [place], pneumonia, PE, COPD, DKA, ARF, appy, cholecystitis, CVA, Diverticulitis, Homicidal, Suicidal, threat to staff... and all critical care pts) @ -Pneumonia, possibility for respiratory failure Disposition Clinical Impression: Nosocomial pneumonia Disposition: ADMITTED IP TO THIS HOSP Condition: Fair Referrals: Michel Degroot MD [Primary Care Provider] - 1-2 days Time of Disposition: : Decision Date: 12/11/24 Decision Time:
[2024-12-11 01:16] LABS: Basophils # (A) 0.07 10*3/uL (0.00-0.10); Basophils % (A) 0.8 %; Eosinophils # (A) 0.34 10*3/uL (0.04-0.35); Eosinophils % (A) 3.8 %; HGB 11.1 g/dL (13.0-17.0); Lymphocytes # (A) 1.19 10*3/uL (0.90-5.00); Lymphocytes % (A) 13.3 %; MCH 30.9 pg (27.0-32.0); MCHC 32.6 g/dL (32.0-37.0); MCV 94.7 fL (80.0-97.0); Mean Platelet Volume 11.1 fL (9.5-12.2); Monocytes # (A) 0.72 10*3/uL (0.20-1.00); Monocytes % (A) 8.1 %; Neutrophils # (A) 6.56 10*3/uL (1.80-7.70); Neutrophils % (A) 73.3 %; Platelet Count 257 10*3/uL (140-440); RBC 3.59 10*6/uL (4.40-5.60); RDW 15.5 % (11.5-14.5); WBC 8.94 10*3/uL (4.50-10.00)
[2024-12-11 01:24] LABS: ALT 27 U/L (4-49); African American GFR (CKD) >90 (>60 ml/min/1.73 sqM); Anion Gap 8 mmol/L; Blood Urea Nitrogen 27 mg/dL (9-20); Carbon Dioxide 27 mmol/L (22-30); Chloride 103 mmol/L (98-107); Glucose 132 mg/dL (74-99); Non-African American GFR(CKD) >90 (>60 ml/min/1.73 sqM); Sodium 138 mmol/L (137-145)
[2024-12-11 01:26] LABS: INR 0.9 (<1.2); Partial Thromboplastin Time 24.1 sec (22.0-30.0); Prothrombin Time 10.3 sec (10.0-12.5)
[2024-12-11 01:30] LABS: AST 33 U/L (17-59); Albumin 3.5 g/dL (3.5-5.0); Alkaline Phosphatase 93 U/L (38-126); Magnesium 1.9 mg/dL (1.6-2.3); Potassium 4.4 mmol/L (3.5-5.1); Total Protein 6.2 g/dL (6.3-8.2)
[2024-12-11] MEDS: SODIUM CHLORIDE 0.9% 1,000 ML IV STA (02:21)
--- NOTE | 2024-12-11 03:15 | XR ---
EXAM: XR Chest, 2 Views CLINICAL HISTORY: ITS.REASON XR Reason: Chest Pain TECHNIQUE: Frontal and lateral views of the chest. COMPARISON: No relevant prior studies available. IMPRESSION: Cardiomegaly. Bibasilar opacities.
[2024-12-11] MEDS ORDERED: PNEUMONIA PROTOCOL UTILIZED 1 EACH MISC PO PRN (04:07)
[2024-12-11] MEDS ORDERED: NALOXONE 0.4 MG/ML 1 ML VIAL IV PRN (04:25)
[2024-12-11] MEDS ORDERED: HYDROmorphone 1 MG/ML 1 ML SYRINGE IVP PRN (04:25)
[2024-12-11] MEDS ORDERED: SODIUM CHLORIDE 0.9% 1,000 ML IV SCH (04:30)
[2024-12-11] MEDS: SODIUM CHLORIDE 0.9% 1,000 ML IV SCH (04:40)
[2024-12-11] MEDS: AZTREONAM 2 GM in SODIUM CHLORIDE 0.9% 100 ML IVPB STA (04:42)
[2024-12-11] MEDS: FAMOTIDINE 20 MG TAB PO SCH (08:30)
[2024-12-11] MEDS: lisinopriL 20 MG TAB PO SCH (08:30)
[2024-12-11] MEDS: AZITHROMYCIN 500 MG in SODIUM CHLORIDE 0.9% 250 ML IVPB STA (08:35)
[2024-12-11] MEDS ORDERED: IPRATROPIUM-ALBUTEROL 3 ML NEB INHALATION PRN (09:23)
--- NOTE | 2024-12-11 09:23 | P.HPIM ---
History of Present Illness H&P Date: 12/11/24 Chief Complaint: Chest pain 54-year-old male with morbid obesity, asthma, obstructive sleep apnea, status post pacemaker secondary to irregular heartbeats presented to the emergency department with chest pain. The patient was diagnosed with pneumonia. Symptoms began 2 days ago. He reports experiencing chills and pain with breathing and moving. The patient denies cough or sputum production. He also mentions difficulty walking. Due to shortness of breath. Patient repo rts inability to lay flat due to difficulty breathing he has been working with his PCP to get a sleep study done due to suspected obstructive sleep apnea Patient denies any history of coronary artery disease, blood clots, denies any recent travel or hospital stay. review of systems Pertinent positives as noted in HPI. All other systems were reviewed and are negative Constitutional: Positive for chills Respiratory: Negative for cough. Positive for chest pain with breathing. Cardiovascular: Positive for chest pain with movement, irregular heartbeats Musculoskeletal: Positive for difficulty walking Neurological: Positive for daytime sleepiness (related to untreated sleep apnea) on exam Constitutional: No acute distress, conversant, pleasant Eyes: Anicteric sclerae, moist conjunctiva, Pupils equal round reactive to light ENMT: NC/AT Oropharynx clear, no erythema, or exudates Neck: Supple, no masses, or JVD No carotid bruits No thyromegaly Lungs: Decreased breath sounds due to poor effort Clear to percussion Normal respiratory effort, no accessory muscle use Cardiovascular: Heart regular in rate and rhythm, No murmurs, gallops, or rubs No peripheral edema Abdominal: Obese limiting exam, soft Nontender, no guarding, rebound or rigidity Abdomen moving with respiration Normoactive bowel sounds Extremities: No digital cyanosis No clubbing Pedal pulses intact and symmetrical Radial pulses intact and symmetrical No calf tenderness Psychiatric: Alert and oriented to person, place and time Flat affect Neuro Muscles Strength 5/5 in all 4 extremities Sensation to light touch grossly present throughout Cranial nerves II-XII grossly intact Past Medical History Past Medical History: Asthma, Hypertension Additional Past Medical History / Comment(s): back pain, migraines, History of Any Multi-Drug Resistant Organisms: None Reported Past Surgical History: Pacemaker Type of Cardiac Device: Unknown Device Placement Date:: unknown Past Psychological History: Depression Smoking Status: Former smoker - Past Family History Father Family Medical History: AICD/Pacemaker, Congestive Heart Failure (CHF) Mother History Unknown: Yes Medications and Allergies Home Medications Medication Instructions Recorded Confirmed Type Oxybutynin Chloride [oxyBUTYnin 15 mg PO DAILY 02/19/22 12/03/24 History chloride ER] Albuterol Sulfate [Albuterol 1 puff INHALATION RT-Q4H PRN 07/07/24 12/03/24 History Sulfate Hfa] Ibuprofen [Motrin] 400 mg PO TID PRN 07/07/24 12/03/24 History Acetaminophen Tab [Tylenol] 650 mg PO Q6H PRN 10/12/24 12/03/24 History Famotidine [Pepcid] 20 mg PO BID 10/12/24 12/03/24 History Ergocalciferol [Vitamin D2 (1250 1,250 mcg PO MO 11/16/24 12/03/24 History Mcg = 34955 Iu)] Aspirin 81 mg PO DAILY 30 Days #30 tab 11/17/24 12/03/24 Rx Atorvastatin [Lipitor] 20 mg PO HS 30 Days #30 tab 11/17/24 12/03/24 Rx Isosorbide Mononitrate ER [Imdur] 30 mg PO DAILY 30 Days #30 tab 11/17/24 12/03/24 Rx carvediloL [Coreg] 3.125 mg PO BID-W/MEALS 30 Days 11/17/24 12/03/24 Rx #60 tab lisinopriL [Zestril] 20 mg PO DAILY #30 tab 12/07/24 Rx valACYclovir HCL [Valtrex] 1,000 mg PO BID #13 tab 12/07/24 Rx Allergies Allergy/AdvReac Type Severity Reaction Status Date / Time Penicillins Allergy Anaphylaxis Verified 12/11/24 00:35 Physical Exam Vitals: Vital Signs Temp Pulse Resp BP Pulse Ox 12/11/24 08:38 68 19 128/76 94 L 12/11/24 07:12 65 20 113/60 94 L 12/11/24 02:22 84 22 92/65 93 L 12/11/24 01:04 65 22 111/66 92 L 12/11/24 00:30 98.3 F 74 18 124/75 93 L Intake and Output 12/10/24 12/11/24 12/11/24 22:59 06:59 14:59 Other: Weight 151.046 kg Results CBC & Chem 7: 12/11/24 00:54 12/11/24 00:54 Labs: Abnormal Lab Results - Last 24 Hours (Table) 12/11/24 12/11/24 Range/Units 00:54 00:54 RBC 3.59 L (4.40-5.60) 10*6/uL Hgb 11.1 L (13.0-17.0) g/dL Hct 34.0 L (39.6-50.0) % Immature Gran # 0.06 H (0.00-0.04) 10*3/uL BUN 27 H (9-20) mg/dL Glucose 132 H (74-99) mg/dL Total Protein 6.2 L (6.3-8.2) g/dL Assessment and Plan Assessment: 54-year-old male with morbid obesity asthma and suspected TAO coming in for evaluation of chest pain and trouble breathing discussed case with ED doctor and accepted the admission for suspected pneumonia rule out underlying cardiac causes Assessment: 1. Pneumonia 2. Chest pain - likely related to pneumonia, but cardiac etiology needs to be ruled out given history of irregular heartbeats 3. Untreated sleep apnea 4. Asthma - chronic condition 5. Mild anemia hemoglobin 11.1 Differential Diagnosis: - Pneumonia, as evidenced by chest x-ray changes listed below - Acute coronary syndrome (given chest pain and history of irregular heartbeats), unlikely with normal troponins no acute EKG changes - Pulmonary embolism (given chest pain and possible use of blood thinners), check D-dimer - Exacerbation of asthma, continue with DuoNebs as needed Plan: 1. Follow-up cultures empirically started on azithromycin and aztreonam in the ED due to penicillin allergy 2. EKG showed paced rhythm no acute ST changes IV fluid hydration with normal saline status post 1 L bolus continue with 100 cc/h ID consultation Resume home medications for hypertension Lisinopril, Imdur, Coreg Continue with aspirin and statin EKG showing paced rhythm no acute ST changes Chest x-ray showing opacities on both lung bases Afebrile, no leukocytosis white count 8.9 unremarkable Renal function unremarkable with sodium 138 potassium 4.4 BUN 27 creatinine 0.8 Troponin negative at 0.012 Lactic acid unremarkable 1 liver enzymes unremarkable Full code DVT prophylaxis Lovenox 40 mg subcu daily
[2024-12-11] MEDS: OXYBUTYNIN 15 MG TAB.ER.24 PO SCH (10:20)
[2024-12-11] MEDS: carvediloL 3.125 MG TAB PO SCH (10:20)
[2024-12-11] MEDS: ASPIRIN 81 MG PO SCH (10:20)
[2024-12-11] MEDS: ISOSORBIDE MONONITRATE ER 30 MG TAB.ER.24H PO SCH (10:21)
[2024-12-11] MEDS: AZTREONAM 2 GM in SODIUM CHLORIDE 0.9% 100 ML IVPB SCH (13:16)
[2024-12-11] MEDS: ATORVASTATIN 20 MG TAB PO SCH (20:11)
--- NOTE | 2024-12-11 22:58 | P.CONS ---
History of Present Illness - Reason for Consult Consult date: 12/11/24 Nosocomial pneumonia Requesting physician: Gagan Chapa - Chief Complaint Chest pain x 1 day - History of Present Illness Patient is 54-year-old male with a past medical history significant for asthma hypertension chronic back pain and migraine headaches has been brought into the hospital by EMS concern for chest pain that apparently started in the evening of presentation to the hospital chest pain was associated with dizziness patient on presentation to the hospital was afebrile and no fever have recorded subsequently patient was not tachycardic hypotensive or hypoxic no need for supplemental oxygen patient did have white count of 8.94 creatinine 0.83 liver enzymes are normal patient did have chest x-ray that was bibasilar opacities patient has been admitted to the hospital he was started on azithromycin and azithromycin because of his penicillin allergy infectious disease was consulted for further management of antibiotic therapy concerning for possible nosocomial pneumonia patient unfortunately not a very good historian as he falls asleep after answering the nursing question so most information has been extracted from the the chart Review of Systems Positive points has been mentioned in HPI complete review could not be obtained because of his underlying mental status Past Medical History Past Medical History: Asthma, Hypertension Additional Past Medical History / Comment(s): back pain, migraines, History of Any Multi-Drug Resistant Organisms: None Reported Past Surgical History: Pacemaker Type of Cardiac Device: Unknown Device Placement Date:: unknown Past Psychological History: Depression Smoking Status: Former smoker - Past Family History Father Family Medical History: AICD/Pacemaker, Congestive Heart Failure (CHF) Mother History Unknown: Yes Medications and Allergies Home Medications Medication Instructions Recorded Confirmed Type Oxybutynin Chloride [oxyBUTYnin 15 mg PO DAILY 02/19/22 12/11/24 History chloride ER] Albuterol Sulfate [Albuterol 1 puff INHALATION RT-Q4H PRN 07/07/24 12/11/24 History Sulfate Hfa] Ibuprofen [Motrin] 400 mg PO TID PRN 07/07/24 12/11/24 History Acetaminophen Tab [Tylenol] 650 mg PO Q6H PRN 10/12/24 12/11/24 History Famotidine [Pepcid] 20 mg PO BID 10/12/24 12/11/24 History Ergocalciferol [Vitamin D2 (1250 1,250 mcg PO MO 11/16/24 12/11/24 History Mcg = 46707 Iu)] Aspirin 81 mg PO DAILY 30 Days #30 tab 11/17/24 12/11/24 Rx Atorvastatin [Lipitor] 20 mg PO HS 30 Days #30 tab 11/17/24 12/11/24 Rx Isosorbide Mononitrate ER [Imdur] 30 mg PO DAILY 30 Days #30 tab 11/17/24 0 12/11/24 Rx carvediloL [Coreg] 3.125 mg PO BID-W/MEALS 30 Days 11/17/24 12/11/24 Rx #60 tab lisinopriL [Zestril] 20 mg PO DAILY #30 tab 12/07/24 12/11/24 Rx valACYclovir HCL [Valtrex] 1,000 mg PO BID #13 tab 12/07/24 12/11/24 Rx Cefdinir 300 mg PO Q12HR #6 cap 12/12/24 Rx Allergies Allergy/AdvReac Type Severity Reaction Status Date / Time Penicillins Allergy Anaphylaxis Verified 12/11/24 10:33 Physical Exam Vitals: Vital Signs Temp Pulse Resp BP Pulse Ox 12/11/24 14:23 77 17 126/64 95 12/11/24 11:03 86 16 136/81 99 12/11/24 08:38 68 19 128/76 94 L 12/11/24 07:12 65 20 113/60 94 L 12/11/24 02:22 84 22 92/65 93 L 12/11/24 01:04 65 22 111/66 92 L 12/11/24 00:30 98.3 F 74 18 124/75 93 L Intake and Output 12/11/24 12/11/24 12/11/24 06:59 14:59 22:59 Other: Weight 151.046 kg GENERAL DESCRIPTION: Middle-age male up in the chair, no distress. No tachypnea or accessory muscle of respiration use. HEENT: Shows Pallor , no scleral icterus. Oral mucous membrane is dry. NECK: Trachea central, no thyromegaly. LUNGS: Unlabored breathing. Decreased breath sound at the base HEART: S1, S2, regular rate and rhythm. No loud murmur ABDOMEN: Soft, no tenderness , guarding or rigidity, no organomegaly EXTREMITIES: No edema of feet. SKIN: No rash, no masses palpable. NEUROLOGICAL: The patient is sleepy though arousable, mood and affect normal. Results CBC & Chem 7: 12/11/24 00:54 12/11/24 00:54 Labs: Abnormal Lab Results - Last 24 Hours (Table) 12/11/24 12/11/24 Range/Units 00:54 00:54 RBC 3.59 L (4.40-5.60) 10*6/uL Hgb 11.1 L (13.0-17.0) g/dL Hct 34.0 L (39.6-50.0) % Immature Gran # 0.06 H (0.00-0.04) 10*3/uL BUN 27 H (9-20) mg/dL Glucose 132 H (74-99) mg/dL Total Protein 6.2 L (6.3-8.2) g/dL Assessment and Plan (1) Abnormal x-ray Status: Acute Code(s): R93.89 - ABNORMAL FINDINGS ON DX IMAGING OF OTH BODY STRUCTURES SNOMED Code(s): 674778520 (2) Pneumonia Status: Acute Code(s): J18.9 - PNEUMONIA, UNSPECIFIED ORGANISM SNOMED Code(s): 099858926 (3) Penicillin allergy Status: Acute Code(s): Z88.0 - ALLERGY STATUS TO PENICILLIN SNOMED Code(s): 80008422 Plan: 1patient presented to hospital with chest pain in this patient also have abnormal chest x-ray with bibasilar infiltrates with question of atelectasis versus pneumonia will favor atelectasis as the patient currently not running any fever did have normal white count but is very hard to get any history from this patient regarding any cough or sputum production. 2patient with a penicillin allergy that would limit the number of antibiotic safety use. 3try to obtain sputum for Gram stain culture and check a CRP and a procalcitonin level. 4discontinue aztreonam. 5will start the patient on Rocephin and continue with Zithromax while waiting for the workup to be completed. We will follow on clinical condition and cultures to further adjust medication if needed Thank you for this consultation we will follow the patient along with you Dictation was produced using [employer] dictation software. please excuse any grammatical, word or spelling errors. Time with Patient: Greater than 30
[2024-12-12] MEDS: ACETAMINOPHEN TAB 325 MG TAB PO PRN (02:54)
[2024-12-12 08:00] VITALS: BP 174/84; PULSE 70; RESP 18; TEMP 98.1
[2024-12-12] MEDS: AZITHROMYCIN 500 MG in SODIUM CHLORIDE 0.9% 250 ML IVPB SCH (10:28)
--- NOTE | 2024-12-12 12:04 | P.CRDCN ---
History of Present Illness Consult date: 12/12/24 Consult reason: chest pain History of present illness: The patient is a 54-year-old male with multiple comorbid conditions, who presented to the hospital with chest discomfort. He had some mild heaviness in his chest with ambulation. ACS workup was unremarkable. No recurrence of the chest discomfort. DIAGNOSTICS: EKG shows paced rhythm Chest x-ray shows no acute cardiopulmonary process Lab data: WBC 8.9, hemoglobin 11.1, hematocrit 34.0, platelet 257, sodium 138, potassium 4.3, BUN 27, creatinine 0.83, magnesium 1.9, troponins normal, CRP 1.7 REVIEW OF SYSTEMS: No fever or chills. No cough or expectoration. No diaphoresis. Patient denies headache, dizziness, blurred vision, double vision. Patient denies any stomach discomfort. No nausea, vomiting. No hematochezia. No hematemesis. Denies any black stools or blood in his stools. Denies dysuria or hematuria. No muscle weakness or numbness. PHYSICAL EXAMINATION: This is a 54-year-old male in no apparent distress at the time of my examination. HEENT: Head is atraumatic, normocephalic. Pupils are equal, round. . No carotid bruit is heard. CHEST EXAMINATION: Lungs are clear to auscultation. No chest wall tenderness is noted on palpation or with deep breathing. HEART EXAMINATION: Heart regular rate and rhythm. S1, S2 heard. No murmurs, gallops or rub. ABDOMEN: Soft, nontender. Bowel sounds are heard. No organomegaly noted. EXTREMITIES: Mild peripheral edema and no calf tenderness noted. NEUROLOGIC EXAMINATION: Patient is awake, alert and oriented x3. FINAL ASSESSMENT AND PLAN: Chest discomfort, not indicative of acute coronary syndrome Shortness of breath Bibasilar infiltrates on chest x-ray History of hypertension History of pacemaker History of COPD and asthma Morbid obesity, BMI 59 PLAN: Resume home cardiac regimen Patient may be discharged from the cardiac standpoint Outpatient follow-up with primary crime prevention police officer I am dictating on behalf of Dr Edgardo Avelar's history/physical and assessment/plan. Past Medical History Past Medical History: Asthma, Hypertension Additional Past Medical History / Comment(s): back pain, migraines, History of Any Multi-Drug Resistant Organisms: None Reported Past Surgical History: Pacemaker Past Anesthesia/Blood Transfusion Reactions: No Reported Reaction Type of Cardiac Device: Unknown Device Placement Date:: unknown Past Psychological History: Depression Smoking Status: Former smoker - Past Family History Father Family Medical History: AICD/Pacemaker, Congestive Heart Failure (CHF) Mother History Unknown: Yes Medications and Allergies Home Medications Medication Instructions Recorded Confirmed Type Oxybutynin Chloride [oxyBUTYnin 15 mg PO DAILY 02/19/22 12/11/24 History chloride ER] Albuterol Sulfate [Albuterol 1 puff INHALATION RT-Q4H PRN 07/07/24 12/11/24 History Sulfate Hfa] Ibuprofen [Motrin] 400 mg PO TID PRN 07/07/24 12/11/24 History Acetaminophen Tab [Tylenol] 650 mg PO Q6H PRN 10/12/24 12/11/24 History Famotidine [Pepcid] 20 mg PO BID 10/12/24 12/11/24 History Ergocalciferol [Vitamin D2 (1250 1,250 mcg PO MO 11/16/24 12/11/24 History Mcg = 97123 Iu)] Aspirin 81 mg PO DAILY 30 Days #30 tab 11/17/24 12/11/24 Rx Atorvastatin [Lipitor] 20 mg PO HS 30 Days #30 tab 11/17/24 12/11/24 Rx Isosorbide Mononitrate ER [Imdur] 30 mg PO DAILY 30 Days #30 tab 11/17/24 12/11/24 Rx carvediloL [Coreg] 3.125 mg PO BID-W/MEALS 30 Days 11/17/24 12/11/24 Rx #60 tab lisinopriL [Zestril] 20 mg PO DAILY #30 tab 12/07/24 12/11/24 Rx valACYclovir HCL [Valtrex] 1,000 mg PO BID #13 tab 12/07/24 12/11/24 Rx Allergies Allergy/AdvReac Type Severity Reaction Status Date / Time Penicillins Allergy Anaphylaxis Verified 12/11/24 10:33 Physical Exam Vitals: Vital Signs Temp Pulse Pulse Resp BP BP Pulse Ox 12/12/24 07:59 98.1 F 70 18 174/84 93 L 12/12/24 01:02 98 F 66 131/72 95 12/11/24 19:20 98 F 67 153/76 95 12/11/24 18:32 98.6 F 70 20 167/79 94 L 12/11/24 17:57 63 16 113/72 95 12/11/24 17:38 97.7 F 77 20 140/105 97 12/11/24 14:23 77 17 126/64 95 Intake and Output 12/11/24 12/12/24 12/12/24 22:59 06:59 14:59 Intake Total 720 Output Total 200 Balance 720 -200 Intake: Oral 720 Output: Urine 200 Other: Voiding Method Urinal # Voids 2 1 # Bowel Movements 1 Weight 151.046 kg Results 12/11/24 00:54 12/11/24 00:54 Current Medications Generic Name Dose Route Start Last Admin Trade Name Freq PRN Reason Stop Dose Admin Acetaminophen 650 mg 12/11/24 04:25 12/12/24 02:54 Acetaminophen Tab 325 Mg Tab PO 650 mg Q6HR PRN Administration Mild Pain or Fever > 100.5 Albuterol/Ipratropium 3 ml 12/11/24 09:23 Ipratropium-Albuterol 3 Ml Neb INHALATION RT-Q2H PRN Shortness Of Breath Or Wheezing Aspirin 81 mg 12/11/24 09:30 12/12/24 08:16 Aspirin 81 Mg PO 81 mg DAILY GISSELL Administration Atorvastatin Calcium 20 mg 12/11/24 21:00 12/11/24 20:11 Atorvastatin 20 Mg Tab PO 20 mg HS GISSELL Administration Carvedilol 3.125 mg 12/11/24 07:30 12/12/24 08:17 Carvedilol 3.125 Mg Tab PO 3.125 mg BID-W/MEALS GISSELL Administration Famotidine 20 mg 12/11/24 09:00 12/12/24 08:17 Famotidine 20 Mg Tab PO 20 mg BID GISSELL Administration Hydromorphone HCl 1 mg 12/11/24 04:25 Hydromorphone 1 Mg/Ml 1 Ml Syringe IVP Q3HR PRN Severe Pain (Scale 7 to 10) Sodium Chloride 1,000 mls @ 100 mls/hr 12/11/24 04:15 12/12/24 10:30 Saline 0.9% IV Not Given .Q10H GISSELL Azithromycin 500 mg/ Sodium 250 mls @ 250 mls/hr 12/12/24 09:00 12/12/24 10:28 Chloride IVPB 12/13/24 09:59 250 mls/hr DAILY GISSELL Administration Protocol Ceftriaxone Sodium 1 gm/ 50 mls @ 100 mls/hr 12/11/24 15:15 12/12/24 08:17 Sodium Chloride IVPB 100 mls/hr Q24HR GISSELL Administration Protocol Isosorbide Mononitrate 30 mg 12/11/24 09:00 12/12/24 08:17 Isosorbide Mononitrate Er 30 Mg Tab.Er.24h PO 30 mg DAILY GISSELL Administration Lisinopril 20 mg 12/11/24 09:00 12/12/24 08:17 Lisinopril 20 Mg Tab PO 20 mg DAILY GISSELL Administration Miscellaneous Information 1 each 12/11/24 04:07 Pneumonia Protocol Utilized 1 Each Misc PO ONCE PRN Per Protocol Naloxone HCl 0.2 mg 12/11/24 04:25 Naloxone 0.4 Mg/Ml 1 Ml Vial IV Q2M PRN Opioid Reversal Oxybutynin Chloride 15 mg 12/11/24 09:00 12/12/24 08:16 Oxybutynin 15 Mg Tab.Er.24 PO 15 mg DAILY GISSELL Administration Intake and Output 12/11/24 12/12/24 12/12/24 22:59 06:59 14:59 Intake Total 720 Output Total 200 Balance 720 -200 Intake: Oral 720 Output: Urine 200 Other: Voiding Method Urinal # Voids 2 1 # Bowel Movements 1 Weight 151.046 kg 12/11/24 00:54 12/11/24 00:54
--- NOTE | 2024-12-12 15:06 | P.DS ---
Providers Date of admission: 12/11/24 05:37 Expected date of discharge: 12/12/24 Attending physician: Marialuisa Otoole MD Consults: 12/11/24 04:25 Consult Physician Stat Consulting Provider: Servando Terry Consult Reason/Comments: Nosocomial pneumonia Do you want consulting provider notified?: Yes, Notify in am 12/11/24 09:24 Consult Physician Routine Consulting Provider: Lawrence Campbell Consult Reason/Comments: chest pain Do you want consulting provider notified?: Yes Primary care physician: Michel Degroot Hospital Course: Assessment: 1. Pneumonia 2. Chest pain - likely related to pneumonia, but cardiac etiology needs to be ruled out given history of irregular heartbeats 3. Untreated sleep apnea 4. Asthma - chronic condition 5. Mild anemia hemoglobin 11.1 54-year-old male with morbid obesity asthma and suspected TAO presented for evaluation of chest pain and trouble breathing. In the emergency room, patient was afebrile, hemodynamically stable. Patient was admitted for chest pain rule out as well as for treatment of pneumonia. He was started on ceftriaxone and azithromycin and underwent evaluation by cardiology service. Patient was felt not to be in acute coronary syndrome due to negative troponins and no ischemic changes on EKG. Patient was cleared for discharge with PCP follow-up. He was prescribed an additional 3 days of antibiotics to complete a total of 5-day course. Spent 34 minutes coordinating this discharge Gen: In NAD, non-toxic HEENT: normocephalic, atraumatic, hearing acuity is intant, mucous membranes moist CVS: perfusing all extremities well, no pitting edema, Respiratory: symmetric chest expansion, no accessory muscle use, GI: soft, NTTP, ND, : no suprapubic tenderness, no CVA tenderness MSK/Derm: no rashes, cyanosis Neuro: CN II-XII intact, no motor weakness, Psych: cooperative, euthymic mood, judgment and insight is intact Patient Condition at Discharge: Good Plan - Discharge Summary Discharge Rx Participant: No New Discharge Prescriptions: New Cefdinir 300 mg PO Q12HR #6 cap Continue Oxybutynin Chloride [oxyBUTYnin chloride ER] 15 mg PO DAILY Albuterol Sulfate [Albuterol Sulfate Hfa] 1 puff INHALATION RT-Q4H PRN PRN Reason: Shortness Of Breath Ibuprofen [Motrin] 400 mg PO TID PRN PRN Reason: Pain Acetaminophen Tab [Tylenol] 650 mg PO Q6H PRN PRN Reason: Pain Or Fever > 100.5 Ergocalciferol [Vitamin D2 (1250 Mcg = 02544 Iu)] 1,250 mcg PO MO carvediloL [Coreg] 3.125 mg PO BID-W/MEALS 30 Days #60 tab Atorvastatin [Lipitor] 20 mg PO HS 30 Days #30 tab Famotidine [Pepcid] 20 mg PO BID Aspirin 81 mg PO DAILY 30 Days #30 tab Isosorbide Mononitrate ER [Imdur] 30 mg PO DAILY 30 Days #30 tab valACYclovir HCL [Valtrex] 1,000 mg PO BID #13 tab lisinopriL [Zestril] 20 mg PO DAILY #30 tab Discharge Medication List Oxybutynin Chloride [oxyBUTYnin chloride ER] 15 mg PO DAILY 02/19/22 [History] Albuterol Sulfate [Albuterol Sulfate Hfa] 1 puff INHALATION RT-Q4H PRN 07/07/24 [History] Ibuprofen [Motrin] 400 mg PO TID PRN 07/07/24 [History] Acetaminophen Tab [Tylenol] 650 mg PO Q6H PRN 10/12/24 [History] Famotidine [Pepcid] 20 mg PO BID 10/12/24 [History] Ergocalciferol [Vitamin D2 (1250 Mcg = 84727 Iu)] 1,250 mcg PO MO 11/16/24 [History] Aspirin 81 mg PO DAILY 30 Days #30 tab 11/17/24 [Rx] Atorvastatin [Lipitor] 20 mg PO HS 30 Days #30 tab 11/17/24 [Rx] Isosorbide Mononitrate ER [Imdur] 30 mg PO DAILY 30 Days #30 tab 11/17/24 [Rx] carvediloL [Coreg] 3.125 mg PO BID-W/MEALS 30 Days #60 tab 11/17/24 [Rx] lisinopriL [Zestril] 20 mg PO DAILY #30 tab 12/07/24 [Rx] valACYclovir HCL [Valtrex] 1,000 mg PO BID #13 tab 12/07/24 [Rx] Cefdinir 300 mg PO Q12HR #6 cap 06/28/25 [Rx] Follow up Appointment(s)/Referral(s): Michel Degroot MD [Primary Care Provider] - 1-2 days Discharge Disposition: HOME SELF-CARE
--- NOTE | 2024-12-12 15:40 | P.PN ---
Subjective Progress Note Date: 12/12/24 Principal diagnosis: Reason for follow-up is pneumonia Patient is 54-year-old male with a past medical history significant for asthma hypertension chronic back pain and migraine headaches has been brought into the hospital by EMS concern for chest pain also noticed to have bibasilar infiltrate on the x-ray concerning for possible pneumonia. On today's evaluation that is 12/13/2023, patient did have a temperature of 98.1 F this morning and denies having any chills, patient is on room air and breathing comfortably no chest pain or any worsening cough, the patient did not have any nausea vomiting abdominal pain or any diarrhea. Patient did have D-dimer 0.47 CRP is 1.70 blood culture negative Objective - Vital Signs Vital signs: Vital Signs Temp 98.1 F 12/12/24 07:59 Pulse 70 12/12/24 07:59 Resp 18 12/12/24 07:59 BP 174/84 12/12/24 07:59 Pulse Ox 93 L 12/12/24 07:59 FiO2 Intake & Output 12/11/24 12/12/24 12/12/24 18:59 06:59 18:59 Intake Total 720 Output Total 200 Balance 720 -200 Weight 151.046 kg Intake: Oral 720 Output: Urine 200 Other: Voiding Method Urinal # Voids 2 1 # Bowel Movements 1 - Exam GENERAL DESCRIPTION: Middle-age male up in bed in no distress RESPIRATORY SYSTEM: Unlabored breathing , decreased breath sounds at bases HEART: S1 S2 regular rate and rhythm , ABDOMEN: Soft , no tenderness EXTREMITIES: No edema feet - Labs CBC & Chem 7: 12/11/24 00:54 12/11/24 00:54 Labs: Abnormal Lab Results - Last 24 Hours (Table) 12/12/24 Range/Units 04:49 C-Reactive Protein 1.70 H (0.00-0.80) mg/dL Microbiology - Last 24 Hours (Table) 12/11/24 04:15 Blood Culture - Preliminary Blood Assessment and Plan (1) Abnormal x-ray Status: Acute Code(s): R93.89 - ABNORMAL FINDINGS ON DX IMAGING OF OTH BODY STRUCTURES SNOMED Code(s): 131939745 (2) Pneumonia Status: Acute Code(s): J18.9 - PNEUMONIA, UNSPECIFIED ORGANISM SNOMED Code(s): 203611026 (3) Penicillin allergy Status: Acute Code(s): Z88.0 - ALLERGY STATUS TO PENICILLIN SNOMED Code(s): 49914758 Plan: 1patient presented to hospital with chest pain in this patient also have abnormal chest x-ray with bibasilar infiltrates with question of atelectasis versus pneumonia will favor atelectasis as the patient currently not running any fever did have normal white count but is very hard to get any history from this patient regarding any cough or sputum production. 2patient with a penicillin allergy that would limit the number of antibiotic safety use. 3patient has tolerated Rocephin without any problem to continue while inpatient finishing therapy with Ceftin Dictation was produced using [employer] dictation software. please excuse any grammatical, word or spelling errors. Time with Patient: Less than 30
== END 2024-12-12 14:44 | disposition home or self-care (01) ==
LOC: EEVIPCON 00:09 → EC 00:09 → 4SSUR 05:37
PROVIDERS: ADMIT Internal Medicine; ATTEND Internal Medicine
DX: J18.9 Pneumonia, unspecified organism (principal); R07.89 Other chest pain; R06.02 Shortness of breath; R91.8 Other nonspecific abnormal finding of lung field; J44.89 Other specified chronic obstructive pulmonary disease; I10 Essential (primary) hypertension; F32.A Depression, unspecified; D64.9 Anemia, unspecified; G47.33 Obstructive sleep apnea (adult) (pediatric); E66.01 Morbid (severe) obesity due to excess calories; Z68.43 Body mass index [BMI] 50.0-59.9, adult; Z95.0 Presence of cardiac pacemaker; Z79.899 Other long term (current) drug therapy; Z79.82 Long term (current) use of aspirin; Z88.0 Allergy status to penicillin; Z82.49 Family history of ischemic heart disease and other diseases of the circulatory system
CPT/HCPCS: 96361 ×3; 96366 ×2; 96365 ×2; 96367; 99285; 36415; 93005; 85379; 80053; 87449; 83605; 83735; 84484; 85025; 85610; 85730; 86140; 87040; 84145; 71046; G0378 ×2; J0456 ×2; J0696 ×2; J0457

== ENCOUNTER 2024-12-14 18:34 | Emergency (ER) | payer OTHER ==
[2024-12-14 18:43] VITALS: BP 141/83; PULSE 78; RESP 24; TEMP 98.5
--- NOTE | 2024-12-14 19:41 | ED ---
Chest Pain HPI - General Source: patient Mode of arrival: EMS Limitations: no limitations <Radha Frey - Last Filed: 12/14/24 19:43> - General Source: patient, RN notes reviewed, old records reviewed Mode of arrival: EMS Limitations: no limitations - History of Present Illness MD Complaint: chest pain -: days(s) Onset: during rest, during exertion Pain Radiation: none Quality: aching Consistency: constant Improves With: nothing Worsens With: nothing Anginal Symptoms: other Other Symptoms: palpitations Treatments Prior to Arrival: none <Sy Hall - Last Filed: 12/14/24 22:20> - General Chief Complaint: Chest Pain Stated Complaint: Chest Pain Time Seen by Provider: 12/14/24 19:41 - History of Present Illness Initial Comments: Quick note: 54-year-old male presenting with chief complaint of head injury. Patient states that this morning he fell from standing hitting the right side of his head. Unsure if he had loss of consciousness. Unsure if he takes blood thinners. States that later on this evening he started having a headache and some chest pain so he came to the ER. (Radha Frey) This is a 54-year-old male to the ER for evaluation of chest pain head injury fall hitting his head and right side of chest also mild shortness of breath. Patient had chest pain shortness with prior to fall otherwise feels well currently (Sy Hall) - Related Data Home Medications Medication Instructions Recorded Confirmed Oxybutynin Chloride [oxyBUTYnin 15 mg PO DAILY 02/19/22 12/11/24 chloride ER] Albuterol Sulfate [Albuterol 1 puff INHALATION RT-Q4H PRN 07/07/24 12/11/24 Sulfate Hfa] Ibuprofen [Motrin] 400 mg PO TID PRN 07/07/24 12/11/24 Acetaminophen Tab [Tylenol] 650 mg PO Q6H PRN 10/12/24 12/11/24 Famotidine [Pepcid] 20 mg PO BID 10/12/24 12/11/24 Ergocalciferol [Vitamin D2 (1250 1,250 mcg PO MO 11/16/24 12/11/24 Mcg = 86318 Iu)] Previous Rx's Medication Instructions Recorded Aspirin 81 mg PO DAILY 30 Days #30 tab 11/17/24 Atorvastatin [Lipitor] 20 mg PO HS 30 Days #30 tab 11/17/24 Isosorbide Mononitrate ER [Imdur] 30 mg PO DAILY 30 Days #30 tab 11/17/24 carvediloL [Coreg] 3.125 mg PO BID-W/MEALS 30 Days 11/17/24 #60 tab lisinopriL [Zestril] 20 mg PO DAILY #30 tab 12/07/24 valACYclovir HCL [Valtrex] 1,000 mg PO BID #13 tab 12/07/24 Cefdinir 300 mg PO Q12HR #6 cap 12/12/24 Allergies Allergy/AdvReac Type Severity Reaction Status Date / Time Penicillins Allergy Anaphylaxis Verified 12/14/24 18:40 Review of Systems ROS Other: All systems not noted in ROS Statement are negative. <Radha Frey - Last Filed: 12/14/24 19:43> ROS Other: All systems not noted in ROS Statement are negative. <Sy Hall - Last Filed: 12/14/24 22:20> ROS Statement: Those systems with pertinent positive or pertinent negative responses have been documented in the HPI. EKG Findings - EKG Comments: EKG Findings:: EKG is atrial fibrillation 77 QRS 93 QTc 392 - EKG Results: EKG: interpreted by ERMD <Sy Hall - Last Filed: 12/14/24 22:20> Past Medical History Past Medical History: Asthma, Hypertension Additional Past Medical History / Comment(s): back pain, migraines, History of Any Multi-Drug Resistant Organisms: None Reported Past Surgical History: Pacemaker Past Anesthesia/Blood Transfusion Reactions: No Reported Reaction Type of Cardiac Device: Unknown Device Placement Date:: unknown Past Psychological History: Depression Smoking Status: Former smoker - Past Family History Father Family Medical History: AICD/Pacemaker, Congestive Heart Failure (CHF) Mother History Unknown: Yes <Radha Frey - Last Filed: 12/14/24 19:43> General Exam Limitations: no limitations <Radha Frey - Last Filed: 12/14/24 19:43> General appearance: alert, in no apparent distress Head exam: Present: atraumatic, normocephalic, normal inspection Eye exam: Present: normal appearance, PERRL, EOMI. Absent: scleral icterus, conjunctival injection, periorbital swelling ENT exam: Present: normal exam, mucous membranes moist Neck exam: Present: normal inspection. Absent: tenderness, meningismus, lymphadenopathy Respiratory exam: Present: normal lung sounds bilaterally. Absent: respiratory distress, wheezes, rales, rhonchi, stridor Cardiovascular Exam: Present: regular rate, normal rhythm, normal heart sounds. Absent: systolic murmur, diastolic murmur, rubs, gallop, clicks GI/Abdominal exam: Present: soft, normal bowel sounds. Absent: distended, tenderness, guarding, rebound, rigid Extremities exam: Present: normal inspection, full ROM, normal capillary refill. Absent: tenderness, pedal edema, joint swelling, calf tenderness Back exam: Present: normal inspection Neurological exam: Present: alert, oriented X3, CN II-XII intact Psychiatric exam: Present: normal affect, normal mood Skin exam: Present: warm, dry, intact, normal color. Absent: rash <Sy Hall - Last Filed: 12/14/24 22:20> - General Exam Comments Initial Comments: Visual Physical Exam Vital signs reviewed General: Well-appearing, nontoxic, no acute distress. Head: Normocephalic, atraumatic Eyes: PERRLA, EOMI ENT: Airway patent Chest: Nonlabored breathing Skin: No visual rash, normal skin tone Neuro: Alert and oriented 3 Musculoskeletal: No gross abnormalities (Radha Frey) Course <Sy Hall - Last Filed: 12/14/24 22:20> Vital Signs 12/14/24 18:37 Temperature 98.5 F Pulse Rate 78 Respiratory 24 Rate Blood Pressure 141/83 O2 Sat by Pulse 92 L Oximetry - Reevaluation(s) Reevaluation #1: 12/14/24 22:19 Medical records reviewed (Sy Hall) Reevaluation #2: 12/14/24 22:19 Patient symptoms are resolved Patient feels well (Sy Hall) Reevaluation #3: 12/14/24 22:19 Patient informed of results and questions answered (Sy Hall) Reevaluation #4: Was pt. sent in by a medical professional or institution (Dr., PA, CHEMICAL LIBRARIAN, urgent care, hospital, or shelter...) When possible be specific @ -no Did you speak to anyone other than the patient for history (EMS, parent, family, police, friend...)? What history was obtained from this source @ -no Did you review nursing and triage notes (agree or disagree)? Why? @ -agree Are old charts reviewed (outside hosp., previous admission, EMS record, old EKG, old radiological studies, urgent care reports/EKG's, shelter records)? Report findings @ -yes Differential Diagnosis (chest pain, altered mental status, abdominal pain women, abdominal pain men, vaginal bleeding, weakness, fever, dyspnea, syncope, headache, dizziness, GI bleed, back pain, seizure, CVA, palpatations, mental health, musculoskeletal)? @ -prior EKG interpreted by me (3pts min.). @ -yes X-rays interpreted by me (1pt min.). @ -yes negative for acute disease CT interpreted by me (1pt min.). @ -no U/S interpreted by me (1pt. min.). @ -no What testing was considered but not performed or refused? (CT, X-rays, U/S, labs)? Why? @ -none What meds were considered but not given or refused? Why? @ -none Did you discuss the management of the patient with other professionals (professionals i.e. MISSY Sosa, CHEMICAL LIBRARIAN, lab, RT, psych nurse, social work manager, battalion chief, teacher, special technical operations officer, case aide)? Give summary @ -no Was smoking cessation discussed for >3mins.? @ -no Was critical care preformed (if so, how long)? @ -no Were there social determinants of health that impacted care today? How? (Homelessness, low income, unemployed, alcoholism, drug addiction, transportation, low edu. Level, literacy, decrease access to med. care, nursing home, rehab)? @ -none Was there de-escalation of care discussed even if they declined (Discuss DNR or withdrawal of care, Hospice)? DNR status @ -no What co-morbidities impacted this encounter? (DM, HTN, Smoking, COPD, CAD, Cancer, CVA, ARF, Chemo, Hep., AIDS, mental health diagnosis, sleep apnea, morbid obesity)? @ -none Was patient admitted / discharged? Hospital course, mention meds given and route, prescriptions, significant lab abnormalities, going to OR and other pertinent info. @ - Undiagnosed new problem with uncertain prognosis? @ -no Drug Therapy requiring intensive monitoring for toxicity (Heparin, Nitro, Insulin, Cardizem)? @ -no Were any procedures done? @ -no Diagnosis/symptom? @ - Acute, or Chronic, or Acute on Chronic? @ -Acute Uncomplicated (without systemic symptoms) or Complicated (systemic symptoms)? @ -Complicated Side effects of treatment? @ -no Exacerbation, Progression, or Severe Exacerbation? @ -exacerbation Poses a threat to life or bodily function? How? (Chest pain, [place], [place], pneumonia, PE, COPD, DKA, ARF, appy, cholecystitis, CVA, Diverticulitis, Homicidal, Suicidal, threat to staff... and all critical care pts) @ -yes (Sy Hall) Reevaluation #5: Differential Chest Pain: Stable Angina, Unstable Angina, STEMI, NSTEMI Aortic Dissection, Pneumothorax, Musculoskeletal, Esophageal Spasm GERD, Cholecystitis, Pancreatitis, Zoster, this is not meant to be an all-inclusive list. Differential Dyspnea: Coronary syndrome, arrhythmia, tamponade, asthma, COPD, pulmonary embolism, pneumonia, pneumothorax, pulmonary effusion, anaphylaxis, diabetic ketoacidosis, flailed chest, pulmonary contusion, diaphragmatic rupture, anemia, neuromuscu lar, this is not meant to be an all-inclusive list. (Sy Hall) Chest Pain MDM <Radha Frey - Last Filed: 12/14/24 19:43> <Sy Hall - Last Filed: 12/14/24 22:20> - MDM I performed the quick note portion of this visit, electronically signed Radha Frey PA-C (Radha Frey) 54 male to the ER for evaluation patient brought today for evaluation regards to chest pain after a fall. Patient has fall with rib pain rib contusion, mild CHF on x-ray, patient has no complaints here in the ER feels well pulse ox on ambulation is fine patient feels well can be discharged home (Sy Hall) Disposition <Radha Frey - Last Filed: 12/14/24 19:43> Is patient prescribed a controlled substance at d/c from ED?: No Time of Disposition: 22:20 <Sy Hall - Last Filed: 12/14/24 22:20> Clinical Impression: Atypical chest pain, Chest pain Disposition: HOME SELF-CARE Condition: Good Instructions (If sedation given, give patient instructions): Costochondritis (ED), Chest Pain (ED) Referrals: Michel Degroot MD [Primary Care Provider] - 1-2 days
[2024-12-14 20:45] LABS: Basophils # (A) 0.08 10*3/uL (0.00-0.10); Basophils % (A) 0.8 %; Eosinophils # (A) 0.34 10*3/uL (0.04-0.35); Eosinophils % (A) 3.3 %; HCT 33.8 % (39.6-50.0); HGB 11.1 g/dL (13.0-17.0); Lymphocytes # (A) 1.13 10*3/uL (0.90-5.00); Lymphocytes % (A) 10.9 %; MCH 30.9 pg (27.0-32.0); MCHC 32.8 g/dL (32.0-37.0); MCV 94.2 fL (80.0-97.0); Mean Platelet Volume 9.7 fL (9.5-12.2); Monocytes # (A) 1.09 10*3/uL (0.20-1.00); Monocytes % (A) 10.5 %; Neutrophils # (A) 7.65 10*3/uL (1.80-7.70); Neutrophils % (A) 73.4 %; Platelet Count 290 10*3/uL (140-440); RBC 3.59 10*6/uL (4.40-5.60); RDW 15.8 % (11.5-14.5)
--- NOTE | 2024-12-14 20:45 | XR ---
EXAMINATION TYPE: XR chest 2V DATE OF EXAM: 12/14/2024 8:12 PM CLINICAL INDICATION:Male, 54 years old with history of Chest Pain; H COMPARISON: Chest radiograph 12/11/2024 TECHNIQUE: XR chest 2V Frontal view of the chest. FINDINGS: Poor penetration exam limits evaluation. Lungs/Pleura: No evidence of pneumothorax. Blunting of the costophrenic angles is present. Interstiti al opacities are noted. Pulmonary vascularity: Pulmonary vascular congestion. Heart/mediastinum: Cardiomediastinal silhouette is partially obscured due to overlying and adjacent o pacities and is mildly enlarged.. Two lead cardiac conduction device overlying the left hemithorax wi th lead tips projecting over the right ventricle and right atrium. Musculoskeletal: No gross evidence for acute osseous pathology. IMPRESSION: Cardiomegaly, pulmonary vascular congestion and bilateral pleural effusions suggestive. Correlate wit h BNP for congestive heart failure. [facility], , 12/14/2024 8:43 PM
[2024-12-14 20:58] LABS: INR 0.9 (<1.2); Prothrombin Time 10.5 sec (10.0-12.5)
[2024-12-14 21:00] LABS: ALT 28 U/L (4-49); AST 22 U/L (17-59); African American GFR (CKD) >90 (>60 ml/min/1.73 sqM); Albumin 3.6 g/dL (3.5-5.0); Alkaline Phosphatase 96 U/L (38-126); Anion Gap 9 mmol/L; Blood Urea Nitrogen 17 mg/dL (9-20); Calcium 9.6 mg/dL (8.4-10.2); Carbon Dioxide 28 mmol/L (22-30); Chloride 102 mmol/L (98-107); Glucose 105 mg/dL (74-99); Magnesium 1.9 mg/dL (1.6-2.3); Non-African American GFR(CKD) >90 (>60 ml/min/1.73 sqM); Potassium 3.6 mmol/L (3.5-5.1); Sodium 139 mmol/L (137-145); Total Bilirubin 0.8 mg/dL (0.2-1.3); Total Protein 6.2 g/dL (6.3-8.2)
--- NOTE | 2024-12-14 21:42 | CT ---
EXAMINATION TYPE: CT brain cspine wo con CT DLP: 2053.2 mGycm, Automated exposure control for dose reduction was used. DATE OF EXAM: 12/14/2024 8:28 PM COMPARISON: CT brain C-spine study 07/07/2024 CLINICAL INDICATION:Male, 54 years old with history of fall; Fall TECHNIQUE: Brain: Multiple axial CT images of the brain were obtained without IV contrast. Cspine: Axial CT images from the skull base to the inferior aspect of T2 we obtained without intraven ous contrast. Coronal and sagittal reformatted images were also reviewed. . FINDINGS: Brain: Extra-axial spaces: No abnormal extra-axial fluid collections. Ventricular system: Within normal limits Cerebral parenchyma: No acute intraparenchymal hemorrhage or mass effect. The rico-white junction is well differentiated. Cerebellum: Unremarkable. Mass effect: No evidence of midline shift. Intracranial vasculature: unremarkable Soft tissues: Normal. Calvarium/osseous structures: No depressed skull fracture. Paranasal sinuses and mastoid air cells: Clear. Visualized orbits: Orbital contents are intact. Cervical spine: Motion artifact on exam degrades images limiting evaluation. Fracture: No acute fractures. Osseous structures: Mild multilevel degenerative changes are noted. Vertebral alignment: Within normal limits. Spinal canal/Neural Foramina: Few disc osteophyte complexes are seen with no evidence of significant spinal canal narrowing. No evidence for significant neural foraminal stenosis. Neck soft tissues: Prevertebral soft tissues are within normal limits. IMPRESSION: No acute intracranial process. No evidence of acute cervical spine fracture. Mild multilevel degenerative disc disease. [facility], , 12/14/2024 9:40 PM
== END 2024-12-14 22:30 | disposition home or self-care (01) ==
LOC: EC 18:34
DX: S20.211A Contusion of right front wall of thorax, initial encounter (principal); Z88.0 Allergy status to penicillin; Z87.891 Personal history of nicotine dependence; W19.XXXA Unspecified fall, initial encounter
CPT/HCPCS: 36415; 70450; 71046; 72125; 80053; 83735; 84484; 85025; 85610; 85730; 93005; 99285

== ENCOUNTER 2024-12-15 21:27 | Observation (INO) | payer OTHER ==
--- NOTE | 2024-12-15 22:02 | ED ---
General Adult HPI - General Chief complaint: Shortness of Breath Stated complaint: SOB Time Seen by Provider: 12/15/24 21:38 Source: patient, EMS Mode of arrival: EMS Limitations: no limitations - History of Present Illness Initial comments: Patient is a 54-year-old male past medical history morbid obesity, TAO presenting today for shortness of breath and high blood pressure. Patient states he was checking his blood pressure this evening and it was 165/111 so he called 911. States he has had a mild headache throughout the day rating it as 4 out of 10 pain. Associated neck tightness. He has headaches like this before. Denies changes in vision, focal numbness, weakness, dizziness or strokelike symptoms. Notes associated shortness of breath states that has been going "for a while" emesis specify for further states has been going on for weeks. He states he getting home oxygen and a CPAP at home however does not have these yet. Denies chest pain or new lower extremity swelling. States he has felt hot at home has not measured any fevers. Did take aspirin for his headache which did help his pain. Denies cough, sputum production or hemoptysis. Denies fevers or chills. - Related Data Home Medications Medication Instructions Recorded Confirmed Oxybutynin Chloride [oxyBUTYnin 15 mg PO DAILY 02/19/22 12/16/24 chloride ER] Albuterol Sulfate [Albuterol 1 puff INHALATION RT-Q4H PRN 07/07/24 12/16/24 Sulfate Hfa] Ibuprofen [Motrin] 400 mg PO TID PRN 07/07/24 12/16/24 Acetaminophen Tab [Tylenol] 650 mg PO Q6H PRN 10/12/24 12/16/24 Famotidine [Pepcid] 20 mg PO BID 10/12/24 12/16/24 Ergocalciferol [Vitamin D2 (1250 1,250 mcg PO MO 11/16/24 12/16/24 Mcg = 01864 Iu)] Previous Rx's Medication Instructions Recorded Aspirin 81 mg PO DAILY 30 Days #30 tab 11/17/24 Atorvastatin [Lipitor] 20 mg PO HS 30 Days #30 tab 11/17/24 Isosorbide Mononitrate ER [Imdur] 30 mg PO DAILY 30 Days #30 tab 11/17/24 carvediloL [Coreg] 3.125 mg PO BID-W/MEALS 30 Days 11/17/24 #60 tab lisinopriL [Zestril] 20 mg PO DAILY #30 tab 12/07/24 Allergies Allergy/AdvReac Type Severity Reaction Status Date / Time Penicillins Allergy Anaphylaxis Verified 12/16/24 08:46 Review of Systems ROS Statement: Those systems with pertinent positive or pertinent negative responses have been documented in the HPI. ROS Other: All systems not noted in ROS Statement are negative. Past Medical History Past Medical History: Asthma, Hypertension Additional Past Medical History / Comment(s): back pain, migraines, History of Any Multi-Drug Resistant Organisms: None Reported Past Surgical History: Pacemaker Past Anesthesia/Blood Transfusion Reactions: No Reported Reaction Type of Cardiac Device: Unknown Device Placement Date:: unknown Past Psychological History: Depression Smoking Status: Former smoker - Past Family History Father Family Medical History: AICD/Pacemaker, Congestive Heart Failure (CHF) Mother History Unknown: Yes General Exam - General Exam Comments Initial Comments: PE: CONSTITUTIONAL: [no apparent distress, well appearing] SKIN: [warm, dry, no jaundice, hives or petechiae] EYES:[ pupils are equally round, extraocular movements intact without nystagmus, clear conjunctiva, non-icteric sclera] HENT: [normocephalic, atraumatic, moist mucus membranes, oropharynx clear without exudates] NECK: , [Full range of motion, normal appearance] PULMONARY: [clear to auscultation without wheezes, rhonchi, or rales, decreased excursion, no accessory muscle use and no stridor] CARDIOVASCULAR:[ regular rate, rhythm, normal S1 and S2. No appreciated murmurs, rubs or gallops. Strong radial pulses with intact distal perfusion. No lower extremity edema] GASTROINTESTINAL: [soft, active bowel sounds throughout, non-tender, non- distended, no palpable masses, no rebound or guarding. No hepatosplenomegaly] GENITOURINARY: MUSCULOSKELETAL: [Extremities have no gross deformity, no edema, redness, or swelling. No calf swelling ] NEUROLOGIC: [_a/o x 3, GCS 15, normal mentation and speech. Moves all extremities x 4 without motor or sensory deficit] PSYCHIATRIC:[ _normal mood and affect, thought process is clear and linear] Limitations: no limitations Course Vital Signs 07/07/1112/15/24 12/15/24 21:29 21:35 22:44 Temperature 99.5 F Pulse Rate 85 65 Pulse Rate [ It Audit Manager ] Respiratory 20 20 18 Rate Blood Pressure 152/81 149/78 Blood Pressure [Supine] O2 Sat by Pulse 91 L 95 Oximetry Fraction of Inspired Oxygen (FIO2) 12/16/24 12/16/24 12/16/24 00:28 01:19 01:44 Temperature Pulse Rate 81 70 Pulse Rate [ It Audit Manager ] Respiratory 20 18 Rate Blood Pressure 166/95 149/114 Blood Pressure [Supine] O2 Sat by Pulse 94 L 94 L 93 L Oximetry Fraction of Inspired Oxygen (FIO2) 12/16/24 12/16/24 12/16/24 01:56 01:57 02:14 Temperature Pulse Rate Pulse Rate [ It Audit Manager ] Respiratory Rate Blood Pressure Blood Pressure [Supine] O2 Sat by Pulse 75 L 110 H Oximetry Fraction of 100 Inspired Oxygen (FIO2) 12/16/24 12/16/24 12/16/24 02:15 02:20 02:55 Temperature Pulse Rate 70 60 Pulse Rate [ It Audit Manager ] Respiratory 20 Rate Blood Pressure 124/69 Blood Pressure [Supine] O2 Sat by Pulse 99 99 Oximetry Fraction of 50 Inspired Oxygen (FIO2) 12/16/24 12/16/24 12/16/24 04:23 04:33 06:20 Temperature Pulse Rate 60 75 Pulse Rate [ It Audit Manager ] Respiratory 20 18 Rate Blood Pressure 113/67 140/82 Blood Pressure [Supine] O2 Sat by Pulse 100 96 Oximetry Fraction of 50 Inspired Oxygen (FIO2) 12/16/24 12/16/24 12/16/24 07:11 08:35 08:44 Temperature Pulse Rate 60 60 Pulse Rate [ It Audit Manager ] Respiratory 16 20 Rate Blood Pressure 105/61 123/75 Blood Pressure [Supine] O2 Sat by Pulse 99 93 L 93 L Oximetry Fraction of Inspired Oxygen (FIO2) 12/16/24 12/16/24 12/16/24 08:54 09:02 09:17 Temperature Pulse Rate 60 62 Pulse Rate [ It Audit Manager ] Respiratory Rate Blood Pressure Blood Pressure [Supine] O2 Sat by Pulse Oximetry Fraction of 28 Inspired Oxygen (FIO2) 12/16/24 12/16/24 12/16/24 12:13 12:24 13:00 Temperature Pulse Rate 61 64 60 Pulse Rate [ It Audit Manager ] Respiratory 24 Rate Blood Pressure 107/87 Blood Pressure [Supine] O2 Sat by Pulse 100 Oximetry Fraction of Inspired Oxygen (FIO2) 12/16/24 12/16/24 12/16/24 16:39 16:50 17:08 Temperature Pulse Rate 64 69 64 Pulse Rate [ It Audit Manager ] Respiratory 20 Rate Blood Pressure 154/69 Blood Pressure [Supine] O2 Sat by Pulse 98 Oximetry Fraction of Inspired Oxygen (FIO2) 12/16/24 12/16/24 12/16/24 20:00 20:03 20:14 Temperature Pulse Rate 64 70 72 Pulse Rate [ It Audit Manager ] Respiratory 20 Rate Blood Pressure 124/76 Blood Pressure [Supine] O2 Sat by Pulse 98 Oximetry Fraction of Inspired Oxygen (FIO2) 12/16/24 12/17/24 12/17/24 23:30 01:49 04:31 Temperature Pulse Rate 70 75 62 Pulse Rate [ It Audit Manager ] Respiratory 18 20 16 Rate Blood Pressure 133/62 118/88 130/95 Blood Pressure [Supine] O2 Sat by Pulse 94 L 94 L 98 Oximetry Fraction of Inspired Oxygen (FIO2) 12/17/24 12/17/24 12/17/24 04:32 07:27 08:30 Temperature Pulse Rate 66 70 Pulse Rate [ 68 It Audit Manager ] Respiratory 22 18 Rate Blood Pressure 127/75 Blood Pressure 130/95 [Supine] O2 Sat by Pulse 98 96 Oximetry Fraction of Inspired Oxygen (FIO2) 12/17/24 12/17/24 12/17/24 08:44 09:36 10:11 Temperature 98 F Pulse Rate 72 79 68 Pulse Rate [ It Audit Manager ] Respiratory 18 18 Rate Blood Pressure 119/85 138/86 Blood Pressure [Supine] O2 Sat by Pulse 97 95 Oximetry Fraction of Inspired Oxygen (FIO2) EKG Findings - EKG Comments: EKG Findings:: Electronic atrial pacemaker, rate 74 beats minute intervals acceptable limits, borderline left axis deviation, no significant ST elevations or depressions, no arrhythmia Medical Decision Making - Medical Decision Making Was pt. sent in by a medical professional or institution (, PA, SECOND OFFICER, urgent care, hospital, or fpc...) When possible be specific @ -No Did you speak to anyone other than the patient for history (EMS, parent, family, police, friend...)? What history was obtained from this source @ -No Did you review nursing and triage notes (agree or disagree)? Why? @ -I reviewed nursing and triage notes agree with triage nursing notes Were old charts reviewed (outside hosp., previous admission, EMS record, old EKG, old radiological studies, urgent care reports/EKG's, fpc records)? Report findings @ -Medical records reviewed patient recently bpresented here in 12/14/2024 after a fall was ultimately discharged home, recent discharge from this hospital at the end of November had presented for shortness breath and chest pain as well, negative troponins Differential Diagnosis (chest pain, altered mental status, abdominal pain women, abdominal pain men, vaginal bleeding, weakness, fever, dyspnea, syncope, headache, dizziness, GI bleed, back pain, seizure, CVA, palpatations, mental health, musculoskeletal)? @Differential Dyspnea: Coronary syndrome, arrhythmia, tamponade, asthma, COPD, pulmonary embolism, pneumonia, pneumothorax, pulmonary effusion, anaphylaxis, diabetic ketoacidosis, flailed chest, pulmonary contusion, diaphragmatic rupture, anemia, neuromuscular, this is not meant to be an all-inclusive list. Differential Headache: Migraine, tension, cluster, carbon monoxide, central venous thrombosis, pension karma temporal arteritis, acute closure glaucoma, intercranial hemorrhage, mastoiditis, sinusitis, head injury, this is not meant to be an all-inclusive list. EKG interpreted by me (3pts min.). @ -As above X-rays interpreted by me (1pt min.). @ -None done CT interpreted by me (1pt min.). @ -None done U/S interpreted by me (1pt. min.). @ -None done What testing was considered but not performed or refused? (CT, X-rays, U/S, labs)? Why? @Did consider CT brain however patient has multiple deficits, headache is similar to prior headaches, patient is not significantly hypertensive What meds were considered but not given or refused? Why? @ -None Did you discuss the management of the patient with other professionals (professionals i.e. , PA, SECOND OFFICER, lab, RT, psych nurse, social service agency director, culinary artist, te acher, aboriginal liaison officer, casework manager)? Give summary @ -No Was smoking cessation discussed for >3mins.? @ -No Was critical care preformed (if so, how long)? @ -No Were there social determinants of health that impacted care today? How? (Homelessness, low income, unemployed, alcoholism, drug addiction, transportation, low edu. Level, literacy, decrease access to med. care, correction, rehab)? @ -No Was there de-escalation of care discussed even if they declined (Discuss DNR or withdrawal of care, Hospice)? @ -No What co-morbidities impacted this encounter? (DM, HTN, Smoking, COPD, CAD, Cancer, CVA, ARF, Chemo, Hep., AIDS, mental health diagnosis, sleep apnea, morbid obesity)? @ -[Morbid obesity, TAO Was patient admitted / discharged? Hospital course, mention meds given and route, prescriptions, significant lab abnormalities, going to OR and other pertinent info. @ Admission this pleasant 54-year-old gentleman presenting today for hypertension, headache and shortness of breath. Shortness of breath is a chronic issue for the patient. Headache is rated as 4 out of 10 not worst headache that he has ever had. No focal neurologic deficits. Denies neurologic complaints. Exam shows an overall well-appearing 54-year-old man though he does have decreased excursion and mild tachypnea, I suspect this is secondary to patient's body habitud however we will obtain D-dimer given recent hospitaliza tion, as well as comprehensive labs. Labs and imaging reviewed. Grossly within normal limits. Abnormal values not concerning for acute pathology related to presenting complaint with exception of D-dimer 1.03. CT PE study ordered. CT PE study negative for PE. Patient's blood pressure did increase to diastolic of 114 so he was given 1 dose of Catapres. Patient was considered for discharge however upon removal of supplemental O2, while becoming drowsy did go down to a pulse ox of 63% with a good waveform. As noted above, I do suspect shortness of breath/intermittent hypoxemia secondary to body habitus and TAO and could be treated with CPAP however because he does not have access to this at home, he cannot be discharged at this time. Patient will be placed on BiPAP and admitted for hypoxic respiratory failure. Case was discussed with Dr. Cabral who kindly accepted patient for admission. Undiagnosed new problem with uncertain prognosis? @ -No Drug Therapy requiring intensive monitoring for toxicity (Heparin, Nitro, Insulin, Cardizem)? @ -No Were any procedures done? @ -No Diagnosis/symptom? Hypertensive urgency, TAO Acute, or Chronic, or Acute on Chronic? @ -Acute Uncomplicated (without systemic symptoms) or Complicated (systemic symptoms)? @ -Uncomplicated Side effects of treatment? @ -No Exacerbation, Progression, or Severe Exacerbation? @ -No Poses a threat to life or bodily function? How? (Chest pain, USA, SD, pneumonia, PE, COPD, DKA, ARF, appy, cholecystitis, CVA, Diverticulitis, Homicidal, Suicidal, threat to staff... and all critical care pts) @Potentially - Lab Data Result diagrams: 12/15/24 22:04 12/15/24 22:04 Lab Results 12/15/24 12/15/24 12/15/24 Range/Units 22:04 22:04 22:04 WBC 9.67 (4.50-10.00) 10*3/uL RBC 3.65 L (4.40-5.60) 10*6/uL Hgb 11.1 L (13.0-17.0) g/dL Hct 34.8 L (39.6-50.0) % MCV 95.3 (80.0-97.0) fL MCH 30.4 (27.0-32.0) pg MCHC 31.9 L (32.0-37.0) g/dL Plt Count 300 (140-440) 10*3/uL MPV 10.2 (9.5-12.2) fL Immature Gran % (Auto) 0.9 % Neutrophils % 72.7 % Lymphocytes % 13.5 % Monocytes % 7.5 % Eosinophils % 4.4 % Basophils % 1.0 % Immature Gran # 0.09 H (0.00-0.04) 10*3/uL Neutrophils # 7.01 (1.80-7.70) 10*3/uL Lymphocytes # 1.31 (0.90-5.00) 10*3/uL Monocytes # 0.73 (0.20-1.00) 10*3/uL Eosinophils # 0.43 H (0.04-0.35) 10*3/uL Basophils # 0.10 (0.00-0.10) 10*3/uL PT 10.3 (10.0-12.5) sec INR 0.9 (<1.2) APTT 25.4 (22.0-30.0) sec D-Dimer 1.03 H (<0.60) mg/L FEU Sodium 143 (137-145) mmol/L Potassium 4.0 (3.5-5.1) mmol/L Chloride 103 (98-107) mmol/L Carbon Dioxide 30 (22-30) mmol/L Anion Gap 10 mmol/L BUN 20 (9-20) mg/dL Creatinine 0.93 (0.66-1.25) mg/dL Est GFR (CKD-EPI)AfAm >90 (>60 ml/min/1.73 sqM) Est GFR (CKD-EPI)NonAf >90 (>60 ml/min/1.73 sqM) Glucose 130 H (74-99) mg/dL Calcium 9.5 (8.4-10.2) mg/dL Total Bilirubin 0.6 (0.2-1.3) mg/dL AST 22 (17-59) U/L ALT 29 (4-49) U/L Alkaline Phosphatase 117 (38-126) U/L Troponin I (0.000-0.034) ng/mL NT-Pro-B Natriuret Pep 152 pg/mL Total Protein 6.1 L (6.3-8.2) g/dL Albumin 3.6 (3.5-5.0) g/dL Influenza Type A (PCR) (Not Detectd) Influenza Type B (PCR) (Not Detectd) RSV (PCR) (Not Detectd) SARS-CoV-2 (PCR) (Not Detectd) 12/15/24 12/15/24 Range/Units 22:04 22:04 WBC (4.50-10.00) 10*3/uL RBC (4.40-5.60) 10*6/uL Hgb (13.0-17.0) g/dL Hct (39.6-50.0) % MCV (80.0-97.0) fL MCH (27.0-32.0) pg MCHC (32.0-37.0) g/dL Plt Count (140-440) 10*3/uL MPV (9.5-12.2) fL Immature Gran % (Auto) % Neutrophils % % Lymphocytes % % Monocytes % % Eosinophils % % Basophils % % Immature Gran # (0.00-0.04) 10*3/uL Neutrophils # (1.80-7.70) 10*3/uL Lymphocytes # (0.90-5.00) 10*3/uL Monocytes # (0.20-1.00) 10*3/uL Eosinophils # (0.04-0.35) 10*3/uL Basophils # (0.00-0.10) 10*3/uL PT (10.0-12.5) sec INR (<1.2) APTT (22.0-30.0) sec D-Dimer (<0.60) mg/L FEU Sodium (137-145) mmol/L Potassium (3.5-5.1) mmol/L Chloride (98-107) mmol/L Carbon Dioxide (22-30) mmol/L Anion Gap mmol/L BUN (9-20) mg/dL Creatinine (0.66-1.25) mg/dL Est GFR (CKD-EPI)AfAm (>60 ml/min/1.73 sqM) Est GFR (CKD-EPI)NonAf (>60 ml/min/1.73 sqM) Glucose (74-99) mg/dL Calcium (8.4-10.2) mg/dL Total Bilirubin (0.2-1.3) mg/dL AST (17-59) U/L ALT (4-49) U/L Alkaline Phosphatase (38-126) U/L Troponin I <0.012 (0.000-0.034) ng/mL NT-Pro-B Natriuret Pep pg/mL Total Protein (6.3-8.2) g/dL Albumin (3.5-5.0) g/dL Influenza Type A (PCR) Not Detected (Not Detectd) Influenza Type B (PCR) Not Detected (Not Detectd) RSV (PCR) Not Detected (Not Detectd) SARS-CoV-2 (PCR) Not Detected (Not Detectd) Disposition Clinical Impression: Hypertensive urgency, TAO (obstructive sleep apnea) Disposition: ADMITTED IP TO THIS [facility] Condition: Stable Is patient prescribed a controlled substance at d/c from ED?: No
[2024-12-15] MEDS: ACETAMINOPHEN TAB 500 MG TAB PO STA (22:26)
[2024-12-15 22:31] LABS: Basophils # (A) 0.10 10*3/uL (0.00-0.10); Basophils % (A) 1.0 %; Eosinophils # (A) 0.43 10*3/uL (0.04-0.35); Eosinophils % (A) 4.4 %; HCT 34.8 % (39.6-50.0); HGB 11.1 g/dL (13.0-17.0); Lymphocytes # (A) 1.31 10*3/uL (0.90-5.00); Lymphocytes % (A) 13.5 %; MCH 30.4 pg (27.0-32.0); MCHC 31.9 g/dL (32.0-37.0); MCV 95.3 fL (80.0-97.0); Monocytes # (A) 0.73 10*3/uL (0.20-1.00); Monocytes % (A) 7.5 %; Neutrophils # (A) 7.01 10*3/uL (1.80-7.70); Neutrophils % (A) 72.7 %; Platelet Count 300 10*3/uL (140-440); RBC 3.65 10*6/uL (4.40-5.60); RDW 16.0 % (11.5-14.5); WBC 9.67 10*3/uL (4.50-10.00)
[2024-12-15 22:46] LABS: ALT 29 U/L (4-49); AST 22 U/L (17-59); African American GFR (CKD) >90 (>60 ml/min/1.73 sqM); Albumin 3.6 g/dL (3.5-5.0); Alkaline Phosphatase 117 U/L (38-126); Anion Gap 10 mmol/L; Blood Urea Nitrogen 20 mg/dL (9-20); Calcium 9.5 mg/dL (8.4-10.2); Carbon Dioxide 30 mmol/L (22-30); Chloride 103 mmol/L (98-107); Glucose 130 mg/dL (74-99); Non-African American GFR(CKD) >90 (>60 ml/min/1.73 sqM); Potassium 4.0 mmol/L (3.5-5.1); Sodium 143 mmol/L (137-145); Total Protein 6.1 g/dL (6.3-8.2)
[2024-12-15 22:51] LABS: INR 0.9 (<1.2); Prothrombin Time 10.3 sec (10.0-12.5)
[2024-12-15 22:52] LABS: Partial Thromboplastin Time 25.4 sec (22.0-30.0)
[2024-12-15 22:53] LABS: NT-Pro-B-Type Natriuretic Pept 152 pg/mL
[2024-12-15 23:34] LABS: RSV Not Detected (Not Detectd)
--- NOTE | 2024-12-16 00:56 | CT ---
EXAM: CT Angiography Chest With Intravenous Contrast CLINICAL HISTORY: ITS.REASON CT Reason: shortness of breath TECHNIQUE: Axial computed tomographic angiography images of the chest with intravenous contrast. CTDI is 44.4 mGy and DLP is 1683.8 mGy-cm. This CT exam was performed using one or more of the following dose reduction techniques: automated exposure control, adjustment of the mA and/or kV according to patient size, and/or use of iterative reconstruction technique. MIP reconstructed images were created and reviewed. COMPARISON: No relevant prior studies available. FINDINGS: Pulmonary arteries: Unremarkable. No pulmonary embolism. Aorta: No acute findings. No thoracic aortic aneurysm. Lungs: Unremarkable. No mass. No consolidation. Pleural space: Unremarkable. No significant effusion. No pneumothorax. Heart: Unremarkable. No cardiomegaly. No significant pericardial effusion. No evidence of RV dysfunction. Bones/joints: No acute fracture. No dislocation. Soft tissues: Unremarkable. Lymph nodes: Unremarkable. No enlarged lymph nodes. Liver: Hepatic steatosis. Tubes, lines and devices: Pacemaker leads. IMPRESSION: No acute findings in the visualized arteries of the chest.
[2024-12-16] MEDS ORDERED: ACETAMINOPHEN TAB 325 MG TAB PO PRN (02:34)
[2024-12-16] MEDS ORDERED: NALOXONE 0.4 MG/ML 1 ML VIAL IV PRN (02:34)
--- NOTE | 2024-12-16 02:57 | P.HPIM ---
History of Present Illness H&P Date: 12/16/24 Chief Complaint: reece Guzman is a 54-year-old male with past medical history of class III obesity and probable pickwickian syndrome. He presented to the hospital claiming of shortness of breath. It appears that the patient was checking his blood pressure and was noted be elevated and therefore he called 911. He was complaining of a headache throughout the day. When he had presented to the hospital, he was noted to be hypoxic 80% on 2 L nasal cannula. She was then placed on nonrebreather and later BiPAP. Lab work shows a white blood cell count of 9.67 hemoglobin 11.1 MCV was 95 platelet count was 300. D-dimer was 1.03. CMP was unremarkable flu a flu B RSV COVID-19 were negative chest CTA head showed no acute abnormalities Of note the patient was recently admitted to the hospital and discharged on December 12 and during that hospital course he was eval by cardiology for chest pain who had reported no intervention In addition he was also discharged home on December 07 for which it was recommended him to get an outpatient sleep study to get approval for CPAP. Review of Systems Review of systems negative except for HPI Past Medical History Past Medical History: Asthma, Hypertension Additional Past Medical History / Comment(s): back pain, migraines, History of Any Multi-Drug Resistant Organisms: None Reported Past Surgical History: Pacemaker Past Anesthesia/Blood Transfusion Reactions: No Reported Reaction Type of Cardiac Device: Unknown Device Placement Date:: unknown Past Psychological History: Depression Smoking Status: Former smoker - Past Family History Father Family Medical History: AICD/Pacemaker, Congestive Heart Failure (CHF) Mother History Unknown: Yes Medications and Allergies Home Medications Medication Instructions Recorded Confirmed Type Oxybutynin Chloride [oxyBUTYnin 15 mg PO DAILY 02/19/22 12/11/24 History chloride ER] Albuterol Sulfate [Albuterol 1 puff INHALATION RT-Q4H PRN 07/07/24 12/11/24 History Sulfate Hfa] Ibuprofen [Motrin] 400 mg PO TID PRN 07/07/24 12/11/24 History Acetaminophen Tab [Tylenol] 650 mg PO Q6H PRN 10/12/24 12/11/24 History Famotidine [Pepcid] 20 mg PO BID 10/12/24 12/11/24 History Ergocalciferol [Vitamin D2 (1250 1,250 mcg PO MO 11/16/24 12/11/24 History Mcg = 09726 Iu)] Aspirin 81 mg PO DAILY 30 Days #30 tab 11/17/24 12/11/24 Rx Atorvastatin [Lipitor] 20 mg PO HS 30 Days #30 tab 11/17/24 12/11/24 Rx Isosorbide Mononitrate ER [Imdur] 30 mg PO DAILY 30 Days #30 tab 11/17/24 12/11/24 Rx carvediloL [Coreg] 3.125 mg PO BID-W/MEALS 30 Days 11/17/24 12/11/24 Rx #60 tab lisinopriL [Zestril] 20 mg PO DAILY #30 tab 12/07/24 12/11/24 Rx valACYclovir HCL [Valtrex] 1,000 mg PO BID #13 tab 12/07/24 12/11/24 Rx Cefdinir 300 mg PO Q12HR #6 cap 12/12/24 Rx Allergies Allergy/AdvReac Type Severity Reaction Status Date / Time Penicillins Allergy Anaphylaxis Verified 12/15/24 21:34 Physical Exam Vitals: Vital Signs Temp Pulse Resp BP Pulse Ox FiO2 12/16/24 02:20 70 99 12/16/24 02:15 50 12/16/24 02:14 100 12/16/24 01:57 110 H 12/16/24 01:56 75 L 12/16/24 01:44 93 L 12/16/24 01:19 70 18 149/114 94 L 12/16/24 00:28 81 20 166/95 94 L 12/15/24 22:44 65 18 149/78 95 12/15/24 21:35 20 12/15/24 21:29 99.5 F 85 20 152/81 91 L Intake and Output 12/15/24 12/15/24 12/16/24 14:59 22:59 06:59 Other: Weight 151.046 kg General: non toxic, no distress, appears older than stated age, obese Derm: warm, dry Head: atraumatic, normocephalic, symmetric Eyes: EOMI, no lid lag, anicteric sclera, pupils equal round reactive to light ENT: Nose and ears atraumatic, no thrush, no pharyngeal erythema Neck: No thyromegaly, no cervical lymphadenopathy, trachea midline, supple Mouth: no lip lesion, mucus membranes moist Cardiovascular: S1S2 reg, no murmur, positive posterior tibial pulse bilateral, no edema, capillary refill less than 2 seconds Lungs: clear to ascultation bilateral, no ronchi, no rales, no wheeze, no accessory muscle use Abdominal: soft, nontender to palpation, no guarding, no appreciable organomegaly, normal bowel sounds Ext: no gross muscle atrophy, muscle strength muscle strength 5 out of 5 in all 4 extremities, no contractures Neuro: Moving all extremity spontaneously light touch intact all 4 extremities, finger to nose within normal limits, Psych: Alert, oriented, appropriate affect Results CBC & Chem 7: 12/15/24 22:04 12/15/24 22:04 Labs: Abnormal Lab Results - Last 24 Hours (Table) 12/15/24 12/15/24 12/15/24 Range/Units 22:04 22:04 22:04 RBC 3.65 L (4.40-5.60) 10*6/uL Hgb 11.1 L (13.0-17.0) g/dL Hct 34.8 L (39.6-50.0) % MCHC 31.9 L (32.0-37.0) g/dL Immature Gran # 0.09 H (0.00-0.04) 10*3/uL Eosinophils # 0.43 H (0.04-0.35) 10*3/uL D-Dimer 1.03 H (<0.60) mg/L FEU Glucose 130 H (74-99) mg/dL Total Protein 6.1 L (6.3-8.2) g/dL Assessment and Plan Assessment: #) Acute hypoxic respiratory failure likely is a component of severe TAO and probable pickwickian syndrome. CTA showing no abnormalities. Flu a flu B COVID-19 RSV negative. Check ABG. He is currently seen in the ER on BiPAP with settings of 14/6 with FiO2 50%, wean down FiO2 as tolerates #) History of asthma and not on any inhalers currently #) Primary hypertension continue home carvedilol 3.125 mg twice daily, Imdur 30 mg daily and lisinopril 20 mg daily #) Class III obesity, recommend weight loss #) Elevated D-dimer without any PE seen on CTA chest #) Anemia with hemoglobin 11.1, recommend outpatient workup dvt ppx: lovenox 40 mg daily
--- NOTE | 2024-12-16 06:21 | P.CNPUL ---
History of Present Illness Consult date: 12/16/24 Requesting physician: Winston Amador Reason for consult: obstructive sleep apnea Chief complaint: Shortness of breath, high blood pressure, headache History of present illness: Patient is a 54-year-old male with past medical history significant for morbid obesity. Of note, patient recently hospitalized earlier in November and required extended period of time on BiPAP. Concern for obesity hypoventilation sleep syndrome and obstructive sleep apnea. It was recommended that he follow-up with his established insurance claims processor, Dr. Gardner, on discharge for polysomnography. Unclear if the patient had any follow-up. Patient currently on BiPAP and not able to provide any reliable history. Apparently, brought in by EMS on 12/14/34. Reportedly, had called 911 after having a high blood pressure of 165/111 mmHg. he was hypoxemic in the ED and placed on BiPAP as mentioned above. Chest x-ray remarkable for possible cardiomegaly, pulmonary vascular congestion. Follow-up chest CT angiogram which did not show any evidence of filling defects consistent with pulmonary embolism. No acute parenchymal process was noted. Most recent labs including a CBC with a WBC count of 9.7, hemoglobin 11.1, platelets 300. CMP unremarkable, electrolytes WDL, serum bicarb 30, creatinine 0.93, glucose 130. Troponin less than 0.012. NT proBNP not elevated. Negative for influenza A/B, RSV, COVID. Patient currently being evaluated in the emergency department. He is on BiPAP settings 14/6, and FiO2 set at 50%. Achieving tidal volumes around 300. He is lethargic without sustained awakening. Patient is morbidly obese with features of obesity hypoventilation syndrome. Review of Systems ROS unobtainable: due to mental status Past Medical History Past Medical History: Asthma, Hypertension Additional Past Medical History / Comment(s): back pain, migraines, History of Any Multi-Drug Resistant Organisms: None Reported Past Surgical History: Pacemaker Past Anesthesia/Blood Transfusion Reactions: No Reported Reaction Type of Cardiac Device: Unknown Device Placement Date:: unknown Past Psychological History: Depression Smoking Status: Former smoker - Past Family History Father Family Medical History: AICD/Pacemaker, Congestive Heart Failure (CHF) Mother History Unknown: Yes Medications and Allergies Home Medications Medication Instructions Recorded Confirmed Type Oxybutynin Chloride [oxyBUTYnin 15 mg PO DAILY 02/19/22 12/11/24 History chloride ER] Albuterol Sulfate [Albuterol 1 puff INHALATION RT-Q4H PRN 07/07/24 12/11/24 History Sulfate Hfa] Ibuprofen [Motrin] 400 mg PO TID PRN 07/07/24 12/11/24 History Acetaminophen Tab [Tylenol] 650 mg PO Q6H PRN 10/12/24 12/11/24 History Famotidine [Pepcid] 20 mg PO BID 10/12/24 12/11/24 History Ergocalciferol [Vitamin D2 (1250 1,250 mcg PO MO 11/16/24 12/11/24 History Mcg = 91437 Iu)] Aspirin 81 mg PO DAILY 30 Days #30 tab 11/17/24 12/11/24 Rx Atorvastatin [Lipitor] 20 mg PO HS 30 Days #30 tab 11/17/24 12/11/24 Rx Isosorbide Mononitrate ER [Imdur] 30 mg PO DAILY 30 Days #30 tab 11/17/24 12/11/24 Rx carvediloL [Coreg] 3.125 mg PO BID-W/MEALS 30 Days 11/17/24 12/11/24 Rx #60 tab lisinopriL [Zestril] 20 mg PO DAILY #30 tab 12/07/24 12/11/24 Rx valACYclovir HCL [Valtrex] 1,000 mg PO BID #13 tab 12/07/24 12/11/24 Rx Cefdinir 300 mg PO Q12HR #6 cap 12/12/24 Rx Allergies Allergy/AdvReac Type Severity Reaction Status Date / Time Penicillins Allergy Anaphylaxis Verified 12/15/24 21:34 Physical Exam Vitals: Vital Signs Temp Pulse Resp BP Pulse Ox FiO2 12/16/24 04:33 50 12/16/24 04:23 60 20 113/67 100 12/16/24 02:55 60 20 124/69 99 12/16/24 02:20 70 99 12/16/24 02:15 50 12/16/24 02:14 100 12/16/24 01:57 110 H 12/16/24 01:56 75 L 12/16/24 01:44 93 L 12/16/24 01:19 70 18 149/114 94 L 12/16/24 00:28 81 20 166/95 94 L 12/15/24 22:44 65 18 149/78 95 12/15/24 21:35 20 12/15/24 21:29 99.5 F 85 20 152/81 91 L Intake and Output 12/15/24 12/15/24 12/16/24 14:59 22:59 06:59 Other: Weight 151.046 kg GENERAL EXAM: Lethargic, 54-year-old morbidly obese male, without sustained awakening. On BiPAP with settings 14/6 and FiO2 of 50%. Achieving adequate tidal volumes. HEAD: Normocephalic and atraumatic EYES: Normal reaction of pupils, equal size. NOSE: Clear with pink turbinates. THROAT: No erythema or exudates. NECK: No masses, no JVD. CHEST: No chest wall deformity. Left chest implanted pacemaker generator LUNGS: Equal air entry with markedly diminished lung sounds bilaterally. CVS: S1 and S2 normal with no audible murmur, regular rhythm. No extra heart sounds ABDOMEN: No hepatosplenomegaly, active bowel sounds, no guarding or rigidity. SPINE: No scoliosis or deformity SKIN: No rashes CENTRAL NERVOUS SYSTEM: No focal deficits, tone is normal in all 4 extremities. EXTREMITIES: There is no peripheral edema, clubbing, or cyanosis. Peripheral pulses are intact. Results - Laboratory Findings CBC and BMP: 12/15/24 22:04 12/15/24 22:04 PT/INR, D-dimer PT 10.3 sec (10.0-12.5) 12/15/24 22:04 INR 0.9 (<1.2) 12/15/24 22:04 D-Dimer 1.03 mg/L FEU (<0.60) H 12/15/24 22:04 Abnormal lab findings: Abnormal Labs 12/15/24 12/15/24 12/15/24 22:04 22:04 22:04 RBC 3.65 L Hgb 11.1 L Hct 34.8 L MCHC 31.9 L Immature Gran # 0.09 H Eosinophils # 0.43 H D-Dimer 1.03 H Glucose 130 H Total Protein 6.1 L - Diagnostic Findings Chest x-ray: image reviewed CT scan - chest: image reviewed Assessment and Plan Assessment: Suspect obesity hypoventilation syndrome and obstructive sleep apnea syndrome Morbid obesity, with a BMI of 53.7 kg/m Acute hypoxemic respiratory failure, currently on BiPAP Hypertension History of hyperlipidemia History of permanent pacemaker implantation History of asthma Nontobacco smoker Plan: Continue on BiPAP with current settings Monitor mentation and obtain ABG Again, recommend outpatient polysomnography on discharge. Reportedly already has a established insurance claims processor, Dr. Gardner. Will continue to follow while inpatient. Case to be reviewed by Dr. Alexis I have personally seen and examined the patient, performed the documentation and the assessment and plan as written. Number of minutes spent on the visit:20 Time with Patient: Greater than 30
[2024-12-16] MEDS: ENOXAPARIN 40 MG/0.4 ML SYRINGE SQ SCH (08:41)
[2024-12-16] MEDS: ISOSORBIDE MONONITRATE ER 30 MG TAB.ER.24H PO SCH (08:42)
[2024-12-16] MEDS: ASPIRIN 81 MG PO SCH (08:42)
[2024-12-16] MEDS: OXYBUTYNIN 15 MG TAB.ER.24 PO SCH (08:43)
[2024-12-16] MEDS: FAMOTIDINE 20 MG TAB PO SCH (08:46)
[2024-12-16] MEDS: ALBUTEROL NEBULIZED 2.5 MG/3 ML INHALATION PRN (08:54)
[2024-12-16 09:05] LABS: Allen Test Performed? Yes
[2024-12-16 09:06] LABS: ABG HCO3 31 mmol/L (21-25); ABG PCO2 59 mmHg (35-45); ABG PH 7.33 (7.35-7.45); ABG PO2 76 mmHg (83-108); ABG TCO2 33 mmol/L (19-24)
[2024-12-16] MEDS: IPRATROPIUM-ALBUTEROL 3 ML NEB INHALATION SCH (14:36)
[2024-12-16] MEDS: ATORVASTATIN 20 MG TAB PO SCH (20:46)
[2024-12-17 08:58] VITALS: RESP 18
--- NOTE | 2024-12-17 09:04 | P.DS ---
Providers Date of admission: 12/16/24 02:55 Expected date of discharge: 12/17/24 Attending physician: Winston Amador MD Consults: 12/16/24 02:50 Consult Physician Routine Consulting Provider: Víctor Maurer Consult Reason/Comments: bibean betsyome Do you want consulting provider notified?: Yes, Notify in am Primary care physician: Michel Degroot Hospital Course: Discharge Diagnosis: Acute hypoxic and hypercapnic respiratory failure Severe TAO Respiratory acidosis Suspected pickwickian syndrome History of asthma Primary hypertension Class III obesity Elevated D-dimer Anemias Hospital Course: s 54-year-old male with a history of class III obesity, and suspected pickwickian syndrome presenting with shortness of breath. Noted to be hypoxic on 2 L at 80%. Lab work shows a white blood cell count of 9.67 hemoglobin 11.1 MCV was 95 platelet count was 300. D-dimer was 1.03. CMP was unremarkable flu a flu B RSV COVID-19 were negative chest CTA head showed no acute abnormalities. Patient was seen by pulmonology as well. Remained on BiPAP overnight. Respiratory function not improved. Recommending outpatient sleep study. 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 Patient seen and examined at bedside. Vital signs reviewed and stable. General: Nontoxic, no distress, appears at stated age, obese Derm: Warm, dry Head: Atraumatic, normocephalic, symmetric Eyes: EOMI, no lid lag, anicteric sclera Mouth: No lip lesion, mucus membranes moist Cardiovascular: S1S2 reg, no murmur Lungs: CTA bilateral, no rhonchi, no rales, no accessory muscle use Abdominal: Soft, nontender to palpation, no guarding, no appreciable organomegaly Ext: No gross muscle atrophy, 2+ pitting edema, no contractures Neuro: CN II-XI grossly intact, no focal neuro deficits Psych: Alert, oriented, appropriate affect A total of 36 minutes of time were spent preparing this complex discharge summary. Patient was discharged on 01/13/2025 at 850. Patient Condition at Discharge: Stable Plan - Discharge Summary New Discharge Prescriptions: Continue Oxybutynin Chloride [oxyBUTYnin chloride ER] 15 mg PO DAILY Albuterol Sulfate [Albuterol Sulfate Hfa] 1 puff INHALATION RT-Q4H PRN PRN Reason: Shortness Of Breath Ibuprofen [Motrin] 400 mg PO TID PRN PRN Reason: Pain Acetaminophen Tab [Tylenol] 650 mg PO Q6H PRN PRN Reason: Pain Or Fever > 100.5 Ergocalciferol [Vitamin D2 (1250 Mcg = 31825 Iu)] 1,250 mcg PO MO carvediloL [Coreg] 3.125 mg PO BID-W/MEALS 30 Days #60 tab Atorvastatin [Lipitor] 20 mg PO HS 30 Days #30 tab Famotidine [Pepcid] 20 mg PO BID Aspirin 81 mg PO DAILY 30 Days #30 tab Isosorbide Mononitrate ER [Imdur] 30 mg PO DAILY 30 Days #30 tab lisinopriL [Zestril] 20 mg PO DAILY #30 tab Discharge Medication List Oxybutynin Chloride [oxyBUTYnin chloride ER] 15 mg PO DAILY 02/19/22 [History] Albuterol Sulfate [Albuterol Sulfate Hfa] 1 puff INHALATION RT-Q4H PRN 07/07/24 [History] Ibuprofen [Motrin] 400 mg PO TID PRN 07/07/24 [History] Acetaminophen Tab [Tylenol] 650 mg PO Q6H PRN 10/12/24 [History] Famotidine [Pepcid] 20 mg PO BID 10/12/24 [History] Ergocalciferol [Vitamin D2 (1250 Mcg = 27283 Iu)] 1,250 mcg PO MO 11/16/24 [History] Aspirin 81 mg PO DAILY 30 Days #30 tab 11/17/24 [Rx] Atorvastatin [Lipitor] 20 mg PO HS 30 Days #30 tab 11/17/24 [Rx] Isosorbide Mononitrate ER [Imdur] 30 mg PO DAILY 30 Days #30 tab 11/17/24 [Rx] carvediloL [Coreg] 3.125 mg PO BID-W/MEALS 30 Days #60 tab 11/17/24 [Rx] lisinopriL [Zestril] 20 mg PO DAILY #30 tab 12/07/24 [Rx] Follow up Appointment(s)/Referral(s): Michel Degroot MD [Primary Care Provider] - 1-2 days Patient Instructions/Handouts: Shortness of Breath (ED) Activity/Diet/Wound Care/Special Instructions: Every disease is a spectrum and a small chance still exists that a serious condition could develop, for this reason, please monitor yourself closely for new, changing or worsening symptoms, symptoms that persist beyond 48 hours, coughing up blood or thick sputum, chest pain, leg swelling fever, inability to tolerate/keep down fluids or your medications, inability to follow up with outpatient providers as instructed and should you experience these symptoms or should you have any further concerns for your wellbeing please return to the ED or call 911 immediately. Please follow-up with your primary care provider within the next 1 to 2 days regarding blood pressure medications and CPAP for home. PLEASE call your primary care physician as soon as possible to arrange / discuss plan for followup appointment. Appointment in the next 1-3 days is strongly encouraged if possible. PLEASE let us know here before you leave if there is anything further we can do to be of any assistance. Take care and feel Better! Discharge Disposition: HOME SELF-CARE
[2024-12-17 09:36] VITALS: TEMP 98
[2024-12-17 10:12] VITALS: BP 138/86; PULSE 68
== END 2024-12-17 10:39 | disposition home or self-care (01) ==
LOC: EC 21:27 → 3SCARD 12-16 02:55
PROVIDERS: ADMIT Internal Medicine; ATTEND Internal Medicine
DX: J96.01 Acute respiratory failure with hypoxia (principal); J96.02 Acute respiratory failure with hypercapnia; E87.29 Other acidosis; E66.813 Obesity, class 3; I16.0 Hypertensive urgency; I10 Essential (primary) hypertension; G43.909 Migraine, unspecified, not intractable, without status migrainosus; G47.33 Obstructive sleep apnea (adult) (pediatric); D64.9 Anemia, unspecified; R79.89 Other specified abnormal findings of blood chemistry; E78.5 Hyperlipidemia, unspecified; J45.909 Unspecified asthma, uncomplicated; Z68.43 Body mass index [BMI] 50.0-59.9, adult; Z79.82 Long term (current) use of aspirin; Z79.899 Other long term (current) drug therapy; Z95.0 Presence of cardiac pacemaker; Z88.0 Allergy status to penicillin; Z87.891 Personal history of nicotine dependence
CPT/HCPCS: 96372 ×2; 99285; 36415; 94660; 94640 ×2; 36600; 94760; 93005; 85379; 83880; 80053; 82805; 84484; 85025; 85610; 85730; 87636; 71275; G0378 ×2; J1650 ×2; Q9967

== ENCOUNTER 2024-12-18 17:43 | Emergency (ER) | payer OTHER ==
[2024-12-18 17:48] VITALS: TEMP 98.5
--- NOTE | 2024-12-18 18:38 | ED ---
General Adult HPI - General Chief complaint: Recheck/Abnormal Lab/Rx Stated complaint: Hypertension Time Seen by Provider: 12/18/24 17:48 Source: patient, EMS Mode of arrival: EMS Limitations: no limitations - History of Present Illness Initial comments: Dictation was produced using [place] dictation software. please excuse any grammatical, word or spelling errors. Chief Complaint: 54-year-old male with chronic comorbidities presents to the ER for high blood pressure History of Present Illness: 54-year-old male with significant comorbidities presents to the emergency department hypertension for 2 days he does have a history of hypertension. Denies any other acute issues. He wears home oxygen for chronic cardiac issues. He also has daily headaches since childhood. Otherwise states that he feels at baseline. Checked his blood pressure yest erday today was found to be high systolic measuring is 170-180. Denies any chest pain, denies any severe headache. No strokelike symptoms, no acute shortness of breath The ROS documented in this emergency department record has been reviewed and confirmed by me. Those systems with pertinent positive or negative responses have been documented in the HPI. All other systems are other negative and/or noncontributory. - Related Data Home Medications Medication Instructions Recorded Confirmed Oxybutynin Chloride [oxyBUTYnin 15 mg PO DAILY 02/19/22 12/16/24 chloride ER] Albuterol Sulfate [Albuterol 1 puff INHALATION RT-Q4H PRN 07/07/24 12/16/24 Sulfate Hfa] Ibuprofen [Motrin] 400 mg PO TID PRN 07/07/24 12/16/24 Acetaminophen Tab [Tylenol] 650 mg PO Q6H PRN 10/12/24 12/16/24 Famotidine [Pepcid] 20 mg PO BID 10/12/24 12/16/24 Ergocalciferol [Vitamin D2 (1250 1,250 mcg PO MO 11/16/24 12/16/24 Mcg = 57570 Iu)] Previous Rx's Medication Instructions Recorded Aspirin 81 mg PO DAILY 30 Days #30 tab 11/17/24 Atorvastatin [Lipitor] 20 mg PO HS 30 Days #30 tab 11/17/24 Isosorbide Mononitrate ER [Imdur] 30 mg PO DAILY 30 Days #30 tab 11/17/24 carvediloL [Coreg] 3.125 mg PO BID-W/MEALS 30 Days 11/17/24 #60 tab lisinopriL [Zestril] 20 mg PO DAILY #30 tab 12/07/24 Allergies Allergy/AdvReac Type Severity Reaction Status Date / Time Penicillins Allergy Anaphylaxis Verified 12/16/24 08:46 Review of Systems ROS Statement: Those systems with pertinent positive or pertinent negative responses have been documented in the HPI. ROS Other: All systems not noted in ROS Statement are negative. Past Medical History Past Medical History: Asthma, Hypertension Additional Past Medical History / Comment(s): back pain, migraines, History of Any Multi-Drug Resistant Organisms: None Reported Past Surgical History: Pacemaker Past Anesthesia/Blood Transfusion Reactions: No Reported Reaction Type of Cardiac Device: Unknown Device Placement Date:: unknown Past Psychological History: Depression Smoking Status: Former smoker - Past Family History Father Family Medical History: AICD/Pacemaker, Congestive Heart Failure (CHF) Mother History Unknown: Yes General Exam - General Exam Comments Initial Comments: PHYSICAL EXAM: General Impression: Alert and oriented x3, not in acute distress HEENT: Normocephalic atraumatic, extra-ocular movements intact, pupils equal and reactive to light bilaterally, mucous membranes moist. Cardiovascular: Heart regular rate and rhythm Chest: Able to complete full sentences, no retractions, no tachypnea Abdomen: abdomen soft, non-tender, non-distended, no organomegaly Musculoskeletal: Pulses present and equal in all extremities, no peripheral aaron ma Motor: no focal deficits noted Neurological: CN II-XII grossly intact, no focal motor or sensory deficits noted Skin: Intact with no visualized rashes Psych: Normal affect and mood Limitations: no limitations Course Vital Signs 12/18/24 12/18/24 17:45 19:09 Temperature 98.5 F Pulse Rate 80 89 Respiratory 24 16 Rate Blood Pressure 153/103 185/98 O2 Sat by Pulse 94 L 97 Oximetry Medical Decision Making - Medical Decision Making Was pt. sent in by a medical professional or institution (, [facility], COAL HANDLING SUPERVISOR, urgent care, hospital, or snf...) When possible be specific @ -No Did you speak to anyone other than the patient for history (EMS, parent, family, police, friend...)? What history was obtained from this source @ -No Did you review nursing and triage notes (agree or disagree)? Why? @ -I reviewed and agree with nursing and triage notes Were old charts reviewed (outside hosp., previous admission, EMS record, old EKG, old radiological studies, urgent care reports/EKG's, snf records)? Report findings @ -No old charts were reviewed Differential Diagnosis (chest pain, altered mental status, abdominal pain women, abdominal pain men, vaginal bleeding, musculoskeletal, weakness, fever, dyspnea, syncope, headache, dizziness, GI bleed, back pain, seizure, CVA, palpatations, mental health)? @ -Hypertensive urgency, hypertensive emergency, aortic dissection EKG interpreted by me (3pts min.). @ -My EKG interpretation: Ventricular rate 70, sinus rhythm, WY interval 229, QRS 90, QTc 391. No WY prolongation, no QTC prolongation, no ST or T-wave changes noted. Overall, this EKG is unremarkable X-rays interpreted by me (1pt min.). @ -Chest x-ray is nonacute CT interpreted by me (1pt min.). @ -None done U/S interpreted by me (1pt. min.). @ -None done What testing was considered but not performed or refused? (CT, X-rays, U/S, labs)? Why? @ -None What meds were considered but not given or refused? Why? @ -None Was smoking cessation discussed for >3mins.? @ -No Were there social determinants of health that impacted care today? How? (Homelessness, low income, unemployed, alcoholism, drug addiction, transp ortation, low edu. Level, literacy, decrease access to med. care, nursing home, rehab)? @ -No Was there de-escalation of care discussed even if they declined (Discuss DNR or withdrawal of care, Hospice)? DNR status @ -No What co-morbidities impacted this encounter? (DM, HTN, Smoking, COPD, CAD, Cancer, CVA, ARF, Chemo, Hep., AIDS, mental health diagnosis, sleep apnea, morbid obesity)? @ -Hypertension Was patient admitted / discharged? Hospital course, mention meds given and route, prescriptions, significant lab abnormalities, going to OR and other pertinent info. @ -77-year-old Did you discuss the management of the patient with other professionals (professionals i.e. , PA, COAL HANDLING SUPERVISOR, lab, RT, psych nurse, social studies teacher, marble finisher, teacher, correction officer head, case assistant)? Give summary @ -54-year-old male presents to the ER for hypertension. Patient has no symptoms of hypertensive emergency. Vital signs stable. Laboratory evaluations unremarkable. Patient given small dose of hydralazine. Patient feels at baseline will be discharged advised follow-up with primary care doctor. Was critical care preformed (if so, how long)? @ -No Undiagnosed new problem with uncertain prognosis? @ -No Drug Therapy requiring intensive monitoring for toxicity (Heparin, Nitro, Insulin, Cardizem)? @ -No Were any procedures done? @ -No Diagnosis/symptom? Acute, or Chronic, or Acute on Chronic? Uncomplicated (without systemic symptoms) or Complicated (systemic symptoms)? @ -Asymptomatic hypertension Side effects of treatment? @ -No Exacerbation, Progression, or Severe Exacerbation? @ -No Poses a threat to life or bodily function? How? (Chest pain, USA, [place], pneumonia, PE, COPD, DKA, ARF, appy, cholecystitis, CVA, Diverticulitis, Homicidal, Suicidal, threat to staff... and all critical care pts) @ -No - Lab Data Result diagrams: 12/18/24 18:27 12/18/24 18:27 Lab Results 12/18/24 12/18/24 Range/Units 18:27 18:27 WBC 9.46 (4.50-10.00) 10*3/uL RBC 3.68 L (4.40-5.60) 10*6/uL Hgb 11.4 L (13.0-17.0) g/dL Hct 34.7 L (39.6-50.0) % MCV 94.3 (80.0-97.0) fL MCH 31.0 (27.0-32.0) pg MCHC 32.9 (32.0-37.0) g/dL Plt Count 270 (140-440) 10*3/uL MPV 9.4 L (9.5-12.2) fL Immature Gran % (Auto) 0.7 % Neutrophils % 71.5 % Lymphocytes % 13.2 % Monocytes % 8.7 % Eosinophils % 5.1 % Basophils % 0.8 % Immature Gran # 0.07 H (0.00-0.04) 10*3/uL Neutrophils # 6.76 (1.80-7.70) 10*3/uL Lymphocytes # 1.25 (0.90-5.00) 10*3/uL Monocytes # 0.82 (0.20-1.00) 10*3/uL Eosinophils # 0.48 H (0.04-0.35) 10*3/uL Basophils # 0.08 (0.00-0.10) 10*3/uL Sodium 140 (137-145) mmol/L Potassium 4.1 (3.5-5.1) mmol/L Chloride 98 (98-107) mmol/L Carbon Dioxide 35 H (22-30) mmol/L Anion Gap 7 mmol/L BUN 17 (9-20) mg/dL Creatinine 1.25 (0.66-1.25) mg/dL Est GFR (CKD-EPI)AfAm 76 (>60 ml/min/1.73 sqM) Est GFR (CKD-EPI)NonAf 65 (>60 ml/min/1.73 sqM) Glucose 100 H (74-99) mg/dL Calcium 9.4 (8.4-10.2) mg/dL Disposition Clinical Impression: Asymptomatic hypertension Disposition: HOME SELF-CARE Condition: Fair Instructions (If sedation given, give patient instructions): Hypertension (ED) Is patient prescribed a controlled substance at d/c from ED?: No Referrals: Michel Degroot MD [Primary Care Provider] - 1-2 days Time of Disposition: 19:54
[2024-12-18 18:50] LABS: Basophils # (A) 0.08 10*3/uL (0.00-0.10); Basophils % (A) 0.8 %; Eosinophils # (A) 0.48 10*3/uL (0.04-0.35); Eosinophils % (A) 5.1 %; HCT 34.7 % (39.6-50.0); HGB 11.4 g/dL (13.0-17.0); Lymphocytes # (A) 1.25 10*3/uL (0.90-5.00); Lymphocytes % (A) 13.2 %; MCH 31.0 pg (27.0-32.0); MCHC 32.9 g/dL (32.0-37.0); MCV 94.3 fL (80.0-97.0); Monocytes # (A) 0.82 10*3/uL (0.20-1.00); Monocytes % (A) 8.7 %; Neutrophils # (A) 6.76 10*3/uL (1.80-7.70); Neutrophils % (A) 71.5 %; Platelet Count 270 10*3/uL (140-440); RBC 3.68 10*6/uL (4.40-5.60); RDW 15.9 % (11.5-14.5); WBC 9.46 10*3/uL (4.50-10.00)
[2024-12-18 19:08] LABS: African American GFR (CKD) 76 (>60 ml/min/1.73 sqM); Anion Gap 7 mmol/L; Blood Urea Nitrogen 17 mg/dL (9-20); Calcium 9.4 mg/dL (8.4-10.2); Carbon Dioxide 35 mmol/L (22-30); Chloride 98 mmol/L (98-107); Glucose 100 mg/dL (74-99); Non-African American GFR(CKD) 65 (>60 ml/min/1.73 sqM); Potassium 4.1 mmol/L (3.5-5.1); Sodium 140 mmol/L (137-145)
--- NOTE | 2024-12-18 19:27 | XR ---
EXAMINATION TYPE: XR chest 2V DATE OF EXAM: 12/18/2024 7:18 PM COMPARISON: Multiple radiographs, with the most recent on 12/14/2024 TECHNIQUE: XR chest 2V Frontal and lateral views of the chest. CLINICAL INDICATION:Male, 54 years old with history of hypertension; FINDINGS: Lungs/Pleura: There is no evidence of pleural effusion, focal consolidation, or pneumothorax. Pulmonary vascularity: Central pulmonary vasculature prominence is redemonstrated. Heart/mediastinum: Cardiomediastinal silhouette is enlarged and stable. Two lead cardiac conduction d evice overlying the left hemithorax with lead tips projecting over the right ventricle and right atri um. Musculoskeletal: No acute osseous pathology. IMPRESSION: No acute cardiopulmonary disease/process. [facility], , 12/18/2024 7:24 PM
[2024-12-18] MEDS: hydrALAZINE HCL 20 MG/ML 1 ML VIAL IVP STA (19:51)
[2024-12-18 20:04] VITALS: BP 171/97; PULSE 67; RESP 20
== END 2024-12-18 20:09 | disposition home or self-care (01) ==
LOC: EC 17:43
DX: I10 Essential (primary) hypertension (principal); Z87.891 Personal history of nicotine dependence; Z88.0 Allergy status to penicillin
CPT/HCPCS: 36415; 93005; 80048; 85025; 71046; 99284; 96374; J0360

== ENCOUNTER 2024-12-19 00:05 | Emergency (ER) | payer OTHER ==
[2024-12-19] MEDS: hydrALAZINE HCL 20 MG/ML 1 ML VIAL IVP STA (01:14)
[2024-12-19 01:17] LABS: Basophils # (A) 0.06 10*3/uL (0.00-0.10); Basophils % (A) 0.6 %; Eosinophils # (A) 0.40 10*3/uL (0.04-0.35); Eosinophils % (A) 3.8 %; HCT 36.1 % (39.6-50.0); HGB 11.6 g/dL (13.0-17.0); Lymphocytes # (A) 1.20 10*3/uL (0.90-5.00); Lymphocytes % (A) 11.5 %; MCH 30.3 pg (27.0-32.0); MCHC 32.1 g/dL (32.0-37.0); MCV 94.3 fL (80.0-97.0); Monocytes # (A) 0.86 10*3/uL (0.20-1.00); Monocytes % (A) 8.2 %; Neutrophils # (A) 7.84 10*3/uL (1.80-7.70); Neutrophils % (A) 75.2 %; Platelet Count 258 10*3/uL (140-440); RBC 3.83 10*6/uL (4.40-5.60); RDW 16.3 % (11.5-14.5); WBC 10.43 10*3/uL (4.50-10.00)
[2024-12-19 01:40] LABS: ALT 27 U/L (4-49); AST 22 U/L (17-59); African American GFR (CKD) >90 (>60 ml/min/1.73 sqM); Albumin 3.7 g/dL (3.5-5.0); Alkaline Phosphatase 89 U/L (38-126); Anion Gap 6 mmol/L; Blood Urea Nitrogen 25 mg/dL (9-20); Calcium 9.8 mg/dL (8.4-10.2); Carbon Dioxide 33 mmol/L (22-30); Chloride 100 mmol/L (98-107); Glucose 129 mg/dL (74-99); Non-African American GFR(CKD) >90 (>60 ml/min/1.73 sqM); Potassium 3.8 mmol/L (3.5-5.1); Sodium 139 mmol/L (137-145); Total Protein 6.3 g/dL (6.3-8.2)
[2024-12-19 01:49] LABS: NT-Pro-B-Type Natriuretic Pept 173 pg/mL
--- NOTE | 2024-12-19 02:13 | ED ---
General Adult HPI - General Chief complaint: Recheck/Abnormal Lab/Rx Stated complaint: Hypertension Time Seen by Provider: 12/19/24 00:16 Source: patient Mode of arrival: EMS Limitations: no limitations - History of Present Illness Initial comments: This patient is a 54-year-old man with history of hypertension, who complains that his blood pressure has been elevated at home. Patient states that he was seen here earlier for the same complaint, his blood pressure was controlled and he went home. When he got back home his blood pressure was again elevated. The patient is denying complaints related to the blood pressure but states that he is very anxious about it being elevated. He indicates that the blood pressure was around 160/100. The patient does not have any neurologic symptoms. No chest pain. The patient does have some underlying dyspnea due to chronic lung disease and is on oxygen but states he has not noticed a change in his res piratory status. No change in urination or bowel movements. No leg edema -: hour(s) Severity scale (1-10): 0 Consistency: intermittent Improves with: medication Worsens with: none Associated Symptoms: denies other symptoms Treatments Prior to Arrival: none - Related Data Home Medications Medication Instructions Recorded Confirmed Oxybutynin Chloride [oxyBUTYnin 15 mg PO DAILY 02/19/22 12/23/24 chloride ER] Ibuprofen [Motrin] 400 mg PO TID PRN 07/07/24 12/23/24 Acetaminophen Tab [Tylenol] 650 mg PO Q6H PRN 10/12/24 12/23/24 Famotidine [Pepcid] 20 mg PO BID 10/12/24 12/23/24 Ergocalciferol [Vitamin D2 (1250 1,250 mcg PO MO 11/16/24 12/23/24 Mcg = 80243 Iu)] Previous Rx's Medication Instructions Recorded Albuterol Sulfate [Albuterol 1 puff INHALATION RT-Q4H PRN #1 inh 12/23/24 Sulfate Hfa] Aspirin 81 mg PO DAILY 30 Days #30 tab 12/23/24 Atorvastatin [Lipitor] 20 mg PO HS 30 Days #30 tab 12/23/24 Colchicine [Colcrys] 0.6 mg PO BID 30 Days #60 each 12/23/24 Isosorbide Mononitrate ER [Imdur] 30 mg PO DAILY 30 Days #30 tab 12/23/24 Triamterene-Hctz 37.5-25Mg 1 each PO DAILY 30 Days #30 cap 12/23/24 [Dyazide 37.5-25 Capsule] carvediloL [Coreg] 6.25 mg PO BID-W/MEALS 30 Days #60 12/23/24 tab lisinopriL [Zestril] 20 mg PO DAILY #30 tab 12/23/24 Allergies Allergy/AdvReac Type Severity Reaction Status Date / Time Penicillins Allergy Anaphylaxis Verified 12/23/24 10:52 Review of Systems ROS Statement: Those systems with pertinent positive or pertinent negative responses have been documented in the HPI. ROS Other: All systems not noted in ROS Statement are negative. Constitutional: Denies: fever, chills, weakness Respiratory: Reports: dyspnea (Chronic). Denies: cough, wheezes Cardiovascular: Reports: dyspnea on exertion (Chronic). Denies: chest pain, palpitations, orthopnea, edema, syncope Gastrointestinal: Denies: abdominal pain, nausea, vomiting, diarrhea Genitourinary: Denies: dysuria, hematuria Musculoskeletal: Denies: back pain Skin: Denies: rash Neurological: Denies: headache, weakness, confusion Past Medical History Past Medical History: Asthma, Hypertension Additional Past Medical History / Comment(s): back pain, migraines, History of Any Multi-Drug Resistant Organisms: None Reported Past Surgical History: Pacemaker Past Anesthesia/Blood Transfusion Reactions: No Reported Reaction Type of Cardiac Device: Unknown Device Placement Date:: unknown Past Psychological History: Depression Smoking Status: Former smoker - Past Family History Father Family Medical History: AICD/Pacemaker, Congestive Heart Failure (CHF) Mother History Unknown: Yes General Exam Limitations: no limitations General appearance: alert, in no apparent distress, obese Head exam: Present: atraumatic, normocephalic Eye exam: Present: normal appearance. Absent: scleral icterus, conjunctival injection ENT exam: Present: normal oropharynx Neck exam: Present: normal inspection Respiratory exam: Present: normal lung sounds bilaterally, wheezes, other (There is mild tachypnea). Absent: respiratory distress, rales, rhonchi, stridor, accessory muscle use Cardiovascular Exam: Present: regular rate, normal rhythm, normal heart sounds. Absent: systolic murmur, diastolic murmur, rubs, gallop GI/Abdominal exam: Present: soft. Absent: distended, tenderness, guarding, rebound, rigid, mass Extremities exam: Present: normal inspection, normal capillary refill. Absent: pedal edema, calf tenderness Back exam: Present: normal inspection. Absent: CVA tenderness (R), CVA tenderness (L) Neurological exam: Present: alert Skin exam: Present: warm, dry, intact, normal color. Absent: rash Course Vital Signs 12/19/24 12/19/24 00:06 06:37 Temperature 97.8 F 98.5 F Pulse Rate 72 87 Respiratory 21 20 Rate Blood Pressure 152/81 164/95 O2 Sat by Pulse 92 L 95 Oximetry EKG Findings - EKG Comments: EKG Findings:: The patient has paced rhythm at 73 bpm - PR, Pacemaker, Normal: Pacemaker: ventricular pacing w/capture (except when refractory) (Rate 73 bpm) Medical Decision Making - Medical Decision Making Patient is 54-year-old man here with asymptomatic hypertension. The patient does have chronic hypertension. The patient has workup which is unremarkable. Given the patient's underlying respiratory status he was observed a number of hours in the emergency department to ensure that there was not developing CHF/pulmonary edema. He remained stable and stated that his breathing was at his baseline. In light of this the patient blood pressure had improved and he wanted to go home. Discussed appropriate follow-up and return parameters. The patient had chest x-ray that I interpreted as negative for acute infiltrate, pneumothorax, congestive heart failure Was pt. sent in by a medical professional or institution ([facility] Sosa, GUT SNATCHER, urgent care, hospital, or detention...) When possible be specific @ -[No] Did you speak to anyone other than the patient for history (EMS, parent, family, police, friend...)? What history was obtained from this source @ -[No] Did you review nursing and triage notes (agree or disagree)? Why? @ -[I reviewed and agree with nursing and triage notes] Were old charts reviewed (outside hosp., previous admission, EMS record, old EKG, old radiological studies, urgent care reports/EKG's, detention records)? Report findings @ -[Yes, old charts were reviewed] Differential Diagnosis (chest pain, altered mental status, abdominal pain women, abdominal pain men, vaginal bleeding, weakness, fever, dyspnea, syncope, headache, dizziness, GI bleed, back pain, seizure, CVA, palpatations, mental health, musculoskeletal)? @ -[Amphetamine Toxicity Anxiety Disorders Apnea, Sleep Cocaine-Related Cardiomyopathy Heart Failure Hyperthyroidism, Thyroid Storm, and Graves Disease Hypertrophic Cardiomyopathy Myocardial Infarction Phencyclidine Toxicity Primary Aldosteronism Stroke, Hemorrhagic Stroke, Ischemic EKG interpreted by me (3pts min.). @ -[I interpreted as above] X-rays interpreted by me (1pt min.). @ -[I interpreted as above CT interpreted by me (1pt min.). @ -[None done] U/S interpreted by me (1pt. min.). @ -[None done] What testing was considered but not performed or refused? (CT, X-rays, U/S, labs)? Why? @ -[None] What meds were considered but not given or refused? Why? @ -[None] Did you discuss the management of the patient with other professionals (professionals i.e. , PA, GUT SNATCHER, lab, RT, psych nurse, director of social services, eye glass frame polisher, teacher, president and chief operating officer, casework supervisor)? Give summary @ -[No] Was smoking cessation discussed for >3mins.? @ -[No] Was critical care preformed (if so, how long)? @ -[No] Were there social determinants of health that impacted care today? How? (Homelessness, low income, unemployed, alcoholism, drug addiction, tr ansportation, low edu. Level, literacy, decrease access to med. care, long-term, rehab)? @ -[No] Was there de-escalation of care discussed even if they declined (Discuss DNR or withdrawal of care, Hospice)? DNR status @ -[No] What co-morbidities impacted this encounter? (DM, HTN, Smoking, COPD, CAD, Ca ncer, CVA, ARF, Chemo, Hep., AIDS, mental health diagnosis, sleep apnea, morbid obesity)? @ -[Hypertension, chronic lung disease, morbid obesity, Was patient admitted / discharged? Hospital course, mention meds given and route, prescriptions, significant lab abnormalities, going to OR and other per tinent info. @ -[See above Undiagnosed new problem with uncertain prognosis? @ -[No] Drug Therapy requiring intensive monitoring for toxicity (Heparin, Nitro, Insulin, Cardizem)? @ -[No] Were any procedures done? @ -[No] Diagnosis/symptom? @ -[Acute on chronic hypertension, asymptomatic Acute, or Chronic, or Acute on Chronic? @ -[Acute on chronic Uncomplicated (without systemic symptoms) or Complicated (systemic symptoms)? @ -Uncomplicated Side effects of treatment? @ -[No] Exacerbation, Progression, or Severe Exacerbation? @ -[No] Poses a threat to life or bodily function? How? (Chest pain, [place], [place], pneumonia, PE, COPD, DKA, ARF, appy, cholecystitis, CVA, Diverticulitis, Homicidal, Suicidal, threat to staff... and all critical care pts) @ -[Over the long-term yes, hypertension is a threat, but patient currently treated and aware that he needs follow-up for possible medication adjustment All treatments are based on ideal body weight as in ED triage - Lab Data Result diagrams: 12/19/24 01:14 12/19/24 01:14 Lab Results 12/19/24 12/19/24 Range/Units 01:14 01:14 WBC 10.43 H (4.50-10.00) 10*3/uL RBC 3.83 L (4.40-5.60) 10*6/uL Hgb 11.6 L (13.0-17.0) g/dL Hct 36.1 L (39.6-50.0) % MCV 94.3 (80.0-97.0) fL MCH 30.3 (27.0-32.0) pg MCHC 32.1 (32.0-37.0) g/dL Plt Count 258 (140-440) 10*3/uL MPV 9.3 L (9.5-12.2) fL Immature Gran % (Auto) 0.7 % Neutrophils % 75.2 % Lymphocytes % 11.5 % Monocytes % 8.2 % Eosinophils % 3.8 % Basophils % 0.6 % Immature Gran # 0.07 H (0.00-0.04) 10*3/uL Neutrophils # 7.84 H (1.80-7.70) 10*3/uL Lymphocytes # 1.20 (0.90-5.00) 10*3/uL Monocytes # 0.86 (0.20-1.00) 10*3/uL Eosinophils # 0.40 H (0.04-0.35) 10*3/uL Basophils # 0.06 (0.00-0.10) 10*3/uL Sodium 139 (137-145) mmol/L Potassium 3.8 (3.5-5.1) mmol/L Chloride 100 (98-107) mmol/L Carbon Dioxide 33 H (22-30) mmol/L Anion Gap 6 mmol/L BUN 25 H (9-20) mg/dL Creatinine 0.95 (0.66-1.25) mg/dL Est GFR (CKD-EPI)AfAm >90 (>60 ml/min/1.73 sqM) Est GFR (CKD-EPI)NonAf >90 (>60 ml/min/1.73 sqM) Glucose 129 H (74-99) mg/dL Calcium 9.8 (8.4-10.2) mg/dL Total Bilirubin 0.7 (0.2-1.3) mg/dL AST 22 (17-59) U/L ALT 27 (4-49) U/L Alkaline Phosphatase 89 (38-126) U/L NT-Pro-B Natriuret Pep 173 pg/mL Total Protein 6.3 (6.3-8.2) g/dL Albumin 3.7 (3.5-5.0) g/dL Disposition Clinical Impression: Asymptomatic hypertension Disposition: HOME SELF-CARE Condition: Fair Instructions (If sedation given, give patient instructions): Chronic Hypertension (DC) Is patient prescribed a controlled substance at d/c from ED?: No Referrals: Michel Degroot MD [Primary Care Provider] - 1-2 days
--- NOTE | 2024-12-19 03:00 | XR ---
EXAM: XR Chest, 2 Views CLINICAL HISTORY: ITS.REASON XR Reason: dyspnea TECHNIQUE: Frontal and lateral views of the chest. COMPARISON: No relevant prior studies available. FINDINGS: Lungs: Unremarkable. No consolidation. Pleural space: Unremarkable. No pneumothorax. Heart: Cardiomegaly. Mediastinum: Unremarkable. Bones/joints: Unremarkable. Tubes, lines and devices: Pacemaker leads. IMPRESSION: No acute findings in the chest.
[2024-12-19 10:14] VITALS: BP 164/95; PULSE 87; RESP 20; TEMP 98.5
== END 2024-12-19 06:56 | disposition home or self-care (01) ==
LOC: EC 00:05
DX: I10 Essential (primary) hypertension (principal); Z87.891 Personal history of nicotine dependence; Z88.0 Allergy status to penicillin
CPT/HCPCS: 36415; 71046; 80053; 83880; 85025; 93005; 99284

== ENCOUNTER 2024-12-19 19:02 | Observation (INO) | payer OTHER ==
--- NOTE | 2024-12-19 19:31 | ED ---
Abdominal Pain HPI - General Chief Complaint: Abdominal Pain Stated Complaint: Abd pain Time Seen by Provider: 12/19/24 19:06 Source: patient, EMS, RN notes reviewed, old records reviewed Mode of arrival: EMS Limitations: no limitations - History of Present Illness Initial Comments: This is a 54-year-old male to the ER for evaluation today. Patient is a mildly poor historian but coming in for multiple complaints. Patient is well-known to this emergency department for issues such as hypertension abdominal pain chest pain shortness of breath. Patient has multiple visits in the last 3 days recurrent as of earlier today. Patient coming in for abdominal pain and uncontrolled blood pressure. Patient has 3 visits within the last 24 hours. MD Complaint: abdominal pain -: hour(s) Location: diffuse Radiation: none Severity: moderate Severity scale (1-10): 5 Quality: cramping Consistency: intermittent Improves With: nothing Worsens With: nothing Associated Symptoms: nausea Treatments Prior to Arrival: other - Related Data Home Medications Medication Instructions Recorded Confirmed Oxybutynin Chloride [oxyBUTYnin 15 mg PO DAILY 02/19/22 12/23/24 chloride ER] Ibuprofen [Motrin] 400 mg PO TID PRN 07/07/24 12/23/24 Acetaminophen Tab [Tylenol] 650 mg PO Q6H PRN 10/12/24 12/23/24 Famotidine [Pepcid] 20 mg PO BID 10/12/24 12/23/24 Ergocalciferol [Vitamin D2 (1250 1,250 mcg PO MO 11/16/24 12/23/24 Mcg = 44574 Iu)] Previous Rx's Medication Instructions Recorded Albuterol Sulfate [Albuterol 1 puff INHALATION RT-Q4H PRN #1 inh 12/23/24 Sulfate Hfa] Aspirin 81 mg PO DAILY 30 Days #30 tab 12/23/24 Atorvastatin [Lipitor] 20 mg PO HS 30 Days #30 tab 12/23/24 Colchicine [Colcrys] 0.6 mg PO BID 30 Days #60 each 12/23/24 Isosorbide Mononitrate ER [Imdur] 30 mg PO DAILY 30 Days #30 tab 12/23/24 Triamterene-Hctz 37.5-25Mg 1 each PO DAILY 30 Days #30 cap 12/23/24 [Dyazide 37.5-25 Capsule] carvediloL [Coreg] 6.25 mg PO BID-W/MEALS 30 Days #60 12/23/24 tab lisinopriL [Zestril] 20 mg PO DAILY #30 tab 12/23/24 Allergies Allergy/AdvReac Type Severity Reaction Status Date / Time Penicillins Allergy Anaphylaxis Verified 12/23/24 10:52 Review of Systems ROS Statement: Those systems with pertinent positive or pertinent negative responses have been documented in the HPI. ROS Other: All systems not noted in ROS Statement are negative. Past Medical History Past Medical History: Asthma, Hypertension Additional Past Medical History / Comment(s): back pain, migraines History of Any Multi-Drug Resistant Organisms: None Reported Past Surgical History: Pacemaker Past Anesthesia/Blood Transfusion Reactions: No Reported Reaction Type of Cardiac Device: Unknown Device Placement Date:: unknown Past Psychological History: Depression Smoking Status: Former smoker - Past Family History Father Family Medical History: AICD/Pacemaker, Congestive Heart Failure (CHF) Mother History Unknown: Yes General Exam Limitations: no limitations General appearance: alert, in no apparent distress Head exam: Present: atraumatic, normocephalic, normal inspection Eye exam: Present: normal appearance, PERRL, EOMI. Absent: scleral icterus, conjunctival injection, periorbital swelling ENT exam: Present: normal exam, mucous membranes moist Neck exam: Present: normal inspection. Absent: tenderness, meningismus, lymphadenopathy Respiratory exam: Present: normal lung sounds bilaterally. Absent: respiratory distress, wheezes, rales, rhonchi, stridor Cardiovascular Exam: Present: regular rate, normal rhythm, normal heart sounds. Absent: systolic murmur, diastolic murmur, rubs, gallop, clicks GI/Abdominal exam: Present: soft, normal bowel sounds. Absent: distended, tenderness, guarding, rebound, rigid Extremities exam: Present: normal inspection, full ROM, normal capillary refill. Absent: tenderness, pedal edema, joint swelling, calf tenderness Back exam: Present: normal inspection Neurological exam: Present: alert, oriented X3, CN II-XII intact Psychiatric exam: Present: normal affect, normal mood Skin exam: Present: warm, dry, intact, normal color. Absent: rash Course Vital Signs 12/19/24 12/19/24 12/19/24 19:07 20:07 20:24 Temperature 98.3 F Pulse Rate 76 63 77 Respiratory 18 20 Rate Blood Pressure 169/84 134/78 O2 Sat by Pulse 94 L 96 Oximetry 12/19/24 12/19/24 12/19/24 20:33 21:36 21:58 Temperature 97.9 F Pulse Rate 80 82 74 Respiratory 20 18 Rate Blood Pressure 125/93 128/63 O2 Sat by Pulse 92 L 94 L Oximetry - Reevaluation(s) Reevaluation #1: 12/19/24 20:31 Medical records reviewed Reevaluation #2: 12/19/24 20:31 Patient symptoms improved blood pressures also improved Reevaluation #3: 12/19/24 21:23 Patient informed of results and questions answered Reevaluation #4: Was pt. sent in by a medical professional or institution (MISSY Sosa, HOUSEHOLD REFRIGERATOR MECHANIC, urgent care, hospital, or group home...) When possible be specific @ -no Did you speak to anyone other than the patient for history (EMS, parent, family, police, friend...)? What history was obtained from this source @ -no Did you review nursing and triage notes (agree or disagree)? Why? @ -agree Are old charts reviewed (outside hosp., previous admission, EMS record, old EKG, old radiological studies, urgent care reports/EKG's, group home records)? Report findings @ -yes Differential Diagnosis (chest pain, altered mental status, abdominal pain women, abdominal pain men, vaginal bleeding, weakness, fever, dyspnea, syncope, headache, dizziness, GI bleed, back pain, seizure, CVA, palpatations, mental health, musculoskeletal)? @ -prior EKG interpreted by me (3pts min.). @ -yes X-rays interpreted by me (1pt min.). @ -yes negative for acute disease CT interpreted by me (1pt min.). @ -yes positive for pancreatitis U/S interpreted by me (1pt. min.). @ -yes negative for acute disease What testing was considered but not performed or refused? (CT, X-rays, U/S, labs)? Why? @ -none What meds were considered but not given or refused? Why? @ -none Did you discuss the management of the patient with other professionals (professionals i.e. MISSY Sosa, HOUSEHOLD REFRIGERATOR MECHANIC, lab, RT, psych nurse, social media manager, survey manager, teacher, staff air defense officer, gearcase assembler)? Give summary @ -no Was smoking cessation discussed for >3mins.? @ -no Was critical care preformed (if so, how long)? @ -no Were there social determinants of health that impacted care today? How? (H omelessness, low income, unemployed, alcoholism, drug addiction, transportation, low edu. Level, literacy, decrease access to med. care, fpc, rehab)? @ -none Was there de-escalation of care discussed even if they declined (Discuss DNR or withdrawal of care, Hospice)? DNR status @ -no What co-morbidities impacted this encounter? (DM, HTN, Smoking, COPD, CAD, Cancer, CVA, ARF, Chemo, Hep., AIDS, mental health diagnosis, sleep apnea, morbid obesity)? @ -none Was patient admitted / discharged? Hospital course, mention meds given and route, prescriptions, significant lab abnormalities, going to OR and other pertinent info. @ - 54 male to the ER for evaluation of abdominal pain. Hypertension. Patient has mild pancreatitis. Patient will be admitted for IV hydration and symptom management Admitted Undiagnosed new problem with uncertain prognosis? @ -no Drug Therapy requiring intensive monitoring for toxicity (Heparin, Nitro, Insulin, Cardizem)? @ -no Were any procedures done? @ -no Diagnosis/symptom? @ -Acute pancreatitis Acute, or Chronic, or Acute on Chronic? @ -Acute Uncomplicated (without systemic symptoms) or Complicated (systemic symptoms)? @ -Complicated Side effects of treatment? @ -no Exacerbation, Progression, or Severe Exacerbation? @ -exacerbation Poses a threat to life or bodily function? How? (Chest pain, [place], [place], pneumonia, PE, COPD, DKA, ARF, appy, cholecystitis, CVA, Diverticulitis, Homicidal, Suicidal, threat to staff... and all critical care pts) @ -yes significant obesity Reevaluation #5: differential Abdominal Pain Men: Appendicitis, cholecystitis, diverticulosis, ischemic bowel, pancreatitis, hepatitis, UTI, gastroenteritis, AAA, incarcerated hernia, bowel obstruction, constipation, inflammatory bowel, hepatitis, peptic ulcer disease, splenic infarction, perforated viscus, testicular torsion, this is not meant to be an all-inclusive list - Consultations Consultation #1: Spoke with admitting physicians who agreed to admit this patient Medical Decision Making - Medical Decision Making 54 male to the ER for evaluation of abdominal pain. Hypertension. Patient has mild pancreatitis. Patient will be admitted for IV hydration and symptom management - Lab Data Result diagrams: 12/21/24 06:57 12/21/24 06:57 Lab Results 12/19/24 12/19/24 12/19/24 Range/Units 19:31 19:31 19:31 WBC 11.72 H (4.50-10.00) 10*3/uL RBC 4.25 L (4.40-5.60) 10*6/uL Hgb 12.9 L (13.0-17.0) g/dL Hct 40.0 (39.6-50.0) % MCV 94.1 (80.0-97.0) fL MCH 30.4 (27.0-32.0) pg MCHC 32.3 (32.0-37.0) g/dL Plt Count 274 (140-440) 10*3/uL MPV 9.4 L (9.5-12.2) fL Immature Gran % (Auto) 0.7 % Neutrophils % 79.0 % Lymphocytes % 8.4 % Monocytes % 8.0 % Eosinophils % 3.1 % Basophils % 0.8 % Immature Gran # 0.08 H (0.00-0.04) 10*3/uL Neutrophils # 9.26 H (1.80-7.70) 10*3/uL Lymphocytes # 0.99 (0.90-5.00) 10*3/uL Monocytes # 0.94 (0.20-1.00) 10*3/uL Eosinophils # 0.36 H (0.04-0.35) 10*3/uL Basophils # 0.09 (0.00-0.10) 10*3/uL PT 10.7 (10.0-12.5) sec INR 1.0 (<1.2) APTT 24.5 (22.0-30.0) sec Sodium (137-145) mmol/L Potassium (3.5-5.1) mmol/L Chloride (98-107) mmol/L Carbon Dioxide (22-30) mmol/L Anion Gap mmol/L BUN (9-20) mg/dL Creatinine (0.66-1.25) mg/dL Est GFR (CKD-EPI)AfAm (>60 ml/min/1.73 sqM) Est GFR (CKD-EPI)NonAf (>60 ml/min/1.73 sqM) Glucose (74-99) mg/dL Plasma Lactic Acid Alexys (0.7-2.0) mmol/L Calcium (8.4-10.2) mg/dL Total Bilirubin (0.2-1.3) mg/dL AST (17-59) U/L ALT (4-49) U/L Alkaline Phosphatase (38-126) U/L Total Protein (6.3-8.2) g/dL Albumin (3.5-5.0) g/dL Amylase (30-110) U/L Lipase (23-300) U/L Urine Color Colorless Urine Appearance Clear (Clear) Urine pH 6.5 (5.0-8.0) Ur Specific Lyons 1.016 (1.001-1.035) Urine Protein Negative (Negative) Urine Glucose (UA) Negative (Negative) Urine Ketones Negative (Negative) Urine Blood Negative (Negative) Urine Nitrite Negative (Negative) Urine Bilirubin Negative (Negative) Urine Urobilinogen <2.0 (<2.0) mg/dL Ur Leukocyte Esterase Negative (Negative) 12/19/24 12/19/24 Range/Units 19:31 19:31 WBC (4.50-10.00) 10*3/uL RBC (4.40-5.60) 10*6/uL Hgb (13.0-17.0) g/dL Hct (39.6-50.0) % MCV (80.0-97.0) fL MCH (27.0-32.0) pg MCHC (32.0-37.0) g/dL Plt Count (140-440) 10*3/uL MPV (9.5-12.2) fL Immature Gran % (Auto) % Neutrophils % % Lymphocytes % % Monocytes % % Eosinophils % % Basophils % % Immature Gran # (0.00-0.04) 10*3/uL Neutrophils # (1.80-7.70) 10*3/uL Lymphocytes # (0.90-5.00) 10*3/uL Monocytes # (0.20-1.00) 10*3/uL Eosinophils # (0.04-0.35) 10*3/uL Basophils # (0.00-0.10) 10*3/uL PT (10.0-12.5) sec INR (<1.2) APTT (22.0-30.0) sec Sodium 138 (137-145) mmol/L Potassium 4.0 (3.5-5.1) mmol/L Chloride 96 L (98-107) mmol/L Carbon Dioxide 33 H (22-30) mmol/L Anion Gap 9 mmol/L BUN 16 (9-20) mg/dL Creatinine 0.71 (0.66-1.25) mg/dL Est GFR (CKD-EPI)AfAm >90 (>60 ml/min/1.73 sqM) Est GFR (CKD-EPI)NonAf >90 (>60 ml/min/1.73 sqM) Glucose 100 H (74-99) mg/dL Plasma Lactic Acid Alexys 1.1 (0.7-2.0) mmol/L Calcium 9.8 (8.4-10.2) mg/dL Total Bilirubin 1.0 (0.2-1.3) mg/dL AST 23 (17-59) U/L ALT 29 (4-49) U/L Alkaline Phosphatase 89 (38-126) U/L Total Protein 6.6 (6.3-8.2) g/dL Albumin 3.8 (3.5-5.0) g/dL Amylase 127 H (30-110) U/L Lipase 387 H (23-300) U/L Urine Color Urine Appearance (Clear) Urine pH (5.0-8.0) Ur Specific Lyons (1.001-1.035) Urine Protein (Negative) Urine Glucose (UA) (Negative) Urine Ketones (Negative) Urine Blood (Negative) Urine Nitrite (Negative) Urine Bilirubin (Negative) Urine Urobilinogen (<2.0) mg/dL Ur Leukocyte Esterase (Negative) - Radiology Data Radiology results: report reviewed (Chest x-ray negative CT abdomen pelvis pancreatitis ultrasound gallbladder negative for acute disease), image reviewed Disposition Clinical Impression: Atypical chest pain, Abdominal pain, Pancreatitis, Hypertension Disposition: ADMITTED IP TO THIS [facility] Condition: Stable Is patient prescribed a controlled substance at d/c from ED?: No Time of Disposition: 21:20
[2024-12-19 19:54] LABS: Basophils # (A) 0.09 10*3/uL (0.00-0.10); Basophils % (A) 0.8 %; Eosinophils # (A) 0.36 10*3/uL (0.04-0.35); Eosinophils % (A) 3.1 %; HCT 40.0 % (39.6-50.0); HGB 12.9 g/dL (13.0-17.0); Lymphocytes # (A) 0.99 10*3/uL (0.90-5.00); Lymphocytes % (A) 8.4 %; MCH 30.4 pg (27.0-32.0); MCHC 32.3 g/dL (32.0-37.0); MCV 94.1 fL (80.0-97.0); Monocytes # (A) 0.94 10*3/uL (0.20-1.00); Monocytes % (A) 8.0 %; Neutrophils # (A) 9.26 10*3/uL (1.80-7.70); Neutrophils % (A) 79.0 %; Platelet Count 274 10*3/uL (140-440); RBC 4.25 10*6/uL (4.40-5.60); RDW 16.3 % (11.5-14.5); WBC 11.72 10*3/uL (4.50-10.00)
[2024-12-19] MEDS: MORPHINE SULFATE 4 MG/ML SYRINGE IVP STA (19:59)
[2024-12-19] MEDS: ONDANSETRON 4 MG/2 ML VIAL IVP STA (19:59)
[2024-12-19] MEDS: CALCIUM CARBONATE 500 MG CHEWABLE PO STA (19:59)
[2024-12-19] MEDS: LABETALOL 5 MG/ML VIAL MDV IVP STA (20:00)
[2024-12-19] MEDS: SODIUM CHLORIDE 0.9% 1,000 ML IV SCH (20:01)
[2024-12-19 20:02] LABS: INR 1.0 (<1.2); Partial Thromboplastin Time 24.5 sec (22.0-30.0); Prothrombin Time 10.7 sec (10.0-12.5)
[2024-12-19 20:05] LABS: ALT 29 U/L (4-49); AST 23 U/L (17-59); African American GFR (CKD) >90 (>60 ml/min/1.73 sqM); Albumin 3.8 g/dL (3.5-5.0); Alkaline Phosphatase 89 U/L (38-126); Amylase 127 U/L (30-110); Anion Gap 9 mmol/L; Blood Urea Nitrogen 16 mg/dL (9-20); Calcium 9.8 mg/dL (8.4-10.2); Carbon Dioxide 33 mmol/L (22-30); Chloride 96 mmol/L (98-107); Glucose 100 mg/dL (74-99); Lipase 387 U/L (23-300); Non-African American GFR(CKD) >90 (>60 ml/min/1.73 sqM); Potassium 4.0 mmol/L (3.5-5.1); Sodium 138 mmol/L (137-145); Total Protein 6.6 g/dL (6.3-8.2)
[2024-12-19] MEDS: IPRATROPIUM-ALBUTEROL 3 ML NEB INHALATION STA (20:21)
--- NOTE | 2024-12-19 20:31 | CT ---
INDICATION: Patient age:Male; 54 years old; Reason for study: abdominal pain; PHH. COMPARISON: CTA chest 12/15/2024. TECHNIQUE: Standard CT of the abdomen and pelvis following the administration of IV contrast mater ial details of which can be found in patient's chart . Coronal and sagittal reformats were performed. One or more CT dose reduction strategies were utilized during this examination. Total DLP administer ed was 3204.4 mGycm. FINDINGS: LOWER CHEST: Unremarkable ABDOMEN LIVER: Unremarkable. GALLBLADDER AND BILE DUCTS: The gallbladder is nondistended with no gross abnormality. No biliary kimberlee waleska dilatation. PANCREAS: Slightly atrophic. SPLEEN: Unremarkable. ADRENAL GLANDS: Unremarkable. KIDNEYS AND URETERS: No evidence of hydronephrosis or renal calculus. Right kidney midpole cystic foc us measuring 13 mm. The ureters are unremarkable. PELVIS URINARY BLADDER: Incompletely distended but grossly unremarkable. REPRODUCTIVE: Coarse calcifications of the prostate gland are identified. ABDOMEN & PELVIS STOMACH AND BOWEL: Stomach is grossly unremarkable. Small bowel is of normal caliber. There is a shor t segment of small bowel demonstrating mild wall thickening in the mid abdomen. No evidence of bowel obstruction. PERITONEUM: No evidence of pneumoperitoneum. There is trace free fluid seen in the left paracolic gut ter as well as within the mid abdominal mesentery. Additionally there is moderate fat stranding in th e mid abdominal mesentery.. VASCULATURE: No aortic aneurysmal changes. MUSCULOSKELETAL: No acute osseous abnormality. LYMPH NODES: Unremarkable. SOFT TISSUE/ABDOMINAL WALL: Fat filled umbilical hernia with some surrounding fat stranding the abdom inal wall subcutaneous tissues. IMPRESSION: 1. Mid abdominal trace ascites and mesenteric inflammatory changes are seen which abut a short segme nt of small bowel and may relate to acute enteritis likely of an infectious/inflammatory etiology. Fi ndings may also relate to pancreatitis. Correlate with lipase values. 2. Small fat filled umbilical hernia with mild inflammatory changes noted in the surrounding subcutan eous tissues. Correlate for cellulitis. [facility], , 12/19/2024 8:28 PM
[2024-12-19 20:35] LABS: Bilirubin,Urine Negative (Negative); Blood,Urine Negative (Negative); Color,Urine Colorless; Glucose,Urine (UA) Negative (Negative); Ketones,Urine Negative (Negative); Leukocyte Esterase,Urine Negative (Negative); Nitrite,Urine Negative (Negative); PH, Urine 6.5 (5.0-8.0); Protein,Urine Negative (Negative); Specific Gravity,Urine 1.016 (1.001-1.035); Urobilinogen,Urine <2.0 mg/dL (<2.0)
--- NOTE | 2024-12-19 20:56 | XR ---
EXAMINATION TYPE: XR chest 2V DATE OF EXAM: 12/19/2024 7:59 PM CLINICAL INDICATION:Male, 54 years old with history of cp; PHH COMPARISON: CT abdomen and pelvis from same day TECHNIQUE: XR chest 2V Frontal view of the chest. FINDINGS: Poor penetration on exam limits evaluation. Lungs/Pleura: Low lung volumes are present. There is no gross evidence of pleural effusion, focal con solidation, or pneumothorax. Pulmonary vascularity: Unremarkable. Heart/mediastinum: Cardiomediastinal silhouette is unremarkable. Two lead cardiac conduction device o verlying the left hemithorax with lead tips projecting over the right ventricle and right atrium. Musculoskeletal: No acute osseous pathology. Other findings: None IMPRESSION: No gross evidence for acute cardiopulmonary disease/process. [facility], , 12/19/2024 8:53 PM
[2024-12-19] MEDS ORDERED: NALOXONE 0.4 MG/ML 1 ML VIAL IV PRN (21:21)
[2024-12-19] MEDS: DEXTROSE 5%-0.45% NACL 1,000 ML IV SCH (21:43)
--- NOTE | 2024-12-19 22:18 | US ---
EXAMINATION TYPE: US gallbladder DATE OF EXAM: 12/19/2024 COMPARISON: CT abdomen/pelvis from same day. CLINICAL INDICATION: Male, 54 years old with history of pain; TECHNIQUE: Grayscale and color Doppler imaging of the right upper quadrant was performed. FINDINGS: EXAM MEASUREMENTS: Liver Length: 15.4 cm Gallbladder Wall: 0.2 cm CBD: 0.5 cm Right Kidney: 10.8 x 4.4 x 5.2 cm [employer] MECHANIC NOTES:Extremely limited due to patient body habitus and bowel gas Pancreas: Obscured by bowel gas Liver: not well seen, scanned through ribs. Left lobe not visualized. Gallbladder: Unable to determine presence of sludge or stones. No wall thickening. Evidence for sonographic Restrepo's sign: neg CBD: wnl Right Kidney: Not well visualized IMPRESSION: Very limited essentially nondiagnostic abdominal ultrasound given patient's body habitus and overlyin g bowel gas obscuring majority of the intra-abdominal structures. Common bile duct does measure withi n normal size limits. However patient did have a CT abdomen from the same day. Please refer to the fi ndings on the CT abdomen/pelvis study from the same day for further details. [facility], , 12/19/2024 10:15 PM
--- NOTE | 2024-12-19 23:21 | P.HPIM ---
History of Present Illness H&P Date: 12/19/24 Patient is a 54 y/o M presenting with abdominal pain and constipation. Patient is a poor historian, tough to understand words and very drowsy - fell asleep mid sentence. HPI mostly obtained from ER physician note and limited info from patient. He endorses abdominal pain, nausea, constipation. Denies any vomiting, diarrhea, palpitations, edema, or sweating. Of note patient has had 3 admissions in the past month. On 12/07 he was d/ to get outpt sleep study for CPAP. On 12/12 D/C after coming in with chest pain and cleared by cardiology with no intervention. On 12/17 discharged after coming in with SOB and being diagnosed with likely pickwickian syndrome. On arrival to ER today his BP was elevated 169/84, given 20mg labetalol which normalized BP. PMHx: Asthma, Hypertension, Pacemaker, Pickwikian syndrome Family Hx: Dad has pacemaker and CHF Social Hx: Lives with phyllis in [place], is on disability HRB: Denies tobacco, alcohol, drugs Allergies: Penicillins - Anaphylaxis Imaging: GB U/S: Non diagnostic, too much artifact CTAP: Enteritis vs pancreatitis, correlate with lipase Labs: WBC: 11.7 HGB: 12.9 Glucose: 100 Amylase: 127 Lipase: 387 Lactic Acid: 1.1 Vitals: In ED 169/84, 128/63 now Pulse: 75 RR: 18 Temp: 97.9 SAO2: 94 Review of systems: Pertinent positives and negatives as discussed in HPI, a complete review of systems was performed and all other systems are negative. Physical examination: Vital signs reviewed General: non toxic, no distress, appears at stated age, normal weight Derm: no unusual rashes/lesions, warm Head: atraumatic, normocephalic, symmetric Eyes: EOMI, anicteric sclera, pupils equal round reactive to light ENT: Nose and ears atraumatic Neck: No cervical lymphadenopathy, trachea midline, supple Mouth: no lip lesion, mucus membranes moist Cardiovascular: S1S2 reg, no murmur, positive dorsalis pedis pulse bilateral, no edema Lungs: CTA bilateral, no rhonchi, no rales, no accessory muscle use Abdominal: soft, nontender to palpation, no guarding, TTP all 4 quadrants, BS present, No rebound tenderness Ext: muscle strength 5 out of 5 in all 4 extremities grossly, no gross muscle atrophy Neuro: CN II-XI grossly intact, no gross focal neuro deficits Psych: Alert, oriented to person, place, and time Assessment/Plan: 54 y/o M with elevated lipase (387), Amylase (127), abdominal pain and constipation all likely 2/2 acute pancreatits #Acute Pancreatitis Pt has elevated amylase/lipase combined with imaging and clinical findings of pancreatitis. Will need to provide fluids and monitor vitals during admission Plan: -Lactated ringers, 1.5 mL/kg/hr -Monitor vitals (SPO2, Urine output) every 2 hours -CBC, BMP, HCT Q6hr to mintor perfusion and fluid resuscitation -Serial physical exam ever 6 hour to assess for abdominal compartment syndrome #Class III Obesity #Obesity Hypoventilation Syndrome #Pickwickian Syndrome Plan: -F/U with sleep study outpatient to get CPAP #HTN #Hx of pacemaker Chronic condition Plan: -Continue atorvastatin 20mg, carvedilol 3.125mg BID, Lisinopril 20mg #Asthma Chronic Plan: -Albuterol PRN DVT prophylaxis: [Lovenox 40mg BID d/t BMI 50+] The patient is admitted with an anticipated greater than 2 midnight stay for evaluation of acute pancreatitis CODE STATUS: [FULL CODE] Discussed with: [Dr Otoole] Anticipated discharge place: [Home] I have seen and evaluated the patient today. I Discussed the case with the resident and agree with the resident's findings I edited the assessment and plan as necessary as documented in the resident's note. Past Medical History Past Medical History: Asthma, Hypertension Additional Past Medical History / Comment(s): back pain, migraines History of Any Multi-Drug Resistant Organisms: None Reported Past Surgical History: Pacemaker Past Anesthesia/Blood Transfusion Reactions: No Reported Reaction Type of Cardiac Device: Unknown Device Placement Date:: unknown Past Psychological History: Depression Smoking Status: Former smoker, Vaper, Unknown if ever smoked Past Alcohol Use History: Rare Past Drug Use History: None Reported - Past Family History Father Family Medical History: AICD/Pacemaker, Congestive Heart Failure (CHF) Mother History Unknown: Yes Medications and Allergies Home Medications Medication Instructions Recorded Confirmed Type Oxybutynin Chloride [oxyBUTYnin 15 mg PO DAILY 02/19/22 12/16/24 History chloride ER] Albuterol Sulfate [Albuterol 1 puff INHALATION RT-Q4H PRN 07/07/24 12/16/24 History Sulfate Hfa] Ibuprofen [Motrin] 400 mg PO TID PRN 07/07/24 12/16/24 History Acetaminophen Tab [Tylenol] 650 mg PO Q6H PRN 10/12/24 12/16/24 History Famotidine [Pepcid] 20 mg PO BID 10/12/24 12/16/24 History Ergocalciferol [Vitamin D2 (1250 1,250 mcg PO MO 11/16/24 12/16/24 History Mcg = 59397 Iu)] Aspirin 81 mg PO DAILY 30 Days #30 tab 11/17/24 12/16/24 Rx Atorvastatin [Lipitor] 20 mg PO HS 30 Days #30 tab 11/17/24 12/16/24 Rx Isosorbide Mononitrate ER [Imdur] 30 mg PO DAILY 30 Days #30 tab 11/17/24 12/16/24 Rx carvediloL [Coreg] 3.125 mg PO BID-W/MEALS 30 Days 11/17/24 12/16/24 Rx #60 tab lisinopriL [Zestril] 20 mg PO DAILY #30 tab 12/07/24 12/16/24 Rx Allergies Allergy/AdvReac Type Severity Reaction Status Date / Time Penicillins Allergy Anaphylaxis Verified 12/19/24 00:11 Physical Exam Vitals: Vital Signs Temp Pulse Pulse Resp BP BP Pulse Ox 12/19/24 22:43 98 F 67 18 108/59 98 12/19/24 21:58 97.9 F 74 18 128/63 94 L 12/19/24 21:36 82 20 125/93 92 L 12/19/24 20:33 80 12/19/24 20:24 77 12/19/24 20:07 63 20 134/78 96 12/19/24 19:07 98.3 F 76 18 169/84 94 L Intake and Output 12/19/24 12/19/24 12/19/24 06:59 14:59 22:59 Other: Weight 151.046 kg Results CBC & Chem 7: 12/19/24 19:31 12/19/24 19:31 Labs: Abnormal Lab Results - Last 24 Hours (Table) 12/19/24 12/19/24 Range/Units 19:31 19:31 WBC 11.72 H (4.50-10.00) 10*3/uL RBC 4.25 L (4.40-5.60) 10*6/uL Hgb 12.9 L (13.0-17.0) g/dL MPV 9.4 L (9.5-12.2) fL Immature Gran # 0.08 H (0.00-0.04) 10*3/uL Neutrophils # 9.26 H (1.80-7.70) 10*3/uL Eosinophils # 0.36 H (0.04-0.35) 10*3/uL Chloride 96 L (98-107) mmol/L Carbon Dioxide 33 H (22-30) mmol/L Glucose 100 H (74-99) mg/dL Amylase 127 H (30-110) U/L Lipase 387 H (23-300) U/L Thrombosis Risk Factor Assmnt - Choose All That Apply Any of the Below Risk Factors Present?: No Other Risk Factors: No Other congenital or acquired thrombophilia - If yes, enter type in comment: No Thrombosis Risk Factor Assessment Level: Very Low Risk
[2024-12-20] MEDS: ONDANSETRON 4 MG/2 ML VIAL IVP PRN (00:19)
[2024-12-20 01:05] LABS: Bilirubin,Urine Negative (Negative); Blood,Urine Negative (Negative); Color,Urine Light Yellow; Glucose,Urine (UA) Negative (Negative); Ketones,Urine Negative (Negative); Leukocyte Esterase,Urine Negative (Negative); Nitrite,Urine Negative (Negative); PH, Urine 6.0 (5.0-8.0); Protein,Urine Trace (Negative); Urobilinogen,Urine <2.0 mg/dL (<2.0)
[2024-12-20 01:12] LABS: Specific Gravity,Urine >1.050 (1.001-1.035)
[2024-12-20] MEDS: SODIUM CHLORIDE 0.9% 1,000 ML IV ONE (01:20)
[2024-12-20] MEDS: LACTATED RINGERS 1,000 ML IV SCH ×2 (02:56→17:06)
[2024-12-20 07:32] LABS: HCT 38.1 % (39.6-50.0); HGB 11.9 g/dL (13.0-17.0); MCH 30.4 pg (27.0-32.0); MCHC 31.2 g/dL (32.0-37.0); MCV 97.4 fL (80.0-97.0); RBC 3.91 10*6/uL (4.40-5.60); RDW 16.8 % (11.5-14.5); WBC 11.12 10*3/uL (4.50-10.00)
[2024-12-20 07:33] LABS: Basophils # (A) 0.07 10*3/uL (0.00-0.10); Basophils % (A) 0.6 %; Eosinophils # (A) 0.26 10*3/uL (0.04-0.35); Eosinophils % (A) 2.3 %; Lymphocytes # (A) 0.89 10*3/uL (0.90-5.00); Lymphocytes % (A) 8.0 %; Monocytes # (A) 0.79 10*3/uL (0.20-1.00); Monocytes % (A) 7.1 %; Neutrophils # (A) 9.06 10*3/uL (1.80-7.70); Neutrophils % (A) 81.6 %; Platelet Count 301 10*3/uL (140-440)
[2024-12-20] MEDS: PANTOPRAZOLE 40 MG/10 ML VIAL IV SCH (07:43)
[2024-12-20] MEDS: ENOXAPARIN 40 MG/0.4 ML SYRINGE SQ SCH (07:44)
[2024-12-20 07:52] LABS: ALT 26 U/L (4-49); AST 19 U/L (17-59); African American GFR (CKD) >90 (>60 ml/min/1.73 sqM); Albumin 3.7 g/dL (3.5-5.0); Alkaline Phosphatase 77 U/L (38-126); Anion Gap 6 mmol/L; Blood Urea Nitrogen 16 mg/dL (9-20); Calcium 9.4 mg/dL (8.4-10.2); Carbon Dioxide 31 mmol/L (22-30); Chloride 102 mmol/L (98-107); Glucose 115 mg/dL (74-99); Lipase 1408 U/L (23-300); Magnesium 1.8 mg/dL (1.6-2.3); Non-African American GFR(CKD) >90 (>60 ml/min/1.73 sqM); Potassium 4.5 mmol/L (3.5-5.1); Sodium 139 mmol/L (137-145); Total Protein 6.2 g/dL (6.3-8.2)
--- NOTE | 2024-12-20 11:30 | P.PN ---
Subjective Progress Note Date: 12/20/24 Principal diagnosis: 54 y.o M with PMHx of HTN, morbid obesity, and asthma presenting with abdominal pain, nausea, constipation, a/f acute pancreatitis. Hospital Course: On presentation lipase 387, and amylase 127. In ED CT A P was obtained which showed enteritis vs pancreatitis, Gallbladder US was non- diagnostic d/t body habitus. Pt was made NPO and started on aggressive IVFs of LR 225cc/hr. Interval History: no acute events, hemodynamically stable and afebrile overnight. Reports some abdominal pain, and states he is thirsty. No other symptoms reported. Review of systems: Pertinent positives and negatives as discussed in HPI, a complete review of systems was performed and all other systems are negative. Physical examination: Vital signs reviewed General: non toxic, no distress, obese Derm: no unusual rashes/lesions, warm Head: atraumatic, normocephalic, symmetric Eyes: EOMI, anicteric sclera ENT: Nose and ears atraumatic Neck: No cervical lymphadenopathy, trachea midline, supple Resp: on 2L NC saturating in 90s, no use of accessory muscles Abdominal: soft, nontender to palpation, no guarding, no rebound tenderness Neuro: CN II-XI grossly intact, no gross focal neuro deficits Psych: Alert, oriented to person, place, and time Pertinent Labs WBC 11.72 > 11.12 Amylase 127 Lipase 387 > 1408 Pertinent Imagin/5 GB U/S: Non diagnostic, d/t body habitus and too much artifact / CTA: Enteritis vs pancreatitis, correlate with lipase Assessment/Plan: 54 y.o M with PMHx of HTN, morbid obesity, and asthma presenting with abdominal pain, nausea, constipation, a/f acute pancreatitis. #Acute Pancreatitis, etiology unknown - elevated amylase/lipase with CT findings of pancreatitis, currently on 225cc/hr LR - can start pt on PO intake with clear liquid diet, based on BISAP score pt has mild pancreatitis with improvements in symptoms - c/w 225cc/hr LR for now, if able to tolerate PO intake can decrease to 150cc/hr LR - obtain lipid panel to determine if pancreatitis is secondary to triglyceridemia, as pt denies alcohol consumption and imaging is negative for gallstones Chronic #Class III Obesity #Obesity Hypoventilation Syndrome - outpt sleep study - while in pt avoid narcotics, and place on CPAP overnight, and oxygen via NC PRN #Asthma #HTN #Hx of pacemaker - resume home carvedilol 3.125mg BID, and Lisinopril 20mg - hold statin until pancreatitis resolves Winnie Valverde MD PGY1 FM I have seen and evaluated the patient today. Discussed with the resident and agree with the residents finding and plan as documented in the resident's note. Changes highlighted in blue font. Objective - Vital Signs Vital signs: Vital Signs Temp 98 F 12/20/24 02:00 Pulse 74 12/20/24 02:00 Resp 20 12/20/24 03:36 BP 116/70 12/20/24 02:00 Pulse Ox 95 12/20/24 02:00 FiO2 Intake & Output 12/19/24 12/20/24 12/20/24 18:59 06:59 18:59 Weight 151.046 kg Other: Voiding Method Toilet Urinal # Voids 2 - Labs CBC & Chem 7: 12/20/24 06:42 12/20/24 06:42 Labs: Abnormal Lab Results - Last 24 Hours (Table) 12/19/24 12/19/24 12/19/24 Range/Units 19:31 19:31 23:30 WBC 11.72 H (4.50-10.00) 10*3/uL RBC 4.25 L (4.40-5.60) 10*6/uL Hgb 12.9 L (13.0-17.0) g/dL MPV 9.4 L (9.5-12.2) fL Immature Gran # 0.08 H (0.00-0.04) 10*3/uL Neutrophils # 9.26 H (1.80-7.70) 10*3/uL Eosinophils # 0.36 H (0.04-0.35) 10*3/uL Chloride 96 L (98-107) mmol/L Carbon Dioxide 33 H (22-30) mmol/L Glucose 100 H (74-99) mg/dL Amylase 127 H (30-110) U/L Lipase 387 H (23-300) U/L Ur Specific [place] >1.050 H (1.001-1.035) Urine Protein Trace H (Negative)
[2024-12-20] MEDS: ASPIRIN 81 MG PO SCH (12:31)
[2024-12-20 12:57] LABS: Cholesterol 130.00 mg/dL (0.00-200.00); HDL Cholesterol 39.30 mg/dL (40.00-60.00); LDL Cholesterol,Calculated 61.7 mg/dL (0.0-131.0); Triglycerides 145.00 mg/dL (0.00-149.00); VLDL Calculation 29.00 mg/dL (5.00-40.00)
[2024-12-20] MEDS: ACETAMINOPHEN TAB 325 MG TAB PO PRN (13:56)
[2024-12-20] MEDS: MORPHINE SULFATE 4 MG/ML SYRINGE IV PRN (19:51)
[2024-12-21 07:12] LABS: Basophils # (A) 0.07 10*3/uL (0.00-0.10); Basophils % (A) 0.9 %; Eosinophils # (A) 0.25 10*3/uL (0.04-0.35); Eosinophils % (A) 3.3 %; HCT 34.1 % (39.6-50.0); HGB 10.5 g/dL (13.0-17.0); Lymphocytes # (A) 0.99 10*3/uL (0.90-5.00); Lymphocytes % (A) 12.9 %; MCH 30.3 pg (27.0-32.0); MCHC 30.8 g/dL (32.0-37.0); MCV 98.6 fL (80.0-97.0); Monocytes # (A) 0.64 10*3/uL (0.20-1.00); Monocytes % (A) 8.3 %; Neutrophils # (A) 5.68 10*3/uL (1.80-7.70); Neutrophils % (A) 74.1 %; Platelet Count 207 10*3/uL (140-440); RBC 3.46 10*6/uL (4.40-5.60); RDW 17.0 % (11.5-14.5); WBC 7.67 10*3/uL (4.50-10.00)
[2024-12-21 07:31] VITALS: BP 155/75; PULSE 62; RESP 20; TEMP 99.1
[2024-12-21 07:36] LABS: African American GFR (CKD) >90 (>60 ml/min/1.73 sqM); Anion Gap 3 mmol/L; Blood Urea Nitrogen 14 mg/dL (9-20); Calcium 8.7 mg/dL (8.4-10.2); Carbon Dioxide 34 mmol/L (22-30); Chloride 99 mmol/L (98-107); Glucose 128 mg/dL (74-99); Non-African American GFR(CKD) >90 (>60 ml/min/1.73 sqM); Potassium 4.1 mmol/L (3.5-5.1); Sodium 136 mmol/L (137-145)
--- NOTE | 2024-12-21 15:23 | P.DS ---
Providers Date of admission: 12/19/24 21:21 Attending physician: Ana Mei MD Primary care physician: Michel Degroot MD Hospital Course: Subject: DC NOTE Discharge Diagnosis: Acute Pancreatitis, etiology unknown Class III obesity Obesity hypoventilation syndrome Hospital Course: 54 y.o M with PMHx of HTN, morbid obesity, and asthma presenting with abdominal pain, nausea, constipation, a/f acute pancreatitis. Hospital Course: On presentation lipase 387, and amylase 127. In ED CT A P was obtained which showed enteritis vs pancreatitis, Gallbladder US was non- diagnostic d/t body habitus. Pt was made NPO and started on aggressive IVFs of LR 225cc/hr with pain managment. Patient was able to tolerate clear liquids and was moved up to regular diet. Pt was advised to follow up with PCP, Michel Degroot and sleep center. Patient seen and examined at bedside. Vital signs reviewed and stable. Labs: WBC 11.72> 11.12 > 7.67 Hct 12.9 > 11.9 > 10.5 Chloride 96 > 102 > 99 Amylase 127 Lipase 387 > 1408 TG 145 Physical examination: Vital signs reviewed General: non toxic, no distress, appears at stated age, normal weight Derm: no unusual rashes/lesions, warm Head: atraumatic, normocephalic, symmetric Eyes: EOMI, anicteric sclera, pupils equal round reactive to light ENT: Nose and ears atraumatic Neck: No cervical lymphadenopathy, trachea midline, supple Mouth: no lip lesion, mucus membranes moist Cardiovascular: S1S2 reg, no murmur, positive dorsalis pedis pulse bilateral, no edema Lungs: CTA bilateral, no rhonchi, no rales, no accessory muscle use Abdominal: soft, nontender to palpation, no guarding Ext: muscle strength 5 out of 5 in all 4 extremities grossly, no gross muscle atrophy Neuro: CN II-XI grossly intact, no gross focal neuro deficits Psych: Alert, oriented to person, place, and time A total of greater than 30 minutes of time were spent preparing this complex discharge summary. Patient was discharged on 12/21/2024 at 959. Arpita Culp MD PGY-1 Dictation was produced using [employer] dictation software. please excuse any grammatical, word or spelling errors. Freda confidentiality statement: "The information contained in this communication, including attachments, is confidential, may be privileged, and is intended only for the use of the named recipient(s). Unauthorized use, disclosure, forwarding or copying is strictly prohibited and may be unlawful. If you have received this communication in error, please notify me IMMEDIATELY at the phone number or pager listed above." I have seen and evaluated the patient today. Discussed with the resident and agree with the residents finding and plan as documented in the resident's note. Changes highlighted in blue font. Patient Condition at Discharge: Stable Plan - Discharge Summary Discharge Rx Participant: Yes New Discharge Prescriptions: Continue Oxybutynin Chloride [oxyBUTYnin chloride ER] 15 mg PO DAILY Albuterol Sulfate [Albuterol Sulfate Hfa] 1 puff INHALATION RT-Q4H PRN PRN Reason: Shortness Of Breath Ibuprofen [Motrin] 400 mg PO TID PRN PRN Reason: Pain Acetaminophen Tab [Tylenol] 650 mg PO Q6H PRN PRN Reason: Pain Or Fever > 100.5 Ergocalciferol [Vitamin D2 (1250 Mcg = 61405 Iu)] 1,250 mcg PO MO carvediloL [Coreg] 3.125 mg PO BID-W/MEALS 30 Days #60 tab Atorvastatin [Lipitor] 20 mg PO HS 30 Days #30 tab Famotidine [Pepcid] 20 mg PO BID Aspirin 81 mg PO DAILY 30 Days #30 tab Isosorbide Mononitrate ER [Imdur] 30 mg PO DAILY 30 Days #30 tab lisinopriL [Zestril] 20 mg PO DAILY #30 tab Discharge Medication List Oxybutynin Chloride [oxyBUTYnin chloride ER] 15 mg PO DAILY 02/19/22 [History] Albuterol Sulfate [Albuterol Sulfate Hfa] 1 puff INHALATION RT-Q4H PRN 07/07/24 [History] Ibuprofen [Motrin] 400 mg PO TID PRN 07/07/24 [History] Acetaminophen Tab [Tylenol] 650 mg PO Q6H PRN 10/12/24 [History] Famotidine [Pepcid] 20 mg PO BID 10/12/24 [History] Ergocalciferol [Vitamin D2 (1250 Mcg = 91754 Iu)] 1,250 mcg PO MO 11/16/24 [History] Aspirin 81 mg PO DAILY 30 Days #30 tab 11/17/24 [Rx] Atorvastatin [Lipitor] 20 mg PO HS 30 Days #30 tab 11/17/24 [Rx] Isosorbide Mononitrate ER [Imdur] 30 mg PO DAILY 30 Days #30 tab 11/17/24 [Rx] carvediloL [Coreg] 3.125 mg PO BID-W/MEALS 30 Days #60 tab 11/17/24 [Rx] lisinopriL [Zestril] 20 mg PO DAILY #30 tab 12/07/24 [Rx] Follow up Appointment(s)/Referral(s): Michel Degroot MD [Primary Care Provider] - 1-2 days (Please make follow up appointment.) Patient Instructions/Handouts: Pancreatitis (DC) Activity/Diet/Wound Care/Special Instructions: Please see PCP and sleep center. Discharge Disposition: HOME SELF-CARE
== END 2024-12-21 11:18 | disposition home or self-care (01) ==
LOC: EC 19:02 → 5NMEDONC 21:21
PROVIDERS: ADMIT Internal Medicine; ATTEND Internal Medicine
DX: K85.90 Acute pancreatitis without necrosis or infection, unspecified (principal); I10 Essential (primary) hypertension; K59.00 Constipation, unspecified; E66.2 Morbid (severe) obesity with alveolar hypoventilation; E66.813 Obesity, class 3; Z68.43 Body mass index [BMI] 50.0-59.9, adult; J45.909 Unspecified asthma, uncomplicated; Z79.82 Long term (current) use of aspirin; Z79.899 Other long term (current) drug therapy; Z88.0 Allergy status to penicillin; Z87.891 Personal history of nicotine dependence; Z95.0 Presence of cardiac pacemaker
CPT/HCPCS: 96376; 96361 ×2; 96372 ×2; 96374; 96375; 99285; 36415; 94660; 94640; 80061; 80053 ×2; 80048; 82150; 83605; 83690 ×2; 83735; 84100; 85025 ×3; 85610; 85730; 81003; 71046; 76705; 74177; G0378 ×3; J2270 ×2; J2405 ×2; J1650 ×2; Q9967; J1920; J2470 ×2

== ENCOUNTER 2024-12-22 19:12 | Emergency (ER) | payer OTHER ==
--- NOTE | 2024-12-22 19:46 | ED ---
Dizziness HPI - General Chief Complaint: Dizziness Stated Complaint: Hypertension Time Seen by Provider: 12/22/24 19:20 Source: patient, EMS, RN notes reviewed Mode of arrival: EMS Limitations: no limitations - History of Present Illness Initial Comments: 54-year-old male presents emergency department chief complaint of hypertension. Patient states has been for checking his blood pressure because it has been elevated recently states it was elevated and presented emerged part via EMS. Denies any chest pain or shortness of breath he has some epigastric pain intermittently. Patient has been seen several times for this complaint and states that he ran out of his blood pressure medications. Patient denies any other associated symptoms. - Related Data Home Medications Medication Instructions Recorded Confirmed Oxybutynin Chloride [oxyBUTYnin 15 mg PO DAILY 02/19/22 12/20/24 chloride ER] Albuterol Sulfate [Albuterol 1 puff INHALATION RT-Q4H PRN 07/07/24 12/20/24 Sulfate Hfa] Ibuprofen [Motrin] 400 mg PO TID PRN 07/07/24 12/20/24 Acetaminophen Tab [Tylenol] 650 mg PO Q6H PRN 10/12/24 12/20/24 Famotidine [Pepcid] 20 mg PO BID 10/12/24 12/20/24 Ergocalciferol [Vitamin D2 (1250 1,250 mcg PO MO 11/16/24 12/20/24 Mcg = 42217 Iu)] Previous Rx's Medication Instructions Recorded Aspirin 81 mg PO DAILY 30 Days #30 tab 11/17/24 Atorvastatin [Lipitor] 20 mg PO HS 30 Days #30 tab 11/17/24 Isosorbide Mononitrate ER [Imdur] 30 mg PO DAILY 30 Days #30 tab 11/17/24 carvediloL [Coreg] 3.125 mg PO BID-W/MEALS 30 Days 11/17/24 #60 tab lisinopriL [Zestril] 20 mg PO DAILY #30 tab 12/07/24 Allergies Allergy/AdvReac Type Severity Reaction Status Date / Time Penicillins Allergy Anaphylaxis Verified 12/20/24 09:43 Review of Systems ROS Statement: Those systems with pertinent positive or pertinent negative responses have been documented in the HPI. ROS Other: All systems not noted in ROS Statement are negative. Past Medical History Past Medical History: Asthma, Hypertension Additional Past Medical History / Comment(s): back pain, migraines History of Any Multi-Drug Resistant Organisms: None Reported Past Surgical History: Pacemaker Past Anesthesia/Blood Transfusion Reactions: No Reported Reaction Type of Cardiac Device: Unknown Device Placement Date:: unknown Past Psychological History: Depression Smoking Status: Former smoker, Vaper, Unknown if ever smoked Past Alcohol Use History: Rare Past Drug Use History: None Reported - Past Family History Father Family Medical History: AICD/Pacemaker, Congestive Heart Failure (CHF) Mother History Unknown: Yes General Exam Limitations: no limitations General appearance: alert, in no apparent distress Head exam: Present: atraumatic, normocephalic, normal inspection Eye exam: Present: normal appearance, PERRL, EOMI. Absent: scleral icterus, conjunctival injection, periorbital swelling ENT exam: Present: normal exam, mucous membranes moist Neck exam: Present: normal inspection, full ROM. Absent: tenderness, meningismus, lymphadenopathy Respiratory exam: Present: normal lung sounds bilaterally. Absent: respiratory distress, wheezes, rales, rhonchi, stridor Cardiovascular Exam: Present: regular rate, normal rhythm, normal heart sounds. Absent: systolic murmur, diastolic murmur, rubs, gallop, clicks GI/Abdominal exam: Present: soft, normal bowel sounds. Absent: distended, tenderness, guarding, rebound, rigid Course Vital Signs 12/22/24 19:24 Temperature 98.2 F Pulse Rate 59 L Respiratory 18 Rate Blood Pressure 166/83 O2 Sat by Pulse 92 L Oximetry EKG Findings - EKG Comments: EKG Findings:: EKG performed at 20: 11 atrial paced with a rate of 69 [place] 234 QRS 102 QT/QTc 372/392 - EKG Results: EKG: interpreted by IGGYD Medical Decision Making - Medical Decision Making Was pt. sent in by a medical professional or institution (, PA, CONFECTIONERY MAKER, urgent care, hospital, or jail...) When possible be specific @ -No Did you speak to anyone other than the patient for history (EMS, parent, family, police, friend...)? What history was obtained from this source @ -No Did you review nursing and triage notes (agree or disagree)? Why? @ -I reviewed and agree with nursing and triage notes Were old charts reviewed (outside hosp., previous admission, EMS record, old EKG, old radiological studies, urgent care reports/EKG's, jail records)? Report findings @ -No old charts were reviewed Differential Diagnosis (chest pain, altered mental status, abdominal pain women, abdominal pain men, vaginal bleeding, weakness, fever, dyspnea, syncope, headache, dizziness, GI bleed, back pain, seizure, CVA, palpatations, mental health, musculoskeletal)? @ -Differential Palpitations Ventricular arrhythmias, atrial arrhythmias, myocardial infarction, anemia, thyrotoxicosis, electrolyte imbalance, hypokalemia, pulmonary embolism, pulmonary disease, drugs, alcohol, anxiety, stress.... This is not meant to be an all-inclusive list. EKG interpreted by me (3pts min.). @ -As above X-rays interpreted by me (1pt min.). @ -None done CT interpreted by me (1pt min.). @ -None done U/S interpreted by me (1pt. min.). @ -None done What testing was considered but not performed or refused? (CT, X-rays, U/S, labs)? Why? @ -None What meds were considered but not given or refused? Why? @ -None Did you discuss the management of the patient with other professionals (professionals i.e. , PA, CONFECTIONERY MAKER, lab, RT, psych nurse, psychiatric social worker, plumber maintenance, teacher, science and operations officer, case mgr)? Give summary @ -No Was smoking cessation discussed for >3mins.? @ -No Was critical care preformed (if so, how long)? @ -No Were there social determinants of health that impacted care today? How? (Homelessness, low income, unemployed, alcoholism, drug addiction, transportation, low edu. Level, literacy, decrease access to med. care, longterm, rehab)? @ -No Was there de-escalation of care discussed even if they declined (Discuss DNR or withdrawal of care, Hospice)? DNR status @ -No What co-morbidities impacted this encounter? (DM, HTN, Smoking, COPD, CAD, Cancer, CVA, ARF, Chemo, Hep., AIDS, mental health diagnosis, sleep apnea, morbid obesity)? @ -Hypertension Was patient admitted / discharged? Hospital course, mention meds given and route, prescriptions, significant lab abnormalities, going to OR and other pertinent info. @ -Discharge patient has been evaluated several times recently for similar complaints. EKG is unremarkable. Patient was given dose of lisinopril and discharged in stable condition. Undiagnosed new problem with uncertain prognosis? @ -No Drug Therapy requiring intensive monitoring for toxicity (Heparin, Nitro, Insulin, Cardizem)? @ -No Were any procedures done? @ -No Diagnosis/symptom? @ -Hypertension Acute, or Chronic, or Acute on Chronic? @ -Acute Uncomplicated (without systemic symptoms) or Complicated (systemic symptoms)? @ -complicated Side effects of treatment? @ -No Exacerbation, Progression, or Severe Exacerbation? @ -No Poses a threat to life or bodily function? How? (Chest pain, [place], [place], pneumonia, PE, COPD, DKA, ARF, appy, cholecystitis, CVA, Diverticulitis, Homicidal, Suicidal, threat to staff... and all critical care pts) @ -No Disposition Clinical Impression: Hypertension Disposition: HOME SELF-CARE Condition: Stable Instructions (If sedation given, give patient instructions): Hypertension (ED) Additional Instructions: Please return to the Emergency Department if symptoms worsen or any other concerns. Is patient prescribed a controlled substance at d/c from ED?: No Referrals: Michel Degroot MD [Primary Care Provider] - 1-2 days Time of Disposition: 21:00
[2024-12-22 20:18] VITALS: RESP 18; TEMP 98.2
[2024-12-22 23:27] VITALS: BP 185/109; PULSE 66
== END 2024-12-22 23:27 | disposition home or self-care (01) ==
LOC: EC 19:12
DX: I10 Essential (primary) hypertension (principal); F17.290 Nicotine dependence, other tobacco product, uncomplicated; Z88.0 Allergy status to penicillin
CPT/HCPCS: 93005; 99284

== ENCOUNTER 2024-12-23 07:15 | Observation (INO) | payer OTHER ==
--- NOTE | 2024-12-23 07:44 | ED ---
General Adult HPI - General Chief complaint: Chest Pain Stated complaint: chest pain Time Seen by Provider: 12/23/24 07:16 Source: patient Mode of arrival: EMS Limitations: no limitations - History of Present Illness Initial comments: Dictation was produced using [employer] dictation software. please excuse any grammatical, word or spelling errors. Chief Complaint: 54-year-old male presents with chest pain and hypertension History of Present Illness: Patient is a 54-year-old male presents emergency department chest pain hypertension is well-known to the emergency department for frequent visitations of hypertension. Patient states he has substernal pain. Nonradiating or associated diaphoresis or nausea. Patient states that his blood pressure is being managed by [facility] physician. Patient frequents the ER for uncontrolled hypertension. The ROS documented in this emergency department record has been reviewed and confirmed by me. Those systems with pertinent positive or negative responses have been documented in the HPI. All other systems are other negative and/or noncontributory. - Related Data Home Medications Medication Instructions Recorded Confirmed Oxybutynin Chloride [oxyBUTYnin 15 mg PO DAILY 02/19/22 12/20/24 chloride ER] Albuterol Sulfate [Albuterol 1 puff INHALATION RT-Q4H PRN 07/07/24 12/20/24 Sulfate Hfa] Ibuprofen [Motrin] 400 mg PO TID PRN 07/07/24 12/20/24 Acetaminophen Tab [Tylenol] 650 mg PO Q6H PRN 10/12/24 12/20/24 Famotidine [Pepcid] 20 mg PO BID 10/12/24 12/20/24 Ergocalciferol [Vitamin D2 (1250 1,250 mcg PO MO 11/16/24 12/20/24 Mcg = 05176 Iu)] Previous Rx's Medication Instructions Recorded Aspirin 81 mg PO DAILY 30 Days #30 tab 11/17/24 Atorvastatin [Lipitor] 20 mg PO HS 30 Days #30 tab 11/17/24 Isosorbide Mononitrate ER [Imdur] 30 mg PO DAILY 30 Days #30 tab 11/17/24 carvediloL [Coreg] 3.125 mg PO BID-W/MEALS 30 Days 11/17/24 #60 tab lisinopriL [Zestril] 20 mg PO DAILY #30 tab 12/07/24 Allergies Allergy/AdvReac Type Severity Reaction Status Date / Time Penicillins Allergy Anaphylaxis Verified 12/23/24 07:25 Review of Systems ROS Statement: Those systems with pertinent positive or pertinent negative responses have been documented in the HPI. ROS Other: All systems not noted in ROS Statement are negative. Past Medical History Past Medical History: Asthma, Hypertension Additional Past Medical History / Comment(s): back pain, migraines History of Any Multi-Drug Resistant Organisms: None Reported Past Surgical History: Pacemaker Past Anesthesia/Blood Transfusion Reactions: No Reported Reaction Type of Cardiac Device: Unknown Device Placement Date:: unknown Past Psychological History: Depression Smoking Status: Former smoker, Vaper, Unknown if ever smoked Past Alcohol Use History: Rare Past Drug Use History: None Reported - Past Family History Father Family Medical History: AICD/Pacemaker, Congestive Heart Failure (CHF) Mother History Unknown: Yes General Exam - General Exam Comments Initial Comments: PHYSICAL EXAM: General Impression: Alert and oriented x3, not in acute distress HEENT: Normocephalic atraumatic, extra-ocular movements intact, pupils equal and reactive to light bilaterally, mucous membranes moist. Cardiovascular: Heart regular rate and rhythm Chest: Able to complete full sentences, no retractions, no tachypnea Abdomen: abdomen soft, non-tender, non-distended, no organomegaly Musculoskeletal: Pulses present and equal in all extremities, no peripheral edema Motor: no focal deficits noted Neurological: CN II-XII grossly intact, no focal motor or sensory deficits noted Skin: Intact with no visualized rashes Psych: Normal affect and mood Limitations: no limitations Course Vital Signs 12/23/24 12/23/24 12/23/24 07:20 08:05 08:30 Temperature 98.1 F 98.1 F Pulse Rate 78 80 86 Respiratory 22 26 H 28 H Rate Blood Pressure 204/125 198/142 189/115 O2 Sat by Pulse 97 95 89 L Oximetry 12/23/24 12/23/24 08:35 08:53 Temperature Pulse Rate 66 Respiratory 24 Rate Blood Pressure 193/124 O2 Sat by Pulse 96 95 Oximetry EKG Findings - EKG Comments: EKG Findings:: My EKG interpretation: Ventricular rate 79, atrial and ventricular paced rhythm.. 194, QRS 9126, QTc 424. No PA prolongation, no QTC prolongation, no ST or T-wave changes noted. Overall, this EKG is unremarkable Medical Decision Making - Medical Decision Making Was pt. sent in by a medical professional or institution (, PA, MANAGER [employer]ES[employer], urgent care, hospital, or snf...) When possible be specific @ -No Did you speak to anyone other than the patient for history (EMS, parent, family, police, friend...)? What history was obtained from this source @ -No Did you review nursing and triage notes (agree or disagree)? Why? @ -I reviewed and agree with nursing and triage notes Were old charts reviewed (outside hosp., previous admission, EMS record, old EKG, old radiological studies, urgent care reports/EKG's, snf records)? Report findings @ -No old charts were reviewed Differential Diagnosis (chest pain, altered mental status, abdominal pain women, abdominal pain men, vaginal bleeding, musculoskeletal, weakness, fever, dyspnea, syncope, headache, dizziness, GI bleed, back pain, seizure, CVA, palpatations, mental health)? @ -Differential Chest Pain: Stable Angina, Unstable Angina, STEMI, NSTEMI Aortic Dissection, Pneumothorax, Musculoskeletal, Esophageal Spasm GERD, Cholecystitis, Pancreatitis, Zoster, this is not meant to be an all-inclusive list. EKG interpreted by me (3pts min.). @ -See above X-rays interpreted by me (1pt min.). @ -Chest x-ray is nonacute CT interpreted by me (1pt min.). @ -None done U/S interpreted by me (1pt. min.). @ -None done What testing was considered but not performed or refused? (CT, X-rays, U/S, labs)? Why? @ -None What meds were considered but not given or refused? Why? @ -None Was smoking cessation discussed for >3mins.? @ -No Were there social determinants of health that impacted care today? How? (Ho melessness, low income, unemployed, alcoholism, drug addiction, transportation, low edu. Level, literacy, decrease access to med. care, fci, rehab)? @ -No Was there de-escalation of care discussed even if they declined (Discuss DNR or withdrawal of care, Hospice)? DNR status @ -No What co-morbidities impacted this encounter? (DM, HTN, Smoking, COPD, CAD, Cancer, CVA, ARF, Chemo, Hep., AIDS, mental health diagnosis, sleep apnea, morbid obesity)? @ -Heart failure, cardiac history Was patient admitted / discharged? Hospital course, mention meds given and route, prescriptions, significant lab abnormalities, going to OR and other pertinent info. @ -54-year-old male well-known to the emergency department for frequent visitations for hypertension. Patient has uncontrolled hypertension. States that he has mild chest ache. His chest symptoms are atypical with typical features. Vital signs are stable. Patient not have any symptoms of hypertensive emergency. Labs are unremarkable. Troponin is negative. Given aspirin will be admitted to observation. Case discussed with hospitalist for admission Did you discuss the management of the patient with other professionals (professionals i.e. , PA, MANAGER [employer], lab, RT, psych nurse, transition social worker, feller seam operator, teacher, first officer and flight instructor, case managers)? Give summary @ -See above Was critical care preformed (if so, how long)? @ -No Undiagnosed new problem with uncertain prognosis? @ -No Drug Therapy requiring intensive monitoring for toxicity (Heparin, Nitro, Insulin, Cardizem)? @ -No Were any procedures done? @ -No Diagnosis/symptom? Acute, or Chronic, or Acute on Chronic? Uncomplicated (without systemic symptoms) or Complicated (systemic symptoms)? @ -Chest pain Side effects of treatment? @ -No Exacerbation, Progression, or Severe Exacerbation? @ -No Poses a threat to life or bodily function? How? (Chest pain, [place], MA, pneumonia, PE, COPD, DKA, ARF, appy, cholecystitis, CVA, Diverticulitis, Homicidal, Suicidal, threat to staff... and all critical care pts) @ -yes - Lab Data Result diagrams: 12/23/24 08:14 12/23/24 08:14 Lab Results 12/23/24 12/23/24 12/23/24 Range/Units 08:14 08:14 08:14 WBC 8.68 (4.50-10.00) 10*3/uL RBC 3.77 L (4.40-5.60) 10*6/uL Hgb 11.8 L (13.0-17.0) g/dL Hct 35.7 L (39.6-50.0) % MCV 94.7 (80.0-97.0) fL MCH 31.3 (27.0-32.0) pg MCHC 33.1 (32.0-37.0) g/dL Plt Count 249 (140-440) 10*3/uL MPV 9.7 (9.5-12.2) fL Immature Gran % (Auto) 0.6 % Neutrophils % 73.7 % Lymphocytes % 10.3 % Monocytes % 10.1 % Eosinophils % 4.4 % Basophils % 0.9 % Immature Gran # 0.05 H (0.00-0.04) 10*3/uL Neutrophils # 6.40 (1.80-7.70) 10*3/uL Lymphocytes # 0.89 L (0.90-5.00) 10*3/uL Monocytes # 0.88 (0.20-1.00) 10*3/uL Eosinophils # 0.38 H (0.04-0.35) 10*3/uL Basophils # 0.08 (0.00-0.10) 10*3/uL PT 10.8 (10.0-12.5) sec INR 1.0 (<1.2) APTT 25.4 (22.0-30.0) sec Sodium 139 (137-145) mmol/L Potassium 4.3 (3.5-5.1) mmol/L Chloride 98 (98-107) mmol/L Carbon Dioxide 35 H (22-30) mmol/L Anion Gap 6 mmol/L BUN 10 (9-20) mg/dL Creatinine 0.77 (0.66-1.25) mg/dL Est GFR (CKD-EPI)AfAm >90 (>60 ml/min/1.73 sqM) Est GFR (CKD-EPI)NonAf >90 (>60 ml/min/1.73 sqM) Glucose 99 (74-99) mg/dL Calcium 9.1 (8.4-10.2) mg/dL Magnesium 2.0 (1.6-2.3) mg/dL Total Bilirubin 1.2 (0.2-1.3) mg/dL AST 31 (17-59) U/L ALT 36 (4-49) U/L Alkaline Phosphatase 73 (38-126) U/L Troponin I (0.000-0.034) ng/mL Total Protein 6.9 (6.3-8.2) g/dL Albumin 4.1 (3.5-5.0) g/dL 12/23/24 Range/Units 08:14 WBC (4.50-10.00) 10*3/uL RBC (4.40-5.60) 10*6/uL Hgb (13.0-17.0) g/dL Hct (39.6-50.0) % MCV (80.0-97.0) fL MCH (27.0-32.0) pg MCHC (32.0-37.0) g/dL Plt Count (140-440) 10*3/uL MPV (9.5-12.2) fL Immature Gran % (Auto) % Neutrophils % % Lymphocytes % % Monocytes % % Eosinophils % % Basophils % % Immature Gran # (0.00-0.04) 10*3/uL Neutrophils # (1.80-7.70) 10*3/uL Lymphocytes # (0.90-5.00) 10*3/uL Monocytes # (0.20-1.00) 10*3/uL Eosinophils # (0.04-0.35) 10*3/uL Basophils # (0.00-0.10) 10*3/uL PT (10.0-12.5) sec INR (<1.2) APTT (22.0-30.0) sec Sodium (137-145) mmol/L Potassium (3.5-5.1) mmol/L Chloride (98-107) mmol/L Carbon Dioxide (22-30) mmol/L Anion Gap mmol/L BUN (9-20) mg/dL Creatinine (0.66-1.25) mg/dL Est GFR (CKD-EPI)AfAm (>60 ml/min/1.73 sqM) Est GFR (CKD-EPI)NonAf (>60 ml/min/1.73 sqM) Glucose (74-99) mg/dL Calcium (8.4-10.2) mg/dL Magnesium (1.6-2.3) mg/dL Total Bilirubin (0.2-1.3) mg/dL AST (17-59) U/L ALT (4-49) U/L Alkaline Phosphatase (38-126) U/L Troponin I <0.012 (0.000-0.034) ng/mL Total Protein (6.3-8.2) g/dL Albumin (3.5-5.0) g/dL Disposition Clinical Impression: Chest pain Disposition: ADMITTED IP TO THIS HOSP Condition: Fair Referrals: Michel Degroot MD [Primary Care Provider] - 1-2 days Decision Time: 09:13
[2024-12-23 08:19] LABS: Basophils # (A) 0.08 10*3/uL (0.00-0.10); Basophils % (A) 0.9 %; Eosinophils # (A) 0.38 10*3/uL (0.04-0.35); Eosinophils % (A) 4.4 %; HCT 35.7 % (39.6-50.0); HGB 11.8 g/dL (13.0-17.0); Lymphocytes # (A) 0.89 10*3/uL (0.90-5.00); Lymphocytes % (A) 10.3 %; MCH 31.3 pg (27.0-32.0); MCHC 33.1 g/dL (32.0-37.0); MCV 94.7 fL (80.0-97.0); Monocytes # (A) 0.88 10*3/uL (0.20-1.00); Monocytes % (A) 10.1 %; Neutrophils # (A) 6.40 10*3/uL (1.80-7.70); Neutrophils % (A) 73.7 %; Platelet Count 249 10*3/uL (140-440); RBC 3.77 10*6/uL (4.40-5.60); RDW 15.9 % (11.5-14.5); WBC 8.68 10*3/uL (4.50-10.00)
--- NOTE | 2024-12-23 08:25 | XR ---
EXAMINATION TYPE: XR chest 2V DATE OF EXAM: 12/23/2024 8:19 AM COMPARISON: Chest radiographs from 12/19/2024. TECHNIQUE: XR chest 2V Frontal and lateral views of the chest. CLINICAL INDICATION:Male, 54 years old with history of Chest Pain; FINDINGS: Lungs/Pleura: There is no evidence of pleural effusion, focal consolidation, or pneumothorax. Pulmonary vascularity: Mild central pulmonary vascular congestion. Heart/mediastinum: Cardiomediastinal silhouette is enlarged and stable. Two lead cardiac conduction d evice overlying the left hemithorax with lead tips projecting over the right ventricle and right atri um. Musculoskeletal: No acute osseous pathology. IMPRESSION: Cardiomegaly and mild central pulmonary vascular congestion. Correlate with BNP for congestive heart failure. [facility], , 12/23/2024 8:23 AM
[2024-12-23 08:32] LABS: ALT 36 U/L (4-49); African American GFR (CKD) >90 (>60 ml/min/1.73 sqM); Albumin 4.1 g/dL (3.5-5.0); Anion Gap 6 mmol/L; Blood Urea Nitrogen 10 mg/dL (9-20); Calcium 9.1 mg/dL (8.4-10.2); Carbon Dioxide 35 mmol/L (22-30); Chloride 98 mmol/L (98-107); Glucose 99 mg/dL (74-99); Non-African American GFR(CKD) >90 (>60 ml/min/1.73 sqM); Sodium 139 mmol/L (137-145); Total Protein 6.9 g/dL (6.3-8.2)
[2024-12-23 08:34] LABS: AST 31 U/L (17-59); Alkaline Phosphatase 73 U/L (38-126); Magnesium 2.0 mg/dL (1.6-2.3); Potassium 4.3 mmol/L (3.5-5.1)
[2024-12-23 08:39] LABS: INR 1.0 (<1.2)
[2024-12-23 08:40] LABS: Partial Thromboplastin Time 25.4 sec (22.0-30.0); Prothrombin Time 10.8 sec (10.0-12.5)
[2024-12-23] MEDS: ASPIRIN 81 MG PO STA (09:40)
[2024-12-23] MEDS: hydrALAZINE HCL 20 MG/ML 1 ML VIAL IVP STA (09:41)
[2024-12-23] MEDS ORDERED: ALBUTEROL NEBULIZED 2.5 MG/3 ML INHALATION PRN (09:47)
[2024-12-23] MEDS: ISOSORBIDE MONONITRATE ER 30 MG TAB.ER.24H PO SCH (10:45)
[2024-12-23] MEDS: OXYBUTYNIN 15 MG TAB.ER.24 PO SCH (11:25)
--- NOTE | 2024-12-23 12:54 | P.HPIM ---
History of Present Illness H&P Date: 12/23/24 History of Presenting Illness: Patient is a pleasant 54-year-old male with a past medical history of sick sinus syndrome status post permanent pacemaker placement, hypertension, chronic back pain, COPD/asthma with suspected underlying sleep apnea and continued nicotine dependence, and depression. He presented to the hospital with a chief complaint of chest pain. Patient has had multiple hospitalizations over the past 2 months secondary to recurrent episodes of uncontrolled hypertension, COPD, and chest pain. He has a history of noncompliance with medications and follow-up appointments. Patient reports he ran out of his antihypertensive medication yesterday and called his doctor today for a refill because his blood pressure was >200 and he developed some mild chest discomfort. However, pt reports that his PCP told him he had to go to the emergency department for hypertensive emergency and evaluation of his chest pain. Patient denies having any dizziness, lightheadedness, palpitations, increased or changes in his chronic shortness of breath, increased or changes in his chronic cough, abdominal pain, nausea, vomiting, difficulties with or changes in his urinary or bowel function, or experiencing any numbness/tingling/increased swelling in his extremities. Upon arrival to our facility, patient underwent evaluation in the emergency department. Vital signs upon arrival show blood pressure 204/125, heart rate 78, respiratory rate 22, temp 98.1 F, and SpO2 of 97% on room air. EKG completed showing a ventricular paced rhythm at 79 bpm. Chest x-ray completed showing cardiomegaly and mild central pulmonary vascular congestion. Labs completed and reviewed. CBC showing stable normocytic anemia with hemoglobin of 11.8. Coagulation profile normal findings. BMP showing hypercarbia with bicarb of 35 otherwise normal findings. Blood glucose 99. Calcium 9.1. Magnesium 2.0. Liver profile unremarkable. Troponin is negative at less than 0.012. Review of systems: Pertinent positives and negatives as discussed in HPI, a complete review of systems was performed and all other systems are negative. Physical exam: Vital signs reviewed and stable. General: Nontoxic, no distress and appears stated age. Obese. Derm: Skin warm and dry, normal coloration for ethnicity. Head: Atraumatic, normocephalic and symmetric. Eyes: EOM's intact, no lid lag, and anicteric sclera Mouth: no lip lesions, mucus membranes moist Cardiovascular: regular rate and rhythm with normal S1S2, no murmur, positive posterior tibial pulses bilaterally, and cap refill < 2 seconds. Lungs: Respirations even, regular, and unlabored on room air. Lungs CTA bilaterally, no rhonchi, no rales, no wheezing, and no accessory muscle usage. Abdominal: soft obese abdomen, nontender to palpation, no guarding, no apprec iable organomegaly Ext: ROM intact. No gross muscle atrophy, no edema, no contractures Neuro: Speech clear, face symmetrical and CN II-XII grossly intact with no noted focal neuro deficits Psych: Alert and oriented to person, place, time, and situation. Appropriate and pleasant affect. Assessment and Plan of Care: Chest pain, rule out acute coronary event Hypertensive urgency upon arrival, secondary to medication noncompliance History of sick sinus syndrome status post permanent pacemaker placement -Cardiology consulted, appreciate recommendations -Telemetry monitoring -Trend troponins -Aspirin 81 mg daily, atorvastatin 20 mg nightly, carvedilol 6.25 mg, and lis inopril 20 mg daily. -Lipid profile with a.m. labs. -Echocardiogram recently completed on 12/04/2024 was reviewed showing a preserved EF of 50% with no significant valvular or structural abnormalities reported. COPD, not in acute exacerbation Suspected underlying obstructive sleep apnea, patient reports previous diagnosis but has not followed up with completion of sleep study for BiPAP Continue Ventolin nebulizer treatments every 4 hours as needed for wheezing/shortness of breath. Nicotine dependence Recommend smoking cessation. Chronic back pain Symptomatic care and pain management with Tylenol 650 mg every 6 hours as needed for mild pain and [place] 5/325 mg every 4 hours as needed for moderate pain. Data and imaging reviewed: As stated above in HPI The patient is admitted with an anticipated less than 2 midnight stay for evaluation of chest pain CODE STATUS: Full code Discussed with: Patient, RN, and ED physician Anticipated discharge date: Pending clinical course, likely within the next 24 [address]: Home Patient was seen independently by Nurse Practitioner. This document was prepared using [employer] dictation software. Please allow for errors in statistics manager while rare they do occur. Raul Salinas NP rendered care for this patient independently, reviewed the findings and plan as documented in the note above and agree with plan. I did not physically speak with or examine the patient on this date. Past Medical History Past Medical History: Asthma, Hypertension Additional Past Medical History / Comment(s): back pain, migraines History of Any Multi-Drug Resistant Organisms: None Reported Past Surgical History: Pacemaker Past Anesthesia/Blood Transfusion Reactions: No Reported Reaction Type of Cardiac Device: Unknown Device Placement Date:: unknown Past Psychological History: Depression Smoking Status: Former smoker, Vaper, Unknown if ever smoked Past Alcohol Use History: Rare Past Drug Use History: None Reported - Past Family History Father Family Medical History: AICD/Pacemaker, Congestive Heart Failure (CHF) Mother History Unknown: Yes Medications and Allergies Home Medications Medication Instructions Recorded Confirmed Type Oxybutynin Chloride [oxyBUTYnin 15 mg PO DAILY 02/19/22 12/23/24 History chloride ER] Ibuprofen [Motrin] 400 mg PO TID PRN 07/07/24 12/23/24 History Acetaminophen Tab [Tylenol] 650 mg PO Q6H PRN 10/12/24 12/23/24 History Famotidine [Pepcid] 20 mg PO BID 10/12/24 12/23/24 History Ergocalciferol [Vitamin D2 (1250 1,250 mcg PO MO 11/16/24 12/23/24 History Mcg = 63634 Iu)] Albuterol Sulfate [Albuterol 1 puff INHALATION RT-Q4H PRN #1 inh 12/23/24 Rx Sulfate Hfa] Aspirin 81 mg PO DAILY 30 Days #30 tab 12/23/24 Rx Atorvastatin [Lipitor] 20 mg PO HS 30 Days #30 tab 12/23/24 Rx Colchicine [Colcrys] 0.6 mg PO BID 30 Days #60 each 12/23/24 Rx Isosorbide Mononitrate ER [Imdur] 30 mg PO DAILY 30 Days #30 tab 12/23/24 Rx Triamterene-Hctz 37.5-25Mg 1 each PO DAILY 30 Days #30 cap 12/23/24 Rx [Dyazide 37.5-25 Capsule] carvediloL [Coreg] 6.25 mg PO BID-W/MEALS 30 Days #60 12/23/24 Rx tab lisinopriL [Zestril] 20 mg PO DAILY #30 tab 12/23/24 Rx Allergies Allergy/AdvReac Type Severity Reaction Status Date / Time Penicillins Allergy Anaphylaxis Verified 12/23/24 10:52 Physical Exam Vitals: Vital Signs Temp Pulse Resp BP Pulse Ox 12/23/24 09:38 63 22 192/108 97 12/23/24 08:53 66 24 193/124 95 12/23/24 08:35 96 12/23/24 08:30 86 28 H 189/115 89 L 12/23/24 08:05 98.1 F 80 26 H 198/142 95 12/23/24 07:20 98.1 F 78 22 204/125 97 Intake and Output 12/22/24 12/23/24 12/23/24 22:59 06:59 14:59 Other: Weight 151.046 kg Results CBC & Chem 7: 12/23/24 08:14 12/23/24 08:14 Labs: Abnormal Lab Results - Last 24 Hours (Table) 12/23/24 12/23/24 Range/Units 08:14 08:14 RBC 3.77 L (4.40-5.60) 10*6/uL Hgb 11.8 L (13.0-17.0) g/dL Hct 35.7 L (39.6-50.0) % Immature Gran # 0.05 H (0.00-0.04) 10*3/uL Lymphocytes # 0.89 L (0.90-5.00) 10*3/uL Eosinophils # 0.38 H (0.04-0.35) 10*3/uL Carbon Dioxide 35 H (22-30) mmol/L
--- NOTE | 2024-12-23 13:08 | P.CRDCN ---
History of Present Illness Consult date: 12/23/24 Consult reason: chest pain History of present illness: This is a 54-year-old male with past medical history of COPD, asthma, hypertension, permanent pacemaker implantation for sick sinus syndrome, depression, remote history of tobacco use and dependence, obstructive sleep apnea without CPAP, morbid obesity. Patient is a poor historian. We have been asked to evaluate the patient for chest pain. Patient has had multiple hospitalizations in the past several months most recently was seen during November admission for chest discomfort and acute coronary syndrome was ruled out. Patient has not followed up in the office on any occasion. He complains of chest pain that has been going on for the past month. He states it has been constant since this morning. Patient presented with blood pressure of 204/125. He is status post 1 dose of hydralazine and was resumed back on his home medications this morning. Blood pressure 167/96, heart rates in the 60s, pulse ox 97% on 2 L nasal cannula. Patient is seen today in the emergency center wait ing for a bed on the observation unit. -EKG: Paced rhythm. -Chest x-ray: Cardiomegaly with mild central pulmonary vascular congestion. -Laboratory studies: WBC 8.6, hemoglobin 11.8, creatinine 0.77. Troponin negative x 2. -Home cardiac medications: Aspirin 81 mg daily, atorvastatin 20 mg at bedtime, Coreg 3.125 mg twice daily, Imdur 30 mg daily, lisinopril 20 mg daily. -Dual-chamber permanent pacemaker implantation performed at [facility] for sick sinus syndrome and symptomatic bradycardia and sinus pauses on 09/21/2024 -Echocardiogram performed 12/03/2024 revealed EF of 50%. Technically difficult study. -Dobutamine stress echocardiogram performed at [facility] on 05/12/2024 revealed mild EKG changes and recovery with a dobutamine. Normal echocardiogram and response to dobutamine. Review Of Systems: At the time of my exam: CONSTITUTIONAL: Denies fever or chills. HEENT: Denies blurred vision, vision changes, or eye pain. Denies hemoptysis CARDIOVASCULAR: Reports chest pain. Denies orthopnea. Denies PND. Denies palpitations RESPIRATORY: Denies shortness of breath. GASTROINTESTINAL: Denies abdominal pain. Denies nausea or vomiting. HEMATOLOGIC: Denies bleeding disorders. GENITOURINARY: Denies any blood in urine. SKIN: Denies puritis. Denies rash. Physical examination: Gen: This is-year-old male in no acute distress VS: reviewed HEENT: Head is atraumatic, normocephalic. Pupils equal, round. Sclerae is anicteric. NECK: Supple. No JVD. LUNGS: Clear to auscultation. No wheezes or rhonchi. No intercostal retractions. HEART: Regular rate and rhythm. + Chest wall tenderness ABDOMEN: Soft No tenderness. EXTREMITIES: No pedal edema. No calf tenderness. NEUROLOGICAL: Patient is awake, alert and oriented x3. Assessment: Atypical chest pain, acute coronary syndrome ruled out Chest pain secondary to musculoskeletal pain Hypertension uncontrolled Permanent pacemaker implantation for sick sinus syndrome Depression COPD Asthma Remote history of tobacco use and dependence Obstructive sleep apnea without CPAP as he is unable to make appointments Morbid obesity with BMI of 53 Plan: Resume patient's home cardiac medications with the following changes: Increase Coreg to 6.25 mg twice daily Discontinue Imdur as patient has no documented coronary artery disease Provide patient colchicine 1.2 mg once followed by 0.6 mg 2 rule out possible m ild subclinical pericarditis Monitor blood pressure No need to repeat echocardiogram as this was done last month that were performed in November No plan for any further cardiac workup Cardiology will sign off this case and follow on an as-needed basis. Please reconsult for any new concerns. Patient may follow-up in the office in one to 2 weeks. Thank you kindly for this consultation. Nurse practitioner note has been reviewed, I agree with documented findings and plan of care. Patient was seen and examined. Past Medical History Past Medical History: Asthma, Hypertension Additional Past Medical History / Comment(s): back pain, migraines History of Any Multi-Drug Resistant Organisms: None Reported Past Surgical History: Pacemaker Past Anesthesia/Blood Transfusion Reactions: No Reported Reaction Type of Cardiac Device: Unknown Device Placement Date:: unknown Past Psychological History: Depression Smoking Status: Former smoker, Vaper, Unknown if ever smoked Past Alcohol Use History: Rare Past Drug Use History: None Reported - Past Family History Father Family Medical History: AICD/Pacemaker, Congestive Heart Failure (CHF) Mother History Unknown: Yes Medications and Allergies Home Medications Medication Instructions Recorded Confirmed Type Oxybutynin Chloride [oxyBUTYnin 15 mg PO DAILY 02/19/22 12/23/24 History chloride ER] Albuterol Sulfate [Albuterol 1 puff INHALATION RT-Q4H PRN 07/07/24 12/23/24 History Sulfate Hfa] Ibuprofen [Motrin] 400 mg PO TID PRN 07/07/24 12/23/24 History Acetaminophen Tab [Tylenol] 650 mg PO Q6H PRN 10/12/24 12/23/24 History Famotidine [Pepcid] 20 mg PO BID 10/12/24 12/23/24 History Ergocalciferol [Vitamin D2 (1250 1,250 mcg PO MO 11/16/24 12/23/24 History Mcg = 84985 Iu)] Aspirin 81 mg PO DAILY 30 Days #30 tab 11/17/24 12/23/24 Rx Atorvastatin [Lipitor] 20 mg PO HS 30 Days #30 tab 11/17/24 12/23/24 Rx Isosorbide Mononitrate ER [Imdur] 30 mg PO DAILY 30 Days #30 tab 11/17/24 12/23/24 Rx carvediloL [Coreg] 3.125 mg PO BID-W/MEALS 30 Days 11/17/24 12/23/24 Rx #60 tab lisinopriL [Zestril] 20 mg PO DAILY #30 tab 12/07/24 12/23/24 Rx Allergies Allergy/AdvReac Type Severity Reaction Status Date / Time Penicillins Allergy Anaphylaxis Verified 12/23/24 10:52 Physical Exam Vitals: Vital Signs Temp Pulse Resp BP Pulse Ox 12/23/24 11:29 61 28 H 167/96 97 12/23/24 10:40 66 22 191/110 98 12/23/24 09:38 63 22 192/108 97 12/23/24 08:53 66 24 193/124 95 12/23/24 08:35 96 12/23/24 08:30 86 28 H 189/115 89 L 12/23/24 08:05 98.1 F 80 26 H 198/142 95 12/23/24 07:20 98.1 F 78 22 204/125 97 Intake and Output 12/22/24 12/23/24 12/23/24 22:59 06:59 14:59 Other: Weight 151.046 kg Results 12/23/24 08:14 12/23/24 08:14 Cardiac Enzymes 12/23/24 12/23/24 12/23/24 Range/Units 08:14 08:14 10:43 AST 31 (17-59) U/L Troponin I <0.012 <0.012 (0.000-0.034) ng/mL Coagulation 12/23/24 Range/Units 08:14 PT 10.8 (10.0-12.5) sec APTT 25.4 (22.0-30.0) sec CBC 12/23/24 Range/Units 08:14 WBC 8.68 (4.50-10.00) 10*3/uL RBC 3.77 L (4.40-5.60) 10*6/uL Hgb 11.8 L (13.0-17.0) g/dL Hct 35.7 L (39.6-50.0) % Plt Count 249 (140-440) 10*3/uL Comprehensive Metabolic Panel 12/23/24 Range/Units 08:14 Sodium 139 (137-145) mmol/L Potassium 4.3 (3.5-5.1) mmol/L Chloride 98 (98-107) mmol/L Carbon Dioxide 35 H (22-30) mmol/L BUN 10 (9-20) mg/dL Creatinine 0.77 (0.66-1.25) mg/dL Glucose 99 (74-99) mg/dL Calcium 9.1 (8.4-10.2) mg/dL AST 31 (17-59) U/L ALT 36 (4-49) U/L Alkaline Phosphatase 73 (38-126) U/L Total Protein 6.9 (6.3-8.2) g/dL Albumin 4.1 (3.5-5.0) g/dL Current Medications Generic Name Dose Route Start Last Admin Trade Name Freq PRN Reason Stop Dose Admin Albuterol Sulfate 2.5 mg 12/23/24 09:47 Albuterol Nebulized 2.5 Mg/3 Ml INHALATION RT-Q4H PRN Shortness Of Breath Aspirin 81 mg 12/24/24 09:00 Aspirin 81 Mg PO DAILY [facility] Atorvastatin Calcium 20 mg 12/23/24 21:00 Atorvastatin 20 Mg Tab PO [facility] Carvedilol 3.125 mg 12/23/24 10:00 12/23/24 10:45 Carvedilol 3.125 Mg Tab PO 3.125 mg BID-W/MEALS GISSELL Administration Ergocalciferol 1,250 mcg 12/28/24 09:00 Ergocalciferol 1,250 Mcg (50,000 Iu) Capsule PO MO GISSELL Famotidine 20 mg 12/23/24 21:00 Famotidine 20 Mg Tab PO BID GISSELL Isosorbide Mononitrate 30 mg 12/23/24 10:00 12/23/24 10:45 Isosorbide Mononitrate Er 30 Mg Tab.Er.24h PO 30 mg DAILY GISSELL Administration Lisinopril 20 mg 12/23/24 10:00 12/23/24 10:45 Lisinopril 20 Mg Tab PO 20 mg DAILY GISSELL Administration Nitroglycerin 0.4 mg 12/23/24 09:09 Nitroglycerin Sl Tabs 0.4 Mg Tab SUBLINGUAL Q5M PRN Chest Pain Oxybutynin Chloride 15 mg 12/23/24 10:00 12/23/24 11:25 Oxybutynin 15 Mg Tab.Er.24 PO 15 mg DAILY GISSELL Administration Intake and Output 12/22/24 12/23/24 12/23/24 22:59 06:59 14:59 Other: Weight 151.046 kg Patient Weight 12/24/24 06:59 Weight 151.046 kg 12/23/24 08:14 12/23/24 08:14
[2024-12-23] MEDS ORDERED: HYDROcodone/APAP 5-325MG 1 EACH TAB PO PRN (13:32)
[2024-12-23] MEDS: NITROGLYCERIN SL TABS 0.4 MG TAB SUBLINGUAL PRN (13:52)
[2024-12-23] MEDS: TRIAMTERENE-HCTZ 37.5-25MG 1 EACH CAP PO SCH (13:54)
[2024-12-23] MEDS: COLCHICINE 0.6 MG EACH PO SCH (13:54)
--- NOTE | 2024-12-23 15:21 | P.DS ---
Providers Date of admission: 12/23/24 09:12 Expected date of discharge: 12/23/24 Attending physician: Omar Mckenna Consults: 12/23/24 09:09 Consult Physician Urgent Consulting Provider: Pedrito Coronado Consult Reason/Comments: chest pain Do you want consulting provider notified?: Yes Primary care physician: Michel Degroot Hospital Course: Discharge Diagnosis: Chest pain, acute coronary event ruled out. Cardiology cleared patient from cardiac perspective for discharge. Patient medically optimized for discharge and to continue daily cardiac medication regimen with aspirin 81 mg daily, atorvastatin 20 mg nightly, carvedilol 6.25 mg, isosorbide mononitrate 30 mg daily, Dyazide 37.5-25 mg tablets daily and lisinopril 20 mg daily. Hypertensive urgency upon arrival, secondary to medication noncompliance. Blood pressure is much better controlled after receiving antihypertensive medication regimen along with new medications of increased carvedilol dose and Dyazide 37.5-25 mg tablets daily. Prescriptions sent as patient requested for 30-day supply of all of patient's cardiac medications. Patient strongly encouraged to follow-up outpatient with his PCP and artificial limb maker as discussed. Blood pressure at time of discharge 143/83 with heart rate of 70. History of sick sinus syndrome status post permanent pacemaker placement COPD, not in acute exacerbation Suspected underlying obstructive sleep apnea, patient reports previous diagnosis but has not followed up with completion of sleep study for BiPAP Nicotine dependence. Recommend smoking cessation. Chronic back pain Hospital Course: Patient is a pleasant 54-year-old male with a past medical history of sick sinus syndrome status post permanent pacemaker placement, hypertension, chronic back pain, COPD/asthma with suspected underlying sleep apnea and continued nicotine dependence, and depression. He presented to the hospital with a chief complaint of chest pain. Patient has had multiple hospitalizations over the past 2 months secondary to recurrent episodes of uncontrolled hypertension, COPD, and chest pain. He has a history of noncompliance with medications and follow-up appointments. Patient reports he ran out of his antihypertensive medication yesterday and called his doctor today for a refill because his blood pressure was >200 and he developed some mild chest discomfort. However, pt reports that his PCP told him he had to go to the emergency department for hypertensive emergency and evaluation of his chest pain. Patient denies having any dizziness, lightheadedness, palpitations, increased or changes in his chronic shortness of breath, increased or changes in his chronic cough, abdominal pain, nausea, vomiting, difficulties with or changes in his urinary or bowel function, or experiencing any numbness/tingling/increased swelling in his extremities. Upon arrival to our facility, patient underwent evaluation in the emergency department. Vital signs upon arrival show blood pressure 204/125, heart rate 78, respiratory rate 22, temp 98.1 F, and SpO2 of 97% on room air. EKG completed showing a ventricular paced rhythm at 79 bpm. Chest x-ray completed showing cardiomegaly and mild central pulmonary vascular congestion. Labs completed and reviewed. CBC showing stable normocytic anemia with hemoglobin of 11.8. Coagulation profile normal findings. BMP showing hypercarbia with bicarb of 35 otherwise normal findings. Blood glucose 99. Calcium 9.1. Magnesium 2.0. Liver profile unremarkable. Troponin is negative at less than 0.012. Patient was admitted under services with consultation to cardiology. Troponins were trended and negative at less than 0.012 x 2 draws. Cardiology evaluated starting patient on colchicine 0.6 mg twice daily, Dyazide 37.5-25 mg tablets daily, and increasing Coreg to 6.25 mg twice daily. Acute coronary event ruled out. Cardiology stating no need to repeat echocardiogram as it was completed last month and clearing patient from cardiac perspective for discharge, strongly recommending patient to be compliant and follow-up with their office in 1 to 2 weeks. Patient medically optimized at this time, blood pressure is much better controlled since patient receiving daily and new antihypertensive medications. Blood pressure 143/83 and heart rate 70. Prescriptions were sent per patient's request for all of his antihypertensive/cardiac medications. Patient strongly encouraged to follow-up outpatient with PCP in 1 to 2 days, artificial limb maker in 1 to 2 weeks, and again encouraged to follow-up with tourist cabin keeper for completion of sleep study and obtaining a CPAP/BiPAP for suspected and reported previously diagnosed obstructive sleep apnea. Physical exam: Vital signs reviewed and stable. General: Nontoxic, no distress and appears stated age. Obese. Derm: Skin warm and dry, normal coloration for ethnicity. Head: Atraumatic, normocephalic and symmetric. Eyes: EOM's intact, no lid lag, and anicteric sclera Mouth: no lip lesions, mucus membranes moist Cardiovascular: regular rate and rhythm with normal S1S2, no murmur, positive po sterior tibial pulses bilaterally, and cap refill < 2 seconds. Lungs: Respirations even, regular, and unlabored on room air. Lungs CTA bilaterally, no rhonchi, no rales, no wheezing, and no accessory muscle usage. Abdominal: soft obese abdomen, nontender to palpation, no guarding, no appreciable organomegaly Ext: ROM intact. No gross muscle atrophy, no edema, no contractures Neuro: Speech clear, face symmetrical and CN II-XII grossly intact with no noted focal neuro deficits Psych: Alert and oriented to person, place, time, and situation. Appropriate and pleasant affect. A total of 35 minutes of time were spent preparing this complex discharge summary. Pt was discharged on 12/23/2024 at 3:19 PM. Patient was seen independently by Nurse Practitioner. This document was prepared using [employer] dictation software. Please allow for errors in class b truck driver while rare they do occur. Raul Slainas NP rendered care for this patient independently, reviewed the findings and plan as documented in the note above. I did not physically speak with or examine the patient on this date. Patient Condition at Discharge: Stable Plan - Discharge Summary New Discharge Prescriptions: New Colchicine [Colcrys] 0.6 mg PO BID 30 Days #60 each Triamterene-Hctz 37.5-25Mg [Dyazide 37.5-25 Capsule] 1 each PO DAILY 30 Days #30 cap carvediloL [Coreg] 6.25 mg PO BID-W/MEALS 30 Days #60 tab Continue Oxybutynin Chloride [oxyBUTYnin chloride ER] 15 mg PO DAILY Ibuprofen [Motrin] 400 mg PO TID PRN PRN Reason: Pain Acetaminophen Tab [Tylenol] 650 mg PO Q6H PRN PRN Reason: Pain Or Fever > 100.5 Ergocalciferol [Vitamin D2 (1250 Mcg = 01382 Iu)] 1,250 mcg PO MO Albuterol Sulfate [Albuterol Sulfate Hfa] 1 puff INHALATION RT-Q4H PRN #1 inh PRN Reason: Shortness Of Breath Aspirin 81 mg PO DAILY 30 Days #30 tab Famotidine [Pepcid] 20 mg PO BID Isosorbide Mononitrate ER [Imdur] 30 mg PO DAILY 30 Days #30 tab Atorvastatin [Lipitor] 20 mg PO HS 30 Days #30 tab lisinopriL [Zestril] 20 mg PO DAILY #30 tab Discontinued carvediloL [Coreg] 3.125 mg PO BID-W/MEALS 30 Days #60 tab Discharge Medication List Oxybutynin Chloride [oxyBUTYnin chloride ER] 15 mg PO DAILY 02/19/22 [History] Ibuprofen [Motrin] 400 mg PO TID PRN 07/07/24 [History] Acetaminophen Tab [Tylenol] 650 mg PO Q6H PRN 10/12/24 [History] Famotidine [Pepcid] 20 mg PO BID 10/12/24 [History] Ergocalciferol [Vitamin D2 (1250 Mcg = 56135 Iu)] 1,250 mcg PO MO 11/16/24 [History] Albuterol Sulfate [Albuterol Sulfate Hfa] 1 puff INHALATION RT-Q4H PRN #1 inh 12/23/24 [Rx] Aspirin 81 mg PO DAILY 30 Days #30 tab 12/23/24 [Rx] Atorvastatin [Lipitor] 20 mg PO HS 30 Days #30 tab 12/23/24 [Rx] Colchicine [Colcrys] 0.6 mg PO BID 30 Days #60 each 12/23/24 [Rx] Isosorbide Mononitrate ER [Imdur] 30 mg PO DAILY 30 Days #30 tab 12/23/24 [Rx] Triamterene-Hctz 37.5-25Mg [Dyazide 37.5-25 Capsule] 1 each PO DAILY 30 Days #30 cap 12/23/24 [Rx] carvediloL [Coreg] 6.25 mg PO BID-W/MEALS 30 Days #60 tab 12/23/24 [Rx] lisinopriL [Zestril] 20 mg PO DAILY #30 tab 12/23/24 [Rx] Follow up Appointment(s)/Referral(s): Edgardo Avelar MD [STAFF PHYSICIAN] - 1 Week Michel Degroot MD [Primary Care Provider] - 1-2 days Patient Instructions/Handouts: Hypertensive Crisis (DC), Chest Pain (DC), How to Stop Smoking (DC) Activity/Diet/Wound Care/Special Instructions: Activity: As tolerated. Take breaks as needed. Diet: Heart healthy and carb consistent diet. Avoid salts, or foods with hidden salts such as canned or boxed foods and frozen dinners. Extra salt makes your heart work harder and traps the fluid in your body for longer. Special Instructions: New prescriptions were sent for all of your cardiac medications as you requested and stated you needed. It is highly recommended that you take all of these medications as directed and remember to keep all of your doctor's appointments and follow-up appointments as needed. It is also highly recommended that you follow-up with your tourist cabin keeper for your sleep study and CPAP/BiPAP machine as previously instructed. Your carvedilol dose was changed from 3.125 mg twice daily to 6.25 mg twice heladio ly. Thank you for allowing us to participate in your care, it was truly a pleasure having you for our patient!!! Discharge Disposition: HOME SELF-CARE
[2024-12-23] MEDS: ACETAMINOPHEN TAB 325 MG TAB PO PRN (15:33)
[2024-12-23 16:07] VITALS: BP 122/84; PULSE 66; RESP 20; TEMP 97.4
[2024-12-23] MEDS ORDERED: FAMOTIDINE 20 MG TAB PO SCH (21:00)
[2024-12-23] MEDS ORDERED: COLCHICINE 0.6 MG EACH PO SCH (21:00)
[2024-12-23] MEDS ORDERED: ATORVASTATIN 20 MG TAB PO SCH (21:00)
[2024-12-24] MEDS ORDERED: ASPIRIN 325 MG TAB PO SCH (09:00)
[2024-12-24] MEDS ORDERED: ASPIRIN 81 MG PO SCH (09:00)
[2024-12-28] MEDS ORDERED: ERGOCALCIFEROL 1,250 MCG (50,000 IU) CAPSULE PO SCH (09:00)
== END 2024-12-23 17:20 | disposition home or self-care (01) ==
LOC: EC 07:15 → 6NMEDSUR 09:12
PROVIDERS: ADMIT Student in an Organized Health Care Education/Training Program; ATTEND Student in an Organized Health Care Education/Training Program
DX: I16.1 Hypertensive emergency (principal); I10 Essential (primary) hypertension; F32.A Depression, unspecified; J44.89 Other specified chronic obstructive pulmonary disease; G47.33 Obstructive sleep apnea (adult) (pediatric); M54.9 Dorsalgia, unspecified; G89.29 Other chronic pain; I49.5 Sick sinus syndrome; E66.01 Morbid (severe) obesity due to excess calories; F17.290 Nicotine dependence, other tobacco product, uncomplicated; Z68.43 Body mass index [BMI] 50.0-59.9, adult; Z91.148 Patient's other noncompliance with medication regimen for other reason; Z95.0 Presence of cardiac pacemaker; Z79.899 Other long term (current) drug therapy; Z79.82 Long term (current) use of aspirin; Z88.0 Allergy status to penicillin; Z82.49 Family history of ischemic heart disease and other diseases of the circulatory system
CPT/HCPCS: 96374; 99285; 36415; 93005; 80053; 83735; 84484; 85025; 85610; 85730; 71046; G0378; J0360